=== PATIENT | female | born 1990 | race Caucasian/White ===

== ENCOUNTER → 2018-08-12 09:39 | Outpatient (CLI) | payer OTHER, SELFPAY ==
[2018-08-12 10:41] LABS: Glucose 75GTT - Fasting 89 mg/dL (70-99)
[2018-08-12 10:55] LABS: Insulin 75GTT - Fasting 4.3 mU/L (2.6-37.6)
[2018-08-12 10:55] LABS: T3 Total - Triiodothyronine 0.85 ng/mL (0.6-1.81); Vitamin B12 879 pg/mL (211-911); Vitamin D,25 Hydroxy 15.9 ng/mL (29.95-100.01)
[2018-08-12 11:09] LABS: Glucose 75GTT - 30 minutes 97 mg/dL (100-160)
[2018-08-12 11:23] LABS: Insulin 75GTT - 30 MIN 36.4 mU/L (Not Estab.)
[2018-08-12 12:05] LABS: ALB/GLOB Ratio 1.2 RATIO (0.9-2.4); AST(SGOT) 19 U/L (15-37); Alanine Aminotransfer ALT/SGPT 28 U/L (13-56); Albumin, Serum 4.2 g/dL (3.2-5.0); Alkaline Phosphatase 48 U/L (45-117); Anion Gap 7 (5-15); BUN 11 mg/dL (7-18); BUN/Creat Ratio 16.9 RATIO (10-20); Chloride 107 mmol/L (98-107); Creatinine, Serum 0.65 mg/dL (0.55-1.02); EST Glomerular Filtration Rate 116 mL/min (>60); Est Glom Filt Rate - Afr Amer 140 mL/min (>60); Follicle Stimulating Hormone 7.1 mIU/mL; Globulin 3.5 g/dL (2.2-4.2); Glucose 84 mg/dL (74-106); Potassium 4.1 mmol/L (3.5-5.1); Prolactin 15.9 ng/mL; Protein, Total 7.7 g/dL (6.4-8.2); Sodium Level 141 mmol/L (136-145); T4 Free Direct 0.87 ng/dL (0.76-1.46); Thyroid Stim Hormone (TSH) 3.16 uIU/mL (0.358-3.74)
[2018-08-12 12:34] LABS: Glucose 75GTT - 60 minutes 76 mg/dL (100-160)
[2018-08-12 13:48] LABS: Glucose 75GTT - 120 minutes 63 mg/dL (70-140)
[2018-08-12 14:27] LABS: Insulin 75GTT - 120 min 12.4 mU/L (Not Estab.)
[2018-08-13 04:08] LABS: DHEA Sulfate 165.7 ug/dL (84.8-378.0)
[2018-08-13 09:27] LABS: Sex Hormone-binding Globulin 62.7 nmol/L (24.6-122.0)
== END ==
PROVIDERS: Referring Provider Obstetrics & Gynecology; Visit Provider Obstetrics & Gynecology
DX: R73.09 Other abnormal glucose (principal); E28.8 Other ovarian dysfunction; E28.9 Ovarian dysfunction, unspecified; N94.5 Secondary dysmenorrhea
CPT/HCPCS: 36415; 80053; 82306; 82533; 82607; 82627; 82670; 82951; 82952; 83001; 83498; 83525; 83921; 84146; 84270; 84403; 84439; 84443; 84480; 82626

== ENCOUNTER → 2019-02-28 14:07 | Outpatient (CLI) | payer OTHER, SELFPAY ==
[2019-02-28 15:46] LABS: Thyroid Stim Hormone (TSH) 2.05 uIU/mL (0.358-3.74)
== END ==
PROVIDERS: Referring Provider Obstetrics & Gynecology Reproductive Endocrinology; Visit Provider Obstetrics & Gynecology Reproductive Endocrinology
DX: E02 Subclinical iodine-deficiency hypothyroidism (principal)
CPT/HCPCS: 36415; 84443

== ENCOUNTER → 2019-03-14 14:03 | Outpatient (CLI) | payer OTHER, SELFPAY ==
[2019-03-14 15:51] LABS: Rubella IgG 44.1 IU/mL
[2019-03-20 11:41] LABS: Anti-Mullerian Hormone,Serum 2.15 ng/mL (.); V-Zoster IgG (Immunity) 857 index (Immune >165)
== END ==
PROVIDERS: Referring Provider Obstetrics & Gynecology Reproductive Endocrinology; Visit Provider Obstetrics & Gynecology Reproductive Endocrinology
DX: Z31.41 Encounter for fertility testing (principal); Z01.83 Encounter for blood typing; Z11.59 Encounter for screening for other viral diseases
CPT/HCPCS: 36415; 83516; 86762; 86787; 86900; 86901

== ENCOUNTER → 2019-09-05 11:15 | Outpatient (CLI) | payer OTHER, SELFPAY ==
[2019-09-05 11:59] LABS: T4 Free Direct 1.07 ng/dL (0.76-1.46); Thyroid Stim Hormone (TSH) 1.98 uIU/mL (0.358-3.74)
== END ==
PROVIDERS: Referring Provider Obstetrics & Gynecology Reproductive Endocrinology; Visit Provider Obstetrics & Gynecology Reproductive Endocrinology
DX: E02 Subclinical iodine-deficiency hypothyroidism (principal)
CPT/HCPCS: 36415; 84439; 84443

== ENCOUNTER → 2019-12-08 10:06 | Outpatient (CLI) | payer OTHER, SELFPAY ==
[2019-12-08 10:33] LABS: Absolute Lymphocyte Count 1.71 X10^3/uL (0.83-4.51); Absolute Neutrophil Count 2.2 X10^3/uL (2.0-7.7); Basophil# 0.02 X10^3/uL; Basophil% 0.5 % (0-1); Eosinophils% 2.3 % (0-5); Hematocrit 41.6 % (37-47); Hemoglobin 13.2 g/dL (12.0-15.0); Lymphocyte # 1.71 X10^3/ul (4.0); Lymphocyte % 39.1 % (19-41); Mean Corp Hgb Conc 31.7 g/dL (32-36); Mean Corpuscular Hgb 29.2 pg (27.0-32.0); Mean Platelet Vol. 10.9 fl (6.2-12.0); Monocyte# 0.32 X10^3/uL; Monocyte% 7.3 % (0-10); NRBC Flagged by Analyzer 0 % (0-5); Neutrophil # 2.22 X10^3/uL (2.7-7.7); Neutrophil % 50.8 % (47-70); Platelet Count 179 K/mm3 (150-450); RBC Distribution Width CV 12.4 % (11.6-14.6); RBC Distribution Width SD 41.5 fl (35.1-43.9); Red Blood Count 4.52 M/mm3 (4.2-5.4); White Blood Count 4.4 K/mm3 (4.4-11.0)
[2019-12-08 11:05] LABS: ALB/GLOB Ratio 1.1 RATIO (0.9-2.4); AST(SGOT) 15 U/L (15-37); Alanine Aminotransfer ALT/SGPT 21 U/L (13-56); Albumin, Serum 3.7 g/dL (3.2-5.0); Alkaline Phosphatase 46 U/L (45-117); Anion Gap 5 (5-15); BUN 8 mg/dL (7-18); BUN/Creat Ratio 13.7 RATIO (10-20); Calcium,Total 8.9 mg/dL (8.5-10.1); Chloride 107 mmol/L (98-107); Creatinine, Serum 0.58 mg/dL (0.55-1.02); EST Glomerular Filtration Rate 130 mL/min (>60); Est Glom Filt Rate - Afr Amer 157 mL/min (>60); Globulin 3.3 g/dL (2.2-4.2); Glucose 90 mg/dL (74-106); Potassium 3.8 mmol/L (3.5-5.1); Prolactin 21.9 ng/mL; Sodium Level 140 mmol/L (136-145)
[2019-12-13 18:17] LABS: Anti-Mullerian Hormone,Serum 2.11 ng/mL (.)
== END ==
DX: Z31.41 Encounter for fertility testing (principal)
CPT/HCPCS: 36415; 80053; 83516; 84146; 84403; 85025

== ENCOUNTER → 2019-12-27 08:51 | Outpatient (CLI) | payer OTHER, SELFPAY ==
[2019-12-27 09:43] LABS: hCG Titer Quant., Serum < 1 mIU/mL (1-3)
[2019-12-27 09:47] LABS: Estradiol 22.4 pg/mL; Follicle Stimulating Hormone 9.3 mIU/mL; Thyroid Stim Hormone (TSH) 3.09 uIU/mL (0.358-3.74)
== END ==
PROVIDERS: Referring Provider Obstetrics & Gynecology Reproductive Endocrinology; Visit Provider Obstetrics & Gynecology Reproductive Endocrinology
DX: E28.9 Ovarian dysfunction, unspecified (principal)
CPT/HCPCS: 36415; 82670; 83001; 83002; 84144; 84443; 84702

== ENCOUNTER → 2020-01-02 09:11 | Outpatient (CLI) | payer OTHER, SELFPAY ==
[2020-01-02 10:55] LABS: Estradiol 780.6 pg/mL; Luteinizing Hormone 4.5 mIU/mL
[2020-01-02 11:18] LABS: Progesterone Level < 0.21 ng/mL (See Comment)
== END ==
PROVIDERS: Referring Provider Obstetrics & Gynecology Reproductive Endocrinology; Visit Provider Obstetrics & Gynecology Reproductive Endocrinology
DX: E28.9 Ovarian dysfunction, unspecified (principal)
CPT/HCPCS: 36415; 82670; 83002; 84144

== ENCOUNTER → 2020-01-04 14:13 | Outpatient (CLI) | payer OTHER, SELFPAY ==
[2020-01-04 15:35] LABS: Estradiol 1308.9 pg/mL; Luteinizing Hormone 1.1 mIU/mL; Progesterone Level 0.24 ng/mL (See Comment)
== END ==
PROVIDERS: Referring Provider Obstetrics & Gynecology Reproductive Endocrinology; Visit Provider Obstetrics & Gynecology Reproductive Endocrinology
DX: E28.9 Ovarian dysfunction, unspecified (principal)
CPT/HCPCS: 36415; 82670; 83002; 84144

== ENCOUNTER → 2020-01-17 09:10 | Outpatient (CLI) | payer OTHER, SELFPAY ==
[2020-01-17 10:38] LABS: Estradiol 187.2 pg/mL; Progesterone Level 20.59 ng/mL (See Comment)
== END ==
PROVIDERS: Referring Provider Obstetrics & Gynecology Reproductive Endocrinology; Visit Provider Obstetrics & Gynecology Reproductive Endocrinology
DX: E28.9 Ovarian dysfunction, unspecified (principal)
CPT/HCPCS: 36415; 82670; 84144

== ENCOUNTER → 2020-01-22 09:18 | Outpatient (CLI) | payer OTHER, SELFPAY ==
[2020-01-22 09:49] LABS: hCG Titer Quant., Serum < 1 mIU/mL (1-3)
[2020-01-22 09:50] LABS: Progesterone Level 26.61 ng/mL (See Comment)
== END ==
PROVIDERS: Referring Provider Obstetrics & Gynecology Reproductive Endocrinology; Visit Provider Obstetrics & Gynecology Reproductive Endocrinology
DX: Z32.00 Encounter for pregnancy test, result unknown (principal)
CPT/HCPCS: 36415; 84144; 84702

== ENCOUNTER → 2020-03-02 09:52 | Outpatient (CLI) | payer OTHER, SELFPAY ==
[2020-03-02 10:44] LABS: Absolute Lymphocyte Count 1.63 X10^3/uL (0.83-4.51); Absolute Neutrophil Count 1.5 X10^3/uL (2.0-7.7); Basophil# 0.02 X10^3/uL; Basophil% 0.6 % (0-1); Eosinophil# 0.13 X10^3/uL; Eosinophils% 3.6 % (0-5); Hematocrit 41.2 % (37-47); Hemoglobin 13.4 g/dL (12.0-15.0); Lymphocyte # 1.63 X10^3/ul (4.0); Lymphocyte % 45.3 % (19-41); Mean Corp Hgb Conc 32.5 g/dL (32-36); Mean Corpuscular Hgb 29.4 pg (27.0-32.0); Mean Corpuscular Volume 90.4 fL (81-99); Mean Platelet Vol. 11.1 fl (6.2-12.0); Monocyte# 0.28 X10^3/uL; Monocyte% 7.8 % (0-10); NRBC Flagged by Analyzer 0 % (0-5); Neutrophil # 1.53 X10^3/uL (2.7-7.7); Neutrophil % 42.4 % (47-70); Platelet Count 207 K/mm3 (150-450); RBC Distribution Width CV 12.2 % (11.6-14.6); RBC Distribution Width SD 40.4 fl (35.1-43.9); Red Blood Count 4.56 M/mm3 (4.2-5.4); White Blood Count 3.6 K/mm3 (4.4-11.0)
[2020-03-02 11:02] LABS: Follicle Stimulating Hormone 8.8 mIU/mL; Luteinizing Hormone 7.1 mIU/mL
[2020-03-04 08:17] LABS: Vitamin D,25 Hydroxy 32.4 ng/mL
[2020-03-09 16:22] LABS: Anti-Thyroglobulin AB 12.8 IU/mL (0.0-0.9); Thyroglobulin RIA 16 ng/mL (.); Thyroid Peroxidase AB 13 IU/mL (0-34)
== END ==
PROVIDERS: Referring Provider Specialist; Visit Provider Specialist
DX: E34.8 Other specified endocrine disorders (principal); N94.4 Primary dysmenorrhea
CPT/HCPCS: 36415; 82306; 83001; 83002; 84432; 85025; 86376; 86800

== ENCOUNTER → 2020-03-21 11:18 | Outpatient (CLI) | payer OTHER, SELFPAY ==
[2020-03-21 13:31] LABS: Progesterone Level 14.83 ng/mL (See Comment)
[2020-03-21 13:49] LABS: ALB/GLOB Ratio 1.1 RATIO (0.9-2.4); AST(SGOT) 15 U/L (15-37); Alanine Aminotransfer ALT/SGPT 30 U/L (13-56); Albumin, Serum 3.9 g/dL (3.2-5.0); Alkaline Phosphatase 53 U/L (45-117); Anion Gap 6 (5-15); BUN 11 mg/dL (7-18); BUN/Creat Ratio 16.1 RATIO (10-20); Calcium,Total 9.3 mg/dL (8.5-10.1); Chloride 107 mmol/L (98-107); Creatinine, Serum 0.68 mg/dL (0.55-1.02); EST Glomerular Filtration Rate 108 mL/min (>60); Est Glom Filt Rate - Afr Amer 131 mL/min (>60); Estradiol 183.5 pg/mL; Globulin 3.5 g/dL (2.2-4.2); Glucose 79 mg/dL (74-106); Potassium 3.5 mmol/L (3.5-5.1); Prolactin 18.3 ng/mL; Protein, Total 7.4 g/dL (6.4-8.2); Sodium Level 139 mmol/L (136-145); T4 Free Direct 0.96 ng/dL (0.76-1.46); Thyroid Stim Hormone (TSH) 0.84 uIU/mL (0.358-3.74)
[2020-03-29 12:08] LABS: Testosterone, % Free 1.81 % (0.50-2.80); Testosterone, Free 0.34 ng/dL (0.10-0.85); Testosterone, Total 19 ng/dL (8-48)
[2020-03-29 13:52] LABS: Androstenedione 113 ng/dL (41-262)
== END ==
PROVIDERS: Referring Provider Specialist; Visit Provider Specialist
DX: E03.9 Hypothyroidism, unspecified (principal)
CPT/HCPCS: 36415; 80053; 81291; 82157; 82627; 82670; 84144; 84146; 84402; 84403; 84439; 84443; 84481; 82626

== ENCOUNTER 2020-05-02 11:19 | Outpatient (RCR) | payer OTHER, SELFPAY | END 2020-05-20 23:59 | LOC: EMPH 11:19 | PROVIDERS: Referring Provider Family Medicine Geriatric Medicine; Visit Provider Family Medicine Geriatric Medicine | DX: Z03.818 Encounter for observation for suspected exposure to other biological agents ruled out (principal) | CPT/HCPCS: 87426 ==

== ENCOUNTER 2020-05-09 10:52 | Day surgery (SDC) | payer OTHER, SELFPAY ==
[2020-05-02 10:31] LABS: Hematocrit 41.9 % (37-47); Hemoglobin 13.6 g/dL (12.0-15.0); Mean Corp Hgb Conc 32.5 g/dL (32-36); Mean Corpuscular Hgb 29.4 pg (27.0-32.0); Mean Corpuscular Volume 90.5 fL (81-99); Mean Platelet Vol. 11.2 fl (6.2-12.0); Platelet Count 232 K/mm3 (150-450); RBC Distribution Width CV 11.9 % (11.6-14.6); RBC Distribution Width SD 39.6 fl (35.1-43.9); Red Blood Count 4.63 M/mm3 (4.2-5.4); White Blood Count 3.8 K/mm3 (4.4-11.0)
[2020-05-02 10:41] LABS: Partial Thromboplast Time 29.3 Seconds (24.1-36.2); Prothrombin Time (Protime)PT. 13.1 SECONDS (11.7-14.9)
[2020-05-02 11:27] LABS: Free T3 3.3 pg/mL (2.18-3.98); T4 Free Direct 1.18 ng/dL (0.76-1.46); Thyroid Stim Hormone (TSH) 0.09 uIU/mL (0.358-3.74)
[2020-05-09] VITALS (7 sets, daily range): BP systolic 90–115; BP diastolic 53–64; PULSE 69–90; RESP 14–16; TEMP 36.4–37.2; O2SAT 98–100; BMI 21.4
--- NOTE | 2020-05-09 07:41 | PCM.HPOB.BLA ---
- Problem List (1) Dysmenorrhea Status: Acute History and Physical Date of Admission: 05/09/20 Surgical History and Physical Date: 05/02/2020 Name: TAMIKA MARCOS Age: 30 Date of : 1990 Tamika Marcos, a 30 year old female 0 0 0 0 0, presents for Hysteroscopy, dilation and curettage, Diagnostic laparoscopy, surgical treatment of endometriosis as indicated on May 09, 2020 at 12:15. -- Tamika presents for pre-op for diagnostic laparoscopy, surgical treatment of endometriosis as indicated and hysteroscopy, dilation and curettage, Symphion polypectomy. She has a hx symptomatic uterine polyps, as well as dysmenorrhea associated with infertility. [facility] MEDICATIONS HISTORY: Patient is also takin. Synthroid 50 mcg tablet, 1 tab PO daily on Wed thru Wednesday 2. aspirin 81 mg chewable tablet, 1 tab po daily 3. B12 Active 1,000 mcg tablet,chewable, 1 tab po daily 4. Synthroid 75 mcg tablet, 1 tab po on Sat and Sun 5. Vitamin D3 50 mcg (2,000 unit) capsule, 1 tab po daily ALLERGIES: Penicillins, Hives and/or rash Infections - Chicken pox and unsure on HPV vaccine Illnesses - Autoimmune hypothyroidism Accidents - None Hospitalizations - None Review of Systems: GENERAL - Denies fever, or chills SKIN - Denies skin changes EYES - Denies visual changes EARS - Denies difficulty hearing NOSE - Denies nasal congestion or bleeding MOUTH - Denies sore throat or difficulty swallowing NECK - Denies pain or swelling RESPIRATORY - Denies shortness of breath or wheezing CARDIOVASCULAR - Denies palpitations or chest pain GASTROINTESTINAL - Denies nausea, vomiting, diarrhea, constipation GENITOURINARY - Denies dysuria, frequency of urination, incontinence of urine MUSCULOSKELETAL - Denies joint or muscle pain NEUROLOGICAL - Denies localized numbness or weakness PSYCHIATRIC - Denies depression or anxiety ENDOCRINE - Denies heat or cold intolerance, weight loss or gain HEMATO-IMMUNOLOGIC - Denies excesive bleeding with cuts SOCIAL HISTORY: Alcohol Use - RARELY Smoking - denies smoking Diet - balanced Diet Lifestyle - Exercise - regular Seat Belt Use - always Employer - [employer], [employer] 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 Watson Teeth Removal ; - 2. bilateral lasik surgery ; - PHYSICAL EXAM BP- 96/78 Sitting, Right arm, regular cuff Weight- 134.75276 lbs Height- 66.50 inch BMI:21.38 CONSTITUTIONAL - NAD, well nourished, and well developed SKIN - No rash, lesions, or ulcers HEENT - normocephalic, atraumatic, sclerae anicteric CV - RRR, no m/r/g/ LUNGS - normal respiratory rate and rhythm ABDOMEN - soft, nontender, nondistended, no hepatosplenomegaly, no distension NEUROLOGICAL - normal gait, normal balance, normal motor PSYCHIATRIC - A and O to time, place, person, mood and affect External Genitial Vagina - non-tender without lesions Urethra/Urethral Meatus - non-tender Bladder - non-tender Vagina - vaginal liu are pink and moist without loss of rugae and no evidence of atrophy Cervix - has normal size with polyp at external os, but not through it Uterus - 5-6cm in size, nontender Adnexa - no palpable masses or tenderness ASSESSMENT/PLAN: 1. Polyp Of Cervix Uteri, Dysmenorrhea, Unspecified and Plan for hysteroscopy, Dilation and curettage, polypectomy, laparoscopy with CARLITO as indicated Unable to remove total polyp in office previously Procedural r/b/i/a reviewed at length, also discussed potential fertility effects of procedures Pt understands that if advanced stage endometriosios I will advise follow up with advanced laparoscopist for further excision Discussed preoperative preparations, anticipated hospitalization as well as recovery D/C ASA today Pt given opportunity to ask questions and questions answered to her satisfaction
[2020-05-09 11:56] LABS: Internal QC Validated? YES +Cl - CLEAR BKGD; Pregnancy, Urine Negative Negative
[2020-05-09] MEDS: Lactated Ringers 1,000 ML 100 ML IV ×3 (11:56→18:30)
--- NOTE | 2020-05-09 12:25 | EMB_PTH ---
PATIENT: MARIAMA MARCOS [place] [facility] [id number] AGE/SX: 30/F ROOM: RE05/09/[address]: Dr. Precious Arndt MD : 1990 BED: DIS: 05/09/2020 SPEC #: [id number] RECD: 05/10/20 07:05 STATUS: MARIMAR YANETH #: [id number] GAGANDEEP: 05/09/20 12:[address]: Precious Mello DEPT: SURGICAL PATHOLOGY RECD BY: Jona Wynn ENTERED: 05/10/20 08:46 SP TYPE: ENDOM BX/C OT DR: Ailyn Primary Care Phys Tissues: A - Endometrium, NOS B - POLYP C - POLYP D - Peritoneum, NOS E - Peritoneum, NOS F - Peritoneum, NOS G - Peritoneum, NOS H - Peritoneum, NOS I - Peritoneum, NOS J - Peritoneum, NOS Procedures: Surgery Specimen Level IV HEADER OPERATION: Hysteroscopy, D & C, diagnostic laparoscopy PRE-OP DIAGNOSIS: Symptomatic uterine polyps; dysmenorrhea TISSUE SUBMITTED: A - Endometrial curettings, B - Endometrial polyp, C - Endocervical polyp, D - Posterior cul-de-sac peritoneum to rule out endometriosis, E - Left ureteral peritoneum, F - Anterior cul-de-sac peritoneum #1, G - Anterior cul-de-sac peritoneum #2, H - Right uterosacral peritoneum, I - Right ovarian fossa, J - Perirectal peritoneum MICROSCOPIC DIAGNOSIS A. Endometrium, curettings: Minimally disordered proliferative endometrium with recent stromal hemorrhage, focal B. Endometrial polyp, biopsy: Polypoid fragments of endometrium with minimal disorder and recent stromal hemorrhage, focal. C. Endocervical polyp, biopsy: Fragments of endometrium with proliferative change. D. Posterior culdesac peritoneum, biopsy: Consistent with endometriosis. E. Left ureteral peritoneum, biopsy: Consistent with endometriosis.. F. Anterior cul-de-sac peritoneum #1, biopsy: Mild fibrosis. G. Anterior cul-de-sac peritoneum #2, biopsy: Fibrosis and minimal chronic inflammation. H. Right uterosacral peritoneum, biopsy: Consistent with endometriosis. I. Right ovarian fossa, biopsy: Consistent with endometriosis. J. Perirectal peritoneum, biopsy: Consistent with endometriosis. AM:leah 05/13/20 MICROSCOPIC DESCRIPTION Slides are reviewed. GROSS DESCRIPTION A - Received in fixative is one container labeled with the patient's name and designated endometrial curettings. The specimen consists of multiple irregular fragments of light perez soft tissue that in aggregate measure 2 x 2 x 0.2 cm. The specimen is totally submitted in one cassette. B - Received in fixative is one container labeled with the patient's name and designated endometrial polyp. The specimen consists of multiple irregular fragments of light perez soft tissue that in aggregate measure 2 x 1 x 0.2 cm. The specimen is totally submitted in one cassette. C - Received in fixative is one container labeled with the patient's name and designated endocervical biopsy. The specimen consists of multiple irregular fragments of light perez soft tissue that in aggregate measure 1.5 x 1 x 0.1 cm. The specimen is totally submitted in one cassette. D - Received in fixative is one container labeled with the patient's name and designated posterior culdesac peritoneum. The specimen consists of one irregular fragment of dark perez soft tissue that measures 2 x 1 x 0.2 cm. The specimen is totally submitted in one cassette. E - Received in fixative is one container labeled with the patient's name and designated left ureteral peritoneum. The specimen consists of one irregular fragment of dark perez soft tissue that measures 1.5 x 0.7 x 0.2 cm. The specimen is totally submitted in one cassette. F - Received in fixative is one container labeled with the patient's name and designated anterior culdesac peritoneum #1. The specimen consists of one irregular fragment of light perez soft tissue that measures 1 x 0.2 x 01 cm. The specimen is totally submitted in one cassette. G - Received in fixative is one container labeled with the patient's name and designated anterior culdesac peritoneum #2. The specimen consists of one irregular fragment of light perez soft tissue that measures 1 x 1 x 0.2 cm. The specimen is totally submitted in one cassette. H - Received in fixative is one container labeled with the patient's name and designated right uterosacral peritoneum. The specimen consists of two irregular fragments of dark perez soft tissue that in aggregate measure 2 x 1 x 0.2 cm. The specimen is totally submitted in one cassette. I - Received in fixative is one container labeled with the patient's name and designated right ovarian fossa. The specimen consists of two irregular fragments of dark perez soft tissue that in aggregate measure 1 x 0.6 x 0.2 cm. The specimen is totally submitted in one cassette. J - Received in fixative is one container labeled with the patient's name and designated perirectal peritoneum. The specimen consists of one irregular fragment of dark perez soft tissue that measures 0.8 x 0.6 x 0.2 cm. The specimen is totally submitted in one cassette. / AM:leah 05/10/20 TC:3 CPT: 97060 x10
[2020-05-09] MEDS: Lidocaine 1% (20 ml mdv) 20 ML Vial (13:40)
[2020-05-09] MEDS: Bupivacaine Mpf 0.5% 30 ML VIAL (13:45)
--- NOTE | 2020-05-09 17:09 | PCM.OPRPT ---
Problem List (1) Dysmenorrhea Status: Acute (2) Endometriosis determined by laparoscopy Status: Acute (3) Endometrial polyp Status: Acute (4) Cervical polyp Status: Acute Report of Operation Date of Procedure: 05/09/20 Pre-Operative Diagnosis: 1. Dysmenorrhea. 2. Uterine polyp. 3. Infertility Post-Operative Diagnosis: 1. Secondary dysmenorrhea. 2. Endometriosis. 3. Endocervical polyp. 4. Endometrial polyp. 5. Infertility Surgery/Procedure Performed:: 1. Examination under anesthesia. 2. Hysteroscopy. 3. Dilation and curettage. 4. Endocervical and endometrial polypectomy. 5. Diagnostic laparoscopy. 6. Surgical treatment of endometriosis. 7. Peritoneal biopsies Description of Surgical Findings:: Clear vesicular endometriosis lesions along the anterior broad ligament abutting the anterior culdesac peritoneum Brown/white endometriotic lesions in the left ovarian fossa and along the left ureteral peritoneum at the uterosacral ligament. Brown/white endometriosis lesions along the wandy-rectal peritoneum and the right ovarian fossa, right uterosacral ligament. Posterior culdesac Song Masters lesion with yellow lesions concerning for endometriosis present. Dimpling of the uterosacral ligament junction. Right ovarian superficial endometriosis approximately 2mm. Normal appearing ovaries otherwise and normal tubes. Normal uterine shape. tire mounter: Polina Rogers Type of Anesthesia:: General, Local Anesthesiologist: Rakesh Schmidt Specimen's removed: 1. Endometrial curettings. 2. Endometrial polyp. 3. Endocervical polyp. 4. Posterior culdesac peritoneum endometriosis. 5. Left ureteral peritoneum. 6. Anterior culdesac peritioneum. 7. Anterior culdesac peritoneum. 8. Right ovarian yonathan peritoneum. 10. Wandy-rectal peritineum Estimated Blood Loss (mL): 25 Fluids Replaced: 1700 ml Description of Procedure: Indications: 30-year-old nulligravida with a history of dysmenorrhea, cervical polyps and infertility presents for diagnostic laparoscopy, treatment of endometriosis as indicated, hysteroscopy, dilation and curettage and polypectomy. Procedural risks, benefits, indications and alternatives were reviewed and patient desired to proceed as planned. Informed consent was obtained prior to procedure. Procedure: Patient was brought to the operating room and signed was performed. She is placed in the dorsal supine position and induced under general anesthesia and intubated. She was repositioned to dorsolithotomy and her arms were tucked at her sides. An examination under anesthesia was performed. The abdomen and perineum were prepped and draped in sterile fashion. Straight catheterization of the bladder was performed. A bivalve speculum was placed vaginally the cervix grasped the anterior cervical lip using a single-tooth tenaculum. A paracervical block was placed using a total of 20 cc of 1% lidocaine. Sounded to 8 cm. The cervix was subsequently dilated and hysteroscopy performed demonstrating an endocervical polyp as well as endometrial polyp. Tubal ostia were visualized bilaterally. There did appear to be some endometrial stipling along the fundus. Polypectomy was performed using polyp forceps to retrieve the endometrial polyp. This was followed by sharp curettage. Cervical polypectomy was performed. Hysteroscopy was done confirming retrieval of the polyps in their entirety. The scope was removed. The tenaculum was removed from the cervix and a uterine manipulator was placed and secured. The speculum was removed from the vagina. Patient was placed into low lithotomy and attention turned to the abdomen. An inferior umbilical incision was made using a scalpel and Veress needle placed with successful hanging drop test and no aspirate. The abdomen was insufflated to 15 mmHg. The Veress needle was removed and a 5 mm port was placed under laparoscopic guidance confirming entry into the abdominal cavity. Patient was placed into Trendelenburg. A suprapubic incision was made and a 5 mm port placed at the site. The abdomen and pelvis were inspected demonstrating numerous areas of endometriosis throughout the pelvis as well as superficial endometriosis of the left ovary. Bilateral tap blocks were placed under laparoscopic guidance using half percent Sensorcaine and incisions were made at each of the sites in the right and left lower quadrants respectively and 5 mm ports also placed. Attention was turned to the posterior cul-de-sac and peritoneal fluid suctioned. A large area of posterior cul-de-sac endometriosis was delineated using electrocoagulation with the L hook monopolar energy. Bleeding at the peritoneal edge was controlled using monopolar electrocoagulation. The peritoneum at the site was sharply and bluntly dissected and excised. In similar fashion the left uterosacral peritoneum abutting the left ureter ureter was also dissected and excised with care taken to observe the ureter before, during and following the dissection with ureteric peristalsis present. A Pritchard catheter was placed into the bladder by the BUSINESS SYSTEMS TECHNICIAN is a plan to excise anterior cul-de-sac endometriosis. In the anterior cul-de-sac abutting the left inferior broad ligament there were clear vesicular endometriotic lesions which also extended into the right anterior cul-de-sac. These areas were also excised using electrocoagulation to delineate wide margin and blunt and sharp dissection of the peritoneal tissue. The right ureter was again identified and right uterosacral peritoneum was excised using a cold sebastian and L-hook with monopolar energy and then bluntly and sharply dissected with associated ureterolysis. Ureteric peristalsis and integrity was also noted following this excision. Adjacent to this area there was right ovarian fossa brown-white endometriotic lesions in similar fashion this peritoneum was excised. There was a scarring defect at the junction of the uterosacral ligaments as well as brown-white endometriotic lesions anterior to the rectum and inferior to the junction of the uterosacral ligaments. The border of the scarring defect peritoneum was incised using monopolar L-hook and blunt dissection and the peritoneum excised. I performed a rectovaginal exam at this time under laparoscopy to further delineate the course of the rectum. The perirectal peritoneum was dissected from the perirectal alveolar tissue using blunt dissection with laparoscopic visualization of the rectum and excision of that peritoneum endometriosis was performed. A approximately 2 mm area of superficial endometriosis along the left ovary was electrocoagulated with monopolar energy. There was good hemostasis at the pelvis. Interceed was placed along the beds of excised peritoneum including the posterior of the sac, right ovarian fossa, anterior cul-de-sac and anterior left broad ligament peritoneum. The abdomen was desufflated. And trochars removed and the abdomen. The incisional sites were closed using 4-0 Monocryl by the BUSINESS SYSTEMS TECHNICIAN under my supervision. Steri-Strips and OpSite dressing were placed over the incisions. Additional half percent Sensorcaine was administered locally for additional analgesia. The ZUMI uterine manipulator and Pritchard catheters were removed. The patient was placed into dorsal supine position, awakened, extubated and transferred to the recovery room without complication. Sponge and needle counts were correct x2. - Complications None - Admit VTE Documentation VTE Present on Admission: No VTE Mechan Device Prophylaxis: SCD's VTE Pharm Prophylaxis ordered?: No
--- NOTE | 2020-05-09 17:49 | DCINST_ITS ---
Discharge Diet: No Restrictions Discharge Activity: Return to Normal Activity, May not drive while taking narcotic pain medications., May Shower, - - No tub bath for 2 weeks May resume sexual activity in: 4 weeks Lifting Restrictions: 10 lb Call your doctor if your incision/area has: Continuous Slow Oozing, Sudden Increased Bleeding, Increased Pain/ Swelling, Increased Redness Call your doctor if you observe: Fever of 101 or Higher, Inability to urinate, Inability to have a bowel movement, Using more than one pad per hour, Shortness of breath, Chest pain, Calf discomfort, Uncontrolled pain Suture Line Care: Avoid Pulling/Pushing Remove Dressing in (days):: 1 - after 24 hours Cleanse incision/area with: Soap & Water Additional Instructions: You may resume your home aspirin dosing in 1 week. You may also take Tylenol over the counter as needed with your prescription pain medication. multivitamins with folate including: Smarty Pants, New Chapter, Z[employer]ler's, or [employer] Allergies/Adverse Reactions: Allergies Penicillins [PCN] Allergy (Verified 05/09/20 11:34) Hives Medications to take at Discharge Cyanocobalamin [Vitamin B12] 1,000 mcg PO DAILY 04/30/20 Levothyroxine [Synthroid] 50 mcg PO MOTUWETHFR 04/30/20 Pnv No.95/Ferrous Fum/Folic AC [ Vitamin Tablet] 1 ea PO DAILY 04/30/20 Docusate Sodium [Colace] 100 mg PO BID PRN PRN #60 cap 05/09/20 Ibuprofen 600 mg PO TID PRN #30 tab 05/09/20 Oxycodone [Oxyir] 5 mg PO Q6H PRN PRN 5 Days #20 tab 05/09/20 The following prescriptions were given: Docusate Sodium [Colace] 100 mg PO BID PRN PRN #60 cap PRN Reason: Constipation Transmission Status: Received by [facility] Ibuprofen 600 mg PO TID PRN #30 tab PRN Reason: Pain Score 1-10 Transmission Status: Received by [facility] Oxycodone [Oxyir] 5 mg PO Q6H PRN PRN 5 Days #20 tab PRN Reason: severe pain Transmission Status: Received by [facility] Primary Care Physician: Care Physician,No Primary [Primary Care Provider] - Test Results: Test results from this visit will be discussed in further detail at your follow- up appointment, if applicable. Please Follow Up With: Precious Mello MD When: 1-2 weeks
== END 2020-05-09 20:26 | disposition home or self-care (01) ==
LOC: SDC 10:54 → AC 17:59
PROVIDERS: Anesthesiology; Referring Provider Obstetrics & Gynecology; Visit Provider Obstetrics & Gynecology
PROC: 0UDB8ZZ Extraction of Endometrium, Via Natural or Artificial Opening Endoscopic (ICD-10-PCS; CPT 58558; principal; 2020-05-09 12:10)
DX: N94.6 Dysmenorrhea, unspecified (principal); N80.9 Endometriosis, unspecified; N84.1 Polyp of cervix uteri; N84.0 Polyp of corpus uteri; E06.3 Autoimmune thyroiditis; Z79.82 Long term (current) use of aspirin; Z88.0 Allergy status to penicillin
CPT/HCPCS: 00952; 58558; 36415; 81025; 84439; 84443; 84481; 85027; 85610; 85730; 86850; 86900; 86901; 87426; 88305; C9803; J7120; J2405

== ENCOUNTER → 2020-07-03 14:55 | Outpatient (CLI) | payer OTHER, SELFPAY ==
[2020-05-09 11:36] VITALS: BMI 21.4
[2020-07-03 16:14] LABS: Free T3 2.6 pg/mL (2.18-3.98); T4 Free Direct 0.97 ng/dL (0.76-1.46); Thyroid Stim Hormone (TSH) 2.75 uIU/mL (0.358-3.74)
[2020-07-13 18:02] LABS: Anti-Thyroglobulin AB 254.4 IU/mL (0.0-0.9); Thyroglobulin RIA 22 ng/mL (.); Thyroid Peroxidase AB 47 IU/mL (0-34)
== END ==
PROVIDERS: Referring Provider Obstetrics & Gynecology; Visit Provider Obstetrics & Gynecology
DX: E03.8 Other specified hypothyroidism (principal)
CPT/HCPCS: 36415; 84432; 84439; 84443; 84481; 86376; 86800

== ENCOUNTER 2020-07-10 14:23 | Outpatient (RCR) | payer OTHER, SELFPAY ==
[2020-05-09 11:36] VITALS: BMI 21.4
== END 2020-07-21 23:59 ==
LOC: EMPH 14:23
PROVIDERS: Referring Provider Family Medicine Geriatric Medicine; Visit Provider Family Medicine Geriatric Medicine
DX: Z03.818 Encounter for observation for suspected exposure to other biological agents ruled out (principal)
CPT/HCPCS: 87426

== ENCOUNTER 2020-08-21 14:28 | Outpatient (RCR) | payer OTHER, SELFPAY ==
[2020-05-09 11:36] VITALS: BMI 21.4
== END 2020-09-18 23:59 ==
LOC: EMPH 14:28
PROVIDERS: Referring Provider Family Medicine Geriatric Medicine; Visit Provider Family Medicine Geriatric Medicine
DX: Z03.818 Encounter for observation for suspected exposure to other biological agents ruled out (principal)
CPT/HCPCS: 87426

== ENCOUNTER → 2020-10-10 09:23 | Outpatient (CLI) | payer OTHER, SELFPAY ==
[2020-05-09 11:36] VITALS: BMI 21.4
[2020-10-10 12:32] LABS: T3 Total - Triiodothyronine 1.04 ng/mL (0.6-1.81)
[2020-10-10 12:36] LABS: Follicle Stimulating Hormone 6.3 mIU/mL; Prolactin 18.4 ng/mL; T4 Free Direct 0.97 ng/dL (0.76-1.46); Thyroid Stim Hormone (TSH) 6.27 uIU/mL (0.358-3.74)
[2020-10-18 20:24] LABS: Estrogen, Total, Serum 206 pg/mL (.)
[2020-10-25 20:50] LABS: 17-Hydroxyprogesterone 43 ng/dL (.)
== END ==
PROVIDERS: Visit Provider Obstetrics & Gynecology
DX: N80.3 Endometriosis of pelvic peritoneum (principal); E28.8 Other ovarian dysfunction
CPT/HCPCS: 36415; 82533; 82627; 82672; 83001; 83498; 84146; 84270; 84403; 84439; 84443; 84480; 82626

== ENCOUNTER 2020-10-18 13:50 | Outpatient (RCR) | payer OTHER, SELFPAY ==
[2020-05-09 11:36] VITALS: BMI 21.4
== END 2020-10-18 23:59 ==
LOC: EMPH 13:50
PROVIDERS: Referring Provider Family Medicine Geriatric Medicine; Visit Provider Family Medicine Geriatric Medicine
DX: Z03.818 Encounter for observation for suspected exposure to other biological agents ruled out (principal)
CPT/HCPCS: 87426

== ENCOUNTER → 2020-11-04 13:32 | Outpatient (CLI) | payer OTHER, SELFPAY ==
[2020-05-09 11:36] VITALS: BMI 21.4
[2020-11-04 14:21] LABS: Estradiol 43.8 pg/mL; Follicle Stimulating Hormone 7.9 mIU/mL; Luteinizing Hormone 8.5 mIU/mL; Thyroid Stim Hormone (TSH) 3.82 uIU/mL (0.358-3.74)
[2020-11-04 14:33] LABS: hCG Titer Quant., Serum < 1 mIU/mL (1-3)
[2020-11-04 14:35] LABS: Progesterone Level 0.21 ng/mL (See Comment)
== END ==
PROVIDERS: Visit Provider Obstetrics & Gynecology Reproductive Endocrinology
DX: E28.9 Ovarian dysfunction, unspecified (principal)
CPT/HCPCS: 36415; 82670; 83001; 83002; 84144; 84443; 84702

== ENCOUNTER → 2020-11-08 11:46 | Outpatient (CLI) | payer OTHER, SELFPAY ==
[2020-05-09 11:36] VITALS: BMI 21.4
[2020-11-08 12:50] LABS: Estradiol 146.1 pg/mL; Luteinizing Hormone 19.3 mIU/mL
[2020-11-12 10:08] LABS: Progesterone Level < 0.21 ng/mL (See Comment)
== END ==
PROVIDERS: Visit Provider Obstetrics & Gynecology Reproductive Endocrinology
DX: E28.9 Ovarian dysfunction, unspecified (principal); E55.9 Vitamin D deficiency, unspecified
CPT/HCPCS: 36415; 82306; 82670; 83002; 84144

== ENCOUNTER 2020-11-12 13:44 | Outpatient (RCR) | payer OTHER, SELFPAY ==
[2020-05-09 11:36] VITALS: BMI 21.4
== END 2020-11-18 23:59 ==
LOC: EMPH 13:44
PROVIDERS: Referring Provider Family Medicine Geriatric Medicine; Visit Provider Family Medicine Geriatric Medicine
DX: Z03.818 Encounter for observation for suspected exposure to other biological agents ruled out (principal)
CPT/HCPCS: 87426

== ENCOUNTER 2020-12-17 10:57 | Outpatient (RCR) | payer OTHER, SELFPAY ==
[2020-05-09 11:36] VITALS: BMI 21.4
== END 2020-12-18 23:59 ==
LOC: EMPH 10:57
PROVIDERS: Referring Provider Family Medicine Geriatric Medicine; Visit Provider Family Medicine Geriatric Medicine
DX: Z03.818 Encounter for observation for suspected exposure to other biological agents ruled out (principal)
CPT/HCPCS: 87426

== ENCOUNTER → 2021-01-09 11:56 | Outpatient (CLI) | payer OTHER, SELFPAY ==
[2020-05-09 11:36] VITALS: BMI 21.4
[2021-01-09 13:54] LABS: Estradiol 69.5 pg/mL
[2021-01-09 21:37] LABS: Progesterone Level 8.05 ng/mL (See Comment)
== END ==
PROVIDERS: Visit Provider Obstetrics & Gynecology
DX: N80.3 Endometriosis of pelvic peritoneum (principal); E28.8 Other ovarian dysfunction
CPT/HCPCS: 36415; 82670; 84144

== ENCOUNTER 2021-01-10 12:48 | Outpatient (RCR) | payer OTHER, SELFPAY ==
[2020-05-09 11:36] VITALS: BMI 21.4
== END 2021-01-18 23:59 ==
LOC: EMPH 12:48
PROVIDERS: Referring Provider Family Medicine Geriatric Medicine; Visit Provider Family Medicine Geriatric Medicine
DX: Z03.818 Encounter for observation for suspected exposure to other biological agents ruled out (principal)
CPT/HCPCS: 87426

== ENCOUNTER → 2021-01-11 10:56 | Outpatient (CLI) | payer OTHER, SELFPAY ==
[2020-05-09 11:36] VITALS: BMI 21.4
[2021-01-11 12:08] LABS: Estradiol 95.5 pg/mL
[2021-01-13 10:22] LABS: Progesterone Level 14.43 ng/mL (See Comment)
== END ==
PROVIDERS: Referring Provider Obstetrics & Gynecology; Visit Provider Obstetrics & Gynecology
DX: N80.3 Endometriosis of pelvic peritoneum (principal); E28.8 Other ovarian dysfunction
CPT/HCPCS: 36415; 82670; 84144

== ENCOUNTER → 2021-01-13 11:58 | Outpatient (CLI) | payer OTHER, SELFPAY ==
[2020-05-09 11:36] VITALS: BMI 21.4
[2021-01-13 15:08] LABS: Progesterone Level 11.47 ng/mL (See Comment); Vitamin D,25 Hydroxy 55.7 ng/mL
[2021-01-13 15:12] LABS: Estradiol 94.3 pg/mL; Free T3 2.6 pg/mL (2.18-3.98); Thyroid Stim Hormone (TSH) 2.33 uIU/mL (0.358-3.74)
[2021-01-15 14:09] LABS: Thyroid Peroxidase AB 40 IU/mL (0-34)
[2021-01-15 14:41] LABS: Thyroglobulin Antibody 69.2 IU/mL (0.0-0.9)
== END ==
PROVIDERS: Referring Provider Obstetrics & Gynecology; Visit Provider Obstetrics & Gynecology
DX: N80.3 Endometriosis of pelvic peritoneum (principal); E28.8 Other ovarian dysfunction; E03.8 Other specified hypothyroidism; E06.3 Autoimmune thyroiditis
CPT/HCPCS: 36415; 82306; 82670; 84144; 84439; 84443; 84481; 86376; 86800

== ENCOUNTER → 2021-01-15 14:37 | Outpatient (CLI) | payer OTHER, SELFPAY ==
[2020-05-09 11:36] VITALS: BMI 21.4
[2021-01-15 15:27] LABS: Progesterone Level 9.78 ng/mL (See Comment)
== END ==
PROVIDERS: Referring Provider Obstetrics & Gynecology; Visit Provider Obstetrics & Gynecology
DX: E28.8 Other ovarian dysfunction (principal); N80.3 Endometriosis of pelvic peritoneum
CPT/HCPCS: 36415; 82670; 84144

== ENCOUNTER → 2021-01-17 12:42 | Outpatient (CLI) | payer OTHER, SELFPAY ==
[2020-05-09 11:36] VITALS: BMI 21.4
[2021-01-17 13:59] LABS: Progesterone Level 6.41 ng/mL (See Comment)
[2021-01-17 14:00] LABS: Estradiol 85.8 pg/mL
== END ==
LOC: LAB.FUTURE 12:43 → LAB 12:45
PROVIDERS: Referring Provider Obstetrics & Gynecology; Visit Provider Obstetrics & Gynecology
DX: N80.3 Endometriosis of pelvic peritoneum (principal); E28.8 Other ovarian dysfunction
CPT/HCPCS: 36415; 82670; 84144

== ENCOUNTER 2021-02-18 15:37 | Outpatient (RCR) | payer OTHER, SELFPAY ==
[2020-05-09 11:36] VITALS: BMI 21.4
== END 2021-02-18 23:59 | disposition home or self-care (01) ==
LOC: EMPH 15:37
PROVIDERS: Referring Provider Family Medicine Geriatric Medicine; Visit Provider Family Medicine Geriatric Medicine
DX: Z03.818 Encounter for observation for suspected exposure to other biological agents ruled out (principal)
CPT/HCPCS: 87426

== ENCOUNTER → 2021-02-27 12:11 | Outpatient (CLI) | payer OTHER, SELFPAY | PROVIDERS: Visit Provider Obstetrics & Gynecology | DX: N71.9 Inflammatory disease of uterus, unspecified (principal) | CPT/HCPCS: 87070; 87075; 87205 ==

== ENCOUNTER 2021-03-07 10:33 | Outpatient (RCR) | payer OTHER, SELFPAY ==
[2021-02-19 00:22] VITALS: BMI 21.4
== END 2021-03-20 23:59 ==
LOC: EMPH 10:33
PROVIDERS: Referring Provider Family Medicine Geriatric Medicine; Visit Provider Family Medicine Geriatric Medicine
DX: Z03.818 Encounter for observation for suspected exposure to other biological agents ruled out (principal)
CPT/HCPCS: 87426; 87635; U0005; U0003

== ENCOUNTER → 2021-04-02 15:58 | Outpatient (CLI) | payer OTHER, SELFPAY ==
[2021-04-02 17:53] LABS: Prolactin 16.6 ng/mL
[2021-04-07 12:55] LABS: Free T3 3.2 pg/mL (2.18-3.98); T4 Free Direct 0.76 ng/dL (0.76-1.46); Thyroid Stim Hormone (TSH) 0.57 uIU/mL (0.358-3.74)
== END ==
PROVIDERS: Visit Provider Obstetrics & Gynecology
DX: E28.8 Other ovarian dysfunction (principal); E22.1 Hyperprolactinemia; E03.8 Other specified hypothyroidism
CPT/HCPCS: 36415; 82627; 84146; 84439; 84443; 84481; 82626

== ENCOUNTER 2021-04-04 07:21 | Outpatient (RCR) | payer OTHER, SELFPAY ==
[2021-03-21 00:17] VITALS: BMI 21.4
== END 2021-04-20 23:59 ==
LOC: EMPH 07:21
PROVIDERS: Referring Provider Family Medicine Geriatric Medicine; Visit Provider Family Medicine Geriatric Medicine
DX: Z03.818 Encounter for observation for suspected exposure to other biological agents ruled out (principal)
CPT/HCPCS: 87426

== ENCOUNTER 2021-05-16 10:50 | Outpatient (RCR) | payer OTHER, SELFPAY ==
[2021-04-21 00:13] VITALS: BMI 21.4
== END 2021-05-20 23:59 ==
LOC: EMPH 10:50
PROVIDERS: Referring Provider Family Medicine Geriatric Medicine; Visit Provider Family Medicine Geriatric Medicine
DX: Z03.818 Encounter for observation for suspected exposure to other biological agents ruled out (principal)
CPT/HCPCS: 87426

== ENCOUNTER 2021-05-23 15:21 | Outpatient (RCR) | payer OTHER, SELFPAY | END 2021-06-20 23:59 | LOC: LABSPEC 15:21 | PROVIDERS: Visit Provider Family Medicine Geriatric Medicine | DX: Z03.818 Encounter for observation for suspected exposure to other biological agents ruled out (principal) ==

== ENCOUNTER → 2021-06-05 15:58 | Outpatient (CLI) | payer OTHER, SELFPAY ==
[2021-06-05 16:45] LABS: T3 Total - Triiodothyronine 1.02 ng/mL (0.6-1.81)
[2021-06-05 16:50] LABS: Estradiol 65.8 pg/mL; Free T3 3.6 pg/mL (2.18-3.98); T4 Free Direct 0.91 ng/dL (0.76-1.46); Thyroid Stim Hormone (TSH) 0.25 uIU/mL (0.358-3.74)
[2021-06-09 20:11] LABS: T3 Reverse 12.7 ng/dL (9.2-24.1)
== END ==
PROVIDERS: Visit Provider Obstetrics & Gynecology
DX: E22.1 Hyperprolactinemia (principal); E28.8 Other ovarian dysfunction; E03.9 Hypothyroidism, unspecified
CPT/HCPCS: 36415; 82627; 82670; 84146; 84403; 84439; 84443; 84480; 84481; 84482; 82626

== ENCOUNTER 2021-06-19 14:02 | Outpatient (RCR) | payer OTHER, SELFPAY ==
[2021-05-21 00:18] VITALS: BMI 21.4
== END 2021-06-20 23:59 ==
LOC: EMPH 14:02
PROVIDERS: Referring Provider Family Medicine Geriatric Medicine; Visit Provider Family Medicine Geriatric Medicine
DX: Z03.818 Encounter for observation for suspected exposure to other biological agents ruled out (principal)
CPT/HCPCS: 87426; 87635; U0003; U0005

== ENCOUNTER 2021-06-23 12:01 | Outpatient (CLI) | payer OTHER, SELFPAY ==
[2021-06-23 13:02] LABS: Progesterone Level 3.99 ng/mL (See Comment)
[2021-06-23 14:41] LABS: Estradiol 45.2 pg/mL
== END 2021-06-23 23:59 | disposition home or self-care (01) ==
LOC: WOBLAB 12:02
PROVIDERS: Visit Provider Obstetrics & Gynecology
DX: E28.8 Other ovarian dysfunction (principal); N94.6 Dysmenorrhea, unspecified
CPT/HCPCS: 36415; 82670; 84144

== ENCOUNTER 2021-07-10 08:42 | Outpatient (RCR) | payer OTHER, SELFPAY ==
[2021-06-21 00:18] VITALS: BMI 21.4
== END 2021-07-21 23:59 ==
LOC: EMPH 08:42
PROVIDERS: Referring Provider Family Medicine Geriatric Medicine; Visit Provider Family Medicine Geriatric Medicine
DX: Z03.818 Encounter for observation for suspected exposure to other biological agents ruled out (principal)
CPT/HCPCS: 87426

== ENCOUNTER 2021-08-18 08:10 | Outpatient (RCR) | payer OTHER, SELFPAY ==
[2021-07-22 00:22] VITALS: BMI 21.4
== END 2021-08-18 23:59 | disposition home or self-care (01) ==
LOC: EMPH 08:10
PROVIDERS: Referring Provider Family Medicine Geriatric Medicine; Visit Provider Family Medicine Geriatric Medicine
DX: Z03.818 Encounter for observation for suspected exposure to other biological agents ruled out (principal)
CPT/HCPCS: 87426

== ENCOUNTER 2021-08-18 15:25 | Outpatient (CLI) | payer OTHER, SELFPAY ==
[2021-08-20 13:23] LABS: CMV Acute Antibody IgM < 30.0 AU/mL (0.0-29.9)
== END 2021-08-18 23:59 | disposition home or self-care (01) ==
LOC: WOBLAB 15:25
PROVIDERS: Visit Provider Obstetrics & Gynecology
DX: E28.8 Other ovarian dysfunction (principal); N80.3 Endometriosis of pelvic peritoneum; N94.6 Dysmenorrhea, unspecified
CPT/HCPCS: 36415; 86644; 86645

== ENCOUNTER 2021-08-29 08:38 | Outpatient (RCR) | payer SELFPAY | END 2021-08-29 23:59 | disposition home or self-care (01) | LOC: EMPH 08:38 | PROVIDERS: Visit Provider Family Medicine Geriatric Medicine | DX: Z00.00 Encounter for general adult medical examination without abnormal findings (principal) ==

== ENCOUNTER 2021-09-10 12:27 | Outpatient (CLI) | payer OTHER, SELFPAY ==
[2021-09-10 14:48] LABS: Free T3 4.3 pg/mL (2.18-3.98); T4 Free Direct 0.98 ng/dL (0.76-1.46); Thyroid Stim Hormone (TSH) 0.63 uIU/mL (0.358-3.74)
== END 2021-09-10 23:59 | disposition home or self-care (01) ==
LOC: WOBLAB 12:28
PROVIDERS: Visit Provider Obstetrics & Gynecology
DX: E03.8 Other specified hypothyroidism (principal)
CPT/HCPCS: 36415; 84439; 84443; 84481

== ENCOUNTER → 2021-10-24 | Outpatient (CLI) | payer OTHER, SELFPAY ==
--- NOTE | 2021-10-24 08:32 | US_ITS ---
STUDY: SUPERFICIAL ULTRASOUND - ENLARGED LYMPH NODES IN THE RIGHT GROIN. REASON FOR EXAM: Female, 31 years old. LOCALIZED ENLARGED LYMPH NODES -- RT GROIN -AREA OF PALP LUMP TECHNIQUE: A superficial ultrasound was performed with real-time and static schultz-scale imaging. COMPARISON: None. FINDINGS: 3 benign-appearing lymph nodes are seen in the right groin. The largest measures 1.5 cm x 2.2 cm x 0.5 cm. One benign appearing lymph node is also seen in the left groin. This measures 1.9 cm x 1.2 cm x 0.4 cm. US/Ext Non Vasc Limited/Soft Tiss IMPRESSION: Benign appearing lymph nodes are seen in both groins more prominent on the right side. Electronically Signed: Preet David MD at 14:15 EDT ,
== END | disposition home or self-care (01) ==
LOC: US 08:17
PROVIDERS: Referring Provider Obstetrics & Gynecology; Visit Provider Obstetrics & Gynecology
DX: R59.0 Localized enlarged lymph nodes (principal)
CPT/HCPCS: 76882

== ENCOUNTER → 2021-10-30 | Outpatient (CLI) | payer OTHER, SELFPAY ==
[2021-10-30 15:58] LABS: Hematocrit 46.3 % (37-47); Hemoglobin 15.2 g/dL (12.0-15.0); Mean Corp Hgb Conc 32.8 g/dL (32-36); Mean Corpuscular Hgb 29.1 pg (27.0-32.0); Mean Corpuscular Volume 88.5 fL (81-99); Mean Platelet Vol. 13.3 fl (6.2-12.0); Platelet Count 178 K/mm3 (150-450); RBC Distribution Width CV 12.3 % (11.6-14.6); RBC Distribution Width SD 40.2 fl (35.1-43.9); Red Blood Count 5.23 M/mm3 (4.2-5.4); White Blood Count 4.5 K/mm3 (4.4-11.0)
[2021-10-30 17:09] LABS: ALB/GLOB Ratio 1.2 RATIO (0.9-2.4); AST(SGOT) 15 U/L (15-37); Alanine Aminotransfer ALT/SGPT 34 U/L (13-56); Albumin, Serum 4.3 g/dL (3.2-5.0); Alkaline Phosphatase 52 U/L (45-117); Anion Gap 5 (5-15); BUN 16 mg/dL (7-18); BUN/Creat Ratio 26.5 RATIO (10-20); Calcium,Total 9.2 mg/dL (8.5-10.1); Chloride 104 mmol/L (98-107); EST Glomerular Filtration Rate 124 mL/min (>60); Est Glom Filt Rate - Afr Amer 150 mL/min (>60); Globulin 3.5 g/dL (2.2-4.2); Glucose 101 mg/dL (74-106); Potassium 3.6 mmol/L (3.5-5.1); Prolactin 7.1 ng/mL; Protein, Total 7.8 g/dL (6.4-8.2); Sodium Level 137 mmol/L (136-145)
[2021-10-30 17:13] LABS: Chlamydia Trachomatis by PCR Negative (Negative); Neisserai gonorrhoeae by PCR Negative (Negative); Probe Check PASS; Sample Adequacy Control PASS; Specimen Processing Control PASS
[2021-10-31 08:43] LABS: HIV - WCH Non-Reactive (Nonreactive); Hepatitis B Surface Antigen Non-Reactive (Nonreactive); Hepatitis C Antibody Non-Reactive (Nonreactive); Rubella IgG Reactive (Nonreactive); Syphilis Antibodies Non-reactive
[2021-10-31 18:34] LABS: T4 Free Direct 0.97 ng/dL (0.76-1.46)
[2021-10-31 19:27] LABS: Thyroid Stim Hormone (TSH) 1.18 uIU/mL (0.358-3.74)
[2021-11-02 08:18] LABS: V-Zoster IgG (Immunity) 3434 index (Immune >165)
== END | disposition home or self-care (01) ==
LOC: LAB 13:17
DX: Z13.9 Encounter for screening, unspecified (principal); Z13.29 Encounter for screening for other suspected endocrine disorder; Z11.3 Encounter for screening for infections with a predominantly sexual mode of transmission; Z11.59 Encounter for screening for other viral diseases; Z01.84 Encounter for antibody response examination; Z01.83 Encounter for blood typing
CPT/HCPCS: 36415; 80053; 84146; 84439; 84443; 85027; 86703; 86762; 86780; 86787; 86803; 86850; 86900; 86901; 87340; 87491; 87591

== ENCOUNTER → 2022-02-11 | Outpatient (CLI) | payer OTHER, SELFPAY ==
[2022-02-11 11:03] LABS: Estradiol 11.8 pg/mL
[2022-02-11 13:50] LABS: Progesterone Level < 0.21 ng/mL (See Comment)
== END | disposition home or self-care (01) ==
DX: Z31.83 Encounter for assisted reproductive fertility procedure cycle (principal)
CPT/HCPCS: 36415; 82670; 84144

== ENCOUNTER → 2022-03-16 | Outpatient (CLI) | payer OTHER, SELFPAY ==
[2022-03-16 10:06] LABS: Progesterone Level 31.01 ng/mL (See Comment); hCG Titer Quant., Serum 271 mIU/mL (1-3)
== END | disposition home or self-care (01) ==
DX: Z32.00 Encounter for pregnancy test, result unknown (principal)
CPT/HCPCS: 36415; 84144; 84702

== ENCOUNTER → 2022-03-18 | Outpatient (CLI) | payer OTHER, SELFPAY ==
[2022-03-18 10:13] LABS: Progesterone Level 33.58 ng/mL (See Comment)
[2022-03-18 10:27] LABS: hCG Titer Quant., Serum 872 mIU/mL (1-3)
== END | disposition home or self-care (01) ==
DX: Z32.01 Encounter for pregnancy test, result positive (principal)
CPT/HCPCS: 36415; 84144; 84702

== ENCOUNTER → 2022-04-20 | Outpatient (CLI) | payer OTHER, SELFPAY ==
[2022-04-20 16:20] LABS: Absolute Lymphocyte Count 2.09 X10^3/uL (0.83-4.51); Absolute Neutrophil Count 5.4 X10^3/uL (2.0-7.7); Basophil# 0.02 X10^3/uL; Basophil% 0.2 % (0-1); Eosinophil# 0.07 X10^3/uL; Eosinophils% 0.9 % (0-5); Hemoglobin 14.9 g/dL (12.0-15.0); Lymphocyte # 2.09 X10^3/ul (0.83-4.51); Lymphocyte % 25.9 % (19-41); Mean Corp Hgb Conc 34.7 g/dL (32-36); Mean Corpuscular Hgb 29.8 pg (27.0-32.0); Mean Platelet Vol. 11.3 fl (6.2-12.0); Monocyte# 0.52 X10^3/uL; Monocyte% 6.4 % (0-10); NRBC Flagged by Analyzer 0 % (0-5); Neutrophil # 5.36 X10^3/uL (2.7-7.7); Neutrophil % 66.4 % (47-70); Platelet Count 253 K/mm3 (150-450); RBC Distribution Width SD 37.8 fl (35.1-43.9); White Blood Count 8.1 K/mm3 (4.4-11.0)
[2022-04-20 17:20] LABS: T4 Free Direct 1.22 ng/dL (0.76-1.46); Thyroid Stim Hormone (TSH) 1.34 uIU/mL (0.358-3.74)
[2022-04-21 08:50] LABS: HIV - WCH Non-Reactive (Nonreactive); Hepatitis B Surface Antigen Non-Reactive (Nonreactive); Hepatitis C Antibody Non-Reactive (Nonreactive); Rubella IgG Reactive (Nonreactive); Syphilis Antibodies Non-reactive
[2022-04-23 07:08] LABS: Chlamydia By Nucleic Acid AMP Negative (Negative)
[2022-04-23 15:56] LABS: V-Zoster IgG (Immunity) 2502 index (Immune >165)
[2022-04-23 16:07] LABS: Gonococcus By Nucleic Acid AMP Negative (Negative)
== END | disposition home or self-care (01) ==
LOC: WOBLAB 16:03
PROVIDERS: Visit Provider Obstetrics & Gynecology
DX: Z34.81 Encounter for supervision of other normal pregnancy, first trimester (principal); Z11.3 Encounter for screening for infections with a predominantly sexual mode of transmission
CPT/HCPCS: 36415; 84439; 84443; 85025; 86703; 86762; 86780; 86787; 86803; 87086; 87088; 87340; 87491; 87591

== ENCOUNTER → 2022-05-12 | Outpatient (CLI) | payer OTHER, SELFPAY ==
[2022-05-12 11:49] LABS: T4 Free Direct 1.08 ng/dL (0.76-1.46); Thyroid Stim Hormone (TSH) 1.79 uIU/mL (0.358-3.74)
== END | disposition home or self-care (01) ==
LOC: LAB 10:43
PROVIDERS: Referring Provider Student in an Organized Health Care Education/Training Program; Visit Provider Student in an Organized Health Care Education/Training Program
DX: E03.9 Hypothyroidism, unspecified (principal)
CPT/HCPCS: 36415; 84439; 84443

== ENCOUNTER → 2022-07-07 | Outpatient (CLI) | payer OTHER, SELFPAY ==
[2022-07-07 10:22] LABS: T4 Free Direct 0.59 ng/dL (0.76-1.46); Thyroid Stim Hormone (TSH) 0.01 uIU/mL (0.358-3.74)
== END | disposition home or self-care (01) ==
PROVIDERS: Visit Provider Student in an Organized Health Care Education/Training Program
DX: R94.6 Abnormal results of thyroid function studies (principal)
CPT/HCPCS: 36415; 84439; 84443

== ENCOUNTER → 2022-08-07 | Outpatient (CLI) | payer OTHER, SELFPAY ==
[2022-08-07 10:53] LABS: Absolute Lymphocyte Count 1.74 X10^3/uL (0.83-4.51); Absolute Neutrophil Count 9.3 X10^3/uL (2.0-7.7); Basophil# 0.04 X10^3/uL; Basophil% 0.3 % (0-1); Eosinophil# 0.16 X10^3/uL; Eosinophils% 1.3 % (0-5); Hematocrit 36.1 % (37-47); Hemoglobin 11.9 g/dL (12.0-15.0); Lymphocyte # 1.74 X10^3/ul (0.83-4.51); Lymphocyte % 13.9 % (19-41); Mean Corpuscular Hgb 29.5 pg (27.0-32.0); Mean Corpuscular Volume 89.4 fL (81-99); Mean Platelet Vol. 11.7 fl (6.2-12.0); Monocyte% 6.4 % (0-10); NRBC Flagged by Analyzer 0 % (0-5); Neutrophil # 9.28 X10^3/uL (2.7-7.7); Neutrophil % 74.1 % (47-70); Platelet Count 211 K/mm3 (150-450); RBC Distribution Width SD 42.5 fl (35.1-43.9); Red Blood Count 4.04 M/mm3 (4.2-5.4); White Blood Count 12.5 K/mm3 (4.4-11.0)
[2022-08-07 11:39] LABS: Glucose Challenge Gest 1H 50g 133 mg/dL (70-140); T4 Free Direct 0.37 ng/dL (0.76-1.46); Thyroid Stim Hormone (TSH) < 0.01 uIU/mL (0.358-3.74)
== END | disposition home or self-care (01) ==
LOC: WOBLAB 09:48
PROVIDERS: Visit Provider Student in an Organized Health Care Education/Training Program
DX: Z34.82 Encounter for supervision of other normal pregnancy, second trimester (principal); E03.9 Hypothyroidism, unspecified
CPT/HCPCS: 36415; 82950; 84439; 84443; 85025

== ENCOUNTER → 2022-09-08 | Outpatient (CLI) | payer OTHER, SELFPAY ==
[2022-09-08 11:27] LABS: T4 Free Direct 0.32 ng/dL (0.76-1.46); Thyroid Stim Hormone (TSH) < 0.01 uIU/mL (0.358-3.74)
== END | disposition home or self-care (01) ==
LOC: WOBLAB 10:39
PROVIDERS: Visit Provider Student in an Organized Health Care Education/Training Program
DX: E03.9 Hypothyroidism, unspecified (principal)
CPT/HCPCS: 36415; 84439; 84443

== ENCOUNTER → 2022-10-06 | Outpatient (CLI) | payer OTHER, SELFPAY ==
[2022-10-06 11:34] LABS: T4 Free Direct 0.67 ng/dL (0.76-1.46); Thyroid Stim Hormone (TSH) 3.74 uIU/mL (0.358-3.74)
== END | disposition home or self-care (01) ==
LOC: WOBLAB 10:38
PROVIDERS: Visit Provider Student in an Organized Health Care Education/Training Program
DX: E03.9 Hypothyroidism, unspecified (principal)
CPT/HCPCS: 36415; 84439; 84443

== ENCOUNTER → 2022-10-27 | Outpatient (CLI) | payer OTHER, SELFPAY ==
[2022-10-27 11:47] LABS: Hematocrit 40.9 % (37-47); Mean Corp Hgb Conc 31.8 g/dL (32-36); Mean Corpuscular Hgb 27.9 pg (27.0-32.0); Mean Corpuscular Volume 87.8 fL (81-99); Platelet Count 259 K/mm3 (150-450); RBC Distribution Width CV 14.2 % (11.6-14.6); RBC Distribution Width SD 45.1 fl (35.1-43.9); Red Blood Count 4.66 M/mm3 (4.2-5.4)
[2022-10-27 12:11] LABS: T4 Free Direct 0.79 ng/dL (0.76-1.46); Thyroid Stim Hormone (TSH) 3.93 uIU/mL (0.358-3.74)
[2022-10-27 12:18] LABS: Syphilis Antibodies Non-reactive
== END | disposition home or self-care (01) ==
PROVIDERS: Visit Provider Student in an Organized Health Care Education/Training Program
DX: Z34.03 Encounter for supervision of normal first pregnancy, third trimester (principal); E03.9 Hypothyroidism, unspecified
CPT/HCPCS: 36415; 84439; 84443; 85027; 86780; 87081

== ENCOUNTER → 2022-11-18 | Outpatient (CLI) | payer OTHER, SELFPAY ==
--- NOTE | 2022-11-18 14:55 | VDLE_ITS ---
Reason For Study: Right leg swelling RIGHT LEFT GSV is normal. CFV is compressible, spontaneous, phasic, CFV is compressible, spontaneous, phasic, competent, and demonstrates normal competent and demonstrates normal augmentation. augmentation. FV is compressible, spontaneous, phasic, competent and demonstrates normal augmentation. POP V is compressible, spontaneous, phasic, competent and demonstrates normal augmentation. T/P Trunk is compressible. PTV is compressible. RT PerV is compressible. Procedure This is a venous duplex using B-mode, color flow and spectral Doppler. Exam performed in department. A preliminary report was called and/or faxed to Dr. Miky Pressley. VL/Venous Duplex US, Unilateral Interpretation Summary There is no evidence of right lower extremity deep vein thrombosis. Right great saphenous vein appears patent and compressible segmentally. Normal flow patterns left common f emoral vein Ordering Physician: Jojo Pressley Performed By: Mary Bautista RVT
== END | disposition home or self-care (01) ==
LOC: CVS 14:54
PROVIDERS: Referring Provider Student in an Organized Health Care Education/Training Program; Visit Provider Student in an Organized Health Care Education/Training Program
DX: R22.41 Localized swelling, mass and lump, right lower limb (principal)
CPT/HCPCS: 93971

== ENCOUNTER 2022-11-23 04:50 | Inpatient (IN) | payer OTHER, SELFPAY ==
[2022-11-23] VITALS (18 sets, daily range): BP systolic 106–124; BP diastolic 57–85; PULSE 64–103; RESP 15–17; TEMP 36.2–36.7; O2SAT 94–99; BMI 29.5
[2022-11-23] MEDS: Lactated Ringers 1,000 ML 999 ML IV (05:25)
[2022-11-23 05:40] LABS: Absolute Lymphocyte Count 2.11 X10^3/uL (0.83-4.51); Absolute Neutrophil Count 9.9 X10^3/uL (2.0-7.7); Basophil# 0.04 X10^3/uL; Basophil% 0.3 % (0-1); Eosinophil# 0.19 X10^3/uL; Eosinophils% 1.4 % (0-5); Hematocrit 42.4 % (37-47); Hemoglobin 13.6 g/dL (12.0-15.0); Lymphocyte # 2.11 X10^3/ul (0.83-4.51); Lymphocyte % 15.8 % (19-41); Mean Corp Hgb Conc 32.1 g/dL (32-36); Mean Corpuscular Hgb 27.9 pg (27.0-32.0); Mean Corpuscular Volume 86.9 fL (81-99); Mean Platelet Vol. 11.6 fl (6.2-12.0); Monocyte# 0.93 X10^3/uL; NRBC Flagged by Analyzer 0 % (0-5); Neutrophil # 9.93 X10^3/uL (2.7-7.7); Neutrophil % 74.4 % (47-70); Platelet Count 183 K/mm3 (150-450); RBC Distribution Width CV 14.8 % (11.6-14.6); RBC Distribution Width SD 47.2 fl (35.1-43.9); Red Blood Count 4.88 M/mm3 (4.2-5.4); White Blood Count 13.4 K/mm3 (4.4-11.0)
[2022-11-23] MEDS: Acetaminophen 500 MG Tablet 1000 MG PO ×4 (05:44→23:30)
[2022-11-23] MEDS: Lactated Ringers 1,000 ML 150 ML IV (06:29)
--- NOTE | 2022-11-23 06:49 | HP.PCM.OB_ITS ---
History and Physical Date of Admission: 11/23/22 HPI: 32-year-old G1, P0 at 40/0 weeks, HERBER 11/23/2022 by IVF, admitted for primary elective section. Denies contractions, leaking of fluid, vaginal bleeding. Reports movement. Denies headache or vision changes, chest pain or shortness of breath, nausea or vomiting, diarrhea constipation, fevers or chills. 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 Hypothyroidism 2. Endometriosis Surgical history: 1. Endometriosis surgery, laparoscopy 2019 Medications: 1. Aspirin 81 mg 2. Vitamin D 3. Levothyroxine 50 mcg daily 4. vitamin Allergies: 1. Penicillin causes hives Family history: Denies family history of blood clots or bleeding disorders Social history: Denies tobacco, alcohol, drug use Review of system: Negative otherwise stated above Physical exam: Blood pressure 123/69, heart rate 86, respiratory rate 16, temp 98.1 ?F, oxygen saturation 97% on room air General: No acute distress HEENT: Normal cephalic/atraumatic, PERRLA Cardiorespiratory: No increased effort Abdomen: Soft, nontender, gravid Extremities: +1 pedal edema bilaterally Neurologic: Cranial nerves II through XII grossly intact, no focal deficits Musculoskeletal: Moves all extremities equally heart rate: 130/mod nicolette/+accel/no decel [place] [employer]: q5-6, patient not feeling Assessment/plan: 32-year-old G1, P0 at 40/0 weeks, HERBER 11/23/2022 by IVF, admitted for primary elective section. complicated by IVF with egg donor, hypothyroidism. ?For elective primary section. Gentamicin and clindamycin preoperatively due to allergy to penicillin. ? Consents to be signed as office consents did not get faxed over. All risk, benefits, alternatives were discussed with patient. Risk include but not limited to: Risk of bleeding to the point of transfusion, infection, injury to surrounding tissue including bowel/bladder potentially requiring prolonged Pritchard catheter use, VTE, ICU admission. Patient aware and consented. ?Hypothyroidism, continue Synthroid
[2022-11-23] MEDS: Sodium Citrate/Citric Acid 30 ML UDC PO (06:58)
[2022-11-23] MEDS: Clindamycin 900 MG/50 ML BAG 75 MG IV (07:37)
--- NOTE | 2022-11-23 08:08 | OP.PCM_ITS ---
Maternal Data Information Final HERBER: 11/23/22 Details Operative Information Date of Procedure: 11/23/22 Pre-Operative Diagnosis: Elective section Post-Operative Diagnosis: Elective section Indications Narrative: 32-year-old G1, P0 at 40/0 weeks, HERBER 11/23/2022 by IVF, admitted for primary elective section. All risk, benefits, alternatives discussed with the patient. Risk include but are not limited to: Risk of bleeding to the point of transfusion, infection, injury to surrounding tissue including bowel/bladder potentially requiring prolonged Pritchard catheter use, VTE, ICU admission. Patient aware and consented. Classification: Scheduled Procedure Type: low transverse Type of Anesthesia: Spinal Estimated Blood Loss: 800 cc Fluids Replaced: 750 cc Findings Description of Procedure: Procedure: Urine output: 200 cc clear urine patient taken to the operating room and spinal anesthesia placed. Patient placed in the supine position with a left lateral tilt. Prepped and draped in the usual sterile fashion. Pfannenstiel skin incision made with scalpel and carried down through subcutaneous tissue. Fascia nicked on either side of the midline and extended bluntly. Hemostats used to separate rectus muscles at midline superiorly, peritoneum entered bluntly. Bladder blade placed. Low transverse uterine incision made with scalpel and extended bluntly. Hand placed into the uterine cavity and head elevated to the level of the hysterotomy. Bladder blade removed. With the assistance of gentle fundal pressure head delivered followed by body. Nuchal cord x1, loose, reduced. Cord clamped and cut. Baby to nursing. Manual extraction of placenta. Uterus exteriorized and cleared of all clots. Bladder blade placed. Hysterotomy closed with running stitch followed by second horizontal imbricating suture. Uterus replaced into the abdominal cavity. Hysterotomy hemostatic with Farideh. Peritoneum closed with running stitch. Fascia closed with running stitch. Subcutaneous tissue irrigated. Farideh placed. Skin closed with a running subcuticular stitch. At the end of the procedure all needle, lap, spo nge counts were correct. Infant A Gender: Male (1 minute): 9 (5 minute): 9 Complications Complications: None
[2022-11-23] MEDS: Oxytocin 15 Units/NS 250ml 15 UNITS/250 ML IV.SOLN 83 UNITS IV (08:35)
[2022-11-23 08:41] LABS: Syphilis Antibodies Non-reactive
[2022-11-23] MEDS: Ketorolac 30 MG/ML Syringe IV ×3 (09:27→19:31)
[2022-11-23] MEDS: Ondansetron 4 MG/2 ML Vial IV (09:28)
[2022-11-23] MEDS: 0.9% Saline Lock 10 ML Syringe IV ×4 (09:28→19:31)
[2022-11-23] MEDS: Senna/Docusate Sodium 1 Tablet PO (11:06)
[2022-11-23] MEDS: Levothyroxine 50 MCG Tablet PO (11:06)
[2022-11-23] MEDS: Enoxaparin 40 MG/0.4 ML Syringe SC (19:31)
[2022-11-24] MEDS: Ketorolac 30 MG/ML Syringe IV (04:32)
[2022-11-24] MEDS: 0.9% Saline Lock 10 ML Syringe IV (04:33)
[2022-11-24] MEDS: Levothyroxine 50 MCG Tablet PO (04:44)
--- NOTE | 2022-11-24 04:54 | NURSING ---
New 12inch white mepilex dressing changed by RN per Dr. Kaye cramer. C section wound clean, dry, and intact.
[2022-11-24 04:55] LABS: Hematocrit 35.5 % (37-47); Hemoglobin 11.5 g/dL (12.0-15.0); Mean Corp Hgb Conc 32.4 g/dL (32-36); Mean Corpuscular Hgb 28.7 pg (27.0-32.0); Mean Corpuscular Volume 88.5 fL (81-99); Mean Platelet Vol. 11.5 fl (6.2-12.0); Platelet Count 198 K/mm3 (150-450); RBC Distribution Width CV 14.8 % (11.6-14.6); RBC Distribution Width SD 48.2 fl (35.1-43.9); Red Blood Count 4.01 M/mm3 (4.2-5.4); White Blood Count 11.5 K/mm3 (4.4-11.0)
[2022-11-24] MEDS: Acetaminophen 500 MG Tablet 1000 MG PO ×3 (07:22→19:25)
--- NOTE | 2022-11-24 08:36 | DCINST_ITS ---
Discharge Instructions Diet Discharge Diet: No restrictions Activity Discharge Activity: Return to Normal Activity, May Shower and - (No tub baths for 2 weeks) May resume sexual activity in: 6-8 weeks Lifting Restrictions: No lifting over 25 pounds for 2 to 3 weeks Dressing / Incision Call your doctor if your incision/area has: Continuous Slow Oozing and Foul Smelling Discharge Call your doctor if you observe: Fever of 101 or Higher, Shortness of breath and Chest pain Follow Up Care Please Follow Up With: Eusebio Pressley MD When: 2 weeks postoperatively Test Results: Test results from this visit will be discussed in further detail at your follow- up appointment, if applicable. Discharge Plan Admission Admit Date/Time: 11/23/22 04:50 Primary Reason for Your Visit: section Attending Provider: Jojo Pressley Primary Care Provider: Ailyn Smith Primary Discharge Orders/Prescriptions Prescriptions: New oxycodone 5 mg tablet 5 mg PO Q6H PRN (Reason: pain (scale score 7-10)) 4 Days Qty: 10 0RF Continued levothyroxine 50 MCG tablet 50 mcg PO DAILY PNV cmb#95-ferrous fumarate-FA 1 EACH tablet 1 ea PO DAILY cholecalciferol (vitamin D3) 125 mcg (5,000 unit) tablet 125 mcg PO DAILY Label Comments: TAKE 1 TABLET BY MOUTHsONCE DAILY Discontinued aspirin 81 mg Capsule 81 mg PO DAILY Referrals / Follow Up: Care PhysicianAilyn Primary [Primary Care Provider] - Disposition Disposition (needs filled in before D/C Order can be placed): Home, Self Care
--- NOTE | 2022-11-24 08:37 | PN.OBGYN_ITS ---
Subjective Subjective No overnight complaints Objective Data Objective Data Vital Signs: Vital Signs Temp Pulse Resp BP Pulse Ox O2 Del Method 97.3 F L 64 15 124/70 H 99 Room Air 11/23/22 23:50 11/23/22 23:50 11/23/22 23:50 11/23/22 23:50 11/23/22 23:50 11/23/22 23:50 Oxygen Delivery Method Room Air Weight: 183 lb 3.2 oz Body Mass Index (BMI) 29.5 Intake & Output: Intake and Output for Last 24 Hours 11/22/22 11/23/22 11/24/22 23:59 23:59 23:59 Intake Total 8 / 2048 Output Total 3550 / 3550 900 / 900 Balance -1502 / -1502 -900 / -900 Lab / Micro Data Result Diagrams: 11/24/22 04:40 Labs: Laboratory Results - last 24 hr 11/23/22 05:25: Syphilis Total Ab Non-reactive 11/24/22 04:40: WBC 11.5 H, RBC 4.01 L, Hgb 11.5 L, Hct 35.5 L, MCV 88.5, MCH 28.7, MCHC 32.4, RDW Std Deviation 48.2 H, RDW Coeff of Rhonda 14.8 H, Plt Count 198, MPV 11.5 Physical Exam Const alert, oriented x3, no apparent distress, average body habitus, healthy appearing and well nourished HEENT normocephalic and moist oral mucous membranes Eyes PERRL Neck full ROM Resp normal respiratory effort, no retractions and no use of accessory muscles GI GI Narrative: Soft, nontender, bandage now clean dry and intact Extremity normal to inspection Neuro moves all extremities and no focal motor deficits Psych mental status grossly normal, affect normal, speech normal and activity/motor behavior normal Assessment & Plan (1) delivery delivered: PLAN: Postop day 1 status post elective primary section. Breast- feeding. Pain well controlled. Ambulating, voiding spontaneously, tolerating regular diet. Okay to discharge home today if okay with shuffle board operator. Educated patient on postoperative expectations and incision care, discussed restrictions. Patient and partner state understanding
[2022-11-24] MEDS: Ibuprofen 600 MG Tablet PO ×3 (10:21→22:27)
[2022-11-24] MEDS: Senna/Docusate Sodium 1 Tablet PO (10:22)
[2022-11-24 20:35] VITALS: BP 127/73; PULSE 85; RESP 14; TEMP 37.1; O2SAT 99
[2022-11-24] MEDS: Enoxaparin 40 MG/0.4 ML Syringe SC (22:27)
[2022-11-25 01:30] VITALS: BP 113/52; PULSE 62; RESP 16; TEMP 36.5; O2SAT 99
[2022-11-25] MEDS: Acetaminophen 500 MG Tablet 1000 MG PO ×2 (01:31→07:28)
[2022-11-25] MEDS: Ibuprofen 600 MG Tablet PO ×2 (04:41→10:18)
[2022-11-25] MEDS: Levothyroxine 50 MCG Tablet PO (04:51)
--- NOTE | 2022-11-25 07:18 | PCM.DC.BLA ---
Discharge Summary Date of Admission: 11/23/22 Date of Discharge: 11/25/22 Summary: Patient arrived on 11/23/2022 for elective primary section performed on 11/23/2022. Subsequent routine postoperative recovery. Discharged home on 11/25/2022. Meaningful Use Info Meaningful Use Diagnoses (Choose all that apply): None applicable Discharge Plan Admission Admit Date/Time: 11/23/22 04:50 Primary Reason for Your Visit: section Attending Provider: Jojo Pressley Primary Care Provider: Care Physician,Ailyn Primary Instructions Additional Instructions / Restrictions: Regular diet. Okay to shower. No tub baths for 2 weeks. No intercourse for 4 to 6 weeks. Call if fevers, chills, chest pain, shortness of breath. Follow-up 2 weeks postoperatively Discharge Orders/Prescriptions Prescriptions: New oxycodone 5 mg tablet 5 mg PO Q6H PRN (Reason: pain (scale score 7-10)) 4 Days Qty: 10 0RF Continued levothyroxine 50 MCG tablet 50 mcg PO DAILY PNV cmb#95-ferrous fumarate-FA 1 EACH tablet 1 ea PO DAILY cholecalciferol (vitamin D3) 125 mcg (5,000 unit) tablet 125 mcg PO DAILY Label Comments: TAKE 1 TABLET BY MOUTHsONCE DAILY Discontinued aspirin 81 mg Capsule 81 mg PO DAILY Referrals / Follow Up: Care Physician,No Primary [Primary Care Provider] - Disposition Disposition (needs filled in before D/C Order can be placed): Home, Self Care
--- NOTE | 2022-11-25 07:20 | PN.OBGYN_ITS ---
Subjective Subjective No overnight complaints Objective Data Objective Data Vital Signs: Vital Signs Temp Pulse Resp BP Pulse Ox O2 Del Method 97.7 F L 62 16 113/52 L 99 Room Air 11/25/22 01:30 11/25/22 01:30 11/25/22 01:30 11/25/22 01:30 11/25/22 01:30 11/25/22 01:30 Oxygen Delivery Method Room Air Weight: 183 lb 3.2 oz Body Mass Index (BMI) 29.5 Intake & Output: Intake and Output for Last 24 Hours 11/23/22 11/24/22 11/25/22 23:59 23:59 23:59 Intake Total 2047 / 2047 Output Total 3550 / 3550 900 / 900 Balance -1502 / -1502 -900 / -900 Lab / Micro Data Result Diagrams: 11/24/22 04:40 Physical Exam Const alert, oriented x3, no apparent distress, average body habitus, healthy appearing and well nourished HEENT normocephalic and moist oral mucous membranes Eyes PERRL Neck full ROM Resp normal respiratory effort, no retractions and no use of accessory muscles GI GI Narrative: Soft, nontender, overall bandage clean dry and intact Extremity normal to inspection, full ROM and no clubbing, cyanosis or edema Neuro moves all extremities and no focal motor deficits Psych mental status grossly normal, affect normal, speech normal and activity/motor behavior normal Assessment & Plan (1) delivery delivered: PLAN: Postop day 2 status post elective primary section. Breast- feeding. Pain well controlled. Okay to discharge home today if okay with service now developer
[2022-11-25 08:09] VITALS: BP 120/63; PULSE 69; RESP 16; TEMP 36.6
[2022-11-25] MEDS: Senna/Docusate Sodium 1 Tablet PO (10:19)
== END 2022-11-25 12:44 | disposition home or self-care (01) | DRG 788 ==
PROVIDERS: Admitting Provider Student in an Organized Health Care Education/Training Program; Visit Provider Student in an Organized Health Care Education/Training Program
PROC: 10D00Z1 Extraction of Products of Conception, Low, Open Approach (ICD-10-PCS; CPT 59514; principal; 2022-11-23 06:55)
DX: O48.0 Post-term pregnancy (principal); E03.9 Hypothyroidism, unspecified; Z37.0 Single live birth; Z3A.40 40 weeks gestation of pregnancy; O69.81X0 Labor and delivery complicated by cord around neck, without compression, not applicable or unspecified; O99.284 Endocrine, nutritional and metabolic diseases complicating childbirth; Z79.82 Long term (current) use of aspirin
CPT/HCPCS: 59025; 59050; 85025; 85027; 86780; 86850; 86900; 86901; 99221; J7120; A4216; G0378; J2405

== ENCOUNTER 2022-12-17 14:58 | Emergency (ER) | payer OTHER, SELFPAY ==
[2022-12-17 14:59] VITALS: BP 139/90; PULSE 70; RESP 16; TEMP 36.6; O2SAT 99; BMI 24.8
--- NOTE | 2022-12-17 15:26 | EX.ED.DYSGE1 ---
HPI <NEERAJ Mackenzie - Last Filed: 12/17/22 16:17> History of Present Illness Chief Complaint: GI Bleed Narrative Narrative: Patient is a 32-year-old female with no significant ankle history who presents to the emergency department with 1.5 weeks of intermittent rectal bleeding. Patient did give via on November 23, 2022. Patient had no complications. Patient is still having intermittent bleeding and spotting however she did see her COACH TOUR DRIVER which states this is normal. Patient denies any abdominal pain, patient denies feeling weak, dizzy, short of breath. Patient states she continues to have blood in her stool and on the toilet paper and she is here today for evaluation. She does not have a PCP or a GI specialist. 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 Thyroid disorder Home Medications levothyroxine 50 mcg tablet 50 mcg PO DAILY hypothyroid 04/30/20 [History Last Taken 11/22/22] vit no.95-ferrous fumarate 28 mg-folic acid 800 mcg tablet 1 ea PO DAILY 04/30/20 [History Last Taken 11/22/22] cholecalciferol (vitamin D3) 125 mcg (5,000 unit) tablet 125 mcg PO DAILY supplement 11/23/22 [History Last Taken 11/22/22] oxycodone 5 mg tablet 5 mg PO Q6H PRN pain (scale score 7-10) 4 days #10 tabs 11/23/22 [Rx Last Taken Unknown] Allergy/AdvReac Type Severity Reaction Status Date / Time Penicillins [PCN] Allergy Hives Verified 12/17/22 14:59 Social History Smoking Status: Never smoker ROS <NEERAJ Mackenzie - Last Filed: 12/17/22 16:17> ROS ED ROS Narrative Constitutional: Negative for fever, chills, weight loss, weakness Eyes: Negative for vision loss, vision change, double vision ENT: Negative for any sore throat, ear pain, congestion Cardiovascular: Negative for any chest pain, tightness, palpitations Respiratory: Negative for any cough, sputum production, hemoptysis, dyspnea, dyspnea on exertion, orthopnea Gastrointestinal: Negative for any abdominal pain, nausea, vomiting, diarrhea, constipation, blood in vomit. Positive blood in stool : Negative for any urinary frequency, dysuria, retention, blood in urine. Positive for intermittent vaginal bleeding Muscle skeletal: Negative for any muscle joint pain, stiffness, myalgias, arthralgias, neck pain, back pain Neurological: Negative for any headache, syncope, numbness or tingling, dizziness Skin: Negative for any rashes, lumps, itching, abrasions, lacerations Psychiatric: Negative for any depression, anxiety, stress, suicidal ideation, homicidal ideation Hematologic: Negative for any easy bruising, excessive bruising, easy bleeding Allergies: Negative for any eczema, hives, rash EXAM <NEERAJ Mackenzie - Last Filed: 12/17/22 16:17> Physical Exam Narrative Exam Narrative: Vital signs reviewed. HEET: Head normocephalic atraumatic, TMs clear bilaterally. Posterior pharynx is clear, moist mucous membranes. Nares clear bilaterally. Neck: Supple with no lymphadenopathy or tenderness. No signs of meningismus, negative jolt sign. Cardiac: Regular rate and rhythm no murmurs gallops or rubs, equal peripheral pulses bilaterally. Respiratory: Lungs clear to auscultation bilaterally. No chest tenderness. Abdomen: Soft, nontender, nondistended. No abdominal bruit or pulsatile masses. No hepatosplenomegaly Extremities: No peripheral edema, no signs of gross trauma or deformity. Active full range of motion of all extremities. Neuro: Cranial nerves II through XII intact, no focal neurological deficits. Skin: Clean dry and intact with no rash, purpura, petechiae, vesicles or pustules. Backs/flank: No CVA tenderness, no midline spinal tenderness, no deformity. Psych: Normal mood and affect. No SI, HI or acute psychosis. Rectal: Rectal exam was completed with female nurse farmworker machine, nurse Calabrese, external inspection showed no gross cresencio blood. Patient had no obvious external or internal hemorrhoids. Patient had no masses, rectal vault was mostly empty. Patient tolerated well. Const Vital Signs: 12/17/22 14:59 Temperature 97.8 F Temperature Source Temporal Pulse Rate 70 Respiratory Rate 16 Blood Pressure 139/90 H Blood Pressure Mean 106 Pulse Ox 99 Oxygen Delivery Method Room Air Positive well nourished and well developed General Appearance ED: well developed <Dr. Papo Zendejas, DO - Last Filed: 12/17/22 17:07> Physical Exam Const Vital Signs: 12/17/22 14:59 Temperature 97.8 F Temperature Source Temporal Pulse Rate 70 Respiratory Rate 16 Blood Pressure 139/90 H Blood Pressure Mean 106 Pulse Ox 99 Oxygen Delivery Method Room Air MDM <Long Molina CRUISE AGENT-C - Last Filed: 12/17/22 16:17> [facility] Lab Data Labs: Laboratory Results - last 24 hr 12/17/22 15:17 WBC 5.4 RBC 5.38 Hgb 14.7 Hct 46.7 MCV 86.8 MCH 27.3 MCHC 31.5 L RDW Std Deviation 44.8 H RDW Coeff of Rhonda 14.0 Plt Count 255 MPV 10.4 Immature Gran % (Auto) 0.200 Neut % (Auto) 47.6 Lymph % (Auto) 40.5 Shelby % (Auto) 7.6 Eos % (Auto) 3.5 Baso % (Auto) 0.6 Absolute Neuts (auto) 2.6 Absolute Lymphs (auto) 2.20 Nucleated RBC % 0 Sodium 137 Potassium 4.1 Chloride 106 Carbon Dioxide 24.0 Anion Gap 7 BUN 21 H Creatinine 0.93 Estim Creat Clear Calc 82.05 Est GFR (MDRD) Af Amer 90 Est GFR (MDRD) Non-Af 74 BUN/Creatinine Ratio 22.5 H Glucose 90 Calcium 9.1 Treatment and Re-Evaluation :: Patient appears generally well, patient appears nontoxic, vital signs are stable. Patient presents to the emergency department for concern for rectal bleeding, blood in stool over the last 10 days. Patient did receive a basic laboratory work-up, patient's CBC showed a hemoglobin of 14.7, in November 24, 2022 after her son was born, she was 11.5. Patient's chemistries were unremarkable. Patient did have a rectal exam with a female nurse farmworker machine, this was grossly unremarkable, there is no gross bleeding. No obvious external hemorrhoids. Patient was positive for blood in her stool. I spoke with the patient at length regarding this, the patient will follow-up with the PCP as well as Dr. Bennett from gastroenterology for scope. She is happy with the plan of care, again she has no dizziness, pain, nausea or vomiting. She has no gross hemorrhaging. At this time, patient is stable for follow-up outpatient. All questions answered, return precautions given. <Dr. Papo Zendejas, DO - Last Filed: 12/17/22 17:07> [facility] Narrative Medical decision making narrative: I have personally performed a face to face assessment of the patient and have reviewed the DORINDA Note. I performed a substantive portion of the visit including all aspects of the following. My jasmine findings include: History: Patient presents with rectal bleeding that has been intermittent over the last 10 days. Patient states it is only when she has a bowel movement. Patient states she has some mild pain with bowel movements. Patient denies any abdominal pain. Patient denies any nausea or vomiting. Patient states she had a recent vaginal delivery and has also been having some vaginal bleeding. Patient states she followed with her COACH TOUR DRIVER for that and was told that that was normal. Patient denies any fevers or chills. Exam: Vital signs are stable. Patient is afebrile. Patient is in no acute distress. Oral mucosa is pink and moist. Neck is supple. Trachea is midline. There is no JVD. Heart was regular rate and rhythm. Lungs are clear and equal bilaterally. Abdomen is soft. Bowel sounds are normal. There is no tenderness. There is no guarding noted. Cranial nerves II through XII are intact. There are no focal motor or sensory deficits noted. Medical Decision Making: Differential diagnosis includes hemorrhoidal bleeding, anal fissure, lower gastrointestinal bleeding, and vaginal bleeding. CBC will be obtained to assess for anemia and leukocytosis. Basic metabolic profile will be obtained to assess for electrolyte abnormality and renal function. Stool for occult blood will be obtained to assess for gastrointestinal bleeding. CBC was reviewed. Hemoglobin was stable at 14.7 and hematocrit was 46.7. Basic metabolic profile was reviewed and was essentially within normal limits. Stool for occult blood was reviewed and was positive. Patient was advised that this is likely from either internal hemorrhoid or rectal fissure. Patient was instructed to use Anusol or Preparation H as needed. Patient was given referral for GI follow-up. Patient was instructed to follow-up with her primary care physician in 5 to 7 days. Patient understood and was agreeable with plan. All questions were answered. Lab Data Labs: Laboratory Results - last 24 hr 12/17/22 15:17 WBC 5.4 RBC 5.38 Hgb 14.7 Hct 46.7 MCV 86.8 MCH 27.3 MCHC 31.5 L RDW Std Deviation 44.8 H RDW Coeff of Rhonda 14.0 Plt Count 255 MPV 10.4 Immature Gran % (Auto) 0.200 Neut % (Auto) 47.6 Lymph % (Auto) 40.5 Shelby % (Auto) 7.6 Eos % (Auto) 3.5 Baso % (Auto) 0.6 Absolute Neuts (auto) 2.6 Absolute Lymphs (auto) 2.20 Nucleated RBC % 0 Sodium 137 Potassium 4.1 Chloride 106 Carbon Dioxide 24.0 Anion Gap 7 BUN 21 H Creatinine 0.93 Estim Creat Clear Calc 82.05 Est GFR (MDRD) Af Amer 90 Est GFR (MDRD) Non-Af 74 BUN/Creatinine Ratio 22.5 H Glucose 90 Calcium 9.1 Discharge Plan Triage Chief Complaint: GI Bleed ED Midlevel Provider: Long Molina ED Provider: Papo Zendejas Dx/Rx/DC Orders Clinical Impression: GI bleed Instructions: GI Bleeding Causes and Tests, ED Upper GI Bleeding (Stable) Prescriptions: No Action levothyroxine 50 MCG tablet 50 mcg PO DAILY PNV cmb#95-ferrous fumarate-FA 1 EACH tablet 1 ea PO DAILY cholecalciferol (vitamin D3) 125 mcg (5,000 unit) tablet 125 mcg PO DAILY Patient Comments: TAKE 1 TABLET BY MOUTHsONCE DAILY oxycodone 5 mg tablet 5 mg PO Q6H PRN (Reason: pain (scale score 7-10)) 4 Days Qty: 10 0RF Primary Care Provider: Care Physician,No Primary Referrals: Long Haji MD [Med Staff - Active Staff] - Ritesh Bennett DO [Med Staff - Active Staff] - Care Physician,No Primary [Primary Care Provider] - Activity Restrictions/Additional Instructions: Your hemoglobin is greater than 14, this is stable. You need to follow-up with gastroenterology who is Dr. Bennett as well as a PCP. Please return for any worsening symptoms. Please use Preparation H, Anusol that is [id number] for hemorrhoid. Disposition Disposition: Home, Self Care Discharge Date/Time: 12/17/22 16:24
[2022-12-17 15:44] LABS: Absolute Neutrophil Count 2.6 X10^3/uL (2.0-7.7); Basophil# 0.03 X10^3/uL; Basophil% 0.6 % (0-1); Eosinophil# 0.19 X10^3/uL; Eosinophils% 3.5 % (0-5); Hematocrit 46.7 % (37-47); Hemoglobin 14.7 g/dL (12.0-15.0); Lymphocyte % 40.5 % (19-41); Mean Corp Hgb Conc 31.5 g/dL (32-36); Mean Corpuscular Hgb 27.3 pg (27.0-32.0); Mean Corpuscular Volume 86.8 fL (81-99); Mean Platelet Vol. 10.4 fl (6.2-12.0); Monocyte# 0.41 X10^3/uL; Monocyte% 7.6 % (0-10); NRBC Flagged by Analyzer 0 % (0-5); Neutrophil # 2.59 X10^3/uL (2.7-7.7); Neutrophil % 47.6 % (47-70); Platelet Count 255 K/mm3 (150-450); RBC Distribution Width SD 44.8 fl (35.1-43.9); Red Blood Count 5.38 M/mm3 (4.2-5.4); White Blood Count 5.4 K/mm3 (4.4-11.0)
[2022-12-17 16:01] LABS: Anion Gap 7 (5-15); BUN 21 mg/dL (7-18); BUN/Creat Ratio 22.5 RATIO (10-20); Calcium,Total 9.1 mg/dL (8.5-10.1); Chloride 106 mmol/L (98-107); Creatinine, Serum 0.93 mg/dL (0.55-1.02); EST Glomerular Filtration Rate 74 mL/min (>60); Est Glom Filt Rate - Afr Amer 90 mL/min (>60); Estimated Creatinine Clearance 82.05 ml/min; Glucose 90 mg/dL (74-106); Potassium 4.1 mmol/L (3.5-5.1); Sodium Level 137 mmol/L (136-145)
== END 2022-12-17 16:24 | disposition home or self-care (01) ==
PROVIDERS: Nurse Practitioner; Emergency Provider Emergency Medicine; Visit Provider Emergency Medicine
DX: K92.2 Gastrointestinal hemorrhage, unspecified (principal); E03.9 Hypothyroidism, unspecified; Z79.899 Other long term (current) drug therapy
CPT/HCPCS: 80048; 82274; 85025; 99283; A4216

== ENCOUNTER → 2022-12-28 | Outpatient (CLI) | payer OTHER, SELFPAY ==
[2022-12-28 13:31] LABS: Hematocrit 45.8 % (37-47); Hemoglobin 14.8 g/dL (12.0-15.0); Mean Corp Hgb Conc 32.3 g/dL (32-36); Mean Corpuscular Hgb 27.9 pg (27.0-32.0); Mean Corpuscular Volume 86.3 fL (81-99); Mean Platelet Vol. 11.6 fl (6.2-12.0); Platelet Count 225 K/mm3 (150-450); RBC Distribution Width CV 14.3 % (11.6-14.6); RBC Distribution Width SD 45.4 fl (35.1-43.9); Red Blood Count 5.31 M/mm3 (4.2-5.4); White Blood Count 4.3 K/mm3 (4.4-11.0)
[2022-12-28 13:46] LABS: Vitamin D,25 Hydroxy 61.1 ng/mL
[2022-12-28 14:15] LABS: T4 Free Direct 0.93 ng/dL (0.76-1.46); Thyroid Stim Hormone (TSH) 1.36 uIU/mL (0.358-3.74)
== END | disposition home or self-care (01) ==
PROVIDERS: Visit Provider Student in an Organized Health Care Education/Training Program
DX: Z39.2 Encounter for routine postpartum follow-up (principal)
CPT/HCPCS: 36415; 82306; 84439; 84443; 85027

== ENCOUNTER → 2023-12-31 | Outpatient (CLI) | payer OTHER, SELFPAY ==
[2024-01-06 09:10] LABS: HPV APTIMA, High Risk Negative (Negative)
== END | disposition home or self-care (01) ==
LOC: LABSPEC 16:28
PROVIDERS: Referring Provider Registered Nurse; Visit Provider Registered Nurse
DX: Z12.4 Encounter for screening for malignant neoplasm of cervix (principal)
CPT/HCPCS: 87624; 88175; G0145

== ENCOUNTER → 2024-02-15 | Outpatient (CLI) | payer OTHER, SELFPAY ==
[2024-02-15 15:11] LABS: Free T3 2.4 pg/mL (2.18-3.98)
== END | disposition home or self-care (01) ==
PROVIDERS: Referring Provider Registered Nurse; Visit Provider Registered Nurse
DX: E03.9 Hypothyroidism, unspecified (principal); E07.9 Disorder of thyroid, unspecified
CPT/HCPCS: 36415; 84439; 84443; 84481

== ENCOUNTER → 2024-05-19 | Outpatient (CLI) | payer OTHER, SELFPAY ==
[2024-05-19 12:25] LABS: Hematocrit 41.7 % (37-47); Hemoglobin 13.4 g/dL (12.0-15.0); Mean Corp Hgb Conc 32.1 g/dL (32-36); Mean Corpuscular Hgb 28.6 pg (27.0-32.0); Mean Corpuscular Volume 88.9 fL (81-99); Platelet Count 274 K/mm3 (150-450); RBC Distribution Width CV 12.5 % (11.6-14.6); RBC Distribution Width SD 40.8 fl (35.1-43.9); Red Blood Count 4.69 M/mm3 (4.2-5.4); White Blood Count 6.7 K/mm3 (4.4-11.0)
[2024-05-19 12:54] LABS: ALB/GLOB Ratio 0.9 RATIO (0.9-2.4); AST(SGOT) 15 U/L (15-37); Alanine Aminotransfer ALT/SGPT 24 U/L (13-56); Albumin, Serum 3.4 g/dL (3.2-5.0); Alkaline Phosphatase 38 U/L (45-117); Anion Gap 7 (5-15); BUN 11 mg/dL (7-18); Calcium,Total 8.9 mg/dL (8.5-10.1); Chloride 107 mmol/L (98-107); Creatinine, Serum 0.73 mg/dL (0.55-1.02); EST Glomerular Filtration Rate 97 mL/min (>60); Est Glom Filt Rate - Afr Amer 118 mL/min (>60); Globulin 3.9 g/dL (2.2-4.2); Glucose 94 mg/dL (74-106); Protein, Total 7.3 g/dL (6.4-8.2); Sodium Level 137 mmol/L (136-145)
[2024-05-19 14:09] LABS: HIV - WCH Non-Reactive (Nonreactive); Hepatitis B Surface Antigen Non-Reactive (Nonreactive); Hepatitis C Antibody Non-Reactive (Nonreactive); Syphilis Antibodies Non-reactive
[2024-05-20 07:07] LABS: PROLACTIN 10.4 ng/mL (4.8-33.4)
== END | disposition home or self-care (01) ==
DX: Z31.49 Encounter for other procreative investigation and testing (principal)
CPT/HCPCS: 36415; 80053; 84146; 85027; 86703; 86780; 86803; 87340; 87491; 87591

== ENCOUNTER → 2024-06-29 | Outpatient (CLI) | payer OTHER, SELFPAY ==
[2024-06-29 10:56] LABS: Estradiol < 11.0 pg/mL
[2024-06-29 11:06] LABS: T4 Free Direct 1.14 ng/dL (0.76-1.46)
[2024-06-30 08:10] LABS: PROGESTERONE 0.1 ng/mL (.)
== END | disposition home or self-care (01) ==
LOC: LAB 09:42
PROVIDERS: Internal Medicine Endocrinology, Diabetes & Metabolism
DX: Z31.83 Encounter for assisted reproductive fertility procedure cycle (principal)
CPT/HCPCS: 36415; 82670; 84144; 84439; 84443

== ENCOUNTER → 2024-07-31 | Outpatient (CLI) | payer OTHER, SELFPAY ==
[2024-07-31 10:25] LABS: hCG Titer Quant., Serum 123 mIU/mL (1-3)
[2024-07-31 10:32] LABS: T4 Free Direct 1.13 ng/dL (0.76-1.46)
[2024-08-01 04:06] LABS: PROGESTERONE 27.3 ng/mL (.)
== END | disposition home or self-care (01) ==
PROVIDERS: Internal Medicine Endocrinology, Diabetes & Metabolism
DX: Z32.00 Encounter for pregnancy test, result unknown (principal)
CPT/HCPCS: 36415; 84144; 84439; 84443; 84702

== ENCOUNTER → 2024-08-02 | Outpatient (CLI) | payer OTHER, SELFPAY ==
[2024-08-02 10:52] LABS: hCG Titer Quant., Serum 393 mIU/mL (1-3)
[2024-08-03 08:08] LABS: PROGESTERONE 15.2 ng/mL (.)
== END | disposition home or self-care (01) ==
DX: Z32.01 Encounter for pregnancy test, result positive (principal)
CPT/HCPCS: 36415; 84144; 84702

== ENCOUNTER → 2024-09-06 | Outpatient (CLI) | payer OTHER, SELFPAY ==
[2024-09-06 17:03] LABS: Absolute Lymphocyte Count 1.98 X10^3/uL (0.83-4.51); Absolute Neutrophil Count 5.5 X10^3/uL (2.0-7.7); Basophil# 0.03 X10^3/uL; Basophil% 0.4 % (0-1); Eosinophil# 0.33 X10^3/uL; Eosinophils% 3.9 % (0-5); Hematocrit 41.9 % (37-47); Hemoglobin 13.8 g/dL (12.0-15.0); Lymphocyte # 1.98 X10^3/ul (0.83-4.51); Lymphocyte % 23.3 % (19-41); Mean Corp Hgb Conc 32.9 g/dL (32-36); Mean Corpuscular Hgb 28.5 pg (27.0-32.0); Mean Corpuscular Volume 86.4 fL (81-99); Mean Platelet Vol. 10.6 fl (6.2-12.0); Monocyte# 0.59 X10^3/uL; NRBC Flagged by Analyzer 0 % (0-5); Neutrophil # 5.54 X10^3/uL (2.7-7.7); Neutrophil % 65.3 % (47-70); Platelet Count 282 K/mm3 (150-450); RBC Distribution Width CV 13.2 % (11.6-14.6); Red Blood Count 4.85 M/mm3 (4.2-5.4); White Blood Count 8.5 K/mm3 (4.4-11.0)
[2024-09-06 18:17] LABS: HIV Nonreactive (Nonreactive)
[2024-09-06 19:39] LABS: Hepatitis B Surface Antigen Nonreactive (Nonreactive); Hepatitis C Antibody Nonreactive (Nonreactive); Rubella IgG REAC (Nonreactive); Syphilis Antibodies Nonreactive (Nonreactive)
[2024-09-09 10:08] LABS: Chlamydia By Nucleic Acid AMP Negative (Negative); Gonococcus By Nucleic Acid AMP Negative (Negative)
== END | disposition home or self-care (01) ==
PROVIDERS: Advanced Practice Midwife; Referring Provider Obstetrics & Gynecology; Visit Provider Obstetrics & Gynecology
DX: O99.280 Endocrine, nutritional and metabolic diseases complicating pregnancy, unspecified trimester (principal); Z3A.00 Weeks of gestation of pregnancy not specified; E06.3 Autoimmune thyroiditis
CPT/HCPCS: 36415; 84439; 84443; 85025; 86703; 86762; 86780; 86803; 86850; 86900; 86901; 87086; 87088; 87340; 87491; 87591

== ENCOUNTER 2024-09-26 12:51 | Emergency (ER) | payer OTHER, SELFPAY ==
[2024-09-26 12:52] VITALS: BP 136/53; PULSE 81; RESP 14; TEMP 36.1; O2SAT 98; BMI 24.0
--- NOTE | 2024-09-26 12:56 | ED.RN ---
SPOUSE UPSET BECAUSE PT WAS ASKED S.S # IN TRIAGE.
[2024-09-26] MEDS: DiphenhydrAMINE 50 MG/ML Syringe 25 MG IV (13:08)
--- NOTE | 2024-09-26 13:13 | EX.ED.DYSGE1 ---
HPI History of Present Illness Chief Complaint: Allergic Reaction Informant: patient Onset/Context/Timing Onset: Today and Hours (1) Context: Sudden Onset Timing: Continuous Quality: Spasms Location: Jaw and tongue Worsened by: Nothing Relieved by: Nothing Narrative Narrative: Patient presents with spasms of her jaw and tongue that began approximately 1 hour prior to arrival. Patient states they began rather suddenly. Patient states she was recently prescribed prochlorperazine for nausea. Patient states she took her second dose of that today and developed spasms. Patient states nothing makes her symptoms better and nothing makes it worse. Patient denies any difficulty breathing or difficulty swallowing. Patient states her jaw is starting to become painful due to the muscle spasms. Patient is approximately 12 weeks . Patient denies any vaginal bleeding or discharge. Patient denies any cramping. [facility] Medical History Endometriosis determined by laparoscopy Genetic counseling Thyroid disorder Home Medications ?Medication ?Instructions ?Recorded ?Last Taken ?Type vit no.95-ferrous 1 ea PO DAILY 04/30/20 11/22/22 History fumarate 28 mg-folic acid 800 mcg tablet levothyroxine 75 mcg tablet 75 mcg PO QDAY #90 tabs 07/31/24 Unknown Rx aspirin 81 mg tablet,delayed 81 mg PO QDAY 08/25/24 Unknown History release (Adult Low Dose Aspirin) conjugated estrogens 0.3 mg tablet 2 mg PO TID 08/25/24 Unknown History progesterone 50 mg/mL 5 mg IM QDAY 08/25/24 Unknown History intramuscular oil ondansetron 4 mg disintegrating 4 mg PO Q8H PRN PRN Nausea #10 tabs 09/26/24 Unknown Rx tablet Allergy/AdvReac Type Severity Reaction Status Date / Time Penicillins (PCN) Allergy Hives Verified 09/06/24 15:32 prochlorperazine (From Allergy Swelling Verified 09/26/24 13:12 Compazine) Family History Aunt No problems noted. Unknown No problems noted. Aunt No problems noted. Grandmother Myocardial infarction Grandmother Myocardial infarction Surgical History History of laparoscopy delivery delivered Social History adopted: No household members: spouse and children number of children: 1 current occupational status: employed current occupation: PRN - [employer] current occupational exposures/hazards: No pets and animals: Yes pets and animals: dog(s) history of recent travel: Yes ( - End june ) out of country: Yes sexually active: Yes Smoking Status: Never smoker alcohol intake: never substance use type: does not use well-balanced diet: daily or most days caffeine: No eating out: 1-3 times/week during the past year weight has: remained stable what type of physical activity do you participate in: walking frequency: 1-2 times per week duration: < 15 minutes/day silas/yazidi: Islam seatbelt use: always do you feel safe at home: Yes additional social history: : [employer] - [employer] ROS ROS ED Constitutional Constitutional ED: Denies chills or fever(s) Eyes Eyes: Denies blurry vision or change in vision ENT ENT ED: Denies rhinorrhea or sore throat Cardiovascular Cardiovascular: Denies chest pain or palpitations Respiratory/Chest Respiratory/Chest: Denies cough or dyspnea Gastrointestinal Gastrointestinal: Denies nausea or vomiting Genitourinary Genitourinary ED: Denies dysuria or hematuria Musculoskeletal Musculoskeletal: Denies back pain or neck pain Integumentary Denies abscess or rash Neurologic Neurologic: Denies headache(s) or weakness Allergic/Immunologic Allergic/Immunologic ED: Denies mouth swelling or urticaria EXAM Physical Exam Const Vital Signs: 09/26/24 12:52 09/26/24 13:47 Temperature 97 F L Temperature Source Temporal Pulse Rate 81 81 Respiratory Rate 14 Blood Pressure 136/53 H 103/68 Blood Pressure Mean 80 79 Pulse Ox 98 99 Oxygen Delivery Method Room Air Room Air Positive well nourished and well developed General Appearance ED: well developed and NAD HEENT HEENT Narrative: Patient is having spasms to her jaw and is having difficulty opening her jaw. Negative for trauma or tenderness Neck supple and no JVD Resp normal respiratory effort and clear to auscultation bilaterally Cardio regular rate and regular rhythm GI non-tender and non-distended Palpation: soft Neuro oriented x3 and no sensory deficits noted Sensorium / Orientation: alert Motor Exam: strength 5/5 throughout Psych mental status grossly normal MDM MDM MDM Narrative Medical decision making narrative: Patient was advised that this is most likely a dystonic reaction from the prochlorperazine. Patient was given a dose of Benadryl. Patient is also requesting to be checked for her . heart tones will be obtained to assess for viability of . Treatment and Re-Evaluation :: Patient is feeling better on reevaluation. Patient was advised of her findings. Nursing staff was unable to obtain heart tones. Ghyng-to-auyr ultrasound was used. was visualized. There is good heart movement. There is good movement. Patient felt better after this. Case was discussed with Dr. Montez. She recommended changing the patient to Zofran instead of Compazine. Patient was instructed to follow-up with Dr. Jody Montez in 5 to 7 days. Patient understood and was agreeable with plan. All questions were answered. Discharge Plan Triage Chief Complaint: Allergic Reaction ED Provider: Papo Zendejas Dx/Rx/DC Orders Clinical Impression: Dystonic drug reaction, Instructions: ED Drug Reaction, Other Prescriptions: New ondansetron 4 mg tablet,disintegrating 4 mg PO Q8H PRN PRN (Reason: Nausea) Qty: 10 0RF Discontinued prochlorperazine maleate [Compazine] 10 mg tablet 10 mg PO Q8H PRN (Reason: nausea and vomiting) Qty: 90 3RF No Action aspirin [Adult Low Dose Aspirin] 81 mg tablet,delayed release (DR/EC) 81 mg PO QDAY progesterone 50 mg/mL oil 5 mg IM QDAY conjugated estrogens 0.3 mg tablet 2 mg PO TID Rx Instructions: cyclically PNV cmb#95-ferrous fumarate-FA 1 EACH tablet 1 ea PO DAILY levothyroxine 75 mcg tablet 75 mcg PO QDAY Qty: 90 3RF Primary Care Provider: Savi Moreau NP Referrals: Jody Montez MD [Med Staff - Active Staff] - 5-7 Days Care Physician,No Primary [Non-Staff] - Savi Moreau NP, [employer]PER[employer]OR-[employer] [Primary Care Provider] - 5-7 Days Print Language: Arabic Disposition Disposition: Home, Self Care
[2024-09-26 13:47] VITALS: BP 103/68; PULSE 81; O2SAT 99
[2024-09-26 14:00] VITALS: BP 116/105; PULSE 92; O2SAT 99
[2024-09-26 14:25] VITALS: BP 112/76; PULSE 79; RESP 16; TEMP 36.1; O2SAT 99
== END 2024-09-26 14:26 | disposition home or self-care (01) ==
PROVIDERS: Emergency Provider Emergency Medicine; PCP Nurse Practitioner Family; Visit Provider Emergency Medicine
DX: O9A.211 Injury, poisoning and certain other consequences of external causes complicating pregnancy, first trimester (principal); G24.02 Drug induced acute dystonia; Z3A.12 12 weeks gestation of pregnancy; O99.351 Diseases of the nervous system complicating pregnancy, first trimester; O99.281 Endocrine, nutritional and metabolic diseases complicating pregnancy, first trimester; E07.9 Disorder of thyroid, unspecified
CPT/HCPCS: 96374; 99283; A4216

== ENCOUNTER → 2024-11-06 | Outpatient (CLI) | payer OTHER, SELFPAY | END | disposition home or self-care (01) | LOC: BWCLAB 15:31 | PROVIDERS: PCP Nurse Practitioner Family; Referring Provider Obstetrics & Gynecology; Visit Provider Obstetrics & Gynecology | DX: E06.3 Autoimmune thyroiditis (principal) | CPT/HCPCS: 36415; 84439; 84443 ==

== ENCOUNTER → 2025-01-01 | Outpatient (CLI) | payer OTHER, SELFPAY ==
[2025-01-01 12:35] LABS: Hematocrit 38.3 % (37-47); Hemoglobin 12.5 g/dL (12.0-15.0); Immature Granulocytes Count 0.150 X10^3/uL (0.0-0.0); Mean Corp Hgb Conc 32.6 g/dL (32-36); Mean Corpuscular Volume 91.0 fL (81-99); Mean Platelet Vol. 14.1 fl (6.2-12.0); NRBC Flagged by Analyzer 0 % (0-5); Platelet Count 196 K/mm3 (150-450); RBC Distribution Width CV 13.3 % (11.6-14.6); RBC Distribution Width SD 43.8 fl (35.1-43.9); Red Blood Count 4.21 M/mm3 (4.2-5.4); White Blood Count 8.9 K/mm3 (4.4-11.0)
[2025-01-01 13:24] LABS: Glucose Challenge Gest 1H 50g 91 mg/dL (70-140); HIV Nonreactive (Nonreactive); Syphilis Antibodies Nonreactive (Nonreactive)
== END | disposition home or self-care (01) ==
PROVIDERS: Advanced Practice Midwife; PCP Nurse Practitioner Family; Visit Provider Nurse Practitioner Women's Health
DX: O09.812 Supervision of pregnancy resulting from assisted reproductive technology, second trimester (principal); Z3A.22 22 weeks gestation of pregnancy
CPT/HCPCS: 36415; 82950; 85025; 86703; 86780

== ENCOUNTER → 2025-03-14 | Outpatient (CLI) | payer OTHER, SELFPAY ==
--- OUTSIDE RECORDS SUMMARY | 2025-03-14 19:00 | XMS RPT_ITS | CCD ---
Author Organization [facility] Care Team Providers Care Rebar Bender Name Role Phone Care Physician, No Primary Primary Care Provider Unavailable Dr. Brad Sandhu Attending Provider Dr. Jojo Pressley Referring Provider Unavailable Primary Care Provider Unavailabl e System, Provider Not In Primary Care Provider Un available DANTE ANDRE Attending Unavailable GARCIA, ABDELRAHMAN Referring Unavailable GARCIA, ABDELRAHMAN Primary Care Unavailable DEA BLOCK Attending Unavailable GARCIA, ABDELRAHMAN Referring Unavailable GARCIA, ABDELRAHMAN Primary Care Unavailable DEA BLOCK Attending Unavailable GARCIA, ABDELRAHMAN Referring Unavailable GARCIA, ABDELRAHMAN Primary Care Unavailable GARCIA, ABDELRAHMAN Referring Unavailable GARCIA, ABDELRAHMAN Primary Care Unavailable DANTE ANDRE Attending Unavailable GARCIA, ABDELRAHMAN Referring Unavailable GARCIA, ABDELRAHMAN Primary Care Unavailable GARCIA, ABDELRAHMAN Attending Unavailable DEA BLOCK Attending Unavailable GARCIA, ABDELRAHMAN Referring Unavailable GARCIA, ABDELRAHMAN Primary Care Unavailable DEA BLOCK Attending Provider Care Physician, No Primary Primary Care Provider Unavailable Care Physician, No Primary Referring Provider Un available Dr. Jimmy Arboleda MD Attending Provider [phone] DEA BLOCK Attending Provider DEA BLOCK Referring Provider YOJANA OCONNOR Attending Provider YOJANA OCONNOR Referring Provider Deya Choudhary RN Attending Provider Unavailabl e Dr. Jody Montez MD Attending Provider Dr. Jody Montez MD Referring Provider [phone] Care Physician, No Primary Primary Care Provider Unavailable Dr. Papo Zendejas DO Emergency Provider Lizzeth CALENDAR CONTROL CLERK BLOOD BANK-C, Savi Primary Care Provider [phone] DEA BLOCK Attending Provider DEA BLOCK Referring Provider Care Physician, No Primary Primary Care Provider Unavailable Care Physician, No Primary Referring Provider Un available Dr. Papo Zendejas DO Attending Provider Mary Kay Ryan CNM Attending Provider [phone] Lizzeth CALENDAR CONTROL CLERK BLOOD BANK-C, Savi Referring Provider [phone] Dr. Fior Ross DO Attending Provider Dr. Fior Ross DO Referring Provider Care Physician, No Primary Primary Care Provider Unavailable Care Physician, No Primary Primary Care Provider Unavailable Perfecto EDGE-CLee Ann Attending Provider [phone] Care Physician, No Primary Referring Provider Un available Dr. Jody Montez MD Attending Provider Lizzeth CALENDAR CONTROL CLERK BLOOD BANK-C, Savi Primary Care Provider [phone] Lizzeth CALENDAR CONTROL CLERK BLOOD BANK-C, Savi Primary Care Provider [phone] Mary Kay Ryan CNM Attending Provider [phone] LEE ANN GROVE S Referring Unavailable NO PRIMARY CARE, Primary Care Unavailable RIA KAHN Attending Unavailable NO PRIMARY CARE, MD Primary Care Unavailable MARY KAY RYAN Referring Unavailable BEHZAD GARCIA Attending Unavailable NO PRIMARY CARE, MD Primary Care Unavailable MARY KAY RYAN Referring Unavailable AYLA GASTELUM Attending Unavailable LEE ANN GROVE Referring Unavailable NO PRIMARY CARE, Primary Care Unavailable BEHZAD GARCIA Attending Unavailable LEE ANN GROVE Referring Unavailable NO PRIMARY CARE, MD Primary Care Unavailable AYLA GASTELUM Attending Unavailable Jody Montez Attending Unavailable Savi Moreau Primary Care Unavailable Savi Moreau Referring Unavailable Care Physician, No Primary Primary Care Unava ilable SALTY MENDOZA Referring Unavailable SALTY MENDOZA Attending Unavailable SALTY MENDOZA Attending Unavailable Care Physician, No Primary Primary Care Unava ilable Fior Ross Attending Unavailabl e Lorson, Savi Primary Care Unavailable Lorson, Savi Referring Unavailable Lorson, Prompton Referring Unavailable Stella CALENDAR CONTROL CLERK BLOOD BANK, Lee Ann Attending Unavailable Lorson, Prompton Primary Care Unavailable Deya Choudhary Attending Unavailable Care Physician, No Primary Primary Care Unava ilable Lorson, Savi Referring Unavailable Perfecto CALENDAR CONTROL CLERK BLOOD BANK, Lee Ann Attending Unavailable Lorson, Prompton Primary Care Unavailable KELLYANN ABURTOE Referring Unavailable KELLYANN ABURTOE Attending Unavailable Care Physician, No Primary Primary Care Unava ilable MarcanthonyJody Referring Unavailable Marcanthony, Jody Attending Unavailable Care Physician, No Primary Primary Care Unava ilable Papo Zendejas Attending Unavailable Lorson, Prompton Primary Care Unavailable Lorson, Savi Referring Unavailable Marcanthony, Jody Attending Unavailable Lorson, Prompton Primary Care Unavailable Marcanthony, Jody Attending Unavailable Marcanthony, Jody Admitting Unavailable Lorson, Prompton Primary Care Unavailable Fior Ross Referring Unavailabl e Gavin Glass, Fior Attending Unavailabl e Lorson, Prompton Primary Care Unavailable Perfecto CALENDAR CONTROL CLERK BLOOD BANK, Lee Ann Attending Unavailable Lorson, Savi Primary Care Unavailable Care Physician, No Primary Primary Care Unava ilable TITI MENDOZAYSE Referring Unavailable SALTY MENDOZA Attending Unavailable Care Physician, No Primary Primary Care Unava ilable Jimmy Arboleda Attending Unavailable Care Physician, No Primary Referring Unava ilable Jody Montez Attending Unavailable Care Physician, No Primary Primary Care Unava ilable Care Physician, No Primary Referring Unava ilable Lizzeth, Savi Primary Care Unavailable Mary Kay Ryan Attending Unavailable Care Physician, No Primary Referring Unava ilable Fior Ross Attending Unavailabl e Lorson, Prompton Primary Care Unavailable Lorson, Savi Referring Unavailable Lorson, Prompton Primary Care Unavailable Lorson, Savi Referring Unavailable Mary Kay Ryan Attending Unavailable Allergies Allergy Classification Reported Allergen(s) Allergy Type Date of Onset Reaction(s) Facility (20 sources) Penicillins; Translations: [PENICILLINS] Allergy to substance 05-23-20 15 [facility] (8 sources) Prochlorperazine Drug Allergy 09-27-19 Swelling, tongue swelling [facility] (1 source) Prochlorperazine Drug Allergy 02-28-20 [facility] Repository Medications Current Medications Medication Drug Class(es) Dates Sig (Normalized) Sig (Original) acetylcysteine 100 mg/ml inhalation solution (6 sources) Antidote, Mucolytic, Antidote for Acetaminophen Overdose take 4 mL by inhalation four times daily acetylcysteine (MUCOMYST) 100 mg/mL (10 %) nebulizer solution Inhale 4 mLs by nebulization 4 times a day. Active aspirin 81 mg delayed release oral tablet (20 sources) Platelet Aggregation Inhibitor, Nonsteroidal Anti-inflammatory Drug Start: 08-25-2024 Aspirin (Adult Low Dose Aspirin) 81 mg tablet,delayed release (DR/EC) Active 81 mg PO daily August 25, 2024 1:00am Start: 11-23-2022 End: 11-23-2022 take 1 capsule by mouth once daily Aspirin 81 mg Capsule Discontinued 81 mg PO DAILY November 23, 2022 12:00am November 23, 2022 7:00am Start: 04-30-2020 End: 05-09-2020 take 1 tablet by mouth once daily Aspirin 81 MG tablet,delayed release (DR/EC) Discontinued 81 mg PO DAILY April 30, 2020 1:00am May 09, 2020 6:06pm clotting factors BABY ASPIRIN ORA L Take by mouth. Active docusate sodium 100 mg oral capsule (11 sources) Start: 05-09-2020 take 100 mg by mouth twice daily as needed Docusate Sodium Active 100 MG PO TWICE DAILY NEEDED 60 May 09, 2020 1:00am doxycycline monohydrate 100 mg oral capsule (5 sources) Tetracycline- class Drug Start: 05-30-2024 take 1 capsule by mouth twice daily doxycycline monohydrate (MONODOX) 100 MG capsule Take 1 capsule (100 mg total) by mouth 2 times a day. 10 capsule 05/30/2024 Active empty container (SHARPS CONTAINER) Misc (9 sources) Start: 06-28-2024 empty containe r (SHARPS CONTAINER) Misc Use 1 Container as directed daily. 1 each 1 06/28/2024 Active Start: 05-30-2024 empty containe r (SHARPS CONTAINER) Misc Use 1 Container as directed daily. 1 each 1 05/30/2024 Active estradiol 2 mg oral tablet (7 sources) Estrogen Start: 12-31-2021 End: 05-30-2024 estradioL (ESTRACE) 2 MG tablet Take 1 tablet (2 mg total) by mouth 3 times a day. Every 8 hours. 100 tablet 3 05/30/2024 Active ibuprofen 600 mg oral tablet (11 sources) Nonsteroidal Anti-inflammatory Drug Start: 05-09-2020 take 600 mg by mouth three times daily Ibuprofen Active 600 MG PO THREE TIMES A DAY May 09, 2020 6:06pm levothyroxine sodium 0.075 mg oral tablet (20 sources) l-Thyroxine Start: 07-31-2024 take 1 tablet by mouth once daily Levothyroxine 75 mcg tablet Active 75 ug PO daily 90 July 31, 2024 1:00am Start: 07-04-2024 End: 07-31-2024 take 2 tablets by mouth once daily Levothyroxine 50 mcg tablet Discontinued 50 ug PO .COMPLEX 36 July 04, 2024 1:00am July 31, 2024 3:56pm 50 mcg orally Daily, 2 on Wednesday and 2 on Wednesday; Start: 06-29-2024 End: 07-04-2024 take 2 capsules by mouth once daily Levothyroxine 50 mcg capsule Discontinued 50 ug PO .qd, 2 on Wed and WedJuly 04, 2024 1:28pm July 04, 2024 5:40pm Start: 02-21-2024 End: 06-29-2024 take 1 capsule by mouth once daily Levothyroxine 50 mcg capsule Discontinued 50 ug PO DAILY 30 March 09, 2024 11:46am June 29, 2024 6:36pm Start: 04-30-2020 End: 06-22-2024 take 1 tablet by mouth once daily Levothyroxine 50 MCG tablet Discontinued 50 ug PO DAILY April 30, 2020 1:00am June 22, 2024 3:35pm hypothyroid Start: 04-30-2020 End: 05-09-2020 Levothyroxine 75 MCG tablet Discontinued 75 ug PO SUSA April 30, 2020 1:00am May 09, 2020 6:06pm thyroid levothyroxine so dium (LEVOTHROID ORAL) Take 75 mcg by mouth. Active take 1 capsule by mo uth once daily before breakfast levothyroxine 75 mcg cap Take 75 mcg by mouth daily before breakfast. 0 Active Comment on above: Take 75 mcg by mouth daily before breakfast. liothyronine sodium 0.005 mg oral tablet (6 sources) l-Triiodothyronine take 1 tablet by mouth twice daily liothyronine (CYTOMEL) 5 MCG tablet Take 1 tablet (5 mcg total) by mouth 2 times a day. Active ondansetron 4 mg disintegrating oral tablet (15 sources) Serotonin-3 Receptor Antagonist Start: 5 End: 5 take 1 tablet by mouth every eight hours as needed for nausea Ondansetron 4 mg tablet,disintegratin g Active 4 mg PO EVERY 8 HOURS NEEDED as needed for Nausea 60 4 October 03, 2024 8:10am Pnv Cmb#95-Ferrous Fumarate-Fa (15 sources) Start: 0 Pnv Cmb#95-Ferrous Fumarate-Fa Active 1 EACH PO DAILY April 30, 2020 2:12pm Start: 04-30-2020 Pnv Cmb#95-Carmela corinne Fumarate-Fa Active 1 EACH PO DAILY April 30, 2020 12:00am Start: 04-30-2020 Pnv Cmb#95-Carmela corinne Fumarate-Fa Active 1 EACH PO DAILY April 30, 2020 1:00am Pnv Cmb#95-Ferrous Fumarate- Fa 1 EACH tablet (8 sources) Start: 04-30-2020 Pnv Cmb#95-Carmela corinne Fumarate-Fa 1 EACH tablet Active 1 NMA PO DAILY April 30, 2020 1:00am Start: 04-30-2020 Pnv Cmb#95-Carmela corinne Fumarate-Fa 1 EACH tablet Active 1 NMA PO DAILY April 30, 2020 1:00am Pnv No.95-Ferrous Fumarate-Fa 1 EACH tablet (1 source) Start: 04-30-2020 take 1 tablet by mouth once daily Pnv No.95-Ferrous Fumarate-Fa 1 EACH tablet Active 1 NMA PO DAILY April 30, 2020 1:00am vit,bernarda 74/iron/folic ( VITAMIN 1+1 ORAL) (6 sources) vit,bernarda 74/iron/folic ( VITAMIN 1+1 ORAL) Take by mouth. Active syringe with needle 3 mL 22 x 1 1/2" Syrg (15 sources) Start: 06-28-2024 syringe with n eedle 3 mL 22 x 1 1/2" Syrg Use 1 each as directed daily. 30 each 3 06/28/2024 Active Start: 05-30-2024 syringe with n eedle 3 mL 22 x 1 1/2" Syrg Use 1 each as directed daily. 30 each 3 05/30/2024 Active Start: 12-31-2021 syringe with n eedle 3 mL 22 x 1 1/2" Syrg Use 1 each as directed daily. 30 each 3 12/31/2021 Active UNABLE TO FIND (6 sources) UNABLE TO FIND C-Naltrexone 4.5 mg per day -1 x daily Active vitamin b12 0.5 mg oral tablet (11 sources) Vitamin B12 Start: 04-30-2020 take 1000 ug by mouth once daily Cyanocobalamin (Vitamin B-12) Active 1000 MCG PO DAILY April 30, 2020 1:00am Completed/Discontinued Medications Medication Drug Class(es) Dates Sig (Normalized) Sig (Original) azithromycin 250 mg oral tablet (9 sources) Macrolide Antimicrobial Start: 09-19-2023 End: 12-31-2023 Azithromycin (Zithromax Z-Ortega) 250 mg tablet Discontinued 0 PO .COMPLEX 6 0 September 19, 2023 12:00am December 31, 2023 3:04pm For 250 mg dose pack: take 500 mg today (day 1), then 250 mg for 4 days (days 2-5) PO cholecalciferol 0.125 mg oral tablet (13 sources) Vitamin D Start: 11-23-2022 End: 12-31-2023 take 1 tablet by mouth once daily Cholecalciferol (Vitamin D3) 125 mcg (5,000 unit) tablet Discontinued 125 ug PO DAILY November 23, 2022 12:00am December 31, 2023 3:05pm supplement estrogens, conjugated (penitentiary) 0.3 mg oral tablet (9 sources) Estrogen Start: 08-25-2024 End: 12-04-2024 Conjugated Estrogens 0.3 mg tablet Discontinued 2 mg PO THREE TIMES A DAY August 25, 2024 1:00am December 04, 2024 11:09am cyclically Norethindrone-Ethin Estradiol (20 sources) Estrogen Start: 06-22-2024 End: 08-25-2024 Norethindrone-Ethin Estradiol (Dasetta (28)) 1-35 mg-mcg tablet Discontinued 1 {tbl} PO daily June 22, 2024 1:00am August 25, 2024 12:08pm Start: 03-15-2024 take 1 tablet by once daily norethindrone-ethinyl estradiol (ORTHO-NOVUM 1-35 TAB) 1-35 mg-mcg per tablet Take 1 tablet by mouth daily. Active pills only! 1 packet 5 05/15/2024 Active oxyCODONE hydrochloride 5 mg oral tablet (20 sources) Opioid Agonist Start: 11-23-2022 End: 12-31-2023 take 1 tablet by mouth every six hours as needed for pain Oxycodone 5 mg tablet Discontinued 5 mg PO EVERY 6 HOURS as needed for pain (scale score 7-10) 10 4 0 November 23, 2022 December 31, 2023 3:05pm Postoperative pain Other acute postprocedural pain Start: 05-09-2020 End: 05-14-2020 take 1 tablet by mouth every six hours as needed for pain Oxycodone 5 MG tablet Discontinued 5 mg PO EVERY 6 HOURS NEEDED as needed for severe pain 20 5 0 May 09, 2020 May 13, 2020 1:00am May 14, 2020 1:03am Endometriosis determined by laparoscopy Endometriosis, unspecified prochlorperazine 10 mg oral tablet (18 sources) Phenothiazine Start: 09-06-2024 End: 09-26-2024 take 1 tablet by mouth every eight hours as needed for nausea and vomiting Prochlorperazine Maleate (Compazine) 10 mg tablet Discontinued 10 mg PO Q8H as needed for nausea and vomiting 90 3 September 12, 2024 10:06am September 26, 2024 2:12pm progesterone 50 mg/ml injectable solution (20 sources) Progesterone Start: 08-25-2024 End: 12-04-2024 inject 5 mg by intramuscular injection once daily Progesterone 50 mg/mL oil Discontinued 5 mg IM daily August 25, 2024 1:00am December 04, 2024 11:09am Start: 08-03-2024 End: 08-03-2024 progesterone 50 mg/mL inject ion Inject 1.5 mLs (75 mg total) into the muscle daily. Inject 1.5 mL into the muscle daily 30 mL 3 08/03/2024 08/03/2024 Discontinued Start: 12-31-2021 End: 08-03-2024 progesterone 50 mg/mL inject ion Inject 1 mL (50 mg total) into the muscle daily. 30 mL 3 06/28/2024 Active Problems Active Problems Problem Classification Problem Date Documented Da te Episodic/Chronic Endometriosis (20 sources) Endometriosis (clinical); Translations: [Endometriosis, unspecified] Onset: 2 05-09-2020 Chronic Gastrointestinal hemorrhage (13 sources) Gastrointestinal hemorrhage; Translations: [Gastrointestinal hemorrhage, unspecified] 12-17-2022 Episodic Immunizations and screening for infectious disease (20 sources) Patient encounter status; Translations: [Encounter for screening for infectious and parasitic diseases, unspecified] Onset: 2 03-15-2024 Episodic Comment on above: recommended empower screening if her mother did not obtain, given paternal ovarian cancer, is still a candidate.will consider. Menstrual disorders (20 sources) Dysmenorrhea; Translations: [Dysmenorrhea, unspecified] 05-09-2020 Chronic Other complications of ; puerperium affecting management of mother (13 sources) Deliveries by ; Translations: [Encounter for delivery without indication] 11-24-2022 Episodic Comment on above: 11/24/2022 Other complications of ; puerperium affecting management of mother (3 sources) Encounter for delivery without indication; Translations: [ delivery, without mention of indication, delivered, with or without mention of antepartum condition] 11-25-2022 Episodic Other complications of (9 sources) IVF - in-vitro fertilization ; Translations: [Supervision of resulting from assisted reproductive technology, unspecified trimester] 08-25-2024 Episodic Comment on above: embryo donor utilize d Other complications of (20 sources) High risk ; Translations: [Supervision of high risk , unspecified, unspecified trimester] 09-07-2024 Episodic Comment on above: PRR, , MARGIE 04/08, PC: Adolfo, : Owen age in 20s. Adopted embryo both donor. carrier negative for both as far as they know. - Transfer date 07/21 @ 5 days. recommend weekly nsts after 36 weeks and delivery by 39 age in 20s. Adopted embryo both donor. carrier negative for both as far as they know. - Transfer date 07/21 @ 5 days. growth US at 36 weeks and recommend weekly nsts after 36 weeks and delivery by 39 PRR, , MARGIE 10/19 /25, girl PC: Adolfo, : Owen Other complications of (1 source) Supervision of high risk , unspecified, third trimester; Translations: [Supervision of high risk , unspecified, third trimester] Onset: 5 Episodic Other complications of (1 source) Supervision of resulting from assisted reproductive technology, third trimester; Translations: [Supervision of resulting from assisted reproductive technology, third trimester] Onset: 5 Episodic Other complications of (1 source) Supervision of resulting from assisted reproductive technology, second trimester; Translations: [Supervision of resulting from assisted reproductive technology, second trimester] Onset: 5 Episodic Other female genital disorders (20 sources) Polyp of corpus uteri; Translations: [Polyp of corpus uteri] 05-09-2020 Episodic Other female genital disorders (20 sources) Polyp of cervix; Translations: [Polyp of cervix uteri] 05-09-2020 Episodic Other hereditary and degenerative nervous system conditions (8 sources) Drug-induced dystonia; Translations: [Drug induced acute dystonia] 09-26-2024 Episodic Other nervous system disorders (13 sources) Postoperative pain ; Translations: [Other acute postprocedural pain] 11-23-2022 Episodic Other upper respiratory infections (9 sources) Streptococcal sore throat; Translations: [Streptococcal pharyngitis] 08-25-2024 Episodic Previous (1 source) Maternal care for unspecified type scar from previous delivery; Translations: [Maternal care for unspecified type scar from previous delivery] Onset: 5 Episodic Residual codes; unclassified (1 source) 34 weeks gestation of ; Translations: [34 weeks gestation of ] Onset: 5 Episodic Thyroid disorders (20 sources) Hypothyroidism; Translations: [Hypothyroidism, unspecified] Onset: 5 09-07-2024 Chronic Comment on above: Thyroid labs NL Thyroid disorders (9 sources) Disorder of thyroid gland; Translations: [Disorder of thyroid, unspecified] 08-25-2024 Episodic Comment on above: repeat labs, if norm al will refill Synthroid until she establishes care with an development assistant. 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; Translations: [Encounter for male factor infertility in female patient] Onset: 09-16-2021 09-16-2021 Episodic Other complications of (1 source) Supervision of high risk , unspecified, unspecified trimester; Translations: [Supervision of high risk , unspecified, unspecified trimester] Onset: 12-04-2024 Episodic Other complications of (1 source) Supervision of resulting from assisted reproductive technology, unspecified trimester; Translations: [Supervision of resulting from assisted reproductive technology, unspecified trimester] Onset: 12-04-2024 Episodic Other complications of (1 source) Injury, poisoning and certain other consequences of external causes complicating , first trimester; Translations: [Injury, poisoning and certain other consequences of external causes complicating , first trimester] Onset: 10-02-2024 Episodic Other nutritional; endocrine; and metabolic disorders (6 sources) H/O: endocrine disorder; Translations: [Personal history of other endocrine, nutritional and metabolic disease] Onset: 03-15-2024 03-15-2024 Episodic Other and delivery including normal (20 sources) ; Translations: [Encounter for supervision of normal , unspecified, unspecified trimester] Onset: 08-17-2024 09-06-2024 Episodic Comment on above: Discussed genetic/ca rrier testing - undecided; unsure of what testing was done w/IVF Discussed genetic/ca rrier testing - undecided; unsure of what testing was done w/IVF. c/s 04/03 SM. Other screening for suspected conditions (not mental disorders or infectious disease) (1 source) Encounter for test, result unknown; Translations: [Encounter for test, result unknown] Onset: 08-16-2024 Episodic Residual codes; unclassified (6 sources) First trimester ; Translations: [Less than 8 weeks gestation of ] Onset: 04-01-2022 04-01-2022 Episodic Residual codes; unclassified (1 source) 22 weeks gestation of ; Translations: [22 weeks gestation of ] Onset: 12-04-2024 Episodic Residual codes; unclassified (1 source) 18 weeks gestation of ; Translations: [18 weeks gestation of ] Onset: 11-06-2024 Episodic Residual codes; unclassified (1 source) 14 weeks gestation of ; Translations: [14 weeks gestation of ] Onset: 10-09-2024 Episodic Results Test Name Value Interpretation Reference Range Facility [employer] [facility] Office Visit Reporton 02-27-2025 [facility] Office Visit Report [address], [address] [place] [address] OFFICE VISIT Date of Service: 02/27/25 MR#: [id number] Acct: [id number] Name: MARIAMA LONG Rep #: [id number] : 1990 Provider: Dr. Jody maier MD Age/Sex: 34/F Location: [facility] Status: Signed with Addenda ADDENDUM by Lee Ann Wright on 02/27/25 at 1105 Office Procedure Documentation entered by Lee Ann Wright 02/27/25 11:05: Immunizations Boostrix Tdap 2.5 Lf unit-8 mcg-5 Lf/0.5 mL intramuscular syringe Performing Provider: Jody Montez MD Performing Location: [facility][1] Administered by: Lee Ann Wright on 02/27/25 11:04 Dose Route Admin Location Dispensed Lot Number Expiration Date NDC Man ufacturer 0.5 mL IM Right Deltoid 0.5 mL [id number] 02/18/27 [id number] [employer]- PASTEUR VIS Given Date VIS Provided VIS Publication Date 02/27/25 Single Vaccine 24 Eligibility Eligibility Date Funding Source Not Applicable Date cc: * Signed Intake Vital Signs 01/01/25 09:08 02/12/25 10:19 02/27/25 10:18 02/27/25 10:22 Height 5 ft 6 in 5 ft 6 in 5 ft 6 in 5 ft 6 in Weight: 180 lb 6 oz BMI 29.1 BP 116/72 Intake Visit Reasons: 34wk ob *SM csection 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 Required: No Is patient in pain?: No Allergies Penicillins (PCN) Allergy (Verified 02/27/25 10:18) Hives prochlorperazine (From Compazine) Allergy (Verified 02/27/25 10:18) tongue swelling Medications ???Medication ???Instructions ???Recorded ???Confirmed ???Type vit no.95-ferrous 1 ea PO DAILY 04/30/20 0 02/27/25 History fumarate 28 mg-folic acid 800 mcg tablet levothyroxine 75 mcg tablet 75 mcg PO QDAY #90 tabs 07/31/24 0 02/27/25 Rx aspirin 81 mg tablet,delayed 81 mg PO QDAY 08/25/24 02/27/25 Hi story release (Adult Low Dose Aspirin) ondansetron 4 mg disintegrating 4 mg PO Q8H PRN PRN Nausea #60 tab s 10/03/24 02/27/25 Rx tablet Last Menstrual Period: 12/17/23 Zika: Zika virus screening: Negative : No PFSH PFSH Medical History Endometriosis determined by laparoscopy Genetic counseling Thyroid disorder Surgical History History of laparoscopy delivery delivered Family History Aunt No problems noted. Unknown No problems noted. Aunt No problems noted. 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 Date Name GA/Weeks Outcome Route Bth Weight Infant Gen Labor Lgth Anesthesia Del Locatn Provider FOB 11/23/22 Adolfo 40 live - full term 10 lb 3 oz Male spinal [employer] [facility] Dr. Jojo Waters Delivery Date: 11/23/22 Last Updated by: Jody Montez MD No complications, cs for LGA HPI 34wk ob *SM csection Details: MARIAMA LONG is a 34 year old who presents for routine OB visit. OB Visit MARGIE Calculator Estimated Delivery Date Method Current WG Current Estimate 04/08/25 Conception 34w 2d Expected Delivery Route/Plan tolac vs RLTCS-- scheduled at 39 weeks patient counseled regarding risks/benefits of trial of labor versus repeat . ACOG/uptodate education given to patient. [] % likelihood of success per calculator TOLAC consent form signed: [] Labor Preferences- CB/BF classes: no labor support person: Owen labor intervention preferences: [] pain management options preferred: [] cut cord/dad catch: cord : yes PP c (more content not included)... Normal [facility] Laboratory - Chemistry and C hemistry - challengeOrdered By: Lee Ann Grove on 02-12-2025 Glucose Ql (U) Negative [facility] - UrinalysisOrder ed By: Lee Ann Grove on 02-12-2025 Protein Ql (U) Negative [facility] Sail Lay Out Worker Office Visit Reporton 02-12-2025 Sail Lay Out Worker Office Visit Report [facility] [address] [place] [address], [address] [place] [address] OFFICE VISIT Date of Service: 02/12/25 MR#: [id number] Acct: [id number] Name: MARIAMA LONG Rep #: [id number] : 1990 Provider: NEERAJ samaniego Age/Sex: 34/F Location: [place] Status: Signed Intake Vital Signs 01/01/25 09:08 01/31/25 11:01 02/12/25 10:14 02/12/25 10:19 Height 5 ft 6 in 5 ft 6 in 5 ft 6 in 5 ft 6 in Weight: 167 lb 8 oz 175 lb 4 oz BMI 27.0 28.3 BP 103/64 102/64 Intake Visit Reasons: 32wk ob Chief Complaint: 32 Week OB 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 Required: No Is patient in pain?: No Allergies Penicillins (PCN) Allergy (Verified 02/12/25 10:13) Hives prochlorperazine (From Compazine) Allergy (Verified 02/12/25 10:13) tongue swelling Medications ???Medication ???Instructions ???Recorded ???Confirmed ???Type vit no.95-ferrous 1 ea PO DAILY 04/30/20 0 02/12/25 History fumarate 28 mg-folic acid 800 mcg tablet levothyroxine 75 mcg tablet 75 mcg PO QDAY #90 tabs 07/31/24 0 02/12/25 Rx aspirin 81 mg tablet,delayed 81 mg PO QDAY 08/25/24 02/12/25 Hi story release (Adult Low Dose Aspirin) ondansetron 4 mg disintegrating 4 mg PO Q8H PRN PRN Nausea #60 tab s 10/03/24 02/12/25 Rx tablet Last Menstrual Period: 12/17/23 Zika: Zika virus screening: Negative : No PFSH PFSH Medical History Endometriosis determined by laparoscopy Genetic counseling Thyroid disorder Surgical History History of laparoscopy delivery delivered Family History Aunt No problems noted. Unknown No problems noted. Aunt No problems noted. 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 current occupational exposures/hazards: No pets and animals: Yes pets and animals: dog(s) history of recent travel: Yes ([place] - End june ) out of country: Yes sexually active: Yes Smoking Status: Never smoker alcohol intake: never substance use type: does not use well-balanced diet: daily or most days caffeine: No eating out: 1-3 times/week during the past year weight has: remained stable what type of physical activity do you participate in: walking frequency: 1-2 times per week duration: < 15 minutes/day silas/rastafari: Restorationist seatbelt use: always do you feel safe at home: Yes additional social history: : [place] [employer] History 2 Elective abortions Hx Para 1 Spontaneous abortions 0 Hx # Term Pregnancies 1 Ectopic pregnancies Hx # Pregnancies Multiple births # of living children 1 Past Pregnancies Del. Date Name GA/Weeks Outcome Route Bth Weight Infant Gen Labor Lgth Anesthesia Del Locatn Provider FOB 11/23/22 Adolfo 40 live - full term 10 lb 3 oz Male spinal WC Dr. Jojo Wtaers Delivery Date: 11/23/22 Last Updated by: Jody Montez MD No complications, cs for LGA HPI 32wk ob Details: MARIAMA LONG is a 34 year old who presents for routine OB visit. OB Visit MARGIE Calculator Estimated Delivery Date Method Current WG Current Estimate 04/08/25 Conception 32w 1d Expected Delivery Route/Plan tolac vs RLTCS-- scheduled at 39 weeks patient counseled regarding risks/benefits of trial of labor versus repeat . ACOG/uptodate education given to patient. [] % likelihood of success per calculator TOLAC consent form signed: [] Labor Preferences- CB/BF classes: no labor support person: [place] labor intervention preferences: [] pain management options preferred: [] cut cord/dad catch: cord : yes PP control planned: [] discussed possible routes of delivery and associated risks: [] special requests: [] Specific Issue/Plans Covid status: [] Flu vaccine: [] Tdap vaccine: [] Rhogam: na LARC form signed: yes Problem list reviewed and updated with the most current plan of care details and appropriate orders placed. Relevant counseling for the gestational age provided. Continue routine care and follow up unless otherwise noted in visit notes/problem list details Initial Weight: Not Recorded Date -???-???-???-???-???-??? -???-???-???-???-???-??? - EGA Weight BP Urine Prot -???-???-???-???-???-??? -???-???-???-???-???-??? - Glucose FHR FuHt Pres Dilation -???-???-???-???-???-??? -???-???-???-?? (more content not included)... Normal [facility] - Chemistry and C hemistry - challengeOrdered By: Fior Glass on 01-31-2025 Glucose Ql (U) Negative [facility] - UrinalysisOrder ed By: Fior Glass on 01-31-2025 Protein Ql (U) Negative [facility] Sail Lay Out Worker Office Visit Reporton 01-31-2025 Sail Lay Out Worker Office Visit Report [facility] [address], [address] [place] [address] OFFICE VISIT Date of Service: 01/31/25 MR#: [id number] Acct: [id number] Name: MARIAMA LONG Rep #: [id number] : 1990 Provider: Dr. Fior Singer, Age/Sex: 34/F Location: [facility] Status: Signed Intake Vital Signs 12/04/24 11:02 01/01/25 09:08 01/31/25 11:00 01/31/25 11:01 Height 5 ft 6 in 5 ft 6 in 5 ft 6 in 5 ft 6 in Weight: 173 lb 8 oz BMI 28.0 BP 113/69 Intake Visit Reasons: 30 wk ob 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 Required: No Is patient in pain?: No Allergies Penicillins (PCN) Allergy (Verified 01/31/25 10:59) Hives prochlorperazine (From Compazine) Allergy (Verified 01/31/25 10:59) tongue swelling Medications ???Medication ???Instructions ???Recorded ???Confirmed ???Type vit no.95-ferrous 1 ea PO DAILY 04/30/20 0 01/31/25 History fumarate 28 mg-folic acid 800 mcg tablet levothyroxine 75 mcg tablet 75 mcg PO QDAY #90 tabs 07/31/24 0 01/31/25 Rx aspirin 81 mg tablet,delayed 81 mg PO QDAY 08/25/24 01/31/25 Hi story release (Adult Low Dose Aspirin) ondansetron 4 mg disintegrating 4 mg PO Q8H PRN PRN Nausea #60 tab s 10/03/24 01/31/25 Rx tablet Last Menstrual Period: 12/17/23 Zika: Zika virus screening: Negative : No PFSH PFSH Medical History Endometriosis determined by laparoscopy Genetic counseling Thyroid disorder Surgical History History of laparoscopy delivery delivered Family History Aunt No problems noted. Unknown No problems noted. Aunt No problems noted. Grandmother Myocardial infarction Grandmother Myocardial infarction Social History adopted: No household members: spouse and children number of children: 1 current occupational status: employed current occupation: [employer] - 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 Date Name GA/Weeks Outcome Route Bth Weight Gen Labor Lgth Anesthesia Del Locatn Provider FOB 11/23/22 Adolfo 40 live - full term 10 lb 3 oz Male spinal [facility] Dr. Jojo Waters Delivery Date: 11/23/22 Last Updated by: Jody Montez MD No complications, cs for LGA HPI 30 wk ob Details: MARIAMA LONG is a 34 year old who presents for routine OB visit. OB Visit MARGIE Calculator Estimated Delivery Date Method Current WG Current Estimate 04/08/25 Conception 30w 3d Expected Delivery Route/Plan tolac vs RLTCS-- scheduled at 39 weeks patient counseled regarding risks/benefits of trial of labor versus repeat . ACOG/uptodate education given to patient. [] % likelihood of success per calculator TOLAC consent form signed: [] Labor Preferences- CB/BF classes: [] labor support person: [] labor intervention preferences: [] pain management options preferred: [] cut cord/dad catch: [] : [] PP control planned: [] discussed possible routes of delivery and associated risks: [] special requests: [] Specific Issue/Plans Covid status: [] Flu vaccine: [] Tdap vaccine: [] Rhogam: [] LARC form signed: [] Problem list reviewed and updated with the most current plan of care details and appropriate orders placed. Relevant counseling for the gestational age provided. Continue routine care and follow up unless otherwise noted in visit notes/problem list details Initial Weight: Not Recorded Date -???-???-???-???-???-??? -???-???-???-???-???-??? - EGA Weight BP Urine Prot -???-???-???-???-???-??? -???-???-???-???-???-??? - Glucose FHR FuHt Pres Dilation -???-???-???-???-???-??? -???-???-???-???-???-??? - Effaced St Visit Note 09/06/24 (more content not included)... Normal [facility] Absolute lymphocyte countOrd ered By: Mary Kay Ryan on 01-01-2025 Lymphocytes Auto (Unsp spec) [#/Vol] 1.50 10*3/uL 0.83-4.51 [facility] Absolute neutrophil countOrd ered By: Mary Kay Ryan on 01-01-2025 Neutrophils (Bld) [#/Vol] 6.6 10*3/uL 2.0-7.7 [facility] Automated lymphocyte count a s percentage of total leukocytesOrdered By: Mary Kay Ryan on 01-01-2025 Lymphocytes/100 WBC Auto (Unsp spec) 16.9 % Low 19-41 [facility] Basophil percentageOrdered B y: Mary Kay Ryan on 01-01-2025 Basophils/100 WBC (Bld) 0.3 % 0-1 [facility] CBC W/Diff, Automatedon 12-19 Absolute Lymph 1.50 X10 3/uL Normal 0.83-4.51 [facility] Comment on above: Performed By: #### L 3890.6006, L100.0100, L509.8002, L501.0250 ####[facility] [address] [place], [address] Absolute Neut 6.6 X10 3/uL Normal 2.0-7.7 [facility] Comment on above: Performed By: #### L 3890.6006, L100.0100, L509.8002, L501.0250 ####[facility] [address] [place], [address] Basophils/100 WBC (Bld) 0.3 % Normal 0-1 [facility] Comment on above: Performed By: #### L 3890.6006, L100.0100, L509.8002, L501.0250 ####[facility] [address] [place], [address] Eosinophils/100 WBC (Bld) 1.1 % Normal 0-5 [facility] Comment on above: Performed By: #### L 3890.6006, L100.0100, L509.8002, L501.0250 ####[facility] [address] [place], [address] Erythrocyte distribution width (RBC) [Ratio] 13.3 % Normal 11.6-14.6 [facility] Comment on above: Performed By: #### L 3890.6006, L100.0100, L509.8002, L501.0250 ####[facility] [address] [place], [address] Hematocrit (Bld) [Volume fraction] 38.3 % Normal 37-47 [facility] Comment on above: Performed By: #### L 3890.6006, L100.0100, L509.8002, L501.0250 ####[facility] [address] [place], [address] Hemoglobin (Bld) [Mass/Vol] 12.5 g/dL Normal 12.0-15.0 [facility] Comment on above: Performed By: #### L 3890.6006, L100.0100, L509.8002, L501.0250 ####[facility] [address] [place], [address] IG% 1.700 High 0.0-0.9 [facility] Comment on above: Result Comment: IG% - Immature Granulocytes (promyelocytes, myelocytes and metamyelocytes) > 1% indicates that a LEFT SHIFT is Present. Performed By: #### L 3890.6006, L100.0100, L509.8002, L501.0250 ####[facility] [address] [place], [address] Lymphocytes/100 WBC (Bld) 16.9 % Low 19-41 [facility] Comment on above: Performed By: #### L 3890.6006, L100.0100, L509.8002, L501.0250 ####[facility] [address] [place], [address] MCH (RBC) [Entitic mass] 29.7 pg Normal 27.0-32.0 [facility] Comment on above: Performed By: #### L 3890.6006, L100.0100, L509.8002, L501.0250 ####[facility] [address] [place], [address] MCHC (RBC) [Mass/Vol] 32.6 g/dL Normal 32-36 [facility] Comment on above: Performed By: #### L 3890.6006, L100.0100, L509.8002, L501.0250 ####[facility] [address] [place], [address] MCV (RBC) [Entitic vol] 91.0 fL Normal 81-99 [facility] Comment on above: Performed By: #### L 3890.6006, L100.0100, L509.8002, L501.0250 ####[facility] [address] [place], [address] Monocytes/100 WBC (Bld) 6.1 % Normal 0-10 [facility] Comment on above: Performed By: #### L 3890.6006, L100.0100, L509.8002, L501.0250 ####[facility] [address] [place], [address] Neutrophils/100 WBC (Bld) 73.9 % High 47-70 [facility] Comment on above: Performed By: #### L 3890.6006, L100.0100, L509.8002, L501.0250 ####[facility] [address] [place], [address] Nucleated RBC (Bld) [#/Vol] 0 10*3/uL Normal 0-5 [facility] Comment on above: Performed By: #### L 3890.6006, L100.0100, L509.8002, L501.0250 ####[facility] [address] [place], [address] Platelet mean volume (Bld) [Entitic vol] 14.1 fL High 6.2-12.0 [facility] Comment on above: Performed By: #### L 3890.6006, L100.0100, L509.8002, L501.0250 ####[facility] [address] [place], [address] Platelets (Bld) [#/Vol] 196 10*3/uL Normal 150-450 [facility] Comment on above: Performed By: #### L 3890.6006, L100.0100, L509.8002, L501.0250 ####[facility] [address] [place], [address] RBC (Bld) [#/Vol] 4.21 10*6/uL Normal 4.2-5.4 [facility] Comment on above: Performed By: #### L 3890.6006, L100.0100, L509.8002, L501.0250 ####[facility] [address] [place], [address] RDW SD 43.8 fl Normal 35.1-43.9 [facility] Comment on above: Performed By: #### L 3890.6006, L100.0100, L509.8002, L501.0250 ####[facility] [address] [place], [address] WBC (Bld) [#/Vol] 8.9 10*3/uL Normal 4.4-11.0 [facility] Comment on above: Performed By: #### L 3890.6006, L100.0100, L509.8002, L501.0250 ####[facility] [address] [place], [place], [id number] Eosinophil percentageOrdered By: Mary Kay Ryan on 01-01-2025 Eosinophils/100 WBC (Bld) 1.1 % 0-5 [facility] Erythrocyte distribution wid th ratioOrdered By: Mary Kay Ryan on 01-01-2025 Erythrocyte distribution width (RBC) [Ratio] 13.3 % 11.6-14.6 [facility] Erythrocyte distribution wid th standard deviationOrdered By: Mary Kay Ryan on 01-01-2025 Erythrocyte distribution width (RBC) [Ratio] 43.8 fl 35.1-43.9 [facility] Glucose Challenge Gest 1H 50 yadira 01-01-2025 GLU GEST 50g 1H 91 mg/dL Normal 70-140 [facility] Comment on above: Performed By: #### L 3890.6006, L100.0100, L509.8002, L501.0250 ####[facility] [address] [place], [address] [facility] rs post-dose gestational glucose tolerance testOrdered By: Mary Kay Ryan on 01-01-2025 Glucose [Mass/Vol] 91 mg/dL 70-140 [facility] HIVon 01-01-2025 HIV Non-Reactive Normal Nonreactive [facility] Comment on above: Result Comment: Non- Reactive Reactive Repeatedly reactive samples must be confirmed according to CDC recommended confirmatory algorithms. The subresults for either HIVAG or AHIV can be used as an aid in the selection of the confirmation algorithm for reactive samples. Send out specimens with Reactive results to [facility] for confirmation. Order the HIV antibody detection and differentiation: lc#[id number] Performed By: #### L 3890.6006, L100.0100, L509.8002, L501.0250 ####[facility] [address] [place], [place], [id number] Hematocrit Auto (Bld) [Volum e fraction]Ordered By: Mary Kay Ryan on 01-01-2025 Hematocrit (Bld) [Volume fraction] 38.3 % 37-47 [facility] Hemoglobin measurementOrdere d By: Mary Kay Ryan on 01-01-2025 Hemoglobin (Bld) [Mass/Vol] 12.5 g/dL 12.0-15.0 [facility] Immature granulocytes/100 WB C Auto (Bld)Ordered By: Mary Kay Ryan on 01-01-2025 Immature granulocytes/100 WBC (Bld) 1.700 % High 0.0-0.9 [facility] Comment on above: IG% - Immature Granu locytes (promyelocytes, myelocytes and metamyelocytes) > 1% indicates that a LEFT SHIFT is Present. Laboratory - Chemistry and C hemistry - challengeOrdered By: Jody Montez on 01-01-2025 Glucose Ql (U) Negative [facility] Laboratory - UrinalysisOrder ed By: Jody Montez on 01-01-2025 Protein Ql (U) Negative [facility] MCV (mean corpuscular volume ) determinationOrdered By: Mary Kay Ryan on 01-01-2025 MCV (RBC) [Entitic vol] 91.0 fL 81-99 [facility] Mean corpuscular hemoglobin (MCH) determinationOrdered By: Mary Kay Ryan on 01-01-2025 MCH (RBC) [Entitic mass] 29.7 pg 27.0-32.0 [facility] Mean corpuscular hemoglobin concentration (MCHC) determinationOrdered By: Mary Kay Ryan on 01-01-2025 MCHC (RBC) [Mass/Vol] 32.6 g/dL 32-36 [facility] Mean platelet volume determi nationOrdered By: Mary Kay Ryan on 01-01-2025 Platelet mean volume (Bld) [Entitic vol] 14.1 fL High 6.2-12.0 [facility] Monocyte percentageOrdered B y: Mary Kay Ryan on 01-01-2025 Monocytes/100 WBC (Bld) 6.1 % 0-10 [facility] Neutrophil percentageOrdered By: Mary Kay Ryan on 01-01-2025 Neutrophils/100 WBC (Bld) 73.9 % High 47-70 [facility] No Panel InformationOrdered By: Mary Kay Ryan on 01-01-2025 HIV (1&2) Antibody Non-Reactive Nonreactive [facility] Comment on above: Non-ReactiveReactive Repeatedly reactive samples must be confirmed according to CDC recommended confirmatory algorithms. The subresults for either HIVAG or AHIV can be used as an aid in the selection of the confirmation algorithm for reactive samples.Send out specimens with Reactive results to [facility] for confirmation.Order the HIV antibody detection and differentiation: #[id number] Nucleated red blood cell per centageOrdered By: Mary Kay Ryan on 01-01-2025 Nucleated RBC/100 WBC (Bld) [Ratio] 0 % 0-5 [facility] Sail Lay Out Worker Office Visit Reporton 01-01-2025 Sail Lay Out Worker Office Visit Report [facility] [address], [address] [place] [address] OFFICE VISIT Date of Service: 01/01/25 MR#: [id number] Acct: [id number] Name: MARIAMA LONG Rep #: [id number] : 1990 Provider: Dr. Jody maier MD Age/Sex: 34/F Location: [facility] Status: Signed Intake Vital Signs 11/06/24 14:48 12/04/24 11:02 01/01/25 09:08 Height 5 ft 6 in 5 ft 6 in 5 ft 6 in Weight: 159 lb 8 oz 167 lb 8 oz BMI 25.7 27.0 BP 111/74 103/64 Intake Visit Reasons: 26wk ob/glucose 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 Required: No Is patient in pain?: No Allergies Penicillins (PCN) Allergy (Verified 01/01/25 09:09) Hives prochlorperazine (From Compazine) Allergy (Verified 01/01/25 09:09) tongue swelling Medications ???Medication ???Instructions ???Recorded ???Confirmed ???Type vit no.95-ferrous 1 ea PO DAILY 04/30/20 0 01/01/25 History fumarate 28 mg-folic acid 800 mcg tablet levothyroxine 75 mcg tablet 75 mcg PO QDAY #90 tabs 07/31/24 0 01/01/25 Rx aspirin 81 mg tablet,delayed 81 mg PO QDAY 08/25/24 01/01/25 Hi story release (Adult Low Dose Aspirin) ondansetron 4 mg disintegrating 4 mg PO Q8H PRN PRN Nausea #60 tab s 10/03/24 01/01/25 Rx tablet Last Menstrual Period: 12/17/23 Zika: Zika virus screening: Negative : No PFSH PFSH Medical History Endometriosis determined by laparoscopy Genetic counseling Thyroid disorder Surgical History History of laparoscopy delivery delivered Family History Aunt No problems noted. Unknown No problems noted. Aunt No problems noted. 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 Date Name GA/Weeks Outcome Route Bth Weight Gen Labor Lgth Anesthesia Del Locatn Provider FOB 11/23/22 Adolfo 40 live - full term 10 lb 3 oz Male spinal [facility] Dr. Jojo Waters Delivery Date: 11/23/22 Last Updated by: Jody Montez MD No complications, cs for LGA HPI 26wk ob/glucose Details: MARIAMA LONG is a 34 year old who presents for routine OB visit. OB Visit MARGIE Calculator Estimated Delivery Date Method Current WG Current Estimate 04/08/25 Conception 26w 1d Expected Delivery Route/Plan tolac vs RLTCS-- scheduled at 39 weeks patient counseled regarding risks/benefits of trial of labor versus repeat . ACOG/uptodate education given to patient. [] % likelihood of success per calculator TOLAC consent form signed: [] Labor Preferences- CB/BF classes: [] labor support person: [] labor intervention preferences: [] pain management options preferred: [] cut cord/dad catch: [] : [] PP control planned: [] discussed possible routes of delivery and associated risks: [] special requests: [] Specific Issue/Plans Covid status: [] Flu vaccine: [] Tdap vaccine: [] Rhogam: [] LARC form signed: [] Problem list reviewed and updated with the most current plan of care details and appropriate orders placed. Relevant counseling for the gestational age provided. Continue routine care and follow up unless otherwise noted in visit notes/problem list details Initial Weight: Not Recorded Date -???-???-???-???-???-??? -???-???-???-???-???-??? - EGA Weight BP Urine Prot -???-???-???-???-???-??? -???-???-???-???-???-??? - Glucose FHR FuHt Pres Dilation -???-???-???-???-???-??? -???-???-???-???-???-??? - Effaced St Visit Note 09/06/24 (more content not included)... Normal [facility] Platelet countOrdered By: Jung Ryan on 01-01-2025 Platelets (Bld) [#/Vol] 196 10*3/uL 150-450 [facility] RBC Auto (Bld) [#/Vol]Ordere d By: Mary Kay Ryan on 01-01-2025 RBC (Bld) [#/Vol] 4.21 10*6/uL 4.2-5.4 [facility] Syphilis Antibodieson 2024 Syphilis Abs Non-Reactive Normal Nonreactive [facility] Comment on above: Performed By: #### L 3890.6006, L100.0100, L509.8002, L501.0250 ####[facility] [address] [place], [address] White blood cell (WBC) count Ordered By: Mary Kay Ryan on 01-01-2025 WBC (Bld) [#/Vol] 8.9 10*3/uL 4.4-11.0 [facility] - Chemistry and C hemistry - challengeOrdered By: Mary Kay Ryan on 12-04-2024 Glucose Ql (U) Negative [facility] Laboratory - UrinalysisOrder ed By: Mary Kay Ryan on 12-04-2024 Protein Ql (U) Negative [facility] Sail Lay Out Worker Office Visit Reporton 12-04-2024 Sail Lay Out Worker Office Visit Report [facility] [address], [address] [place] [address] OFFICE VISIT Date of Service: 12/04/24 MR#: [id number] Acct: [id number] Name: MARIAMA LONG Rep #: [id number] : 1990 Provider: BRYCE Alva ams Age/Sex: 34/F Location: [facility] Status: Signed Intake Vital Signs 10/09/24 10:56 11/06/24 14:48 12/04/24 11:02 Height 5 ft 6 in 5 ft 6 in 5 ft 6 in Weight: 159 lb 8 oz BMI 25.7 BP 111/74 Intake Visit Reasons: 22 wk ob Chief Complaint: 22wk OB 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 Required: No Is patient in pain?: No Allergies Penicillins (PCN) Allergy (Verified 12/04/24 10:59) Hives prochlorperazine (From Compazine) Allergy (Verified 12/04/24 10:59) tongue swelling Medications ???Medication ???Instructions ???Recorded ???Confirmed ???Type vit no.95-ferrous 1 ea PO DAILY 04/30/20 0 12/04/24 History fumarate 28 mg-folic acid 800 mcg tablet levothyroxine 75 mcg tablet 75 mcg PO QDAY #90 tabs 07/31/24 0 12/04/24 Rx aspirin 81 mg tablet,delayed 81 mg PO QDAY 08/25/24 12/04/24 Hi story release (Adult Low Dose Aspirin) ondansetron 4 mg disintegrating 4 mg PO Q8H PRN PRN Nausea #60 tab s 10/03/24 12/04/24 Rx tablet Last Menstrual Period: 12/17/23 : No PFSH PFSH Medical History Endometriosis determined by laparoscopy Genetic counseling Thyroid disorder Surgical History History of laparoscopy delivery delivered Family History Aunt No problems noted. Unknown No problems noted. Aunt No problems noted. 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 current occupational exposures/hazards: No pets and animals: Yes pets and animals: dog(s) history of recent travel: Yes ([place] - End june ) out of country: Yes sexually active: Yes Smoking Status: Never smoker alcohol intake: never substance use type: does not use well-balanced diet: daily or most days caffeine: No eating out: 1-3 times/week during the past year weight has: remained stable what type of physical activity do you participate in: walking frequency: 1-2 times per week duration: < 15 minutes/day silas/rastafari: Restorationist seatbelt use: always do you feel safe at home: Yes additional social history: : [place] History 2 Elective abortions Hx Para 1 Spontaneous abortions 0 Hx # Term Pregnancies 1 Ectopic pregnancies Hx # Pregnancies Multiple births # of living children 1 Past Pregnancies Del. Date Name GA/Weeks Outcome Route Bth Weight Infant Gen Labor Lgth Anesthesia Del Locatn Provider FOB 11/23/22 Adolfo 40 live - full term 10 lb 3 oz Male spinal [facility] Dr. Jojo Waters Delivery Date: 11/23/22 Last Updated by: Jody Montez MD No complications, cs for LGA HPI 22 wk ob Details: MARIAMA LONG is a 34 year old who presents for routine OB visit. OB Visit MARGIE Calculator Estimated Delivery Date Method Current WG Current Estimate 04/08/25 Conception 22w 1d Expected Delivery Route/Plan tolac vs RLTCS patient counseled regarding risks/benefits of trial of labor versus repeat . ACOG/uptodate education given to patient. [] % likelihood of success per calculator TOLAC consent form signed: [] Labor Preferences- CB/BF classes: [] labor support person: [] labor intervention preferences: [] pain management options preferred: [] cut cord/dad catch: [] : [] PP control planned: [] discussed possible routes of delivery and associated risks: [] special requests: [] Specific Issue/Plans Covid status: [] Flu vaccine: [] Tdap vaccine: [] Rhogam: [] LARC form signed: [] Problem list reviewed and updated with the most current plan of care details and appropriate orders placed. Relevant counseling for the gestational age provided. Continue routine care and follow up unless otherwise noted in visit notes/problem list details Initial Weight: Not Recorded Date -???-???-???-???-???-??? -???-???-???-???-???-??? - EGA Weight BP Urine Prot -???-???-???-???-???-??? -???-???-???-???-???-??? - Glucose FHR FuHt Pres Dilation -???-???-???-???-???-??? -???-???-???-???-???-??? - Effaced St Visit Note 09/06/24 -???-???-???-???-???-??? -???-???-???-???-???-??? - 9w 3d 143 lb 8 oz 116/78 -???-???-???-? (more content not included)... Normal [facility] - Chemistry and C hemistry - challengeOrdered By: Fior Glass on 11-06-2024 Glucose Ql (U) Negative [facility] - UrinalysisOrder ed By: Fior Glass on 11-06-2024 Protein Ql (U) Negative [facility] Sail Lay Out Worker Office Visit Reporton 11-06-2024 Sail Lay Out Worker Office Visit Report [facility] [address], [address] [place] [address] OFFICE VISIT Date of Service: 11/06/24 MR#: [id number] Acct: [id number] Name: MARIAMA LONG Rep #: [id number] : 1990 Provider: Dr. 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 Is patient in pain?: No Allergies Penicillins (PCN) Allergy (Verified 11/06/24 14:47) Hives prochlorperazine (From Compazine) Allergy (Verified 11/06/24 14:47) tongue swelling Medications ???Medication ???Instructions ???Recorded ???Confirmed ???Type vit no.95-ferrous 1 ea PO DAILY 04/30/20 0 11/06/24 History fumarate 28 mg-folic acid 800 mcg tablet levothyroxine 75 mcg tablet 75 mcg PO QDAY #90 tabs 07/31/24 0 11/06/24 Rx aspirin 81 mg tablet,delayed 81 mg PO QDAY 08/25/24 11/06/24 Hi story release (Adult Low Dose Aspirin) conjugated estrogens 0.3 mg tablet 2 mg PO TID 08/25/24 11/06/24 Hi story progesterone 50 mg/mL 5 mg IM QDAY 08/25/24 11/06/24 His tory intramuscular oil ondansetron 4 mg disintegrating 4 mg PO Q8H PRN PRN Nausea #60 tab s 10/03/24 11/06/24 Rx tablet Last Menstrual Period: 12/17/23 Zika: Zika virus screening: Negative : No PFSH PFSH Medical History Endometriosis determined by laparoscopy Genetic counseling Thyroid disorder Surgical History History of laparoscopy delivery delivered Family History Aunt No problems noted. Unknown No problems noted. Aunt No problems noted. Grandmother Myocardial infarction Grandmother Myocardial infarction Social History adopted: No household members: spouse and children number of children: 1 current occupational status: employed current occupation: [employer] - 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 Date Name GA/Weeks Outcome Route Bth Weight Infant Gen Labor Lgth Anesthesia Del Locatn Provider FOB 11/23/22 Adolfo 40 live - full term 10 lb 3 oz Male spinal [facility] Dr. Jojo Waters Delivery Date: 11/23/22 Last Updated by: Jody Montez MD No complications, cs for LGA HPI 18 wk ob Details: MARIAMA LONG is a 34 year old who presents for routine OB visit. OB Visit MARGIE Calculator Estimated Delivery Date Method Current WG Current Estimate 04/08/25 Conception 18w 1d Expected Delivery Route/Plan tolac vs RLTCS patient counseled regarding risks/benefits of trial of labor versus repeat . ACOG/uptodate education given to patient. [] % likelihood of success per calculator TOLAC consent form signed: [] Labor Preferences- CB/BF classes: [] labor support person: [] labor intervention preferences: [] pain management options preferred: [] cut cord/dad catch: [] : [] PP control planned: [] discussed possible routes of delivery and associated risks: [] special requests: [] Specific Issue/Plans Covid status: [] Flu vaccine: [] Tdap vaccine: [] Rhogam: [] LARC form signed: [] Problem list reviewed and updated with the most current plan of care details and appropriate orders placed. Relevant counseling for the gestational age provided. Continue routine care and follow up unless otherwise noted in visit notes/problem list details Initial Weight: Not Recorded Date -???-???-???-???-???-??? -???-???-???-???-???-??? - EGA Weight BP Urine Prot -???-???-???-???-???-??? -???-???-???-???-???-??? - Glucose F (more content not included)... Normal [facility] T4 Free Directon 11-06-2024 T4 FREE DIRECT 1.10 ng/dL Normal 0.76-1.46 [facility] Comment on above: Performed By: #### L 501.9520, L506.0400 ####[facility] [id number] [place], [place], [id number] T4 freeOrdered By: Fior Glass on 11-06-2024 Free T4 [Mass/Vol] 1.10 ng/dL 0.76-1.46 [facility] TSH DL <= 0.005 mIU/L QnOrde red By: Fior Glass on 11-06-2024 TSH Qn 1.430 uIU/mL 0.300-4.200 [facility] Thyroid Stim Hormone (TSH)on 11-06-2024 TSH 1.430 uIU/mL Normal 0.300-4.200 [facility] Comment on above: Performed By: #### L 501.9520, L506.0400 ####[facility] [id number] [place], [address] Laboratory - Chemistry and C hemistry - challengeOrdered By: Mary Kay Ryan on 10-09-2024 Glucose Ql (U) Negative [facility] Laboratory - UrinalysisOrder ed By: Mary Kay Ryan on 10-09-2024 Protein Ql (U) Negative [facility] Sail Lay Out Worker Office Visit Reporton 10-09-2024 Sail Lay Out Worker Office Visit Report [facility] [address], [address] [place] [address] OFFICE VISIT Date of Service: 10/09/24 MR#: [id number] Acct: [id number] Name: MARIAMA LONG Rep #: [id number] : 1990 Provider: BRYCE Alva ams Age/Sex: 34/F Location: [facility] Status: Signed Intake Vital Signs 06/22/24 14:33 09/26/24 12:52 10/09/24 10:52 10/09/24 10:56 Height 5 ft 6 in 5 ft 6 in 5 ft 6 in 5 ft 6 in Weight: 155 lb BMI 25.0 BP 110/75 Intake Visit Reasons: 13wk OB 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 Required: No Is patient in pain?: No Allergies Penicillins (PCN) Allergy (Verified 10/09/24 10:53) Hives prochlorperazine (From Compazine) Allergy (Verified 10/09/24 10:53) tongue swelling Medications ???Medication ???Instructions ???Recorded ???Confirmed ???Type vit no.95-ferrous 1 ea PO DAILY 04/30/20 0 10/09/24 History fumarate 28 mg-folic acid 800 mcg tablet levothyroxine 75 mcg tablet 75 mcg PO QDAY #90 tabs 07/31/24 0 10/09/24 Rx aspirin 81 mg tablet,delayed 81 mg PO QDAY 08/25/24 10/09/24 Hi story release (Adult Low Dose Aspirin) conjugated estrogens 0.3 mg tablet 2 mg PO TID 08/25/24 10/09/24 Hi story progesterone 50 mg/mL 5 mg IM QDAY 08/25/24 10/09/24 His tory intramuscular oil ondansetron 4 mg disintegrating 4 mg PO Q8H PRN PRN Nausea #60 tab s 10/03/24 10/09/24 Rx tablet Last Menstrual Period: 12/17/23 Zika: Zika virus screening: Negative : No Have you fallen in the past year?: No PFSH PFSH Medical History Endometriosis determined by laparoscopy Genetic counseling Thyroid disorder Surgical History History of laparoscopy delivery delivered Family History Aunt No problems noted. Unknown No problems noted. Aunt No problems noted. 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 current occupational exposures/hazards: No pets and animals: Yes pets and animals: dog(s) history of recent travel: Yes ([place] - End june ) out of country: Yes sexually active: Yes Smoking Status: Never smoker alcohol intake: never substance use type: does not use well-balanced diet: daily or most days caffeine: No eating out: 1-3 times/week during the past year weight has: remained stable what type of physical activity do you participate in: walking frequency: 1-2 times per week duration: < 15 minutes/day silas/rastafari: Restorationist seatbelt use: always do you feel safe at home: Yes additional social history: : [place] History 2 Elective abortions Hx Para 1 Spontaneous abortions 0 Hx # Term Pregnancies 1 Ectopic pregnancies Hx # Pregnancies Multiple births # of living children 1 Past Pregnancies Del. Date Name GA/Weeks Outcome Route Bth Weight Infant Gen Labor Lgth Anesthesia Del Locatn Provider FOB 11/23/22 Adolfo 40 live - full term 10 lb 3 oz Male spinal [facility] Dr. Jojo Waters Delivery Date: 11/23/22 Last Updated by: Jody Montez MD No complications, cs for LGA HPI 13wk OB Details: MARIAMA LONG is a 34 year old who presents for routine OB visit. OB Visit MARGIE Calculator Estimated Delivery Date Method Current WG Current Estimate 04/08/25 Conception 14w 1d Expected Delivery Route/Plan tolac vs RLTCS patient counseled regarding risks/benefits of trial of labor versus repeat . ACOG/uptodate education given to patient. [] % likelihood of success per calculator TOLAC consent form signed: [] Labor Preferences- CB/BF classes: [] labor support person: [] labor intervention preferences: [] pain management options preferred: [] cut cord/dad catch: [] : [] PP control planned: [] discussed possible routes of delivery and associated risks: [] special requests: [] Specific Issue/Plans Covid status: [] Flu vaccine: [] Tdap vaccine: [] Rhogam: [] LARC form signed: [] Problem list reviewed and updated with the most current plan of care details and appropriate orders placed. Relevant counseling for the gestational age provided. Continue routine care and follow up unless otherwise noted in visit notes/problem list details Initial Weight: Not Recorded Date -???-???-???-???-???-??? -???-???-???-???-???-??? - EGA Weight BP Urine Prot (more content not included)... Normal [facility] Emergency Department Summary on 09-26-2024 Emergency Department Summary [facility] Medical Records Department [address] [place] [address] Emergency Department Summary 09/26/24 MR#: [id number] Acct: [id number] Name: MARIAMA LONG Rep #: [id number] : 1990 34 From: Papo Zendejas DO PCP: NEERAJ Dominguez Status:DEP ER Location: ED HPI History of Present Illness Chief Complaint: Allergic Reaction Informant: patient Onset/Context/Timing Onset: Today and Hours (1) Context: Sudden Onset Timing: Continuous Quality: Spasms Location: Jaw and tongue Worsened by: Nothing Relieved by: Nothing Narrative Narrative: Patient presents with spasms of her jaw and tongue that began approximately 1 hour prior to arrival. Patient states they began rather suddenly. Patient states she was recently prescribed proc hlorperazine for nausea. Patient states she took her second dose of that today and developed spasms. Patient states nothing makes her symptoms better and nothing makes it worse. Patient denies any difficulty breathing or difficulty swallowing. Patient states her jaw is starting to become painful due to the muscle spasms. Patient is approximately 12 weeks . Patient denies any vaginal bleeding or discharge. Patient denies any cramping. [facility] Medical History Endometriosis determined by laparoscopy Genetic counseling Thyroid disorder Home Medications ???Medication ???Instructions ???Recorded ???Last Taken ???Type vit no.95-ferrous 1 ea PO DAILY 04/30/20 0 11/22/22 History fumarate 28 mg-folic acid 800 mcg tablet levothyroxine 75 mcg tablet 75 mcg PO QDAY #90 tabs 07/31/24 U nknown Rx aspirin 81 mg tablet,delayed 81 mg PO QDAY 08/25/24 Unknown His tory release (Adult Low Dose Aspirin) conjugated estrogens 0.3 mg tablet 2 mg PO TID 08/25/24 Unknown His tory progesterone 50 mg/mL 5 mg IM QDAY 08/25/24 Unknown Hist ory intramuscular oil ondansetron 4 mg disintegrating 4 mg PO Q8H PRN PRN Nausea #10 tab s 09/26/24 Unknown Rx tablet Allergy/AdvReac Type Severity Reaction Status Date / Time Penicillins (PCN) Allergy Hives Verified 09/06/24 15:32 prochlorperazine (From Allergy Swelling Verified 09/26/24 13:12 Compazine) Family History Aunt No problems noted. Unknown No problems noted. Aunt No problems noted. 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 current occupational exposures/hazards: No pets and animals: Yes pets and animals: dog(s) history of recent travel: Yes ( - End june ) out of country: Yes sexually active: Yes Smoking Status: Never smoker alcohol intake: never substance use type: does not use well-balanced diet: daily or most days caffeine: No eating out: 1-3 times/week during the past year weight has: remained stable what type of physical activity do you participate in: walking frequency: 1-2 times per week duration: < 15 minutes/day silas/rastafari: Restorationist seatbelt use: always do you feel safe at home: Yes additional social history: : [place] - [employer] ROS ROS ED Constitutional Constitutional ED: Denies chills or fever(s) Eyes Eyes: Denies blurry vision or change in vision ENT ENT ED: Denies rhinorrhea or sore throat Cardiovascular Cardiovascular: Denies chest pain or palpitations Respiratory/Chest Respiratory/Chest: Denies cough or dyspnea Gastrointestinal Gastrointestinal: Denies nausea or vomiting Genitourinary Genitourinary ED: Denies dysuria or hematuria Musculoskeletal Musculoskeletal: Denies back pain or neck pain Integumentary Denies abscess or rash Neurologic Neurologic: Denies headache(s) or weakness Allergic/Immunologic Allergic/Immunologic ED: Denies mouth swelling or urticaria EXAM Physical Exam Const Vital Signs: 09/26/24 12:52 09/26/24 13:47 Temperature 97 F L Temperature Source Temporal Pulse Rate 81 81 Respiratory Rate 14 Blood Pressure 136/53 H 103/68 Blood Pressure Mean 80 79 Pulse Ox 98 99 Oxygen Delivery Method Room Air Room Air Positive well nourished and well developed General Appearance ED: well developed and NAD HEENT HEENT Narrative: Patient is having spasms to her jaw and is having difficulty opening her jaw. Negative for trauma or tenderness Neck supple and no JVD Resp normal respiratory effort and (more content not included)... Normal [facility] L3410.9998on 09-15-2024 [facility] Misc. COMMENT Normal . [facility] Comment on above: Order Comment: [id number] 8TSH RECEPTOR AB SERUM FZ Result Comment: Test Ordered: [id number] TSH Receptor Antibody (TBII) TSH Receptor Antibody (TBII) <0.3 U/L ES Reference Range: . Reference Range: Antibody Titer: <1.0 U/L = Negative 1.1 - 1.5 U/L = Equivocal >1.5 U/L = Positive Performed at: [facility] [address] [place], [place] [id number] Campus President: Marc Hatch MD, Phone: [phone] Performed at: - [facility] [id number] Campus President: Sai Fleming PhD, Phone: [phone] Performed By: #### L 3410.9998, BTS, L509.4006, L506.0400, L3890.6006, L501.9520, L100.0100, L3890.6102, L509.8002, L3890.6301 ####[facility] [address] [place], [place], [id number] Chlamydia/GC VANGIE aptimaon CHLAMY,NUC ACID Negative Normal Negative [facility] Comment on above: Performed By: #### L 3410.9998, BTS, L509.4006, L506.0400, L3890.6006, L501.9520, L100.0100, L3890.6102, L509.8002, L3890.6301 #### [facility] [address] [place], [place], [id number] GC BY NUC ACID Negative Normal Negative [facility] Comment on above: Result Comment: Perf ormed at: = - [facility] [id number] Campus President: Mary Navarro MD, Phone: [phone] Performed By: #### L 3410.9998, BTS, L509.4006, L506.0400, L3890.6006, L501.9520, L100.0100, L3890.6102, L509.8002, L3890.6301 #### [facility] [address] [place], [address] Urine Cultureon 09-09-2024 [facility] Mixed Gram Positive Organisms [place] Count 50,000-80,000 MIXC Mixed contaminants. Submit a new specimen if indicated. Normal [facility] Comment on above: Performed By: #### L 3410.9998, BTS, L509.4006, L506.0400, L3890.6006, L501.9520, L100.0100, L3890.6102, L509.8002, L3890.6301 #### [facility] [address] [place], [place], [id number] Absolute lymphocyte countOrd ered By: Mary Kay Ryan on 09-06-2024 Lymphocytes Auto (Unsp spec) [#/Vol] 1.98 10*3/uL 0.83-4.51 [facility] Absolute neutrophil countOrd ered By: Mary Kay Ryan on 09-06-2024 Neutrophils (Bld) [#/Vol] 5.5 10*3/uL 2.0-7.7 [facility] Automated lymphocyte count a s percentage of total leukocytesOrdered By: Mary Kay Ryan on 09-06-2024 Lymphocytes/100 WBC Auto (Unsp spec) 23.3 % 19-41 [facility] Basophil percentageOrdered B y: Mary Kay Ryan on 09-06-2024 Basophils/100 WBC (Bld) 0.4 % 0-1 W [facility] C. trachomatis rRNA VANGIE+prob e Ql (Unsp spec)Ordered By: Mary Kay Ryan on 09-06-2024 Chlamydia DNA (VANGIE) Negative Negative [facility] CBC W/Diff, Automatedon 08-19 Absolute Lymph 1.98 X10 3/uL Normal 0.83-4.51 [facility] Comment on above: Performed By: #### L 3410.9998, BTS, L509.4006, L506.0400, L3890.6006, L501.9520, L100.0100, L3890.6102, L509.8002, L3890.6301 #### [facility] [address] [place], [place], [id number] (631) Absolute Neut 5.5 X10 3/uL Normal 2.0-7.7 [facility] Comment on above: Performed By: #### L 3410.9998, BTS, L509.4006, L506.0400, L3890.6006, L501.9520, L100.0100, L3890.6102, L509.8002, L3890.6301 #### [facility] [address] [place], [address] Basophils/100 WBC (Bld) 0.4 % Normal 0-1 [facility] Comment on above: Performed By: #### L 3410.9998, BTS, L509.4006, L506.0400, L3890.6006, L501.9520, L100.0100, L3890.6102, L509.8002, L3890.6301 #### [facility] [address] [place], [address] Eosinophils/100 WBC (Bld) 3.9 % Normal 0-5 [facility] Comment on above: Performed By: #### L 3410.9998, BTS, L509.4006, L506.0400, L3890.6006, L501.9520, L100.0100, L3890.6102, L509.8002, L3890.6301 #### [facility] [address] [place], [address] Erythrocyte distribution width (RBC) [Ratio] 13.2 % Normal 11.6-14.6 [facility] Comment on above: Performed By: #### L 3410.9998, BTS, L509.4006, L506.0400, L3890.6006, L501.9520, L100.0100, L3890.6102, L509.8002, L3890.6301 #### [facility] [address] [place], [address] Hematocrit (Bld) [Volume fraction] 41.9 % Normal 37-47 [facility] Comment on above: Performed By: #### L 3410.9998, BTS, L509.4006, L506.0400, L3890.6006, L501.9520, L100.0100, L3890.6102, L509.8002, L3890.6301 #### [facility] [address] [place], [address] Hemoglobin (Bld) [Mass/Vol] 13.8 g/dL Normal 12.0-15.0 [facility] Comment on above: Performed By: #### L 3410.9998, BTS, L509.4006, L506.0400, L3890.6006, L501.9520, L100.0100, L3890.6102, L509.8002, L3890.6301 #### [facility] [address] [place], [address] IG% 0.100 Normal 0.0-0.9 [facility] Comment on above: Result Comment: IG% - Immature Granulocytes (promyelocytes, myelocytes and metamyelocytes) > 1% indicates that a LEFT SHIFT is Present. Performed By: #### L 3410.9998, BTS, L509.4006, L506.0400, L3890.6006, L501.9520, L100.0100, L3890.6102, L509.8002, L3890.6301 #### [facility] [address] [place], [address] Lymphocytes/100 WBC (Bld) 23.3 % Normal 19-41 [facility] Comment on above: Performed By: #### L 3410.9998, BTS, L509.4006, L506.0400, L3890.6006, L501.9520, L100.0100, L3890.6102, L509.8002, L3890.6301 #### [facility] [address] [place], [address] ( MCH (RBC) [Entitic mass] 28.5 pg Normal 27.0-32.0 [facility] Comment on above: Performed By: #### L 3410.9998, BTS, L509.4006, L506.0400, L3890.6006, L501.9520, L100.0100, L3890.6102, L509.8002, L3890.6301 #### [facility] [address] [place], [address] ( MCHC (RBC) [Mass/Vol] 32.9 g/dL Normal 32-36 [facility] Comment on above: Performed By: #### L 3410.9998, BTS, L509.4006, L506.0400, L3890.6006, L501.9520, L100.0100, L3890.6102, L509.8002, L3890.6301 #### [facility] [address] [place], [address] MCV (RBC) [Entitic vol] 86.4 fL Normal 81-99 [facility] Comment on above: Performed By: #### L 3410.9998, BTS, L509.4006, L506.0400, L3890.6006, L501.9520, L100.0100, L3890.6102, L509.8002, L3890.6301 #### [facility] [address] [place], [address] (348) Monocytes/100 WBC (Bld) 7.0 % Normal 0-10 [facility] Comment on above: Performed By: #### L 3410.9998, BTS, L509.4006, L506.0400, L3890.6006, L501.9520, L100.0100, L3890.6102, L509.8002, L3890.6301 #### [facility] [address] [place], [address] Neutrophils/100 WBC (Bld) 65.3 % Normal 47-70 [facility] Comment on above: Performed By: #### L 3410.9998, BTS, L509.4006, L506.0400, L3890.6006, L501.9520, L100.0100, L3890.6102, L509.8002, L3890.6301 #### [facility] [address] [place], [address] (849 Nucleated RBC (Bld) [#/Vol] 0 10*3/uL Normal 0-5 [facility] Comment on above: Performed By: #### L 3410.9998, BTS, L509.4006, L506.0400, L3890.6006, L501.9520, L100.0100, L3890.6102, L509.8002, L3890.6301 #### [facility] [address] [place], [address] (680 Platelet mean volume (Bld) [Entitic vol] 10.6 fL Normal 6.2-12.0 [facility] Comment on above: Performed By: #### L 3410.9998, BTS, L509.4006, L506.0400, L3890.6006, L501.9520, L100.0100, L3890.6102, L509.8002, L3890.6301 #### [facility] [address] [place], [address] (452 Platelets (Bld) [#/Vol] 282 10*3/uL Normal 150-450 [facility] Comment on above: Performed By: #### L 3410.9998, BTS, L509.4006, L506.0400, L3890.6006, L501.9520, L100.0100, L3890.6102, L509.8002, L3890.6301 #### [facility] [address] [place], [place], [id number] RBC (Bld) [#/Vol] 4.85 10*6/uL Normal 4.2-5.4 [facility] Comment on above: Performed By: #### L 3410.9998, BTS, L509.4006, L506.0400, L3890.6006, L501.9520, L100.0100, L3890.6102, L509.8002, L3890.6301 #### [facility] [address] [place], [address] (618) RDW SD 41.0 fl Normal 35.1-43.9 [facility] Comment on above: Performed By: #### L 3410.9998, BTS, L509.4006, L506.0400, L3890.6006, L501.9520, L100.0100, L3890.6102, L509.8002, L3890.6301 #### [facility] [address] [place], [place], [id number] WBC (Bld) [#/Vol] 8.5 10*3/uL Normal 4.4-11.0 [facility] Comment on above: Performed By: #### L 3410.9998, BTS, L509.4006, L506.0400, L3890.6006, L501.9520, L100.0100, L3890.6102, L509.8002, L3890.6301 #### [facility] [address] [place], [place], [address] Chlamydia trachomatis rRNA d etection by probe and target amplification methodOrdered By: Mary Kay Ryan on 09-06-2024 C. trachomatis rRNA VANGIE+probe Ql (Unsp spec) Negative Negative [facility] Eosinophil percentageOrdered By: Mary Kay Ryan on 09-06-2024 Eosinophils/100 WBC (Bld) 3.9 % 0-5 [facility] Erythrocyte distribution wid th ratioOrdered By: Mary Kay Ryan on 09-06-2024 Erythrocyte distribution width (RBC) [Ratio] 13.2 % 11.6-14.6 [facility] Erythrocyte distribution wid th standard deviationOrdered By: Mary Kay Ryan on 09-06-2024 Erythrocyte distribution width (RBC) [Entitic vol] 41.0 fL 35.1-43.9 [facility] Erythrocyte distribution width (RBC) [Ratio] 41.0 fl 35.1-43.9 [facility] HBV surface Ag Ql (S)Ordered By: Mary Kay Ryan on 09-06-2024 Hepatitis B Surface Antigen Non-Reactive Nonreactive [facility] Comment on above: Reactive: Presumptiv e evidence of HBV. Repeatedly reactive samples must be confirmed using a neutralization test ([employer] HBsAg Confirmatory Test)Non-Reactive: HBsAg not detected; does not exclude the possibility of exposure to HBV Hematocrit Auto (Bld) [Volum e fraction]Ordered By: Mary Kay Ryan on 09-06-2024 Hematocrit (Bld) [Volume fraction] 41.9 % 37-47 [facility] Hemoglobin measurementOrdere d By: Mary Kay Ryan on 09-06-2024 Hemoglobin (Bld) [Mass/Vol] 13.8 g/dL 12.0-15.0 [facility] Hepatitis C antibodyOrdered By: Mary Kay Ryan on 09-06-2024 Hepatitis C Antibody Non-Reactive Nonreactive [facility] Comment on above: Reactive: Presumptiv e evidence of antibodies to HCV. Follow CDC recommendations for supplemental testing.Non-Reactive: Antibodies to HCV were not detected; does not exclude the possibility of exposure to HCVReactive Results are presumptive evidence of antibodies to HCV. Follow CDC recommendations for supplemental testing.Order confirmation testing: HCV Quant by PCR testing - HCVPCR #[id number] Non Reactive: < 0.8 Equivocal: >/= 0.8 to < 1.0 Reactive: >/= 1.0The CDC requires that a reactive/equivocal HCV antibody result be sent out for confirmation. HCV Quant by PCR testing. Immature granulocytes/100 WB C Auto (Bld)Ordered By: Mary Kay Ryan on 09-06-2024 Immature granulocytes/100 WBC (Bld) 0.100 % 0.0-0.9 [facility] Comment on above: IG% - Immature Granu locytes (promyelocytes, myelocytes and metamyelocytes) > 1% indicates that a LEFT SHIFT is Present. L3890.6006on 09-06-2024 HIV Non-Reactive Normal Nonreactive [facility] Comment on above: Result Comment: Non- Reactive Reactive Repeatedly reactive samples must be confirmed according to CDC recommended confirmatory algorithms. The subresults for either HIVAG or AHIV can be used as an aid in the selection of the confirmation algorithm for reactive samples. [facility]. Order the HIV antibody detection and differentiation: [id number] Performed By: #### L 3410.9998, BTS, L509.4006, L506.0400, L3890.6006, L501.9520, L100.0100, L3890.6102, L509.8002, L3890.6301 #### [facility] [address] [place], [place], [id number] L3890.6102on 09-06-2024 HEP B Surf Ag Non-Reactive Normal Nonreactive [facility] Comment on above: Result Comment: Reac tive: Presumptive evidence of HBV. Repeatedly reactive samples must be confirmed using a neutralization test ([employer] HBsAg Confirmatory Test) Non-Reactive: HBsAg not detected; does not exclude the possibility of exposure to HBV Performed By: #### L 3410.9998, BTS, L509.4006, L506.0400, L3890.6006, L501.9520, L100.0100, L3890.6102, L509.8002, L3890.6301 ####[facility] [address] [place], [place], [id number] L3890.6301on 09-06-2024 Hepatitis C Ab Non-Reactive Normal Nonreactive [facility] Comment on above: Result Comment: Reac tive: Presumptive evidence of antibodies to HCV. Follow CDC recommendations for supplemental testing. Non-Reactive: Antibodies to HCV were not detected; does not exclude the possibility of exposure to HCV Reactive Results are presumptive evidence of antibodies to HCV. Follow CDC recommendations for supplemental testing. Order confirmation testing: HCV Quant by PCR testing - HCVPCR #[id number] Non Reactive: < 0.8 Equivocal: >/= 0.8 to < 1.0 Reactive: >/= 1.0 The CDC requires that a reactive/equivocal HCV antibody result be sent out for confirmation. HCV Quant by PCR testing. Performed By: #### L 3410.9998, BTS, L509.4006, L506.0400, L3890.6006, L501.9520, L100.0100, L3890.6102, L509.8002, L3890.6301 ####[facility] [address] [place], [place], [address] L509.4006on 09-06-2024 Rubella IgG REAC Normal Nonreactive [facility] Comment on above: Result Comment: Anti body Result: Interpretation Non-Reactive: Non-Immune Reactive: Immune The following results were obtained with the [employer] Rubella IgG assay. Results from assays of other manufacturers cannot be used interchangeably. Performed By: #### L 3410.9998, BTS, L509.4006, L506.0400, L3890.6006, L501.9520, L100.0100, L3890.6102, L509.8002, L3890.6301 #### [facility] [address] [place], [address] L509.8002on 09-06-2024 Syphilis Abs Non-Reactive Normal Nonreactive [facility] Comment on above: Performed By: #### L 3410.9998, BTS, L509.4006, L506.0400, L3890.6006, L501.9520, L100.0100, L3890.6102, L509.8002, L3890.6301 #### [facility] [address] [place], [address] Laboratory - Microbiology an d Antimicrobial susceptibilityOrdered By: Mary Kay Ryan on 09-06-2024 HBV surface Ag Ql (S) Non-Reactive Nonreactive [facility] Comment on above: Reactive: Presumptiv e evidence of HBV. Repeatedly reactive samples must be confirmed using a neutralization test ([employer] HBsAg Confirmatory Test)Non-Reactive: HBsAg not detected; does not exclude the possibility of exposure to HBV Lymphocytes Auto (Unsp spec) [#/Vol]Ordered By: Mary Kay Ryan on 09-06-2024 Lymphocytes (Bld) [#/Vol] 1.98 10*3/uL 0.83-4.51 [facility] Lymphocytes/100 WBC Auto (Un sp spec)Ordered By: Mary Kay Ryan on 09-06-2024 Lymphocytes/100 WBC (Bld) 23.3 % 19-41 [facility] MCV (mean corpuscular volume ) determinationOrdered By: Mary Kay Ryan on 09-06-2024 MCV (RBC) [Entitic vol] 86.4 fL 81-99 [facility] Mean corpuscular hemoglobin (MCH) determinationOrdered By: Mary Kay Ryan on 09-06-2024 MCH (RBC) [Entitic mass] 28.5 pg 27.0-32.0 [facility] Mean corpuscular hemoglobin concentration (MCHC) determinationOrdered By: Mary Kay Ryan on 09-06-2024 MCHC (RBC) [Mass/Vol] 32.9 g/dL 32-36 [facility] Mean platelet volume determi nationOrdered By: Mary Kay Ryan on 09-06-2024 Platelet mean volume (Bld) [Entitic vol] 10.6 fL 6.2-12.0 [facility] Monocyte percentageOrdered B y: Mary Kay Ryan on 09-06-2024 Monocytes/100 WBC (Bld) 7.0 % 0-10 [facility] Neisseria gonorrhoeae nuclei c acid detection by amplified probe techniqueOrdered By: Mary Kay Ryan on 09-06-2024 N. gonorrhoeae DNA VANGIE+probe Ql (Unsp spec) Negative Negative [facility] Comment on above: Performed at: =G - L [address] [id number] Director: Mary Navarro MD, Phone: [phone] Neutrophil percentageOrdered By: Mary Kay Ryan on 09-06-2024 Neutrophils/100 WBC (Bld) 65.3 % 47-70 [facility] No Panel InformationOrdered By: Mary Kay Ryan on 09-06-2024 HIV (1&2) Antibody Non-Reactive Nonreactive [facility] Comment on above: Non-ReactiveReactive Repeatedly reactive samples must be confirmed according to CDC recommended confirmatory algorithms. 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 Is patient in pain?: Yes (some mild cramping on the right side) Allergies Penicillins (PCN) Allergy (Verified 09/06/24 15:32) Hives Medications ???Medication ???Instructions ???Recorded ???Confirmed ???Type vit no.95-ferrous 1 ea PO DAILY 04/30/20 0 09/06/24 History fumarate 28 mg-folic acid 800 mcg tablet levothyroxine 75 mcg tablet 75 mcg PO QDAY #90 tabs 07/31/24 0 09/06/24 Rx aspirin 81 mg tablet,delayed 81 mg PO QDAY 08/25/24 09/06/24 Hi story release (Adult Low Dose Aspirin) conjugated estrogens 0.3 mg tablet 2 mg PO TID 08/25/24 09/06/24 Hi story progesterone 50 mg/mL 5 mg IM QDAY 08/25/24 09/06/24 His tory intramuscular oil prochlorperazine maleate 10 mg 10 mg PO Q8H PRN nausea and 09/06/24 Rx tablet (Compazine) vomiting #90 tabs Last Menstrual Period: 12/17/23 Zika: Zika virus screening: Negative : No PFSH PFSH Medical History Endometriosis determined by laparoscopy Genetic counseling Thyroid disorder Surgical History History of laparoscopy delivery delivered Family History Aunt No problems noted. Unknown No problems noted. Aunt No problems noted. 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 Date Name GA/Weeks Outcome Route Bth Weight Gen Labor Lgth Anesthesia Del Locatn Provider FOB 11/23/22 Adolfo 40 live - full term 10 lb 3 oz Male spinal [employer] Dr. Jojo Waters Delivery Date: 11/23/22 Last Updated by: Jody Montez MD No complications, cs for LGA HPI NOB IVF 07/21 Details: MARIAMA LNOG is a 34 year old who presents for New OB visit. OB Visit MARGIE Calculator Estimated Delivery Date Method Current WG Current Estimate 04/08/25 Conception 9w 3d Estimated Due Date: 04/08/25 Expected Delivery Route/Plan tolac vs RLTCS patient counseled regarding risks/benefits of trial of labor versus repeat . ACOG/uptodate education given to patient. [] % likelihood of success per calculator TOLAC consent form signed: [] Labor Preferences- CB/BF classes: [] labor support person: [] labor intervention preferences: [] pain management options preferred: [] cut cord/dad catch: [] : [] PP control planned: [] discussed possible routes of delivery and associated risks: [] special requests: [] Specific Issue/Plans Covid status: [] Flu vaccine: [] Tdap vaccine: [] Rhogam: [] LARC form signed: [] Problem list reviewed and updated with the most current plan of care details and appropriate orders placed. Relevant counseling for the gestational age provided. Continue routine care and follow up unless otherwise noted in visit notes/problem list details Initial Weight: Not Recorded Date -???-???-???-???-???-??? -???-???-???-???-???-??? - EGA Weight BP Urine Prot -???-???-???-???-???-??? -???-???-???-???-???-??? - Glucose FHR FuHt Pres Dilation -???-? (more content not included)... Normal [facility] Platelet countOrdered By: Jung Ryan on 09-06-2024 Platelets (Bld) [#/Vol] 282 10*3/uL 150-450 [facility] RBC Auto (d) [#/Vol]Ordere d By: Mary Kay Ryan on 09-06-2024 RBC (Bld) [#/Vol] 4.85 10*6/uL 4.2-5.4 [facility] Rubella immune status determ ination by IgG antibody assayOrdered By: Mary Kay Ryan on 09-06-2024 Rubella IgG Antibody REAC Nonreactive [facility] Comment on above: Antibody Result: Int erpretationNon-Reactive: Non-ImmuneReactive: ImmuneThe following results were obtained with the [employer] Rubella IgG assay. Results from assays of other manufacturers cannot be used interchangeably. T. pallidum abOrdered By: Jung Ryan on 09-06-2024 Syphilis Total Antibody Non-Reactive Nonreactiv e [facility] T4 Free Directon 09-06-2024 T4 FREE DIRECT 1.30 ng/dL Normal 0.76-1.46 [facility] Comment on above: Performed By: #### L 3410.9998, BTS, L509.4006, L506.0400, L3890.6006, L501.9520, L100.0100, L3890.6102, L509.8002, L3890.6301 #### [facility] [address] [place], [address] T4 freeOrdered By: Mary Kay mcintosh on 09-06-2024 Free T4 [Mass/Vol] 1.30 ng/dL 0.76-1.46 [facility] TSH DL <= 0.005 mIU/L QnOrde red By: Mary Kay Ryan on 09-06-2024 Thyroid Stimulating Hormone (TSH) 1.720 uIU/mL 0.300-4.200 [facility] TSH Qn 1.720 uIU/mL 0.300-4.200 [facility] Thyroid Stim Hormone (TSH)on 09-06-2024 TSH 1.720 uIU/mL Normal 0.300-4.200 [facility] Comment on above: Performed By: #### L 3410.9998, BTS, L509.4006, L506.0400, L3890.6006, L501.9520, L100.0100, L3890.6102, L509.8002, L3890.6301 #### [facility] [address] [place], [address] Type AND Screenon 09-06-2024 Ab SCREEN GEL Negative Normal [facility] Comment on above: Order Comment: PN Performed By: #### L 3410.9998, BTS, L509.4006, L506.0400, L3890.6006, L501.9520, L100.0100, L3890.6102, L509.8002, L3890.6301 #### [facility] [address] [place], [address] Urine cultureOrdered By: Barrett Ryan on 09-06-2024 Bacteria identified Cx Nom (U) Positive Abnormal [facility] White blood cell (WBC) count Ordered By: Mary Kay Ryan on 09-06-2024 WBC (Bld) [#/Vol] 8.5 10*3/uL 4.4-11.0 [facility] PROGESTERONE 4317on 08-03-19 25 PROGESTERONE 15.2 ng/mL Normal . [facility] Comment on above: Order Comment: N Result Comment: Foll icular phase 0.1 - 0.9 Luteal phase 1.8 - 23.9 Ovulation phase 0.1 - 12.0 First trimester 11.0 - 44.3 Second trimester 25.4 - 83.3 Third trimester 58.7 - 214.0 Postmenopausal 0.0 - 0.1 Performed at: [facility] [id number] Campus President: Sai Fleming PhD, Phone: [phone] Performed By: #### L 3410.9998, BTS, L509.4006, L506.0400, L3890.6006, L501.9520, L100.0100, L3890.6102, L509.8002, L3890.6301 #### [facility] [address] [place], [address] HCG ( test) Qlon Human Chorionic Gonadotropin, Quant 393 mIU/mL High <4 [facility] Comment on above: hCG levels with Gest ational AgeGestational Age hCG mIU/mL (IU/L)0.2 - 1 week 5 - 501-2 weeks 50 - 5002-3 weeks 100 - 63253-2 weeks 500 - 024052-1 weeks 1000 - 504486-9 weeks 49704 - 100,0006-8 weeks 48353 - 200,0002-3 months 14941 - 100,000 Quantitative serum progester one measurement by electrochemiluminescence immunoassay (on 08-02-2024 Progesterone Level 15.2 ng/mL . [facility] Comment on above: Follicular phase 0.1 - 0.9 Luteal phase 1.8 - 23.9 Ovulation phase 0.1 - 12.0 First trimester 11.0 - 44.3 Second trimester 25.4 - 83.3 Third trimester 58.7 - 214.0 Postmenopausal 0.0 - 0.1Performed at: [facility] [id number] Director: Sai Fleming PhD, Phone: [phone] Serum human chorionic gonado tropin detection for pregnancyon 08-02-2024 HCG ( test) Ql 393 mIU/mL High <4 [facility] Comment on above: hCG levels with Gest ational AgeGestational Age hCG mIU/mL (IU/L)0.2 - 1 week 5 - 501-2 weeks 50 - 5002-3 weeks 100 - 96999-3 weeks 500 - 940412-1 weeks 1000 - 639453-0 weeks 60155 - 100,0006-8 weeks 27211 - 200,0002-3 months 85410 - 100,000 hCG Titer Quant., Serumon HCG QUANT. 393 mIU/mL High 1-3 [facility] Comment on above: Result Comment: hCG levels with Gestational Age Gestational Age hCG mIU/mL (IU/L) 0.2 - 1 week 5 - 50 1-2 weeks 50 - 500 2-3 weeks 100 - 5000 3-4 weeks 500 - 31759 4-5 weeks 1000 - 01724 5-6 weeks 64718 - 100,000 6-8 weeks 17076 - 200,000 2-3 months 70037 - 100,000 Performed By: #### L 700.8000, L801.2600 ####[facility] [address] [place], [place], [address] PROGESTERONE 4317on 08-01-19 25 PROGESTERONE 27.3 ng/mL Normal . [facility] Comment on above: Order Comment: N Result Comment: Foll icular phase 0.1 - 0.9 Luteal phase 1.8 - 23.9 Ovulation phase 0.1 - 12.0 First trimester 11.0 - 44.3 Second trimester 25.4 - 83.3 Third trimester 58.7 - 214.0 Postmenopausal 0.0 - 0.1 Performed at: [employer] ([facility]) [address] [place], [place] [id number] Campus President: Sai Flemign PhD, Phone: [phone] Performed By: #### L 3410.9998, BTS, L509.4006, L506.0400, L3890.6006, L501.9520, L100.0100, L3890.6102, L509.8002, L3890.6301 #### [facility] [address] [place], [place], [id number] Direct serum free thyroxine (FT4) measurementOrdered By: Jimmy Arboleda on 07-31-2024 Free T4 [Mass/Vol] 1.13 ng/dL 0.76-1.46 [facility] HCG ( test) Qlon Human Chorionic Gonadotropin, Quant 123 mIU/mL High <4 [facility] Comment on above: hCG levels with Gest ational AgeGestational Age hCG mIU/mL (IU/L)0.2 - 1 week 5 - 501-2 weeks 50 - 5002-3 weeks 100 - 39992-2 weeks 500 - 731051-9 weeks 1000 - 427104-4 weeks 47178 - 100,0006-8 weeks 10735 - 200,0002-3 months 53377 - 100,000 Quantitative serum progester one measurement by electrochemiluminescence immunoassay (on 07-31-2024 Progesterone Level 27.3 ng/mL . [facility] Comment on above: Follicular phase 0.1 - 0.9 Luteal phase 1.8 - 23.9 Ovulation phase 0.1 - 12.0 First trimester 11.0 - 44.3 Second trimester 25.4 - 83.3 Third trimester 58.7 - 214.0 Postmenopausal 0.0 - 0.1Performed at: [employer])[address] [place], [place] [id number] Director: Sai Fleming PhD, Phone: [phone] Serum human chorionic gonado tropin detection for pregnancyon 07-31-2024 HCG ( test) Ql 123 mIU/mL High <4 [facility] Comment on above: hCG levels with Gest ational AgeGestational Age hCG mIU/mL (IU/L)0.2 - 1 week 5 - 501-2 weeks 50 - 5002-3 weeks 100 - 01055-0 weeks 500 - 452566-7 weeks 1000 - 356435-9 weeks 37759 - 100,0006-8 weeks 36943 - 200,0002-3 months 64365 - 100,000 Serum or plasma thyroid stim ulating hormone (TSH) measurement (units/volume)Ordered By: Jimmy Arboleda on 07-31-2024 TSH Qn 3.300 uIU/mL 0.358-3.740 [facility] T4 Free Directon 07-31-2024 T4 FREE DIRECT 1.13 ng/dL Normal 0.76-1.46 [facility] Comment on above: Performed By: #### L 501.9520, L506.0400 ####[facility] [address] [place], [place], [id number] TSH QnOrdered By: Jimmy Arboleda on 07-31-2024 Thyroid Stimulating Hormone (TSH) 3.300 uIU/mL 0.358-3.740 [facility] Thyroid Stim Hormone (TSH)on 07-31-2024 TSH 3.300 uIU/mL Normal 0.358-3.740 [facility] Comment on above: Performed By: #### L 501.9520, L506.0400 ####[facility] [address] [place], [place], [id number] hCG Titer Quant., Serumon HCG QUANT. 123 mIU/mL High 1-3 [facility] Comment on above: Result Comment: hCG levels with Gestational Age Gestational Age hCG mIU/mL (IU/L) 0.2 - 1 week 5 - 50 1-2 weeks 50 - 500 2-3 weeks 100 - 5000 3-4 weeks 500 - 17359 4-5 weeks 1000 - 53126 5-6 weeks 86068 - 100,000 6-8 weeks 45022 - 200,000 2-3 months 34856 - 100,000 Performed By: #### L 3410.9998, BTS, L509.4006, L506.0400, L3890.6006, L501.9520, L100.0100, L3890.6102, L509.8002, L3890.6301 #### [facility] [address] [place], [place], [id number] PROGESTERONE 4317on 06-30-19 PROGESTERONE 0.1 ng/mL Normal . [facility] Comment on above: Order Comment: N Result Comment: Foll icular phase 0.1 - 0.9 Luteal phase 1.8 - 23.9 Ovulation phase 0.1 - 12.0 First trimester 11.0 - 44.3 Second trimester 25.4 - 83.3 Third trimester 58.7 - 214.0 Postmenopausal 0.0 - 0.1 Performed at: [facility] [address] [id number] Campus President: Sai Fleming PhD, Phone: [phone] Performed By: #### L 3410.9998, BTS, L509.4006, L506.0400, L3890.6006, L501.9520, L100.0100, L3890.6102, L509.8002, L3890.6301 #### [facility] [address] [place], [place], [phone] Direct serum free thyroxine (FT4) measurementOrdered By: Jimmy Arboleda on 06-29-2024 Free T4 [Mass/Vol] 1.14 ng/dL 0.76-1.46 [facility] Estradiolon 06-29-2024 ESTRADIOL < 11.0 Normal [facility] Comment on above: Result Comment: NORM AL REFERENCE RANGES FEMALE FOLLICULAR 21.4 - 164.8 pg/mL MID-CYCLE PEAK 49.9 - 367.2 pg/mL LUTEAL 40.2 - 259.0 pg/mL POST-MENOPAUSAL ON MHT <11.0 - 462.1 pg/mL NOT ON MHT <11.0 - 58.3 pg/mL MALE <11.0 - 52.5 pg/mL NOTE: [employer] HAS CONFIRMED THE DRUG FULVETRANT (FASLODEX) MAY CAUSE FALSELY ELEVATED ESTRADIOL RESULTS WHEN USING THIS TEST METHOD. IF PATIENT IS TAKING FULVESTRANT AN ALTERNATIVE METHOD SHOULD BE USED TO DETERMINE ESTRADIOL CONCENTRATION. Performed By: #### L 2990.9998, BTS, L509.4006, L506.0400, L3890.6006, L501.9520, L100.0100, L3890.6102, L509.8002, L3890.6301 #### [facility] [address] [place], [address] Estradiol measurementon Estradiol (E2) Level < 11.0 pg/mL [facility] Comment on above: NORMAL REFERENCE RAN GES FEMALE FOLLICULAR 21.4 - 164.8 pg/mL MID-CYCLE PEAK 49.9 - 367.2 pg/mL LUTEAL 40.2 - 259.0 pg/mL POST-MENOPAUSAL ON MHT <11.0 - 462.1 pg/mL NOT ON MHT <11.0 - 58.3 pg/mL MALE <11.0 - 52.5 pg/mL NOTE:[employer] HAS CONFIRMED THE DRUG FULVETRANT (FASLODEX) MAY CAUSE FALSELY ELEVATED ESTRADIOL RESULTS WHEN USING THIS TEST METHOD. IF PATIENT IS TAKING FULVESTRANT AN ALTERNATIVE METHOD SHOULD BE USED TO DETERMINE ESTRADIOL CONCENTRATION. Quantitative serum progester one measurement by electrochemiluminescence immunoassay (on 06-29-2024 Progesterone Level 0.1 ng/mL . [facility] Comment on above: Follicular phase 0.1 - 0.9 Luteal phase 1.8 - 23.9 Ovulation phase 0.1 - 12.0 First trimester 11.0 - 44.3 Second trimester 25.4 - 83.3 Third trimester 58.7 - 214.0 Postmenopausal 0.0 - 0.1Performed at: [facility] [address] [id number] Director: Sai Fleming PhD, Phone: [phone] T4 Free Directon 06-29-2024 T4 FREE DIRECT 1.14 ng/dL Normal 0.76-1.46 [facility] Comment on above: Performed By: #### L 3410.9998, BTS, L509.4006, L506.0400, L3890.6006, L501.9520, L100.0100, L3890.6102, L509.8002, L3890.6301 #### [facility] [address] [place], [place], [address] TSH QnOrdered By: Jimmy Arbloeda on 06-29-2024 Thyroid Stimulating Hormone (TSH) 3.010 uIU/mL 0.358-3.740 [facility] Thyroid Stim Hormone (TSH)on 06-29-2024 TSH 3.010 uIU/mL Normal 0.358-3.740 [facility] Comment on above: Performed By: #### L 3410.9998, BTS, L509.4006, L506.0400, L3890.6006, L501.9520, L100.0100, L3890.6102, L509.8002, L3890.6301 #### [facility] [address] [place], [place], [address] Endocrinology Visit Reporton 06-22-2024 Endocrinology Visit Report [facility] [address] [place], [place] [address] OFFICE VISIT Date of Service: 06/22/24 MR#: [id number] Acct: [id number] Name: MARIAMA LONG Rep #: [id number] : 1990 Provider: Anju St Age/Sex: 34/F [place] [facility] [place]: Signed Intake Vital Signs 12/31/23 15:01 06/22/24 14:33 Height 5 ft 6 in 5 ft 6 in Weight: 137 lb 145 lb 2 oz BMI 22.1 23.4 BP 113/73 128/80 H Blood Pressure Location Lt brachial Rt brachial Position Sitting Sitting Pulse 63 Pulse Source Monitor Pulse Oximetry (%) 99 Oxygen Delivery Method room air Intake Visit Reasons: Hypothyroid Chief Complaint: thyroid Is patient in pain?: No Allergies Penicillins (PCN) Allergy (Verified 06/22/24 14:35) Hives Medications ???Medication ???Instructions ???Recorded ???Confirmed ???Type vit no.95-ferrous 1 ea PO DAILY 04/30/20 06/22/24 History fumarate 28 mg-folic acid 800 mcg tablet levothyroxine 50 mcg capsule 50 mcg PO DAILY #30 caps 03/09/24 06/22/24 Rx norethindrone 1 mg-ethinyl 1 tab PO QDAY 06/22/24 06/22/24 History estradiol 35 mcg tablet (Dasetta) PFS Medical History Endometriosis resulting from in-vitro fertilization Hypothyroid Thyroid disorder Family History Aunt Breast cancer, Onset Age: 45 Unknown Breast cancer Grandmother Ovarian cancer Other Cancer Myocardial infarction Social History number of children: 1 Smoking Status: Never smoker alcohol intake: never substance use type: does not use well-balanced diet: daily or most days what type of physical activity do you participate in: aerobics silas/rastafari: Restorationist seatbelt use: always do you feel safe at home: Yes additional social history: - Owen HPI HPI Chief Complaint: thyroid Details: MARIAMA LONG, is a 34 F who presents to the office today for evaluation and management of thyroid disease. She has known Brandt's thyroiditis. Her highest TSH was 6.27 She is taking levothyroxine 50 mcg. She is getting ready for implantation of embryo. She is feeling well. ROS Const Constitutional: No fatigue or weight change ENT ENT: No dizziness/vertigo Cardio Cardiology: No chest pain at rest, chest pain with exertion, shortness of breath or palpitations Skin Skin: No wounds Endo Endocrine: No fatigue or weight change Exam Const General: cooperative, healthy appearing, comfortable, no acute distress, well developed and not cushingoid Nutritional Appearance: well nourished Orientation: alert, awake and oriented x3 HENMT Head: normal to inspection Ears: hearing grossly normal bilaterally Nose: external nose normal Mouth: oral mucosae normal Eyes Alignment and Position: alignment normal Periorbital: periorbital findings normal Eyelids: eyelids normal Conjunctivae: conjunctivae normal Other: Lateral eyelid flare Neck Neck: normal visual inspection Neck mass: No Thyroid: diffusely enlarged (mild enlargement) Carotids: no bruits Lymphatic: no lymphadenopathy noted Chest Chest palpation inspection: normal inspection of the chest Resp Effort Inspection: normal respiratory effort, able to speak in complete sentences, symmetric chest movement, no audible wheezes and no cough Auscultation: Bilateral: Clear to Auscultation Cardio Rate: regular rate Rhythm: regular rhythm Pulses: posterior tibial pulses present Skin General: no rashes or lesions noted Neuro General: patient alert, patient awake and patient oriented x3 Cranial Nerves: CN's II-XI intact bilaterally Cognition: normal cognition Speech: speech normal Gait: normal gait Motor: muscle tone normal throughout Extrem General: no edema Psych Appearance: grossly normal Mental Status: mental status grossly normal Mood: congruent mood Affect: normal affect Speech and Movement: speech and movement normal Attitude: cooperative Thought Process: normal Thought Content: normal Judgment: judgment good Assessment and Plan Assessment and Plan (1) Hypothyroid: Status: Chronic Qualifiers: Hypothyroidism type: due to Brandt's thyroiditis Qualified Code(s): E06.3 - Autoimmune thyroiditis Plan: Pre- planning. I counseled her regarding thyroid physiology. I counseled her regarding monitoring and treatment. Take levothyroxine on an empty stomach with water at least four hours after eating. Then wait 30-60 minutes before consuming any other food or beverage, especially coffee. Separate levothyroxine from vitamins by at least 4 hours. Stop taking any biotin (more content not included)... Normal [facility] PROLACTIN 4465on 05-20-2024 PROLACTIN 10.4 ng/mL Normal 4.8-33.4 [facility] Comment on above: Result Comment: Perf ormed at: CB - [facility] [address] [id number] Campus President: Sai Fleming PhD, Phone: [phone] Performed By: #### L 500.6220, Z209.8000, C5530.2860, L3100.5400, M8200.2203, L3890.6100, L100.0500, L3890.6005 ####[facility] [address] [place], [address] Albumin to globulin ratioon 11-29-2024 Albumin/Globulin [Mass ratio] 0.9 {ratio} 0.9-2.4 [facility] Bilirubin, totalon Bilirubin [Mass/Vol] 0.30 mg/dL 0.20-1.00 [facility] Comment on above: For patients on eltr ombopag therapy, use of Dimension [place] TBIL is not recommended. Blood urea nitrogen (BUN)/cr eatinine ratioon 05-19-2024 Urea nitrogen/Creatinine [Mass ratio] 15.0 mg/mg - [facility] CBC-Complete Blood Cnt No Di ffon 05-19-2024 Erythrocyte distribution width (RBC) [Ratio] 12.5 % Normal 11.6-14.6 [facility] Comment on above: Performed By: #### L 500.4050, L509.8000, L3890.6300, L3100.5400, M8200.2203, L3890.6100, L100.0500, L3890.6005 ####[facility] [address] [place], [address] Hematocrit (Bld) [Volume fraction] 41.7 % Normal 37-47 [facility] Comment on above: Performed By: #### L 500.4050, L509.8000, L3890.6300, L3100.5400, M8200.2203, L3890.6100, L100.0500, L3890.6005 ####[facility] [address] [place], [address] Hemoglobin (Bld) [Mass/Vol] 13.4 g/dL Normal 12.0-15.0 [facility] Comment on above: Performed By: #### L 500.4050, L509.8000, L3890.6300, L3100.5400, M8200.2203, L3890.6100, L100.0500, L3890.6005 ####[facility] [address] [place], [address] MCH (RBC) [Entitic mass] 28.6 pg Normal 27.0-32.0 [facility] Comment on above: Performed By: #### L 500.4050, L509.8000, L3890.6300, L3100.5400, M8200.2203, L3890.6100, L100.0500, L3890.6005 ####[facility] [address] [place], [address] MCHC (RBC) [Mass/Vol] 32.1 g/dL Normal 32-36 [facility] Comment on above: Performed By: #### L 500.4050, L509.8000, L3890.6300, L3100.5400, M8200.2203, L3890.6100, L100.0500, L3890.6005 ####[facility] [address] [place], [address] MCV (RBC) [Entitic vol] 88.9 fL Normal 81-99 [facility] Comment on above: Performed By: #### L 500.4050, L509.8000, L3890.6300, L3100.5400, M8200.2203, L3890.6100, L100.0500, L3890.6005 ####[facility] [address] [place], [address] Platelet mean volume (Bld) [Entitic vol] 10.0 fL Normal 6.2-12.0 [facility] Comment on above: Performed By: #### L 500.4050, L509.8000, L3890.6300, L3100.5400, M8200.2203, L3890.6100, L100.0500, L3890.6005 ####[facility] [address] [place], [address] Platelets (Bld) [#/Vol] 274 10*3/uL Normal 150-450 [facility] Comment on above: Performed By: #### L 500.4050, L509.8000, L3890.6300, L3100.5400, M8200.2203, L3890.6100, L100.0500, L3890.6005 ####[facility] [address] [place], [address](641) RBC (Bld) [#/Vol] 4.69 10*6/uL Normal 4.2-5.4 [facility] Comment on above: Performed By: #### L 500.4050, L509.8000, L3890.6300, L3100.5400, M8200.2203, L3890.6100, L100.0500, L3890.6005 ####[facility] [address] [place], [address](911) RDW SD 40.8 fl Normal 35.1-43.9 [facility] Comment on above: Performed By: #### L 500.4050, L509.8000, L3890.6300, L3100.5400, M8200.2203, L3890.6100, L100.0500, L3890.6005 ####[facility] [address] [place], [place], [phone](157) WBC (Bld) [#/Vol] 6.7 10*3/uL Normal 4.4-11.0 [facility] Comment on above: Performed By: #### L 500.4050, L509.8000, L3890.6300, L3100.5400, M8200.2203, L3890.6100, L100.0500, L3890.6005 ####[facility] [address] [place], [address] Carbon dioxide measurementon 05-19-2024 CO2 [Moles/Vol] 23.0 mmol/L 21.0-32.0 [facility] Chlamydia and Neisseria gono rrhoeae detection by PCRon 05-19-2024 Chlamydia/Neisseria (PCR) [facility] Chloride measurementon 05-19 Chloride [Moles/Vol] 107 mmol/L 98-107 [facility] Comprehensive Metabolic Prof ilon 05-19-2024 Albumin [Mass/Vol] 3.4 g/dL Normal 3.2-5.0 [facility] Comment on above: Order Comment: HEB Performed By: #### L 500.4050, L509.8000, L3890.6300, L3100.5400, M8200.2203, L3890.6100, L100.0500, L3890.6005 ####[facility] [address] [place], [address] Albumin/Globulin [Mass ratio] 0.9 {ratio} Normal 0.9-2.4 [facility] Comment on above: Order Comment: HEB Performed By: #### L 500.4050, L509.8000, L3890.6300, L3100.5400, M8200.2203, L3890.6100, L100.0500, L3890.6005 ####[facility] [address] [place], [address] ALK P 38 U/L Low 45-117 [facility] Comment on above: Order Comment: HEB Performed By: #### L 500.4050, L509.8000, L3890.6300, L3100.5400, M8200.2203, L3890.6100, L100.0500, L3890.6005 ####[facility] [address] [place], [address] ALT [Catalytic activity/Vol] 24 U/L Normal 13-56 [facility] Comment on above: Order Comment: HEB Performed By: #### L 500.4050, L509.8000, L3890.6300, L3100.5400, M8200.2203, L3890.6100, L100.0500, L3890.6005 ####[facility] [address] [place], [address] AST [Catalytic activity/Vol] 15 U/L Normal 15-37 [facility] Comment on above: Order Comment: HEB Performed By: #### L 500.4050, L509.8000, L3890.6300, L3100.5400, M8200.2203, L3890.6100, L100.0500, L3890.6005 ####[facility] [address] [place], [address] Bilirubin [Mass/Vol] 0.30 mg/dL Normal 0.20-1.00 [facility] Comment on above: Order Comment: HEB Result Comment: For patients on eltrombopag therapy, use of Dimension [place] TBIL is not recommended. Performed By: #### L 500.4050, L509.8000, L3890.6300, L3100.5400, M8200.2203, L3890.6100, L100.0500, L3890.6005 ####[facility] [address] [place], [address] BUN/CRE 15.0 RATIO Normal 10-20 [facility] Comment on above: Order Comment: HEB Performed By: #### L 500.4050, L509.8000, L3890.6300, L3100.5400, M8200.2203, L3890.6100, L100.0500, L3890.6005 ####[facility] [address] [place], [address] CA,Total 8.9 mg/dL Normal 8.5-10.1 [facility] Comment on above: Order Comment: HEB Performed By: #### L 500.4050, L509.8000, L3890.6300, L3100.5400, M8200.2203, L3890.6100, L100.0500, L3890.6005 ####[facility] [address] [place], [address] Chloride [Moles/Vol] 107 mmol/L Normal 98-107 [facility] Comment on above: Order Comment: HEB Performed By: #### L 500.4050, L509.8000, L3890.6300, L3100.5400, M8200.2203, L3890.6100, L100.0500, L3890.6005 ####[facility] [address] [place], [address] CO2 [Moles/Vol] 23.0 mmol/L Normal 21.0-32.0 [facility] Comment on above: Order Comment: HEB Performed By: #### L 500.4050, L509.8000, L3890.6300, L3100.5400, M8200.2203, L3890.6100, L100.0500, L3890.6005 ####[facility] [address] [place], [address](499) Creatinine [Mass/Vol] 0.73 mg/dL Normal 0.55-1.02 [facility] Comment on above: Order Comment: HEB Result Comment: The validity of the calculated GFR GFRAA in patients over 70 years has not been determined. Clinical correlation is essential. Performed By: #### L 500.4050, L509.8000, L3890.6300, L3100.5400, M8200.2203, L3890.6100, L100.0500, L3890.6005 ####[facility] [address] [place], [address] EST GFR - AA 118 mL/min Normal >60 [facility] Comment on above: Order Comment: HEB Result Comment: Afri can Marshallese GFR Calc Performed By: #### L 500.4050, L509.8000, L3890.6300, L3100.5400, M8200.2203, L3890.6100, L100.0500, L3890.6005 ####[facility] [address] [place], [address] GAP 7 Normal 5-15 [facility] Comment on above: Order Comment: HEB Performed By: #### L 500.4050, L509.8000, L3890.6300, L3100.5400, M8200.2203, L3890.6100, L100.0500, L3890.6005 ####[facility] [address] [place], [address] GFR/1.73 sq M.predicted among non-blacks MDRD (S/P/Bld) [Vol rate/Area] 97 mL/min/{1.73_m2} Normal >60 [facility] Comment on above: Order Comment: HEB Result Comment: Non- GFR Calc Performed By: #### L 500.4050, L509.8000, L3890.6300, L3100.5400, M8200.2203, L3890.6100, L100.0500, L3890.6005 ####[facility] [address] [place], [address] Globulin (S) [Mass/Vol] 3.9 g/dL Normal 2.2-4.2 [facility] Comment on above: Order Comment: HEB Performed By: #### L 500.4050, L509.8000, L3890.6300, L3100.5400, M8200.2203, L3890.6100, L100.0500, L3890.6005 ####[facility] [address] [place], [address] Glucose [Mass/Vol] 94 mg/dL Normal 74-106 [facility] Comment on above: Order Comment: HEB Performed By: #### L 500.4050, L509.8000, L3890.6300, L3100.5400, M8200.2203, L3890.6100, L100.0500, L3890.6005 ####[facility] [address] [place], [place], [phone] Potassium [Moles/Vol] 4.0 mmol/L Normal 3.5-5.1 [facility] Comment on above: Order Comment: HEB Performed By: #### L 500.4050, L509.8000, L3890.6300, L3100.5400, M8200.2203, L3890.6100, L100.0500, L3890.6005 ####[facility] [address] [place], [address] Sodium [Moles/Vol] 137 mmol/L Normal 136-145 [facility] Comment on above: Order Comment: HEB Performed By: #### L 500.4050, L509.8000, L3890.6300, L3100.5400, M8200.2203, L3890.6100, L100.0500, L3890.6005 ####[facility] [address] [place], [place], [phone]) T PROT 7.3 g/dL Normal 6.4-8.2 [facility] Comment on above: Order Comment: HEB Performed By: #### L 500.4050, L509.8000, L3890.6300, L3100.5400, M8200.2203, L3890.6100, L100.0500, L3890.6005 ####[facility] [address] [place], [address] Urea nitrogen [Mass/Vol] 11 mg/dL Normal 7-18 [facility] Comment on above: Order Comment: HEB Performed By: #### L 500.4050, L509.8000, L3890.6300, L3100.5400, M8200.2203, L3890.6100, L100.0500, L3890.6005 ####[facility] [address] [place], [address] Erythrocyte distribution wid th ratioon 05-19-2024 Erythrocyte distribution width (RBC) [Ratio] 12.5 % 11.6-14.6 [facility] Erythrocyte distribution wid th standard deviationon 05-19-2024 Erythrocyte distribution width (RBC) [Entitic vol] 40.8 fL 35.1-43.9 [facility] Estimated glomerular filtrat ion rate (GFR) Americanon 05-19-2024 Estimated GFR (MDRD) Amer 118 mL/min >60 [facility] Comment on above: GFR Calc Glomerular filtration rate ( GFR) estimationon 05-19-2024 Estimated GFR (MDRD) Non-Af Amer 97 mL/min >60 [facility] Comment on above: Non- GFR Calc Glucose measurementon 2023 Glucose [Mass/Vol] 94 mg/dL 74-106 [facility] HIV - WCHon 05-19-2024 HIV Non-Reactive Normal Nonreactive [facility] Comment on above: Performed By: #### L 500.4050, L509.8000, L3890.6300, L3100.5400, M8200.2203, L3890.6100, L100.0500, L3890.6005 ####[facility] [address] [place], [place], [id number] HIV 1+2 Ab+HIV1 p24 Ag IA Ql on 05-19-2024 HIV (1&2) Antibody Non-Reactive Nonreactive [facility] Hematocrit Auto (Bld) [Volum e fraction]on 05-19-2024 Hematocrit (Bld) [Volume fraction] 41.7 % 37-47 [facility] Hemoglobin measurementon Hemoglobin (Bld) [Mass/Vol] 13.4 g/dL 12.0-15.0 [facility] Hepatitis B Surface Antigeno n 05-19-2024 HEP B Surf Ag Non-Reactive Normal Nonreactive [facility] Comment on above: Performed By: #### L 500.4050, L509.8000, L3890.6300, L3100.5400, M8200.2203, L3890.6100, L100.0500, L3890.6005 ####[facility] [id number] [place], [place], [id number] Hepatitis B surface antigen detectionon 05-19-2024 Hepatitis B Surface Antigen Non-Reactive Nonreactive [facility] Hepatitis C Antibodyon 05-19 Hepatitis C AB Non-Reactive Normal Nonreactive [facility] Comment on above: Result Comment: Non Reactive: < 0.8 Equivocal: >/= 0.8 to < 1.0 Reactive: >/= 1.0 The [facility] requires that a reactive/equivocal HCV antibody result be sent out for confirmation. HCV Quant by PCR testing. Performed By: #### L 500.4050, L509.8000, L3890.6300, L3100.5400, M8200.2203, L3890.6100, L100.0500, L3890.6005 ####[facility] [id number] [place], [address] Hepatitis C virus antibody a ssayon 05-19-2024 Hepatitis C Antibody Non-Reactive Nonreactive [facility] Comment on above: Non Reactive: < 0.8 Equivocal: >/= 0.8 to < 1.0 Reactive: >/= 1.0The [facility] requires that a reactive/equivocal HCV antibody result be sent out for confirmation. HCV Quant by PCR testing. L509.8000on 05-19-2024 Syphilis Abs Non-Reactive Normal [facility] Comment on above: Performed By: #### L 500.4050, L509.8000, L3890.6300, L3100.5400, M8200.2203, L3890.6100, L100.0500, L3890.6005 ####[facility] [id number] [place], [place], [id number] Laboratory - Chemistry and C hemistry - challengeon 05-19-2024 AST [Catalytic activity/Vol] 15 U/L 15-37 [facility] M8200.2203on 05-19-2024 M8200.2203 Pending Chlamydia Trachomatis PCR NEGATIVE for Chlamydia trachomatis N. gonorrhoeae PCR Negative for N. gonorrhoeae Normal [facility] Comment on above: Performed By: #### L 500.4050, L509.8000, L3890.6300, L3100.5400, M8200.2203, L3890.6100, L100.0500, L3890.6005 ####[facility] [id number] [place], [address] MCV (mean corpuscular volume ) determinationon 05-19-2024 MCV (RBC) [Entitic vol] 88.9 fL 81-99 [facility] Mean corpuscular hemoglobin (MCH) determinationon 05-19-2024 MCH (RBC) [Entitic mass] 28.6 pg 27.0-32.0 [facility] Mean corpuscular hemoglobin concentration (MCHC) determinationon 05-19-2024 MCHC (RBC) [Mass/Vol] 32.1 g/dL 32-36 [facility] Mean platelet volume determi nationon 05-19-2024 Platelet mean volume (Bld) [Entitic vol] 10.0 fL 6.2-12.0 [facility] Platelet counton 05-19-2024 Platelets (Bld) [#/Vol] 274 10*3/uL 150-450 [facility] Potassium measurementon 04-22 Potassium [Moles/Vol] 4.0 mmol/L 3.5-5.1 [facility] Prolactin [Mass/Vol]on 05-19 Prolactin 10.4 ng/mL 4.8-33.4 [facility] Comment on above: Performed at: [address] [id number] Director: Sai Fleming PhD, Phone: [phone] RBC Auto (Bld) [#/Vol]on RBC (Bld) [#/Vol] 4.69 10*6/uL 4.2-5.4 [facility] Serum anion gap measuremento n 05-19-2024 Anion gap [Moles/Vol] 7 mmol/L 5-15 [facility] Serum globulin measurementon 05-19-2024 Globulin (S) [Mass/Vol] 3.9 g/dL 2.2-4.2 [facility] Serum or plasma alanine roberts otransferase (ALT) measurementon 05-19-2024 ALT [Catalytic activity/Vol] 24 U/L 13-56 [facility] Serum or plasma albumin rafael urement (mass/volume)on 05-19-2024 Albumin [Mass/Vol] 3.4 g/dL 3.2-5.0 [facility] Serum or plasma alkaline jose sphatase measurementon 05-19-2024 ALP [Catalytic activity/Vol] 38 U/L Low 45-117 [facility] Serum or plasma calcium rafael urement (mass/volume)on 05-19-2024 Calcium [Mass/Vol] 8.9 mg/dL 8.5-10.1 [facility] Serum or plasma creatinine m easurement (mass/volume)on 05-19-2024 Creatinine [Mass/Vol] 0.73 mg/dL 0.55-1.02 [facility] Comment on above: The validity of the calculated GFR & GFRAA in patients over 70 years has not been determined. Clinical correlation is essential. Serum or plasma urea nitroge n measurement (mass/volume)on 05-19-2024 Urea nitrogen [Mass/Vol] 11 mg/dL 7-18 [facility] Sodium levelon 05-19-2024 Sodium [Moles/Vol] 137 mmol/L 136-145 [facility] Total proteinon 05-19-2024 Protein [Mass/Vol] 7.3 g/dL 6.4-8.2 [facility] Treponema sp Ab Ql (S)on Syphilis Total Antibody Non-Reactive [facility] White blood cell (WBC) count on 05-19-2024 WBC (Bld) [#/Vol] 6.7 10*3/uL 4.4-11.0 [facility] COVID-19 virus antigen assay Ordered By: Carlos Alberto Landers on 03-27-2023 SARS-CoV-2 (COVID-19) Ag IA.rapid Ql (Resp) [facility] Basophil percentageOrdered B y: Jojo Pressley on 12-28-2022 WBC (Bld) [#/Vol] 4.3 10*3/uL 4.4-11.0 [facility] Blood erythrocytes count (nu mber/volume)Ordered By: Jojo Pressley on 12-28-2022 RBC (Bld) [#/Vol] 5.31 10*6/uL 4.2-5.4 [facility] Blood hemoglobin measurement (mass/volume)Ordered By: Jojo Pressley on 12-28-2022 Hemoglobin (Bld) [Mass/Vol] 14.8 g/dL 12.0-15.0 [facility] Blood platelet mean volumeOr dered By: Jojo Pressley on 12-28-2022 Platelet mean volume (Bld) [Entitic vol] 11.6 fL 6.2-12.0 [facility] Determination of erythrocyte mean corpuscular volume (MCV)Ordered By: Jojo Pressley on 12-28-2022 MCV (RBC) [Entitic vol] 86.3 fL 81-99 [facility] Hematocrit Auto (Bld) [Volum e fraction]Ordered By: Jojo Pressley on 12-28-2022 Hematocrit (Bld) [Volume fraction] 45.8 % 37-47 [facility] Laboratory - Chemistry and C hemistry - challengeOrdered By: Jojo Pressley on 12-28-2022 Free T4 [Mass/Vol] 0.93 ng/dL 0.76-1.46 [facility] Laboratory - Hematology and Cell countsOrdered By: Jojo Pressley on 12-28-2022 Erythrocyte distribution width (RBC) [Entitic vol] 45.4 fL 35.1-43.9 [facility] Erythrocyte distribution width (RBC) [Ratio] 14.3 % 11.6-14.6 [facility] MCH (RBC) [Entitic mass] 27.9 pg 27.0-32.0 [facility] MCHC Auto (RBC) [Mass/Vol]Or dered By: Jojo Pressley on 12-28-2022 MCHC (RBC) [Mass/Vol] 32.3 g/dL 32-36 [facility] No Panel InformationOrdered By: Jojo Pressley on 12-28-2022 Thyroid Stimulating Hormone (TSH) 1.36 uIU/mL 0.358-3.74 [facility] Vitamin D 25-Hydroxy 61.1 ng/mL [facility] Comment on above: Vitamin D 25(OH) Sta tus Range Deficiency <20 ng/mL (50nmol/L) Insufficiency 20 - 30 ng/mL (50 - 75 nmol/L) Sufficiency 30 - 100 ng/mL (75 - 250 nmol/L) Toxicity >100 ng/mL (>250 nmol/L) Platelets bldOrdered By: Saima Pressley on 12-28-2022 Platelets (Bld) [#/Vol] 225 10*3/uL 150-450 [facility] Absolute lymphocyte countOrd ered By: Long Molina on 12-17-2022 Lymphocytes Auto (Unsp spec) [#/Vol] 2.20 10*3/uL 0.83-4.51 [facility] Basophil percentageOrdered B y: Long Molina on 12-17-2022 Basophils/100 WBC (Bld) 0.6 % 0-1 [facility] Chloride [Moles/Vol] 106 mmol/L 98-107 [facility] Eosinophils/100 WBC (Bld) 3.5 % 0-5 [facility] Glucose [Mass/Vol] 90 mg/dL 74-106 [facility] Neutrophils (Bld) [#/Vol] 2.6 10*3/uL 2.0-7.7 [facility] Neutrophils/100 WBC (Bld) 47.6 % 47-70 [facility] Potassium [Moles/Vol] 4.1 mmol/L 3.5-5.1 [facility] Sodium [Moles/Vol] 137 mmol/L 136-145 [facility] WBC (Bld) [#/Vol] 5.4 10*3/uL 4.4-11.0 [facility] Blood erythrocytes count (nu mber/volume)Ordered By: Long Molina on 12-17-2022 RBC (Bld) [#/Vol] 5.38 10*6/uL 4.2-5.4 [facility] Blood hemoglobin measurement (mass/volume)Ordered By: Long Molina on 12-17-2022 Hemoglobin (Bld) [Mass/Vol] 14.7 g/dL 12.0-15.0 [facility] Blood lymphocytes/100 leukoc ytesOrdered By: Long Molina on 12-17-2022 Lymphocytes/100 WBC (Bld) 40.5 % 19-41 [facility] Blood monocytes/100 leukocyt esOrdered By: Long Molina on 12-17-2022 Monocytes/100 WBC (Bld) 7.6 % 0-10 [facility] Blood platelet mean volumeOr dered By: Long Molina on 12-17-2022 Platelet mean volume (Bld) [Entitic vol] 10.4 fL 6.2-12.0 [facility] CNOVon 12-17-2022 CNOV Office Visit (UCWSTR ) -------- MARIAMA LONG ([id number]) 1990 F Date Time Provider Department 12/17/22 2:15 PM CONSUELO STOKES WS During your visit today, we recorded the following information about you: Temperature Pulse Respiration Blood pressure 98.2 degrees 78/minute 18/minute 122/74 Weight Last Period 69.9 kg 08/31/16 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 12/17/2022 2:43 PM Signed Came in with complaints of rectal bleeding for 10 days. Patient says has been pretty consistent. Patient is 3 weeks postop from . Patient never pushed with the baby patient's never been constipated. Patient has no reason for the rectal bleeding at this time. Did attempt to get an appointment with GI which is out till January. At this time patient is being referred to the emergency room for an evaluation. Patient was okay with this. Allergies As of Date: 12/17/2022 Noted Allergy Reaction PENICILLINS 05/23/2015 4 - Hives Date Reviewed: 12/17/2022 Reviewed by: Geraldine Aguayo LPN - Fully Assessed Reason for Visit: Rectal Bleeding [202] Cmt: Pt reported x3 wks prior PP, c/o rectal bleeding, x10 days. Primary Visit Diagnosis:Rectal bleeding [K62.5] Order(s):CONSULT TO GASTROENTEROLOGY [9010] Order #: [id number]: 1 FUTURE Prescriptions as of 12/17/2022 - levothyroxine 75 mcg cap Take 75 mcg by mouth daily before breakfast. Problem List As Of Date: 12/17/2022 (None) Encounter Status:Closed by CONSUELO STOKES on 12/17/22 Normal [facility] Determination of erythrocyte mean corpuscular volume (MCV)Ordered By: Long Molina on 12-17-2022 MCV (RBC) [Entitic vol] 86.8 fL 81-99 [facility] Hematocrit Auto (Bld) [Volum e fraction]Ordered By: Long Molina on 12-17-2022 Hematocrit (Bld) [Volume fraction] 46.7 % 37-47 [facility] Laboratory - Chemistry and C hemistry - challengeOrdered By: Long Molina on 12-17-2022 CO2 [Moles/Vol] 24.0 mmol/L 21.0-32.0 [facility] Urea nitrogen/Creatinine [Mass ratio] 22.5 mg/mg 10-20 [facility] Laboratory - Hematology and Cell countsOrdered By: Long Molina on 12-17-2022 Erythrocyte distribution width (RBC) [Entitic vol] 44.8 fL 35.1-43.9 [facility] Erythrocyte distribution width (RBC) [Ratio] 14.0 % 11.6-14.6 [facility] Immature granulocytes/100 WBC (Bld) 0.200 % 0.0-0.9 [facility] Comment on above: IG% - Immature Granu locytes (promyelocytes, myelocytes and metamyelocytes) > 1% indicates that a LEFT SHIFT is Present. MCH (RBC) [Entitic mass] 27.3 pg 27.0-32.0 [facility] Nucleated RBC/100 WBC (Bld) [Ratio] 0 % 0-5 [facility] Lower GI hemoglobin IA Ql (S tl)Ordered By: Long Molina on 12-17-2022 Stool Occult Blood (ANITHA) Positive [facility] MCHC Auto (RBC) [Mass/Vol]Or dered By: Long Molina on 12-17-2022 MCHC (RBC) [Mass/Vol] 31.5 g/dL 32-36 [facility] No Panel InformationOrdered By: Long Molina on 12-17-2022 Estimated Creatinine Clearance Calc 82.05 ml/min [facility] Estimated GFR (MDRD) Amer 90 mL/min >60 [facility] Comment on above: GFR Calc Estimated GFR (MDRD) Non-Af Amer 74 mL/min >60 [facility] Comment on above: Non- GFR Calc Platelets bldOrdered By: Chantal Molina on 12-17-2022 Platelets (Bld) [#/Vol] 255 10*3/uL 150-450 [facility] Serum or plasma calcium rafael urement (mass/volume)Ordered By: Long Molina on 12-17-2022 Calcium [Mass/Vol] 9.1 mg/dL 8.5-10.1 [facility] Serum or plasma creatinine m easurement (mass/volume)Ordered By: Long Molina on 12-17-2022 Creatinine [Mass/Vol] 0.93 mg/dL 0.55-1.02 [facility] Comment on above: The validity of the calculated GFR & GFRAA in patients over 70 years has not been determined. Clinical correlation is essential. Serum or plasma urea nitroge n measurement (mass/volume)Ordered By: Long Molina on 12-17-2022 Urea nitrogen [Mass/Vol] 21 mg/dL 7-18 [facility] Thin prep Papanicolaou smear with manual screeningOrdered By: Long Molina on 12-17-2022 Thin prep Papanicolaou smear with manual screening 7 5-15 [facility] Basophil percentageOrdered B y: Dr. Pressley on 11-24-2022 WBC (Bld) [#/Vol] 11.5 10*3/uL 4.4-11.0 [facility] Blood erythrocytes count (nu mber/volume)Ordered By: Dr. Pressley on 11-24-2022 RBC (Bld) [#/Vol] 4.01 10*6/uL 4.2-5.4 [facility] Blood hemoglobin measurement (mass/volume)Ordered By: Dr. Pressley on 11-24-2022 Hemoglobin (Bld) [Mass/Vol] 11.5 g/dL 12.0-15.0 [facility] Blood platelet mean volumeOr dered By: Dr. Pressley on 11-24-2022 Platelet mean volume (Bld) [Entitic vol] 11.5 fL 6.2-12.0 [facility] Determination of erythrocyte mean corpuscular volume (MCV)Ordered By: Dr. Pressley on 11-24-2022 MCV (RBC) [Entitic vol] 88.5 fL 81-99 [facility] Hematocrit Auto (Bld) [Volum e fraction]Ordered By: Dr. Pressley on 11-24-2022 Hematocrit (Bld) [Volume fraction] 35.5 % 37-47 [facility] Laboratory - Hematology and Cell countsOrdered By: Dr. Pressley on 11-24-2022 Erythrocyte distribution width (RBC) [Entitic vol] 48.2 fL 35.1-43.9 [facility] Erythrocyte distribution width (RBC) [Ratio] 14.8 % 11.6-14.6 [facility] MCH (RBC) [Entitic mass] 28.7 pg 27.0-32.0 [facility] MCHC Auto (RBC) [Mass/Vol]Or dered By: Dr. Pressley on 11-24-2022 MCHC (RBC) [Mass/Vol] 32.4 g/dL 32-36 [facility] Platelets bldOrdered By: Dr. Pressley on 11-24-2022 Platelets (Bld) [#/Vol] 198 10*3/uL 150-450 [facility] Absolute lymphocyte countOrd ered By: Dr. Pressley on 11-23-2022 Lymphocytes Auto (Unsp spec) [#/Vol] 2.11 10*3/uL 0.83-4.51 [facility] Basophil percentageOrdered B y: Dr. Pressley on 11-23-2022 Basophils/100 WBC (Bld) 0.3 % 0-1 [facility] Eosinophils/100 WBC (Bld) 1.4 % 0-5 [facility] Neutrophils (Bld) [#/Vol] 9.9 10*3/uL 2.0-7.7 [facility] Neutrophils/100 WBC (Bld) 74.4 % 47-70 [facility] Blood lymphocytes/100 leukoc ytesOrdered By: Dr. Pressley on 11-23-2022 Lymphocytes/100 WBC (Bld) 15.8 % 19-41 [facility] Blood monocytes/100 leukocyt esOrdered By: Dr. Pressley on 11-23-2022 Monocytes/100 WBC (Bld) 7.0 % 0-10 [facility] Laboratory - Hematology and Cell countsOrdered By: Dr. Pressley on 11-23-2022 Immature granulocytes/100 WBC (Bld) 1.100 % 0.0-0.9 [facility] Comment on above: IG% - Immature Granu locytes (promyelocytes, myelocytes and metamyelocytes) > 1% indicates that a LEFT SHIFT is Present. Nucleated RBC/100 WBC (Bld) [Ratio] 0 % 0-5 [facility] Serum Treponema species anti body detectionOrdered By: Dr. Pressley on 11-23-2022 Treponema sp Ab Ql (S) Non-Reactive [facility] No Panel InformationOrdered By: Dr. Pressley on 10-30-2022 Group B Streptococcus Culture Group B Beta Streptococcus is not isolated. [facility] Basophil percentageOrdered B y: Dr. Pressley on 10-27-2022 WBC (Bld) [#/Vol] 9.0 10*3/uL 4.4-11.0 [facility] Blood erythrocytes count (nu mber/volume)Ordered By: Dr. Pressley on 10-27-2022 RBC (Bld) [#/Vol] 4.66 10*6/uL 4.2-5.4 [facility] Blood hemoglobin measurement (mass/volume)Ordered By: Dr. Pressley on 10-27-2022 Hemoglobin (Bld) [Mass/Vol] 13.0 g/dL 12.0-15.0 [facility] Blood platelet mean volumeOr dered By: Dr. Pressley on 10-27-2022 Platelet mean volume (Bld) [Entitic vol] 12.0 fL 6.2-12.0 [facility] Determination of erythrocyte mean corpuscular volume (MCV)Ordered By: Dr. Pressley on 10-27-2022 MCV (RBC) [Entitic vol] 87.8 fL 81-99 [facility] Hematocrit Auto (Bld) [Volum e fraction]Ordered By: Dr. Pressley on 10-27-2022 Hematocrit (Bld) [Volume fraction] 40.9 % 37-47 [facility] Laboratory - Chemistry and C hemistry - challengeOrdered By: Dr. Pressley on 10-27-2022 Free T4 [Mass/Vol] 0.79 ng/dL 0.76-1.46 [facility] Laboratory - Hematology and Cell countsOrdered By: Dr. Pressley on 10-27-2022 Erythrocyte distribution width (RBC) [Entitic vol] 45.1 fL 35.1-43.9 [facility] Erythrocyte distribution width (RBC) [Ratio] 14.2 % 11.6-14.6 [facility] MCH (RBC) [Entitic mass] 27.9 pg 27.0-32.0 [facility] MCHC Auto (RBC) [Mass/Vol]Or dered By: Dr. Pressley on 10-27-2022 MCHC (RBC) [Mass/Vol] 31.8 g/dL 32-36 [facility] No Panel InformationOrdered By: Dr. Pressley on 10-27-2022 Thyroid Stimulating Hormone (TSH) 3.93 uIU/mL 0.358-3.74 [facility] No Panel InformationOrdered By: Jojo Pressley on 10-27-2022 Group B Streptococcus Culture Group B Beta Streptococcus is not isolated. [facility] Platelets bldOrdered By: Dr. Pressley on 10-27-2022 Platelets (Bld) [#/Vol] 259 10*3/uL 150-450 [facility] Serum Treponema species anti body detectionOrdered By: Dr. Pressley on 10-27-2022 Treponema sp Ab Ql (S) Non-Reactive [facility] Laboratory - Chemistry and C hemistry - challengeOrdered By: Dr. Pressley on 10-06-2022 Free T4 [Mass/Vol] 0.67 ng/dL 0.76-1.46 [facility] No Panel InformationOrdered By: Dr. Pressley on 10-06-2022 Thyroid Stimulating Hormone (TSH) 3.74 uIU/mL 0.358-3.74 [facility] Laboratory - Chemistry and C hemistry - challengeOrdered By: Dr. Pressley on 09-08-2022 Free T4 [Mass/Vol] 0.32 ng/dL 0.76-1.46 [facility] No Panel InformationOrdered By: Dr. Pressley on 09-08-2022 Thyroid Stimulating Hormone (TSH) < 0.01 uIU/mL 0.358-3.74 [facility] Absolute lymphocyte countOrd ered By: Dr. Pressley on 08-07-2022 Lymphocytes Auto (Unsp spec) [#/Vol] 1.74 10*3/uL 0.83-4.51 [facility] Basophil percentageOrdered B y: Dr. Pressley on 08-07-2022 Basophils/100 WBC (Bld) 0.3 % 0-1 [facility] Eosinophils/100 WBC (Bld) 1.3 % 0-5 [facility] Neutrophils (Bld) [#/Vol] 9.3 10*3/uL 2.0-7.7 [facility] Neutrophils/100 WBC (Bld) 74.1 % 47-70 [facility] WBC (Bld) [#/Vol] 12.5 10*3/uL 4.4-11.0 [facility] Blood erythrocytes count (nu mber/volume)Ordered By: Dr. Pressley on 08-07-2022 RBC (Bld) [#/Vol] 4.04 10*6/uL 4.2-5.4 [facility] Blood hemoglobin measurement (mass/volume)Ordered By: Dr. Pressley on 08-07-2022 Hemoglobin (Bld) [Mass/Vol] 11.9 g/dL 12.0-15.0 [facility] Blood lymphocytes/100 leukoc ytesOrdered By: Dr. Pressley on 08-07-2022 Lymphocytes/100 WBC (Bld) 13.9 % 19-41 [facility] Blood monocytes/100 leukocyt esOrdered By: Dr. Pressley on 08-07-2022 Monocytes/100 WBC (Bld) 6.4 % 0-10 [facility] Blood platelet mean volumeOr dered By: Dr. Pressley on 08-07-2022 Platelet mean volume (Bld) [Entitic vol] 11.7 fL 6.2-12.0 [facility] Determination of erythrocyte mean corpuscular volume (MCV)Ordered By: Dr. Pressley on 08-07-2022 MCV (RBC) [Entitic vol] 89.4 fL 81-99 [facility] Gestational diabetes screen 1-hour screen with 50g oral glucose loadOrdered By: Dr. Pressley on 08-07-2022 Glucose 1 Hr post 50 g glucose PO [Mass/Vol] 133 mg/dL 70-140 [facility] Hematocrit Auto (Bld) [Volum e fraction]Ordered By: Dr. Pressley on 08-07-2022 Hematocrit (Bld) [Volume fraction] 36.1 % 37-47 [facility] Laboratory - Chemistry and C hemistry - challengeOrdered By: Dr. Pressley on 08-07-2022 Free T4 [Mass/Vol] 0.37 ng/dL 0.76-1.46 [facility] Laboratory - Hematology and Cell countsOrdered By: Dr. Pressley on 08-07-2022 Erythrocyte distribution width (RBC) [Entitic vol] 42.5 fL 35.1-43.9 [facility] Erythrocyte distribution width (RBC) [Ratio] 13.0 % 11.6-14.6 [facility] Immature granulocytes/100 WBC (Bld) 4.000 % 0.0-0.9 [facility] Comment on above: IG% - Immature Granu locytes (promyelocytes, myelocytes and metamyelocytes) > 1% indicates that a LEFT SHIFT is Present. MCH (RBC) [Entitic mass] 29.5 pg 27.0-32.0 [facility] Nucleated RBC/100 WBC (Bld) [Ratio] 0 % 0-5 [facility] MCHC Auto (RBC) [Mass/Vol]Or dered By: Dr. Pressley on 08-07-2022 MCHC (RBC) [Mass/Vol] 33.0 g/dL 32-36 [facility] No Panel InformationOrdered By: Dr. Pressley on 08-07-2022 Thyroid Stimulating Hormone (TSH) < 0.01 uIU/mL 0.358-3.74 [facility] Platelets bldOrdered By: Dr. Pressley on 08-07-2022 Platelets (Bld) [#/Vol] 211 10*3/uL 150-450 [facility] Laboratory - Chemistry and C hemistry - challengeOrdered By: Dr. Pressley on 07-07-2022 Free T4 [Mass/Vol] 0.59 ng/dL 0.76-1.46 [facility] No Panel InformationOrdered By: Dr. Pressley on 07-07-2022 Thyroid Stimulating Hormone (TSH) 0.01 uIU/mL 0.358-3.74 [facility] Laboratory - Chemistry and C hemistry - challengeOrdered By: Dr. Pressley on 05-12-2022 Free T4 [Mass/Vol] 1.08 ng/dL 0.76-1.46 [facility] No Panel InformationOrdered By: Dr. Pressley on 05-12-2022 Thyroid Stimulating Hormone (TSH) 1.79 uIU/mL 0.358-3.74 [facility] Culture, urineOrdered By: Dr Eron Pressley on 04-22-2022 Bacteria identified Cx Nom (U) Mixed Gram Pos & Gram Neg Org [facility] Absolute lymphocyte countOrd ered By: Dr. Pressley on 04-20-2022 Lymphocytes Auto (Unsp spec) [#/Vol] 2.09 10*3/uL 0.83-4.51 [facility] Basophil percentageOrdered B y: Dr. Pressley on 04-20-2022 Basophils/100 WBC (Bld) 0.2 % 0-1 [facility] Eosinophils/100 WBC (Bld) 0.9 % 0-5 [facility] Neutrophils (Bld) [#/Vol] 5.4 10*3/uL 2.0-7.7 [facility] Neutrophils/100 WBC (Bld) 66.4 % 47-70 [facility] WBC (Bld) [#/Vol] 8.1 10*3/uL 4.4-11.0 [facility] Blood erythrocytes count (nu mber/volume)Ordered By: Dr. Pressley on 04-20-2022 RBC (Bld) [#/Vol] 5.00 10*6/uL 4.2-5.4 [facility] Blood hemoglobin measurement (mass/volume)Ordered By: Dr. Pressley on 04-20-2022 Hemoglobin (Bld) [Mass/Vol] 14.9 g/dL 12.0-15.0 [facility] Blood lymphocytes/100 leukoc ytesOrdered By: Dr. Pressley on 04-20-2022 Lymphocytes/100 WBC (Bld) 25.9 % 19-41 [facility] Blood monocytes/100 leukocyt esOrdered By: Dr. Pressley on 04-20-2022 Monocytes/100 WBC (Bld) 6.4 % 0-10 [facility] Blood platelet mean volumeOr dered By: Dr. Pressley on 04-20-2022 Platelet mean volume (Bld) [Entitic vol] 11.3 fL 6.2-12.0 [facility] Chlamydia trachomatis rRNA d etection by probe and target amplification methodOrdered By: Dr. Pressley on 04-20-2022 C. trachomatis rRNA VANGIE+probe Ql (Unsp spec) Negative Negative [facility] Determination of erythrocyte mean corpuscular volume (MCV)Ordered By: Dr. Pressley on 04-20-2022 MCV (RBC) [Entitic vol] 86.0 fL 81-99 [facility] HIV 1 and HIV-2 antibody ass ay with HIV-1 p24 antigen detectionOrdered By: Dr. Pressley on 04-20-2022 HIV 1+2 Ab+HIV1 p24 Ag IA Ql Non-Reactive Nonreactive [facility] Hematocrit Auto (Bld) [Volum e fraction]Ordered By: Dr. Pressley on 04-20-2022 Hematocrit (Bld) [Volume fraction] 43.0 % 37-47 [facility] Laboratory - Chemistry and C hemistry - challengeOrdered By: Dr. Pressley on 04-20-2022 Free T4 [Mass/Vol] 1.22 ng/dL 0.76-1.46 [facility] Laboratory - Hematology and Cell countsOrdered By: Dr. Pressley on 04-20-2022 Erythrocyte distribution width (RBC) [Entitic vol] 37.8 fL 35.1-43.9 [facility] Erythrocyte distribution width (RBC) [Ratio] 12.0 % 11.6-14.6 [facility] Immature granulocytes/100 WBC (Bld) 0.200 % 0.0-0.9 [facility] Comment on above: IG% - Immature Granu locytes (promyelocytes, myelocytes and metamyelocytes) > 1% indicates that a LEFT SHIFT is Present. MCH (RBC) [Entitic mass] 29.8 pg 27.0-32.0 [facility] Nucleated RBC/100 WBC (Bld) [Ratio] 0 % 0-5 [facility] Laboratory - Microbiology an d Antimicrobial susceptibilityOrdered By: Dr. Pressley on 04-20-2022 N. gonorrhoeae DNA VANGIE+probe Ql (Unsp spec) Negative Negative [facility] Comment on above: Performed at: =G - L [address] [id number] Director: Mary Navarro MD, Phone: [phone] [facility] Auto (RBC) [Mass/Vol]Or dered By: Dr. Pressley on 04-20-2022 MCHC (RBC) [Mass/Vol] 34.7 g/dL 32-36 [facility] No Panel InformationOrdered By: Dr. Pressley on 04-20-2022 Hepatitis B Surface Antigen Non-Reactive Nonreactive [facility] Hepatitis C Antibody Non-Reactive Nonreactive [facility] Comment on above: Non Reactive: < 0.8 Equivocal: >/= 0.8 to < 1.0 Reactive: >/= 1.0The CDC recommends that a reactive/equivocal HCV antibody result be followed up by the HCV Nucleic Acid Amplificationtest (459543) Rubella IgG Antibody Reactive Nonreactive [facility] Comment on above: Antibody Results Int erpretation of Immune Status Non Reactive Presumed Non-Immune Equivocal Equivocal Reactive Presumed Immune Thyroid Stimulating Hormone (TSH) 1.34 uIU/mL 0.358-3.74 [facility] Platelets bldOrdered By: Dr. Pressley on 04-20-2022 Platelets (Bld) [#/Vol] 253 10*3/uL 150-450 [facility] Serum Treponema species anti body detectionOrdered By: Dr. Pressley on 04-20-2022 Treponema sp Ab Ql (S) Non-Reactive [facility] Serum Varicella zoster virus IgG antibody assay by immunoassay (units/volume)Ordered By: Dr. Pressley on 04-20-2022 VZV IgG IA Qn (S) 2502 index Immune >165 [facility] Comment on above: Negative <135 Equivo bernarda 135 - 165 Positive >165A positive result generally indicates exposure to thepathogen or administration of specific immunoglobulins,but it is not indication of active infection or stageof disease.Performed at: - [facility] [id number] Director: Sai Fleming PhD, Phone: [phone] Serum or plasma estradiol (E 2) measurement (mass/volume)on 02-11-2022 E2 [Mass/Vol] 11.8 pg/mL [facility] Work Phone: Comment on above: NORMAL REFERENCE RAN GES FEMALE FOLLICULAR 21.4 - 164.8 pg/mL MID-CYCLE PEAK 49.9 - 367.2 pg/mL LUTEAL 40.2 - 259.0 pg/mL POST-MENOPAUSAL ON MHT <11.0 - 462.1 pg/mL NOT ON MHT <11.0 - 58.3 pg/mL MALE <11.0 - 52.5 pg/mL NOTE:[employer] HAS CONFIRMED THE DRUG FULVETRANT (FASLODEX) MAY CAUSE FALSELY ELEVATED ESTRADIOL RESULTS WHEN USING THIS TEST METHOD. IF PATIENT IS TAKING FULVESTRANT AN ALTERNATIVE METHOD SHOULD BE USED TO DETERMINE ESTRADIOL CONCENTRATION. Serum or plasma progesterone measurement (mass/volume)on 02-11-2022 Progesterone [Mass/Vol] ng/mL See Comment [facility] Work Phone: Comment on above: Progesterone Referen ce Table: UNITS Female: Follicular 0.15 - 1.40 ng/mL Luteal 3.34 - 25.56 ng/mL Mid-luteal 4.44 - 28.03 ng/mL Postmenopausal 0.0 - 0.73 ng/mL : 1st Trimester 11.22 - 90.00 ng/mL 2nd Trimester 25.55 - 89.40 ng/mL 3rd Trimester 48.40 -422.50 ng/mL Basophil percentageon 2021 Bilirubin [Mass/Vol] 0.50 mg/dL 0.20-1.00 [facility] Work Phone: Comment on above: For patients on eltr ombopag therapy, use of Dimension [place] TBIL is not recommended. C. trachomatis DNA VANGIE+probe Ql (Unsp spec) Negative Negative [facility] Work Phone: Chloride [Moles/Vol] 104 mmol/L 98-107 [facility] Work Phone: Glucose [Mass/Vol] 101 mg/dL 74-106 [facility] Work Phone: Comment on above: Fasting Glucose resu lt from 100 to 125 mg/dL suggests IMPAIRED HOMEOSTASIS per A.D.A. criteria. Potassium [Moles/Vol] 3.6 mmol/L 3.5-5.1 [facility] Work Phone: [phone] Protein [Mass/Vol] 7.8 g/dL 6.4-8.2 [facility] Work Phone: Sodium [Moles/Vol] 137 mmol/L 136-145 [facility] Work Phone: [phone] WBC (Bld) [#/Vol] 4.5 10*3/uL 4.4-11.0 [facility] Work Phone: [phone] Blood erythrocytes count (nu mber/volume)on 10-30-2021 RBC (Bld) [#/Vol] 5.23 10*6/uL 4.2-5.4 [facility] Work Phone: [phone] Blood hemoglobin measurement (mass/volume)on 10-30-2021 Hemoglobin (Bld) [Mass/Vol] 15.2 g/dL 12.0-15.0 [facility] Work Phone: [phone] Blood platelet mean volumeon 10-30-2021 Platelet mean volume (Bld) [Entitic vol] 13.3 fL 6.2-12.0 [facility] Work Phone: [phone] Determination of erythrocyte mean corpuscular volume (MCV)on 10-30-2021 MCV (RBC) [Entitic vol] 88.5 fL 81-99 [facility] Work Phone: HIV 1 and HIV-2 antibody ass ay with HIV-1 p24 antigen detectionon 10-30-2021 HIV 1+2 Ab+HIV1 p24 Ag IA Ql Non-Reactive Nonreactive [facility] Work Phone: [phone] Hematocrit Auto (Bld) [Volum e fraction]on 10-30-2021 Hematocrit (Bld) [Volume fraction] 46.3 % 37-47 [facility] Work Phone: [phone] Laboratory - Chemistry and C hemistry - challengeon 10-30-2021 ALP [Catalytic activity/Vol] 52 U/L 45-117 [facility] Work Phone: ALT [Catalytic activity/Vol] 34 U/L 13-56 [facility] Work Phone: CO2 [Moles/Vol] 28.0 mmol/L 21.0-32.0 [facility] Work Phone: Free T4 [Mass/Vol] 0.97 ng/dL 0.76-1.46 [facility] Work Phone: Globulin (S) [Mass/Vol] 3.5 g/dL 2.2-4.2 [facility] Work Phone: Urea nitrogen/Creatinine [Mass ratio] 26.5 mg/mg 10-20 [facility] Work Phone: Laboratory - Hematology and Cell countson 10-30-2021 Erythrocyte distribution width (RBC) [Entitic vol] 40.2 fL 35.1-43.9 [facility] Work Phone: Erythrocyte distribution width (RBC) [Ratio] 12.3 % 11.6-14.6 [facility] Work Phone: MCH (RBC) [Entitic mass] 29.1 pg 27.0-32.0 [facility] Work Phone: MCHC Auto (RBC) [Mass/Vol]on 10-30-2021 MCHC (RBC) [Mass/Vol] 32.8 g/dL 32-36 [facility] Work Phone: Neisseria gonorrhoeae detect ion by PCRon 10-30-2021 N. gonorrhoeae DNA VANGIE+probe Ql (Cervical mucus) Negative Negative [facility] Work Phone: No Panel Informationon 10-30 Estimated GFR (MDRD) Amer 150 mL/min >60 [facility] Work Phone: Comment on above: GFR Calc Estimated GFR (MDRD) Non-Af Amer 124 mL/min >60 [facility] Work Phone: Comment on above: Non- GFR Calc Hepatitis B Surface Antigen Non-Reactive Nonreactive [facility] Work Phone: Hepatitis C Antibody Non-Reactive Nonreactive [facility] Work Phone: Comment on above: Non Reactive: < 0.8 Equivocal: >/= 0.8 to < 1.0 Reactive: >/= 1.0The [facility] recommends that a reactive/equivocal HCV antibody result be followed up by the HCV Nucleic Acid Amplificationtest (498009) Rubella IgG Antibody Reactive Nonreactive [facility] Work Phone: Comment on above: Antibody Results Int erpretation of Immune Status Non Reactive Presumed Non-Immune Equivocal Equivocal Reactive Presumed Immune Thyroid Stimulating Hormone (TSH) 1.18 uIU/mL 0.358-3.74 [facility] Work Phone: Platelets bldon 10-30-2021 Platelets (Bld) [#/Vol] 178 10*3/uL 150-450 [facility] Work Phone: Serum Treponema species anti body detectionon 10-30-2021 Treponema sp Ab Ql (S) Non-Reactive [facility] Work Phone: Serum Varicella zoster virus IgG antibody assay by immunoassay (units/volume)on 10-30-2021 VZV IgG IA Qn (S) 3434 index Immune >165 [facility] Work Phone: Comment on above: Negative <135 Equivo bernarda 135 - 165 Positive >165A positive result generally indicates exposure to thepathogen or administration of specific immunoglobulins,but it is not indication of active infection or stageof disease.Performed at: [address] [id number] Director: Sai Fleming PhD, Phone: [phone] Serum or plasma albumin rafael urement (mass/volume)on 10-30-2021 Albumin [Mass/Vol] 4.3 g/dL 3.2-5.0 [facility] Work Phone: Serum or plasma albumin/glob ulin mass ratioon 10-30-2021 Albumin/Globulin [Mass ratio] 1.2 {ratio} 0.9-2.4 [facility] Work Phone: Serum or plasma calcium rafael urement (mass/volume)on 10-30-2021 Calcium [Mass/Vol] 9.2 mg/dL 8.5-10.1 [facility] Work Phone: Serum or plasma creatinine m easurement (mass/volume)on 10-30-2021 Creatinine [Mass/Vol] 0.60 mg/dL 0.55-1.02 [facility] Work Phone: Comment on above: The validity of the calculated GFR & GFRAA in patients over 70 years has not been determined. Clinical correlation is essential. Serum or plasma prolactin me asurement (mass/volume)on 10-30-2021 Prolactin [Mass/Vol] 7.1 ng/mL [facility] Work Phone: Comment on above: NORMAL REFERENCE RAN GES FEMALE NON- 2.2 - 30.3 ng/mL 8.1 - 347.6 ng/mL POST-MENOPAUSAL 0.7 - 31.5 ng/mL MALE 2.5 - 17.4 ng/mL Serum or plasma urea nitroge n measurement (mass/volume)on 10-30-2021 Urea nitrogen [Mass/Vol] 16 mg/dL 7-18 [facility] Work Phone: Thin prep Papanicolaou smear with manual screeningon 10-30-2021 Thin prep Papanicolaou smear with manual screening 15 U/L 15-37 [facility] Work Phone: Thin prep Papanicolaou smear with manual screening 5 5-15 [facility] Work Phone: Laboratory - Chemistry and C hemistry - challengeon 09-10-2021 Free T4 [Mass/Vol] 0.98 ng/dL 0.76-1.46 [facility] Work Phone: No Panel Informationon 09-10 Free Triiodothyronine (T3) pg/dL 4.3 pg/mL 2.18-3.98 [facility] Work Phone: Thyroid Stimulating Hormone (TSH) 0.63 uIU/mL 0.358-3.74 [facility] Work Phone: No Panel Informationon 02-28 -2022 SARS-CoV-2 Antigen (Rapid) [facility] Work Phone: Serum or plasma cytomegalovi du (CMV) IgG antibody assay (units/volume)on 08-18-2021 CMV IgG Qn 2.90 U/mL [facility] Work Phone: Comment on above: Negative <0.60 Equiv ocal 0.60 - 0.69 Positive >0.69 Serum or plasma cytomegalovi du (CMV) IgM antibody assay (units/volume)on 08-18-2021 CMV IgM Qn < 30.0 AU/mL [facility] Work Phone: Comment on above: Negative <30.0 Equiv ocal 30.0 - 34.9 Positive >34.9A positive result is generally indicative of acuteinfection, reactivation or persistent IgM production.Performed at: [employer] [id number] Director: Sai Fleming PhD, Phone: [phone] No Panel Informationon 07-10 SARS-CoV-2 Antigen (Rapid) [facility] Work Phone: Serum or plasma estradiol (E 2) measurement (mass/volume)on 06-23-2021 E2 [Mass/Vol] 45.2 pg/mL [facility] Work Phone: Comment on above: NORMAL REFERENCE RAN GES FEMALE FOLLICULAR 21.4 - 164.8 pg/mL MID-CYCLE PEAK 49.9 - 367.2 pg/mL LUTEAL 40.2 - 259.0 pg/mL POST-MENOPAUSAL ON MHT <11.0 - 462.1 pg/mL NOT ON MHT <11.0 - 58.3 pg/mL MALE <11.0 - 52.5 pg/mL NOTE:[employer] HAS CONFIRMED THE DRUG FULVETRANT (FASLODEX) MAY CAUSE FALSELY ELEVATED ESTRADIOL RESULTS WHEN USING THIS TEST METHOD. IF PATIENT IS TAKING FULVESTRANT AN ALTERNATIVE METHOD SHOULD BE USED TO DETERMINE ESTRADIOL CONCENTRATION. Serum or plasma progesterone measurement (mass/volume)on 06-23-2021 Progesterone [Mass/Vol] 3.99 ng/mL See Comment [facility] Work Phone: Comment on above: Progesterone Referen ce Table: UNITS Female: Follicular 0.15 - 1.40 ng/mL Luteal 3.34 - 25.56 ng/mL Mid-luteal 4.44 - 28.03 ng/mL Postmenopausal 0.0 - 0.73 ng/mL : 1st Trimester 11.22 - 90.00 ng/mL 2nd Trimester 25.55 - 89.40 ng/mL 3rd Trimester 48.40 -422.50 ng/mL SARS coronavirus RNA [Presen ce] in Unspecified specimen by VANGIE with probe detectionon 06-19-2021 SARS-CoV RNA VANGIE+probe Ql (Unsp spec) Not detected Not Detected [facility] Work Phone: Comment on above: This nucleic acid am plification test was developed and itsperformance characteristics determined by [facility]. Nucleic acid amplification tests include RT-PCR and TMA. This test has not been FDA cleared orapproved. This test has been authorized by FDA under anEmergency Use Authorization (EUA). This test is onlyauthorized for the duration of time the declaration thatcircumstances exist justifying the authorization of theemergency use of in vitro diagnostic tests for detection [id number]-WqF-[id number] virus and/or diagnosis of COVID-19 infectionunder section 564(b)(1) of the Act, 21 U.S.C. 360bbb-3(b)(1), unless the authorization is terminated or revokedsooner.When diagnostic testing is negative, the possibility of afalse negative result should be considered in the contextof a patient's recent exposures and the presence ofclinical signs and symptoms consistent with COVID-19. Anindividual without symptoms of COVID-19 and who is notshedding SARS-CoV-2 virus would expect to have a negative(not detected) result in this assay. No Panel Informationon 06-12 SARS-CoV-2 Antigen (Rapid) [facility] Work Phone: Basophil percentageon 2020 Testosterone [Mass/Vol] 26.84 ng/dL [facility] Work Phone: Comment on above: CENTRAL 90% REFERENC E RANGES MALE AGE <50 197.44 - 669.58 ng/dL MALE AGE > or = 50 187.72 - 684.19 ng/dL FEMALE AGE <50 8.38 - 35.01 ng/dL FEMALE AGE > or = 50 <7.00 - 35.92 ng/dL Effective as of 01/14/21 Laboratory - Chemistry and C hemistry - challengeon 06-05-2021 Free T4 [Mass/Vol] 0.91 ng/dL 0.76-1.46 [facility] Work Phone: No Panel Informationon 06-05 Dehydroepiandrosterone Sulfate 300.0 ug/dL [facility] Work Phone: Free Triiodothyronine (T3) pg/dL 3.6 pg/mL 2.18-3.98 [facility] Work Phone: Reverse Triiodothyronine (T3) 12.7 ng/dL [facility] Work Phone: Comment on above: This test was develo ped and its performance characteristicsdetermined by [facility]. It has not been cleared orapproved by the Food and Drug Administration.Performed at: [facility] [employer] [id number] Director: Sai Fleming PhD, Phone: [phone] at: [facility] [employer] [id number] Director: Ascencion Lao MD, Phone: [phone] Thyroid Stimulating Hormone (TSH) 0.25 uIU/mL 0.358-3.74 [facility] Work Phone: Total Triiodothyronine 1.02 ng/mL 0.6-1.81 [facility] Work Phone: Serum or plasma estradiol (E 2) measurement (mass/volume)on 06-05-2021 E2 [Mass/Vol] 65.8 pg/mL [facility] Work Phone: Comment on above: NORMAL REFERENCE RAN GES FEMALE FOLLICULAR 21.4 - 164.8 pg/mL MID-CYCLE PEAK 49.9 - 367.2 pg/mL LUTEAL 40.2 - 259.0 pg/mL POST-MENOPAUSAL ON MHT <11.0 - 462.1 pg/mL NOT ON MHT <11.0 - 58.3 pg/mL MALE <11.0 - 52.5 pg/mL NOTE:[employer] HAS CONFIRMED THE DRUG FULVETRANT (FASLODEX) MAY CAUSE FALSELY ELEVATED ESTRADIOL RESULTS WHEN USING THIS TEST METHOD. IF PATIENT IS TAKING FULVESTRANT AN ALTERNATIVE METHOD SHOULD BE USED TO DETERMINE ESTRADIOL CONCENTRATION. Serum or plasma prolactin me asurement (mass/volume)on 06-05-2021 Prolactin [Mass/Vol] 5.0 ng/mL [facility] Work Phone: Comment on above: NORMAL REFERENCE RAN GES FEMALE NON- 2.2 - 30.3 ng/mL 8.1 - 347.6 ng/mL POST-MENOPAUSAL 0.7 - 31.5 ng/mL MALE 2.5 - 17.4 ng/mL NEW TEST METHOD & REFERENCE RANGES NOVEMBER 09, 2011 RF Hysterosalpingography S/I on 11-30-2018 RF Hysterosalpingography S/I Patient Name: MARIAMA LONG Fluoroscopy Exam Date/Time 11/30/2018 13:25:48 EDT Exam RF Hysterosalpingography S/I Ordering Physician NIKOLAY VALE Accession Number [id number] CTP4 Codes [id number] () Reason For Exam infertility Report HYSTEROSALPINGOGRAM CLINICAL INDICATION: Infertility COMPARISON: None. FLUOROSCOPY TIME: 0.1 minutes 2 fluoroscopic spot images were obtained. TECHNIQUE: Procedure was performed by Dr. Nikolay Vale. Fluoroscopic assistance was provided. Spot images were obtained during fluoroscopy. FINDINGS: The fallopian tubes are normal in appearance. There is bilateral peritoneal spilling of contrast. The uterine cavity is unremarkable. IMPRESSION: Bilateral tubal patency. Report Dictated on Final Dictated: 11/30/2018 1:31 pm Dictating Physician: MD GONZALEZ BRIAN Signed Date and Time: 11/30/2018 3:22 pm Signed by: MD GONZALEZ BRIAN Transcribed Date and Time: 11/30/2018 1:[address] [facility] Vital Signs Date Time Vital Sign Value Performing Clinician Faci lity 02-27-2025 10:220400 Body height 167.64 cm Savi Moreau CALENDAR CONTROL CLERK [facility] [facility] Work Phone: [facility] 02-27-2025 10:18-0400 Body mass index (BMI) [Ratio] 29.1 kg/m2 Savi Moreau CALENDAR CONTROL CLERK [facility] Work Phone: [facility] 02-27-2025 10:180400 Body weight 81.81 kg Savi Moreau CALENDAR CONTROL CLERK [facility] Work Phone: [facility] 02-27-2025 10:18-0400 Diastolic blood pressure 72 mm[Hg] Savi Moreau CALENDAR CONTROL CLERK [facility] Work Phone: [facility] 02-27-2025 10:18-0400 Systolic blood pressure 116 mm[Hg] Savi Moreau CALENDAR CONTROL CLERK [facility] Work Phone: [facility] 02-12-2025 10:190400 Body height 167.64 cm Savi Moreau CALENDAR CONTROL CLERK [facility] Work Phone: [facility] 02-12-2025 10:14-0400 Body mass index (BMI) [Ratio] 28.3 kg/m2 Savi Moreau CALENDAR CONTROL CLERK [facility] Work Phone: [facility] 02-12-2025 10:140400 Body weight 79.49 kg Savi Moreau CALENDAR CONTROL CLERK [facility] Work Phone: [facility] 02-12-2025 10:14-0400 Diastolic blood pressure 64 mm[Hg] Savi Moreau CALENDAR CONTROL CLERK [facility] Work Phone: [facility] 02-12-2025 10:14-0400 Systolic blood pressure 102 mm[Hg] Savi Moreau CALENDAR CONTROL CLERK [facility] Work Phone: [facility] 01-31-2025 11:01-0400 Body height 167.64 cm No Primary Care Physician [facility] 01-31-2025 11:00-0400 Body mass index (BMI) [Ratio] 28 kg/m2 No Primary Care Physician [facility] 01-31-2025 11:00-0400 Body weight 78.69 kg No Primary Care Physician [facility] 01-31-2025 11:00-0400 Diastolic blood pressure 69 mm[Hg] No Primary Care Physician [facility] 01-31-2025 11:00-0400 Systolic blood pressure 113 mm[Hg] No Primary Care Physician [facility] 01-01-2025 09:08-0400 Body height 167.64 cm No Primary Care Physician [facility] 01-01-2025 09:08-0400 Body mass index (BMI) [Ratio] 27 kg/m2 No Primary Care Physician [facility] 01-01-2025 09:08-0400 Body weight 75.97 kg No Primary Care Physician [facility] 01-01-2025 09:08-0400 Diastolic blood pressure 64 mm[Hg] No Primary Care Physician [facility] 01-01-2025 09:08-0400 Systolic blood pressure 103 mm[Hg] No Primary Care Physician [facility] 12-04-2024 11:02-0400 Body height 167.64 cm No Primary Care Physician [facility] 12-04-2024 11:02-0400 Body mass index (BMI) [Ratio] 25.7 kg/m2 No Primary Care Physician [facility] 12-04-2024 11:02-0400 Body weight 72.34 kg No Primary Care Physician [facility] 12-04-2024 11:02-0400 Diastolic blood pressure 74 mm[Hg] No Primary Care Physician [facility] 12-04-2024 11:02-0400 Systolic blood pressure 111 mm[Hg] No Primary Care Physician [facility] 11-06-2024 14:48-0400 Body height 167.64 cm DEA BLOCK Work Phone: [facility] 11-06-2024 14:48-0400 Body mass index (BMI) [Ratio] 25.8 kg/m2 DEA BLOCK Work Phone: [facility] 11-06-2024 14:48-0400 Body weight 72.68 kg DEA BLOCK Work Phone: [facility] 11-06-2024 14:48-0400 Diastolic blood pressure 72 mm[Hg] DEA BLOCK Work Phone: [facility] 11-06-2024 14:48-0400 Systolic blood pressure 119 mm[Hg] DEA BLOCK Work Phone: [facility] 10-09-2024 10:52-0400 Body mass index (BMI) [Ratio] 25 kg/m2 DEA BLOCK Work Phone: [facility] 10-09-2024 10:52-0400 Body weight 70.3 kg DEA BLOCK Work Phone: [facility] 10-09-2024 10:52-0400 Diastolic blood pressure 75 mm[Hg] DEA BLOCK Work Phone: [facility] 10-09-2024 10:52-0400 Systolic blood pressure 110 mm[Hg] DEA BLOCK Work Phone: [facility] 09-26-2024 14:25-0400 Body temperature 97 [degF] No Primary Care Physician [facility] 09-26-2024 14:25-0400 Diastolic blood pressure 76 mm[Hg] No Primary Care Physician [facility] 09-26-2024 14:25-0400 Heart rate 79 /min No Primary Care Physician [facility] 09-26-2024 14:25-0400 Respiratory rate 16 /min No Primary Care Physician [facility] 09-26-2024 14:25-0400 SaO2% (BldA) [Mass fraction] 99 % No Primary Care Physician [facility] 09-26-2024 14:25-0400 Systolic blood pressure 112 mm[Hg] No Primary Care Physician [facility] 09-26-2024 12:52-0400 Body height 167.64 cm No Primary Care Physician [facility] 09-26-2024 12:52-0400 Body mass index (BMI) [Ratio] 24 kg/m2 No Primary Care Physician [facility] 09-26-2024 12:52-0400 Body weight 67.58 kg No Primary Care Physician [facility] 09-06-2024 15:29-0400 Body height 167.64 cm No Primary Care Physician [facility] 09-06-2024 15:29-0400 Body mass index (BMI) [Ratio] 23.1 kg/m2 No Primary Care Physician [facility] 09-06-2024 15:29-0400 Body weight 65.09 kg No Primary Care Physician [facility] 09-06-2024 15:29-0400 Diastolic blood pressure 78 mm[Hg] No Primary Care Physician [facility] 09-06-2024 15:29-0400 Systolic blood pressure 116 mm[Hg] No Primary Care Physician [facility] 06-22-2024 14:33-0500 Body mass index (BMI) [Ratio] 23.4 kg/m2 No Primary Care Physician [facility] 06-22-2024 14:33-0500 Body weight 65.82 kg No Primary Care Physician [facility] 06-22-2024 14:33-0500 Diastolic blood pressure 80 mm[Hg] No Primary Care Physician [facility] 06-22-2024 14:33-0500 Heart rate 63 /min No Primary Care Physician [facility] 06-22-2024 14:33-0500 SaO2% (BldA) [Mass fraction] 99 % No Primary Care Physician [facility] [facility] 06-22-2024 14:33-0500 Systolic blood pressure 128 mm[Hg] No Primary Care Physician [facility] 12-17-2022 14:59-0400 Body height 167.64 cm No Primary Care Physician [facility] 12-17-2022 14:59-0400 Body mass index (BMI) [Ratio] 24.8 kg/m2 No Primary Care Physician [facility] 12-17-2022 14:59-0400 Body temperature 97.8 [degF] No Primary Care Physician [facility] 12-17-2022 14:59-0400 Body weight 69.85 kg No Primary Care Physician [facility] 12-17-2022 14:59-0400 Diastolic blood pressure 90 mm[Hg] No Primary Care Physician [facility] 12-17-2022 14:59-0400 Heart rate 70 /min No Primary Care Physician [facility] 12-17-2022 14:59-0400 Respiratory rate 16 /min No Primary Care Physician [facility] 12-17-2022 14:59-0400 SaO2% (BldA) [Mass fraction] 99 % No Primary Care Physician [facility] 12-17-2022 14:59-0400 Systolic blood pressure 139 mm[Hg] No Primary Care Physician [facility] 12-17-2022 14:18-0400 Body temperature 98.2 [degF] 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 Work Phone: [facility] 12-17-2022 14:18-0400 Body weight 69.94 kg 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 Work Phone: [facility] 12-17-2022 14:18-0400 Diastolic blood pressure 74 mm[Hg] 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 Work Phone: [facility] 12-17-2022 14:18-0400 Heart rate 78 /min 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 Work Phone: [facility] 12-17-2022 14:18-0400 Respiratory rate 18 /min 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 Work Phone: [facility] 12-17-2022 14:18-0400 SaO2% (BldA) [Mass fraction] 98 % 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 Work Phone: [facility] 12-17-2022 14:18-0400 Systolic blood pressure 122 mm[Hg] 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 Work Phone: [facility] 11-25-2022 08:09-0400 Body temperature 98 [degF] No Primary Care Physician [facility] 11-25-2022 08:09-0400 Diastolic blood pressure 63 mm[Hg] No Primary Care Physician [facility] 11-25-2022 08:09-0400 Heart rate 69 /min No Primary Care Physician [facility] 11-25-2022 08:09-0400 Respiratory rate 16 /min No Primary Care Physician [facility] 11-25-2022 08:09-0400 Systolic blood pressure 120 mm[Hg] No Primary Care Physician [facility] 11-25-2022 01:30-0400 SaO2% (BldA) [Mass fraction] 99 % No Primary Care Physician [facility] 11-23-2022 05:130400 Body height 167.64 cm No Primary Care Physician [facility] 11-23-2022 05:13-0400 Body mass index (BMI) [Ratio] 29.5 kg/m2 No Primary Care Physician [facility] 11-23-2022 05:13-0400 Body weight 83.09 kg No Primary Care Physician [facility] 08-19-2021 23:05-0500 Body mass index (BMI) [Ratio] 21.4 kg/m2 [facility] Work Phone: 07-21-2021 23:22-0500 Body mass index (BMI) [Ratio] 21.4 kg/m2 [facility] Work Phone: 06-20-2021 23:18-0500 Body mass index (BMI) [Ratio] 21.4 kg/m2 [facility] Work Phone: 05-20-2021 23:18-0500 Body mass index (BMI) [Ratio] 21.4 kg/m2 [facility] Work Phone: Encounters Encounter Date Encounter Type Care Provider Facility Start: 04-03-2025 ambulatory Jody Rodriguez lity:[facility] Start: 03-14-2025 ambulatory Savi Moreau Facility :[facility] Start: 03-06-2025 End: 03-06-2025 ambulatory LEE ANN GROVE [facility] Start: 02-27-2025 End: 02-27-[address] Jody Montez MD -[facility][1] Work Phone: Start: 02-27-2025 End: 02-27-2025 ambulatory Savi Moreau CALENDAR CONTROL CLERK [employer] B[employer]-C Work Phone: -[facility][1] Start: 02-12-2025 End: 02-12-2025 Patient encounter procedure Lee Ann OLIVIERC -[facility][1] Work Phone: Start: 02-12-2025 End: 02-12-2025 ambulatory Savi Moreau CALENDAR CONTROL CLERK [employer]LO[employer] BANK-C Work Phone: -[facility][1] Start: 02-06-2025 End: 02-06-2025 ambulatory LEE ANN Stone [facility] Start: 01-31-2025 End: 01-31-[address] Fior Ross DO -[facility][1] Work Phone: Start: 01-31-2025 End: 01-31-2025 ambulatory No Primary Care Physician -[facility][1] Start: 01-09-2025 End: 01-09-2025 ambulatory LEE ANN Stone [facility] Start: 01-01-2025 End: 01-01-[address] Jody Montez MD -[facility][1] Work Phone: Start: 01-01-2025 End: 01-01-2025 ambulatory No Primary Care Physician [facility] Start: 01-01-2025 End: 01-01-2025 ambulatory Lee Ann Stella CALENDAR CONTROL CLERK BLOOD BANK Facility:[facility] Start: 12-12-2024 End: 12-12-2024 ambulatory NO PRIMARY CARE [facility] Start: 12-04-2024 End: 12-04-2024 Patient encounter procedure Mary Kay Ryan CNM -[facility][1] Work Phone: Start: 12-04-2024 End: 12-04-2024 ambulatory No Primary Care Physician [facility] Work Phone: Start: 11-14-2024 End: 11-14-2024 ambulatory NO PRIMARY CARE [facility] Start: 11-06-2024 End: 11-06-[address] Fior Ross DO -[facility][1] Work Phone: Start: 11-06-2024 End: 11-06-2024 ambulatory DEA BLOCK Work Phone: [place] [employer] [facility] Work Phone: Start: 11-06-2024 End: 11-06-2024 ambulatory Fior Ross Facility:[facility] Start: 10-09-2024 End: 10-09-2024 Patient encounter procedure Mary Kay Ryan CNM -[facility][1] Work Phone: Start: 10-09-2024 End: 10-09-2024 ambulatory Savi Moreau Facility:[facility] Start: 09-26-2024 End: 09-26-2024 Emergency department patient visit No Primary Care Physician -Emergency Department Work Phone: Start: 09-06-2024 End: 09-06-2024 ambulatory No Primary Care Physician [facility] Work Phone: Start: 09-06-2024 End: 09-06-[address] Jody Montez MD -Lab, [facility][1] Start: 09-06-2024 End: 09-06-[address] Jody Montez MD -[facility][1] Work Phone: Start: 09-06-2024 End: 09-06-2024 ambulatory Jody Montez Facility:[facility] Start: 09-06-2024 End: 09-06-2024 ambulatory Jody Montez Facility:[facility] Start: 08-25-2024 Non-patient / Non-visit Deya lau RN -[facility][1] Work Phone: Start: 08-25-2024 ambulatory Deya Choudhary Facility :[facility] Start: 08-18-2024 ambulatory DEA BLOCK [facility] Start: 08-03-2024 End: 08-03-2024 Telephone encounter Yojana Oconnor RN [facility] Inf[facility] at [facility] Start: 08-02-2024 End: 08-02-2024 Patient encounter procedure No Primary Care Physician -Laboratory Work Phone: Start: 08-02-2024 End: 08-02-2024 ambulatory SALTY MENDOZA Facility:[facility] Start: 07-31-2024 End: 07-31-2024 Patient encounter procedure No Primary Care Physician -Laboratory Work Phone: Start: 07-31-2024 End: 07-31-2024 ambulatory No Primary Care Physician Facility:[facility] Start: 07-21-2024 End: 07-21-2024 Clinical Support Dante Andre MD Work Phone: [facility] Reproductive [facility]ocr[facility]ology [facility] Inf[facility] at [facility] Comment on above: Encounter for assist ed reproductive fertility procedure cycle [Z31.83] (Primary Dx) Start: 07-21-2024 ambulatory DANTE ANDRE [facility] Start: 07-14-2024 ambulatory ABDELRAHMAN GARCIA [facility] Start: 06-29-2024 End: 06-29-2024 Patient encounter procedure No Primary Care Physician -Laboratory Work Phone: Start: 06-29-2024 End: 06-29-2024 ambulatory No Primary Care Physician Facility:[facility] Start: 06-22-2024 End: 06-22-[address] Jimmy Arboleda MD -[facility] Work Phone: Start: 06-22-2024 End: 06-22-2024 ambulatory No Primary Care Physician Facility:[facility] Start: 05-30-2024 End: 05-30-2024 Orders Only Yojana Oconnor RN [facility]ductive [facility] Inf[facility] at [facility] Start: 05-26-2024 End: 05-26-2024 ambulatory Evert Stroud DO Work Phone: [facility] at [facility] Start: 05-25-2024 ambulatory DEA BLOCK [facility] Start: 05-19-2024 End: 05-19-2024 Patient encounter procedure No Primary Care Physician -Laboratory Work Phone: Start: 05-19-2024 End: 05-19-2024 ambulatory SALTY MENDOZA Facility:[facility] Start: 03-15-2024 ambulatory DANTE ANDRE [facility] Start: 03-27-2023 End: 04-20-2023 ambulatory [facility] Work Phone: Start: 03-27-2023 End: 04-20-2023 Discharged Recurring [facility] Start: 12-28-2022 End: 12-28-2022 Patient encounter procedure No Primary Care Physician [facility]-Laboratory, [place] [employer] Start: 12-17-2022 End: 12-17-2022 ambulatory Facility:[facility] Start: 12-17-2022 End: 12-17-2022 Emergency department patient visit No Primary Care Physician [facility]-Emergency Department Work Phone: Start: 12-17-2022 End: 12-17-2022 Patient encounter procedure Consuelo Eusebio [facility] Work Phone: [facility] Comment on above: Rectal bleeding (Spring michelle Dx) Start: 11-23-2022 End: 11-25-2022 Evaluation and management of inpatient No Primary Care Physician [facility] Start: 11-18-2022 Non-patient / Non-visit No [place] michelle Care Physician [facility] Start: 11-18-2022 End: 11-18-2022 ambulatory No Primary Care Physician [facility] Work Phone: Start: 11-18-2022 End: 11-18-2022 Patient encounter procedure No Primary Care Physician [facility]-Cardiovascular Services Start: 10-27-2022 End: 10-27-2022 ambulatory [facility] Work Phone: Start: 10-27-2022 End: 10-27-2022 Patient encounter procedure [facility]-Laboratory, [place] [employer] Start: 10-06-2022 End: 10-06-2022 ambulatory [facility] Work Phone: Start: 10-06-2022 End: 10-06-2022 Patient encounter procedure [facility]-Laboratory, [place] [employer] Start: 09-08-2022 End: 09-08-2022 ambulatory [facility] Work Phone: Start: 09-08-2022 End: 09-08-2022 Patient encounter procedure [facility], [place] [employer] Start: 08-07-2022 End: 08-07-2022 ambulatory [facility] Work Phone: Start: 08-07-2022 End: 08-07-2022 Patient encounter procedure [facility]atory, [place] [employer] Start: 07-07-2022 End: 07-07-2022 Patient encounter procedure [facility]-Laboratory, [place] [employer] Start: 05-12-2022 End: 05-12-2022 Patient encounter procedure [facility] Start: 04-20-2022 End: 04-20-2022 Patient encounter procedure [facility], [place] [employer] Start: 02-11-2022 End: 02-11-2022 ambulatory [facility] Work Phone: Start: 02-11-2022 End: 02-11-2022 [facility] [place] [facility] Start: 01-17-2022 End: 01-18-2022 Discharged Recurring [facility] Start: 12-20-2021 End: 01-18-2022 Discharged Recurring [facility] Start: 11-13-2021 End: 11-18-2021 Discharged Recurring [facility] Start: 10-30-2021 End: 10-30-2021 Patient encounter procedure [facility]Laboratory Start: 10-24-2021 End: 10-24-2021 Patient encounter procedure [facility]-Ultrasound, [facility] Start: 09-16-2021 End: 09-18-2021 Discharged Recurring [facility] Start: 09-10-2021 End: 09-10-2021 Patient encounter procedure [facility], [place] [employer] Start: 08-29-2021 End: 08-29-2021 Discharged Recurring [facility] Start: 08-18-2021 End: 08-18-2021 [facility] [place] [facility] Start: 08-18-2021 End: 08-18-2021 Discharged Recurring [facility] Start: 07-10-2021 End: 01-31-2022 Discharged Recurring [facility] Start: 06-23-2021 End: 06-23-2021 Patient encounter procedure [facility], [place] [employer] Start: 06-19-2021 End: 06-20-2021 Discharged Recurring [facility] Start: 06-05-2021 Patient encounter procedure [facility]-Laboratory, [employer] Start: 05-23-2021 End: 06-20-2021 [facility]charged [facility] Procedures Date Procedure Procedure Detail Performing Clinician Start: 01-01-2025 Serologic test for syphilis Dr. Papo Zendejas DO Work Phone: Start: 09-06-2024 Hepatitis C antibody measurement DEA BLOCK Work Phone: Comment on above: Reactive: Presumptiv e evidence of antibodies to HCV. Follow CDC recommendations for supplemental testing.Non-Reactive: Antibodies to HCV were not detected; does not exclude the possibility of exposure to HCVReactive Results are presumptive evidence of antibodies to HCV. Follow CDC recommendations for supplemental testing.Order confirmation testing: HCV Quant by PCR testing - HCVPCR #[id number] Non Reactive: < 0.8 Equivocal: >/= 0.8 to < 1.0 Reactive: >/= 1.0The CDC requires that a reactive/equivocal HCV antibody result be sent out for confirmation. HCV Quant by PCR testing. Start: 09-06-2024 Rubella IgG measurement DEA BLOCK Work Phone: Comment on above: Antibody Result: Int erpretationNon-Reactive: Non- ImmuneReactive: ImmuneThe following results were obtained with the [employer] Rubella IgG assay. Results from assays of other manufacturers cannot be used interchangeably. Start: 09-06-2024 Serologic test for syphilis DEA BLOCK Work Phone: Start: 09-06-2024 Urine culture No Primar y Care Physician Start: 08-02-2024 Serum progesterone measurement DEA BLOCK Work Phone: Comment on above: Follicular phase 0.1 - 0.9 Luteal phase 1.8 - 23.9 Ovulation phase 0.1 - 12.0 First trimester 11.0 - 44.3 Second trimester 25.4 - 83.3 Third trimester 58.7 - 214.0 Postmenopausal 0.0 - 0.1Performed at: [facility] [place], [place] [id number] Director: Sai Fleming PhD, Phone: [phone] Start: 07-31-2024 Serum progesterone measurement DEA BLOCK Work Phone: Comment on above: Follicular phase 0.1 - 0.9 Luteal phase 1.8 - 23.9 Ovulation phase 0.1 - 12.0 First trimester 11.0 - 44.3 Second trimester 25.4 - 83.3 Third trimester 58.7 - 214.0 Postmenopausal 0.0 - 0.1Performed at: [employer] [id number] [place], [place] [id number] Director: Sai Fleming PhD, Phone: [phone] Start: 05-19-2024 Polymerase chain toya ction analysis No Primary Care Physician Start: 03-27-2023 Viral antigen assay Start: 12-17-2022 Measurement of occul t blood in stool specimen using immunoassay No Primary Care Physician Start: 10-27-2022 Group B Streptococcu s Culture No Primary Care Physician Start: 10-24-2021 Ultrasonography of limb Start: 09-15-2021 End: 09-15-2021 Viral antigen assay Start: 08-18-2021 SARS-CoV-2 Antigen (Rapid) Start: 07-10-2021 SARS-CoV-2 Antigen (Rapid) Start: 06-12-2021 SARS-CoV-2 Antigen (Rapid) Group B Streptococcu s Culture H/O: section History of delivery, currently No Primary Care Physician Comment on above: x1 - Wants to discus s vs rpt cs H/O: section History of delivery, currently Dr. Jody Montez MD H/O: section History of delivery, currently Mary Kay Ryan CNM H/O: section History of delivery, currently Dr. Fior Ross DO H/O: section History of delivery, currently Mary Kay Ryan CNM H/O: section History of delivery, currently Dr. Jody Montez MD H/O: section History of delivery, currently Dr. Fior Ross DO H/O: section History of delivery, currently Lee Ann OLIVIERC H/O: section History of delivery, currently Dr. Jody Montez MD Urine culture Viral antigen assay Plan of Treatment Date Care Activity Detail Author Start: 02-19-2025 Immunization: RSV (Adult) (1 - Risk 1-dose series) Immunization: RSV (Adult) (1 - Risk 1-dose series) [facility] Start: 01-01-2025 CBC W Auto Differential panel - Blood [facility] Start: 01-01-2025 Measurement of glucose 2 hours after glucose challenge for glucose tolerance test [facility] Start: 01-01-2025 Serologic test for syphilis [facility] Start: 01-01-2025 [facility] Start: 11-06-2024 T4 free measurement [facility] Start: 11-06-2024 Thyroid stimulating hormone measurement [facility] Start: 09-26-2024 [facility] Start: 02-20-2024 Immunization: COVID-19 ( season) Immunization: COVID-19 ( season) [facility] Start: 11-25-2022 Patient discharge [facility] Start: 11-24-2022 Application of abdominal corset [facility] Start: 11-23-2022 End: 11-24-2022 [facility] Start: 11-23-2022 Notification of physician [facility] Start: 11-23-2022 Application of abdominal corset [facility] Start: 11-23-2022 Administration of medication [facility] Start: 11-23-2022 Ambulation therapy management [facility] Start: 11-23-2022 Application of device [facility] Start: 11-23-2022 End: 11-23-2022 Application of intermittent pneumatic compression device [facility] Start: 11-23-2022 Assessment of risk of venous thromboembolism [facility] Start: 11-23-2022 Catheterization of vein [facility] Start: 11-23-2022 Deep breathing and coughing exercises [facility] Start: 11-23-2022 Exercises [facility] Start: 11-23-2022 Incentive spirometry [facility] Start: 11-23-2022 Measuring intake and output [facility] Start: 11-23-2022 Notification of physician [facility] Start: 11-23-2022 Procedure discontinued [facility] Start: 11-23-2022 Provision of activity privileges [facility] Start: 11-23-2022 Vital signs measurements [facility] Start: 11-23-2022 Wound care [facility] Start: 11-23-2022 section Primary C Section (Not Applicable) [facility] Start: 11-23-2022 Admission procedure [facility] Start: 11-23-2022 Verification routine [facility] Start: 06-21-2022 DEPRESSION ASSESSMENT DEPRESSION ASSESSMENT [facility] Start: 2021 HPV TESTING HPV TESTING [facility] Start: 2021 Screening for malignant neoplasm of cervix Cervical Cancer Screening/Pap Smear (MyChart) [facility] Start: 10-03-2018 Immunization: DTaP/Tdap/Td (6 - Td or Tdap) Immunization: DTaP/Tdap/Td (6 - Td or Tdap) [facility] Start: 2012 PAP TESTING PAP TESTING [facility] Start: 2010 Urine microalbumin profile DTAP,TDAP,TD (1 - Tdap) [facility] Start: 2009 Alcohol consumption screening Alcohol Misuse Screening [facility] Start: 2009 Depression screening Depression Screening [facility] Start: 2009 HEPATITIS C SCREENING HEPATITIS C SCREENING [facility] Start: 2009 HIV SCREENING HIV SCREENING [facility] Start: 1991 COVID-19 VACCINE (#1) COVID-19 VACCINE (#1) [facility] Start: 1991 HEPATITIS B (1 of 3 - 3-dose series) HEPATITIS B (1 of 3 - 3-dose series) [facility] CBC W Auto Different ial panel - Blood [facility] Erythrocyte mean corpuscular volume determination [facility] Hematocrit [Volume Fraction] of Blood [facility] Hemoglobin [Mass/vol ume] in Blood [facility] Leukocytes [#/volume ] in Blood [facility] Mean corpuscular hem oglobin concentration determination [facility] Mean corpuscular hem oglobin determination [facility] Measurement of gluco se 2 hours after glucose challenge for glucose tolerance test [facility] Neutrophil count [facility] Neutrophil percent differential count [facility] Patient Education [facility] Work Phone: Patient referral [facility] Work Phone: Platelets [#/volume] in Blood [facility] Red blood cell count [facility] Red cell distributio n width determination [facility] Serologic test for syphilis [facility] [place] Immunization Date Immunization Notes Care Provider Fa andrea 02-27-2025 tetanus toxoid, redu angel diphtheria toxoid, and acellular pertussis vaccine, adsorbed Savi PICKARD Work Phone: [facility] 04-27-2024 influenza, seasonal, injectable, preservative free No Primary Care Physician [facility] 04-26-2023 influenza, injectabl e, quadrivalent, preservative free No Primary Care Physician [facility] 05-11-2022 influenza, injectabl e, quadrivalent, preservative free [facility] 05-11-2022 influenza, seasonal, injectable [facility] 05-01-2021 influenza, injectabl e, quadrivalent, preservative free [facility] 05-01-2021 influenza, seasonal, [facility] 05-15-2020 influenza, injectabl e, quadrivalent, preservative free [facility] 05-15-2020 influenza, seasonal, injectable [facility] 04-11-2019 influenza, injectabl e, quadrivalent, preservative free [facility] 04-11-2019 influenza, seasonal, [facility] 04-25-2018 influenza, injectabl e, quadrivalent, preservative free [facility] 04-25-2018 influenza, seasonal, injectable [facility] 03-26-2017 influenza, injectabl e, quadrivalent, preservative free [facility] 03-26-2017 influenza, seasonal, injectable [facility] 05-27-2016 influenza, injectabl e, quadrivalent, preservative free [facility] 05-27-2016 influenza, seasonal, [facility] 05-11-2015 influenza, injectabl e, quadrivalent, preservative free [facility] 05-11-2015 influenza, seasonal, injectable [facility] 05-19-2014 influenza, injectabl e, quadrivalent, preservative free [facility] 05-19-2014 influenza, seasonal, injectable [facility] Payers Date Payer Category Payer Self-pay [id number] 2022 Private Health Insurance [employer] [id number] 2022-Present [phone] [address] [place] [address] Indemnity [id number]. [id number] 2022 Unknown [id number] 1991 Unknown [id number] 2.16.840.1.936862.3.579.2. 1279 1991 Unknown [id number] 2.16.840.1.544438.3.579.2. 1279 1991 Unknown [id number] 2.16.840.1.857595.3.579.2. 479 1991 Unknown [id number] 2.16.840.1.625241.3.579.2. 479 1991 Unknown [id number] 2.16.840.1.281186.3.579.2. 479 1991 Unknown [id number] 2.16.840.1.200195.3.579.2. 479 1991 Unknown [id number] 2.16.840.1.464531.3.579.2. 479 Private Health Insurance [id number] Private Health Insurance [id number] Unknown [id number] Unknown [id number] 2.16.840.1.365823.3.579.2. 462 Unknown [id number] 2.16.840.1.609756.3.579.2. 462 Unknown [id number] 2.840.1.308785.3.579.2. 462 Unknown [id number] 2.840.1.456655.3.579.2. 462 Unknown [id number] 2.840.1.263936.3.579.2. 462 Unknown [id number] 2.840.1.375165.3.579.2. 462 Unknown [id number] 2.840.1.777880.3.579.2. 462 Unknown [id number] 2.840.1.148115.3.579.2. 462 Unknown [id number] 2.840.1.091599.3.579.2. 462 Unknown [id number] 2.840.1.177230.3.579.2. 462 Unknown [id number] 2.840.1.526491.3.579.2. 462 Unknown [id number] 2.840.1.348428.3.579.2. 462 Unknown [id number] 2.840.1.274385.3.579.2. 462 Unknown [id number] 2.840.1.429867.3.579.2. 462 Unknown [id number] 2.840.1.279859.3.579.2. 462 Unknown [id number] 2.840.1.626755.3.579.2. 462 Unknown [id number] 2.840.1.431813.3.579.2. 462 Unknown [id number] 2.840.1.502356.3.579.2. 462 Unknown [id number] 2.16.840.1.209488.3.579.2. 462 Unknown [id number] 2.16.840.1.029436.3.579.2. 462 Social History Date Type Detail Facility Start: 04-30-2020 End: 04-19-2023 Tobacco smoking status NHIS Unknown if ever smoked [facility] Start: 1990 Sex Assigned At Female W [facility] Start: 12-17-2022 End: 09-26-2024 Tobacco smoking status NHIS Never smoked tobacco [facility] Start: 1990 [facility]: 09-16-2021 Tobacco use and exposure Smokeless tobacco non-user [facility] Start: 05-26-2024 End: 07-14-2024 Alcoholic beverage intake Current drinker of alcohol (finding) [facility] Start: 05-26-2024 End: 07-14-2024 History of Social function [facility] Start: 05-26-2024 End: 07-14-2024 Tobacco use panel [facility] Start: 09-16-2021 Alcohol Comment rare [facility] Start: 08-28-2021 Gender identity Identifies as female gender (finding) [facility] Start: 08-28-2021 Sexual orientation Heterosexual (fin ding) [facility] Start: 09-14-2024 End: 09-26-2024 Sex Female (finding) [facility] NEGATED: Highlighted row [facility] Medical Equipment Procedure Code Equipment Code Equipment Origin al Text Equipment Identifier Dates Hysteroscopy, with dilation and curettage of uterus DRESSING,INTERCEED 3X4 FDA Start: 05-09-2020 Hysteroscopy, with dilation and curettage of uterus DRESSING,INTERCEED 3X4 FDA Start: 05-09-2020 Hysteroscopy, with dilation and curettage of uterus DRESSING,INTERCEED 3X4 FDA Start: 05-09-2020 Hysteroscopy, with dilation and curettage of uterus DRESSING,INTERCEED 3X4 FDA Start: 05-09-2020 Hysteroscopy, with dilation and curettage of uterus DRESSING,INTERCEED 3X4 FDA Start: 05-09-2020 Hysteroscopy, with dilation and curettage of uterus DRESSING,INTERCEED 3X4 FDA Start: 05-09-2020 Hysteroscopy, with dilation and curettage of uterus DRESSING,INTERCEED 3X4 FDA Start: 05-09-2020 Hysteroscopy, with dilation and curettage of uterus DRESSING,INTERCEED 3X4 FDA Start: 05-09-2020 Hysteroscopy, with dilation and curettage of uterus DRESSING,INTERCEED 3X4 FDA Start: 05-09-2020 Hysteroscopy, with dilation and curettage of uterus DRESSING,INTERCEED 3X4 FDA Start: 05-09-2020 Hysteroscopy, with dilation and curettage of uterus DRESSING,INTERCEED 3X4 FDA Start: 05-09-2020 Hysteroscopy, with dilation and curettage of uterus DRESSING,INTERCEED 3X4 FDA Start: 05-09-2020 Hysteroscopy, with dilation and curettage of uterus DRESSING,INTERCEED 3X4 FDA Start: 05-09-2020 Hysteroscopy, with dilation and curettage of uterus DRESSING,INTERCEED 3X4 FDA Start: 05-09-2020 Hysteroscopy, with dilation and curettage of uterus DRESSING,INTERCEED 3X4 FDA Start: 05-09-2020 Hysteroscopy, with dilation and curettage of uterus DRESSING,INTERCEED 3X4 FDA Start: 05-09-2020 Hysteroscopy, with dilation and curettage of uterus DRESSING,INTERCEED 3X4 FDA Start: 05-09-2020 Hysteroscopy, with dilation and curettage of uterus DRESSING,INTERCEED 3X4 FDA Start: 05-09-2020 Hysteroscopy, with dilation and curettage of uterus DRESSING,INTERCEED 3X4 FDA Start: 05-09-2020 Hysteroscopy, with dilation and curettage of uterus DRESSING,INTERCEED 3X4 FDA Start: 05-09-2020 Hysteroscopy, with dilation and curettage of uterus DRESSING,INTERCEED 3X4 FDA Start: 05-09-2020 Hysteroscopy, with dilation and curettage of uterus DRESSING,INTERCEED 3X4 FDA Start: 05-09-2020 Hysteroscopy, with dilation and curettage of uterus DRESSING,INTERCEED 3X4 FDA Start: 05-09-2020 Hysteroscopy, with dilation and curettage of uterus DRESSING,INTERCEED 3X4 FDA Start: 05-09-2020 Hysteroscopy, with dilation and curettage of uterus DRESSING,INTERCEED 3X4 FDA Start: 05-09-2020 Hysteroscopy, with dilation and curettage of uterus DRESSING,INTERCEED 3X4 FDA Start: 05-09-2020 Hysteroscopy, with dilation and curettage of uterus DRESSING,INTERCEED 3X4 FDA Start: 05-09-2020 Hysteroscopy, with dilation and curettage of uterus DRESSING,INTERCEED 3X4 FDA Start: 05-09-2020 Hysteroscopy, with dilation and curettage of uterus DRESSING,INTERCEED 3X4 FDA Start: 05-09-2020 Hysteroscopy, with dilation and curettage of uterus DRESSING,INTERCEED 3X4 FDA Start: 05-09-2020 Hysteroscopy, with dilation and curettage of uterus DRESSING,INTERCEED 3X4 FDA Start: 05-09-2020 Hysteroscopy, with dilation and curettage of uterus DRESSING,INTERCEED 3X4 FDA Start: 05-09-2020 Hysteroscopy, with dilation and curettage of uterus DRESSING,INTERCEED 3X4 FDA Start: 05-09-2020 Hysteroscopy, with dilation and curettage of uterus DRESSING,INTERCEED 3X4 FDA Start: 05-09-2020 Hysteroscopy, with dilation and curettage of uterus DRESSING,INTERCEED 3X4 FDA Start: 05-09-2020 Hysteroscopy, with dilation and curettage of uterus DRESSING,INTERCEED 3X4 FDA Start: 05-09-2020 Hysteroscopy, with dilation and curettage of uterus DRESSING,INTERCEED 3X4 FDA Start: 05-09-2020 Hysteroscopy, with dilation and curettage of uterus DRESSING,INTERCEED 3X4 FDA Start: 05-09-2020 Hysteroscopy, with dilation and curettage of uterus DRESSING,INTERCEED 3X4 FDA Start: 05-09-2020 Hysteroscopy, with dilation and curettage of uterus DRESSING,INTERCEED 3X4 FDA Start: 05-09-2020 Hysteroscopy, with dilation and curettage of uterus DRESSING,INTERCEED 3X4 FDA Start: 05-09-2020 Hysteroscopy, with dilation and curettage of uterus DRESSING,INTERCEED 3X4 FDA Start: 05-09-2020 Hysteroscopy, with dilation and curettage of uterus DRESSING,INTERCEED 3X4 FDA Start: 05-09-2020 Hysteroscopy, with dilation and curettage of uterus DRESSING,INTERCEED 3X4 FDA Start: 05-09-2020 Hysteroscopy, with dilation and curettage of uterus DRESSING,INTERCEED 3X4 FDA Start: 05-09-2020 Hysteroscopy, with dilation and curettage of uterus DRESSING,INTERCEED 3X4 FDA Start: 05-09-2020 Hysteroscopy, with dilation and curettage of uterus DRESSING,INTERCEED 3X4 FDA Start: 05-09-2020 Hysteroscopy, with dilation and curettage of uterus DRESSING,INTERCEED 3X4 FDA Start: 05-09-2020 Hysteroscopy, with dilation and curettage of uterus DRESSING,INTERCEED 3X4 FDA Start: 05-09-2020 Hysteroscopy, with dilation and curettage of uterus DRESSING,INTERCEED 3X4 FDA Start: 05-09-2020 Hysteroscopy, with dilation and curettage of uterus DRESSING,INTERCEED 3X4 FDA Start: 05-09-2020 Hysteroscopy, with dilation and curettage of uterus DRESSING,INTERCEED 3X4 FDA Start: 05-09-2020 Hysteroscopy, with dilation and curettage of uterus DRESSING,INTERCEED 3X4 FDA Start: 05-09-2020 Hysteroscopy, with dilation and curettage of uterus DRESSING,INTERCEED 3X4 FDA Start: 05-09-2020 Hysteroscopy, with dilation and curettage of uterus DRESSING,INTERCEED 3X4 FDA Start: 05-09-2020 Hysteroscopy, with dilation and curettage of uterus DRESSING,INTERCEED 3X4 FDA Start: 05-09-2020 Hysteroscopy, with dilation and curettage of uterus DRESSING,INTERCEED 3X4 FDA Start: 05-09-2020 Hysteroscopy, with dilation and curettage of uterus DRESSING,INTERCEED 3X4 FDA Start: 05-09-2020 Hysteroscopy, with dilation and curettage of uterus DRESSING,INTERCEED 3X4 FDA Start: 05-09-2020 Hysteroscopy, with dilation and curettage of uterus DRESSING,INTERCEED 3X4 FDA Start: 05-09-2020 Hysteroscopy, with dilation and curettage of uterus DRESSING,INTERCEED 3X4 FDA Start: 05-09-2020 Hysteroscopy, with dilation and curettage of uterus DRESSING,INTERCEED 3X4 FDA Start: 05-09-2020 Hysteroscopy, with dilation and curettage of uterus DRESSING,INTERCEED 3X4 FDA Start: 05-09-2020 Hysteroscopy, with dilation and curettage of uterus DRESSING,INTERCEED 3X4 FDA Start: 05-09-2020 Hysteroscopy, with dilation and curettage of uterus DRESSING,INTERCEED 3X4 FDA Start: 05-09-2020 Hysteroscopy, with dilation and curettage of uterus DRESSING,INTERCEED 3X4 FDA Start: 05-09-2020 Hysteroscopy, with dilation and curettage of uterus DRESSING,INTERCEED 3X4 FDA Start: 05-09-2020 Hysteroscopy, with dilation and curettage of uterus DRESSING,INTERCEED 3X4 FDA Start: 05-09-2020 Hysteroscopy, with dilation and curettage of uterus DRESSING,INTERCEED 3X4 FDA Start: 05-09-2020 Hysteroscopy, with dilation and curettage of uterus DRESSING,INTERCEED 3X4 FDA Start: 05-09-2020 Hysteroscopy, with dilation and curettage of uterus DRESSING,INTERCEED 3X4 FDA Start: 05-09-2020 Hysteroscopy, with dilation and curettage of uterus DRESSING,INTERCEED 3X4 FDA Start: 05-09-2020 Use 1 mL as directed daily. [id number] Start: 12-31-2021 Use 1 mL as directed daily. [id number] Start: 05-30-2024 Use 1 mL as directed daily. [id number] Start: 06-28-2024 Goals Date Patient Goal Desired Activity /State Mental Status Date Assessment Result Facility 11-23-2022 Cognitive function Level Of Cons ciousness Awake;Alert;Appropriate;Follow s Commands [facility] Work Phone: Clinical Notes 11-23-2022 to 02-27-2025 Note Date & Type Note Facility 02-27-2025 Progress note [facility] 01-31-2025 Progress note [facility] 01-01-2025 Progress note [facility] 12-04-2024 Progress note [facility] 11-06-2024 Evaluation note Diagnosis Onset Date Resolution History of delivery, currently acute November 06, 2024 2:46pm acute November 06, 2024 2:46pm conceived through in vitro fertilization acute November 06, 2024 2:46pm Supervision of high-risk acute November 06, 2024 2:46pm Hypothyroid chronic November 06 2:46pm History of delivery, currently acute December 04, 2024 10:54am acute December 04 10:54am conceived through in vitro fertilization acute December 04, 2024 10:54am Supervision of high-risk acute December 04, 2024 10:54am Velamentous insertion of umbilical cord acute December 04, 2024 10:54am Hypothyroid chronic December 04 10:54am History of delivery, currently acute January 01, 2025 9:02am acute January 01 9:02am conceived through in vitro fertilization acute January 01, 2025 9:02am Supervision of high-risk acute January 01, 2025 9:02am Velamentous insertion of umbilical cord acute January 01, 2025 9:02am Hypothyroid chronic January 01 9:02am History of delivery, currently acute January 31 10:51am acute January 31, 10:51am conceived through in vitro fertilization acute January 31 10:51am Supervision of high-risk acute January 31 10:51am Velamentous insertion of umbilical cord acute January 31 10:51am Hypothyroid chronic January 31, 2025 10:51am History of delivery, currently acute February 12 10:04am acute February 12 10:04am conceived through in vitro fertilization acute February 12 10:04am Supervision of high-risk acute February 12 10:04am Velamentous insertion of umbilical cord acute February 12 10:04am Hypothyroid chronic February 12, 2025 10:04am [facility] Work Phone: 1(429) 855-943905-19-2025 Evaluation note* Diagnosis Onset Date Resolution Status Admit Date History of delivery , currently acute November 06 2:46pm acute November 06, 2024 2:46pm conceived through in vitro fertilization acute November 06 2:46pm Supervision of high-risk acute November 06, 2024 2 :46pm Hypothyroid chronic November 06 2:46pm History of delivery , currently acute December 04 10:54am acute December 04 10:54am conceived through in vitro fertilization acute December 04, 10:54am Supervision of high-risk acute December 04, 2024 10:54am Velamentous insertion of umbilical cord acute December 04, 2024 10:54am Hypothyroid chronic December 04 10:54am History of delivery , currently acute January 01 9:02am acute January 01 9:02am conceived through in vitro fertilization acute January 01 9:02am Supervision of high-risk acute January 01, 2025 9:02am Velamentous insertion of umbilical cord acute January 01, 2025 9:02am Hypothyroid chronic January 01 9:02am History of delivery , currently acute January 31, 2025 10:51am acute January 31 10:51am conceived through in vitro fertilization acute January 31, 2025 10:51am Supervision of high-risk acute January 31 10:51am Velamentous insertion of umbilical cord acute January 31 10:51am Hypothyroid chronic January 31, 2025 10:51am History of delivery , currently acute February 12, 2025 10:04am acute February 12 10:04am conceived through in vitro fertilization acute February 12, 2025 10:04am Supervision of high-risk acute February 12 10:04am Velamentous insertion of umbilical cord acute February 12 10:04am Hypothyroid chronic February 12, 2025 10:04am History of delivery , currently acute February 10:12am acute February 27, 2025 10:12am conceived through in vitro fertilization acute February 10:12am Supervision of high-risk acute February 27 10:12am Velamentous insertion of umbilical cord acute February 27 10:12am Hypothyroid chronic February 10:12am [facility] Work Phone: 1(325) 315-390505-19-2025 Progress [facility] [address] [place] [address], [address] [place] [address] OFFICE VISIT Date of Service: 11/06/24 MR#: [id number] Acct: [id number] Name: MARIAMA LONG Rep #: [id number] : 1990 Provider: Dr. 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: No Is patient in pain?: No Allergies Penicillins (PCN) Allergy (Verified 11/06/24 14:47) Hives prochlorperazine (From Compazine) Allergy (Verified 11/06/24 14:47) tongue swelling Medications ?Medication ?Instructions ?Recorded ?Confirmed ?Type vit no.95-ferrous 1 ea PO DAILY 04/0911/06/24 History fumarate 28 mg-folic acid 800 mcg tablet levothyroxine 75 mcg tablet 75 mcg PO QDAY #90 tabs 11/06/24 Rx aspirin 81 mg tablet,delayed 81 mg PO QDAY 08/25/24 History release (Adult Low Dose Aspirin) conjugated estrogens 0.3 mg tablet 2 mg PO TID 5 11/06/24 History progesterone 50 mg/mL 5 mg IM QDAY 08/25/24 History intramuscular oil ondansetron 4 mg disintegrating 4 mg PO Q8H PRN PRN Na usea #60 tabs 10/03/24 11/06/24 Rx tablet Last Menstrual Period: 12/17/23 Zika: Zika virus screening: Negative : No PFSH PFSH Medical History Endometriosis determined by laparoscopy Genetic counseling Thyroid disorder Surgical History History of laparoscopy delivery delivered Family History Aunt No problems noted. Unknown No problems noted. Aunt No problems noted. Grandmother Myocardial infarction Grandmother Myocardial infarction Social History adopted: No household members: spouse and children number of children: 1 current occupational status: employed current occupation: [employer] - [employer] current occupational exposures/hazards: No pets and animals: Yes pets and animals: dog(s) history of recent travel: Yes ([place] - End june ) out of country: Yes sexually active: Yes Smoking Status: Never smoker alcohol intake: never substance use type: does not use well-balanced diet: daily or most days caffeine: No eating out: 1-3 times/week during the past year weight has: remained stable what type of physical activity do you participate in: walking frequency: 1-2 times per week duration: < 15 minutes/day 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 Date Name GA/Weeks Outcome Route Bth Weight Gen Labor Lgth Anesthesia Del Locatn Provider FOB 11/23/22 Adolfo 40 live - full term 10 lb 3 oz Male spinal WC Dr. Jojo Waters Delivery Date: 11/23/22 Last Updated by: Jody Montez MD No complications, cs for LGA HPI 18 wk ob Details: MARIAMA LONG is a 34 year old who presents for routine OB visit. OB Visit MARGIE Calculator Estimated Delivery Date Method Current WG Current Estimate 04/08/25 Conception 18w 1d Expected Delivery Route/Plan tolac vs RLTCS patient counseled regarding risks/benefits of trial of labor versus repeat . ACOG/uptodate education given to patient. [] % likelihood of success per calculator TOLAC consent form signed: [] Labor Preferences- CB/BF classes: [] labor support person: [] labor intervention preferences: [] pain management options preferred: [] cut cord/dad catch: [] : [] PP control planned: [] discussed possible routes of delivery and associated risks: [] special requests: [] Specific Issue/Plans Covid status: [] Flu vaccine: [] Tdap vaccine: [] Rhogam: [] LARC form signed: [] Problem list reviewed and updated with the most current plan of care details and appropriate ordersplaced. Relevant counseling for the gestational age provided. Continue routine care and follow up unless otherwise noted in visit notes/problem list details Initial Weight: Not Recorded Date -?-?-?-?-?-?-?-?-?-?-?-?- EGA Weight BP Urine Prot -?-?-?-?-?--?-?-?-?-?-?-?- Glucose FHR FuHt Pres Dilation -?-?-?-?-?-?-?-?-?-?-?--?- Effaced St Visit Note 09/06/24 -?-?-?-?-?-?-?-?-?-?-?-?- 9w 3d 143 lb 8 oz 116/78 -?-?-?-?-?-?-?-?-?-?-?-?- 175 -?-?-?-?-?-?-?-?-?-?-?-?- SM- CRL 2.36cm c ons with transfer date 10/09/24 -?-?-?-?-?-?-?-?-?-?-?-?- 14w 1d 155 lb 110/75 Negative -?-?-?-?-?-?-?-?-?-?-?-?- Negative 145 -?-?-?-?-?-?-?-?-?-?-?-?- KW- no vb/crampi ng. US ordered. KW- no vb/cramping. US order ed. movement with handheld US 11/06/24 -?-?-?-?-?-?-?-?-?-?-?-?- 18w 1d 160 lb 4 oz 119/72 Nega tive -?-?-?-?-?-?-?-?-?-?-?-?- Negative 160 -?-?-?-?-?-?-?-?-?-?-?-?- JV- day 5 embryo transfer on 07/21/2024, margie 04/08/25. considering but open to cs because understands needs delivered by 39 weeks. 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 Adopted embryo both donor. carrier negative for both as far as they know. - Transfer date 07/21 @ 5 days. 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's thyroiditis Qualified Code(s): E06.3 - Autoimmune thyroiditis Comment: Thyroid labs NL Orders: Orders POC Urinalysis 2 Dip (Clinic) Today Thyroid Stim Hormone (TSH) Today E06.3 - Autoimmune thyroiditis T4 Free Direct Today E06.3 - Autoimmune thyroiditis 11/06/24 1528 e Quan DO> Date _ [facility] Ross [facility] Signature: Date (if applicable) CC: ~ [facility]05-19-2025 Progress note Author Fior Glass [facility] Note Date/Time November 06, 2024 3:28p m [facility] [address] [place] [address], [address] [place] [address] OFFICE VISIT Date of Service: 11/06/24 MR#: [id number] Acct: [id number] Name: MARIAMA LONG Rep #: [id number] : 1990 Provider: Dr. 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: No Is patient in pain?: No Allergies Penicillins (PCN) Allergy (Verified 11/06/24 14:47) Hives prochlorperazine (From Compazine) Allergy (Verified 11/06/24 14:47) tongue swelling Medications ?Medication ?Instructions ?Recorded ?Confirmed ?Type vit no.95-ferrous 1 ea PO DAILY 04/0911/06/24 History fumarate 28 mg-folic acid 800 mcg tablet levothyroxine 75 mcg tablet 75 mcg PO QDAY #90 tabs 11/06/24 Rx aspirin 81 mg tablet,delayed 81 mg PO QDAY 08/25/24 History release (Adult Low Dose Aspirin) conjugated estrogens 0.3 mg tablet 2 mg PO TID 5 11/06/24 History progesterone 50 mg/mL 5 mg IM QDAY 08/25/24 History intramuscular oil ondansetron 4 mg disintegrating 4 mg PO Q8H PRN PRN Na usea #60 tabs 10/03/24 11/06/24 Rx tablet Last Menstrual Period: 12/17/23 Zika: Zika virus screening: Negative : No PFSH PFSH Medical History Endometriosis determined by laparoscopy Genetic counseling Thyroid disorder Surgical History History of laparoscopy delivery delivered Family History Aunt No problems noted. Unknown No problems noted. Aunt No problems noted. 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 Date Name GA/Weeks Outcome Route Bth Weight Gen Labor Lgth Anesthesia Del Locatn Provider FOB 11/23/22 Adolfo 40 live - full term 10 lb 3 oz Male spinal [facility] [facility] Dr. Jojo Waters Delivery Date: 11/23/22 Last Updated by: Jody Montez MD No complications, cs for LGA HPI 18 wk ob Details: MARIAMA LONG is a 34 year old who presents for routine OB visit. OB Visit MARGIE Calculator Estimated Delivery Date Method Current WG Current Estimate 04/08/25 Conception 18w 1d Expected Delivery Route/Plan tolac vs RLTCS patient counseled regarding risks/benefits of trial of labor versus repeat . ACOG/uptodate education given to patient. [] % likelihood of success per calculator TOLAC consent form signed: [] Labor Preferences- CB/BF classes: [] labor support person: [] labor intervention preferences: [] pain management options preferred: [] cut cord/dad catch: [] : [] PP control planned: [] discussed possible routes of delivery and associated risks: [] special requests: [] Specific Issue/Plans Covid status: [] Flu vaccine: [] Tdap vaccine: [] Rhogam: [] LARC form signed: [] Problem list reviewed and updated with the most current plan of care details and appropriate orders placed. Relevant counseling for the gestational age provided. Continue routine care and follow up unless otherwise noted in visit notes/problem list details Initial Weight: Not Recorded Date -?-?-?-?-?-?-?-?-?-?-?-?- EGA Weight BP Urine Prot -?-?-?-?-?--?-?-?-?-?-?-?- Glucose FHR FuHt Pres Dilation -?-?-?-?-?-?-?-?-?-?-?--?- Effaced St Visit Note 09/06/24 -?-?-?-?-?-?-?-?-?-?-?-?- 9w 3d 143 lb 8 oz 116/78 -?-?-?-?-?-?-?-?-?-?-?-?- 175 -?-?-?-?-?-?-?-?-?-?-?-?- SM- CRL 2.36cm c ons with transfer date 10/09/24 -?-?-?-?-?-?-?-?-?-?-?-?- 14w 1d 155 lb 110/75 Negative -?-?-?-?-?-?-?-?-?-?-?-?- Negative 145 -?-?-?-?-?-?-?-?-?-?-?-?- KW- no vb/crampi ng. US ordered. KW- no vb/cramping. US order ed. movement with handheld US 11/06/24 -?-?-?-?-?-?-?-?-?-?-?-?- 18w 1d 160 lb 4 oz 119/72 Nega tive -?-?-?-?-?-?-?-?-?-?-?-?- Negative 160 -?-?-?-?-?-?-?-?-?-?-?-?- JV- day 5 embryo transfer on 07/21/2024, margie 04/08/25. considering but open to cs because understands needs delivered by 39 weeks. 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 Adopted embryo both donor. carrier negative for both as far as they know. - Transfer date 07/21 @ 5 days. 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's thyroiditis Qualified Code(s): E06.3 - Autoimmune thyroiditis Comment: Thyroid labs NL Orders: Orders POC Urinalysis 2 Dip (Clinic) Today Thyroid Stim Hormone (TSH) Today E06.3 - Autoimmune thyroiditis T4 Free Direct Today E06.3 - Autoimmune thyroiditis 11/06/24 1528 <Electronically signed by Fior Vand e Velde DO> Date _ [facility]ior Ross [facility] Signature: Date (if applicable) CC: ~ [facility] Work Phone: 1(564) 155-391404-21-2025 Evaluation note* Diagnosis Onset Date Resolution Status Admit Date History of delivery , currently acute October 09, 2 025 10:34am acute October 09 10:34am conceived through in vitro fertilization acute October 09, 2024 10:34am Supervision of high-risk acute October 09, 2024 10:34am Hypothyroid chronic October 09, 025 10:34am History of delivery , currently acute November 06 2:46pm acute November 06, 2024 2:46pm conceived through in vitro fertilization acute November 06 2:46pm Supervision of high-risk acute November 06, 2024 2 :46pm Hypothyroid chronic November 06 2:46pm History of delivery , currently acute December 04 10:54am acute December 04 10:54am conceived through in vitro fertilization acute December 04, 2 025 10:54am Supervision of high-risk acute December 04, 2024 10:54am Velamentous insertion of umbilical cord acute December 04, 2024 10:54am Hypothyroid chronic December 04 10:54am History of delivery , currently acute January 01 9:02am acute January 01 9:02am conceived through in vitro fertilization acute January 01, 2 025 9:02am Supervision of high-risk acute January 01, 2025 9:02am Velamentous insertion of umbilical cord acute January 01, 2025 9:02am Hypothyroid chronic January 01 9:02am [facility] Work Phone: 1(662) 979-212604-21-2025 Evaluation note* Diagnosis Onset Date Resolution Status Admit Date History of delivery , currently acute October 09, 2 025 10:34am acute October 09 10:34am conceived through in vitro fertilization acute October 09, 2024 10:34am Supervision of high-risk acute October 09, 2024 10:34am Hypothyroid chronic October 09, 2 025 10:34am History of delivery , currently acute November 06 2:46pm acute November 06, 2024 2:46pm conceived through in vitro fertilization acute November 06 2:46pm Supervision of high-risk acute November 06, 2024 2 :46pm Hypothyroid chronic November 06 2:46pm History of delivery , currently acute December 04 10:54am acute December 04 10:54am conceived through in vitro fertilization acute December 04, 025 10:54am Supervision of high-risk acute December 04, 2024 10:54am Velamentous insertion of umbilical cord acute December 04, 2024 10:54am Hypothyroid chronic December 04 10:54am History of delivery , currently acute January 01 9:02am acute January 01 9:02am conceived through in vitro fertilization acute January 01, 2 025 9:02am Supervision of high-risk acute January 01, 2025 9:02am Velamentous insertion of umbilical cord acute January 01, 2025 9:02am Hypothyroid chronic January 01 9:02am History of delivery , currently acute January 31, 2025 10:51am acute January 31, 2 025 10:51am conceived through in vitro fertilization acute January 31, 2025 10:51am Supervision of high-risk acute January 31 10:51am Velamentous insertion of umbilical cord acute January 31 10:51am Hypothyroid chronic January 31, 2025 10:51am [facility] Work Phone: 1(547) 827-456403-19-2025 Evaluation note* Diagnosis Onset Date Resolution Status Admit Date History of delivery , currently acute September 06, 2 025 3:04pm acute September 06 3:04pm conceived through in vitro fertilization acute September 06, 2024 3:04pm Supervision of high-risk acute September 06, 2024 3:04pm Hypothyroid chronic September 06, 2 025 3:04pm History of delivery , currently acute October 09, 2 025 10:34am acute October 09 10:34am conceived through in vitro fertilization acute October 09, 2024 10:34am Supervision of high-risk acute October 09, 2024 10:34am Hypothyroid chronic October 09, 2 025 10:34am History of delivery , currently acute November 06 2:46pm acute November 06, 2024 2:46pm conceived through in vitro fertilization acute November 06 2:46pm Supervision of high-risk acute November 06, 2024 2 :46pm Hypothyroid chronic November 06 2:46pm [facility] Work Phone: 1(795) 562-417603-19-2025 Evaluation note* Diagnosis Onset Date Resolution Status Admit Date History of delivery , currently acute September 06, 2 025 3:04pm acute September 06 3:04pm conceived through in vitro fertilization acute September 06, 2024 3:04pm Supervision of high-risk acute September 06, 2024 3:04pm Hypothyroid chronic September 06, 2 025 3:04pm History of delivery , currently acute October 09, 2 025 10:34am acute October 09 10:34am conceived through in vitro fertilization acute October 09, 2024 10:34am Supervision of high-risk acute October 09, 2024 10:34am Hypothyroid chronic October 09, 2 025 10:34am History of delivery , currently acute November 06 2:46pm acute November 06, 2024 2:46pm conceived through in vitro fertilization acute November 06 2:46pm Supervision of high-risk acute November 06, 2024 2 :46pm Hypothyroid chronic November 06 2:46pm History of delivery , currently acute December 04 10:54am acute December 04 10:54am conceived through in vitro fertilization acute December 04, 2 025 10:54am Supervision of high-risk acute December 04, 2024 10:54am Velamentous insertion of umbilical cord acute December 04, 2024 10:54am Hypothyroid chronic December 04 10:54am [facility] Work Phone: 1(411) 843-303003-19-2025 Evaluation note* Diagnosis Onset Date Resolution Status Admit Date History of delivery , currently acute September 06, 2 025 3:04pm acute September 06 3:04pm conceived through in vitro fertilization acute September 06, 2024 3:04pm Supervision of high-risk acute September 06, 2024 3:04pm Hypothyroid chronic September 06, 025 3:04pm History of delivery , currently acute October 09, 2 025 10:34am acute October 09 10:34am conceived through in vitro fertilization acute October 09, 2024 10:34am Supervision of high-risk acute October 09, 2024 10:34am Hypothyroid chronic October 09, 2 025 10:34am History of delivery , currently acute November 06 2:46pm acute November 06, 2024 2:46pm conceived through in vitro fertilization acute November 06 2:46pm Supervision of high-risk acute November 06, 2024 2 :46pm Hypothyroid chronic November 06 2:46pm History of delivery , currently acute December 04 10:54am acute December 04 10:54am conceived through in vitro fertilization acute December 04, 2 025 10:54am Supervision of high-risk acute December 04, 2024 10:54am Velamentous insertion of umbilical cord acute December 04, 2024 10:54am Hypothyroid chronic December 04 10:54am History of delivery , currently acute January 01 9:02am acute January 01 9:02am conceived through in vitro fertilization acute January 01, 2 025 9:02am Supervision of high-risk acute January 01, 2025 9:02am Velamentous insertion of umbilical cord acute January 01, 2025 9:02am Hypothyroid chronic January 01 9:02am [facility] Work Phone: 1(797) 759-579502-13-2025 History of Present illness Narrative* Jose Gee MD - 08/03/2024 1:09 PM ESTAddended by: JOSE GEE on: 08/03/2024 01:09 PM Modules accepted: Orders * Jose Gee MD - 08/03/2024 10:56 AM ESTAddended by: JOSE GEE on: 08/03/2024 10:56 AM Modules accepted: Orders documented in this encounterUC [id number] History of Present illness Narrative* Jose Gee MD - 08/03/2024 10:56 AM ESTAddended by: JOSE GEE on: 08/03/2024 10:56 AM Modules accepted: Orders documented in this encounterUC [id number] Telephone encounter Note* Telephone Encounter - Yojana Oconnor RN - 08/03/2024 10:38 AM EST Called pt regarding offsite P4 results. P4 from 08/02/2024 resulted this AM. P4 15.2 Instructed pt to increase ABDON 1.5 ml/daily. Reviewed massage and heat after injection. New ABDON script sent to doctor for signature. ([facility]) Pt verbalized understanding of all, no further questions or concerns at this time. Pt has appt scheduled 08/18/2024, Ob scan #1. [id number] Miscellaneous Notes* Telephone Encounter - Yojana Oconnor RN - 08/03/2024 10:38 AM EST Called pt regarding offsite P4 results. P4 from 08/02/2024 resulted this AM. P4 15.2 Instructed pt to increase ABDON 1.5 ml/daily. Reviewed massage and heat after injection. New ABDON script sent to doctor for signature. ([facility]) Pt verbalized understanding of all, no further questions or concerns at this time. Pt has appt scheduled 08/18/2024, Ob scan #1. documented in this encounterUC [id number] Miscellaneous Notes* Telephone Encounter - Yojana Oconnor RN - 08/03/2024 10:38 AM EST Called pt regarding offsite P4 results. P4 from 08/02/2024 resulted this AM. P4 15.2 Instructed pt to increase ABDON 1.5 ml/daily. Reviewed massage and heat after injection. New ABDON script sent to doctor for signature. ([facility]) Pt verbalized understanding of all, no further questions or concerns at this time. Pt has appt scheduled 08/18/2024, Ob scan #1. documented in this encounterUC [id number] Miscellaneous Notes* Telephone Encounter - Yojana Oconnor RN - 08/03/2024 10:38 AM EST Called pt regarding offsite P4 results. P4 from 08/02/2024 resulted this AM. P4 15.2 Instructed pt to increase ABDON 1.5 ml/daily. Reviewed massage and heat after injection. New ABDON script sent to doctor for signature. ([facility]) Pt verbalized understanding of all, no further questions or concerns at this time. Pt has appt scheduled 08/18/2024, Ob scan #1. documented in this encounterUC [id number] History of Present illness Narrative* Mary Kay White - 07/21/2024 10:45 AM EST FET documented in this encounterUC [id number] [facility] Frozen Embryo Thaw and Transfer Incubator #: [...] ___[id number] Other Patient ID Confirmation: Device: Tech__kmf [facility]: Tech__kmf # Thawed:__1___ Date Thawed:__07/21/2024____ # Embryo(s) [...] Physician: ___[facility] Embryologist _kmf Catheter / Lot #____Horace / [id number] Comments: Transfer Difficulty: 0 [x] 1[] 2 [] 3 [] Embryo(s) retained__no Reload___no Catheter: Blood 0 [x] 1[] 2[] 3 [] Mucus 0 [] 1 [x] 2 [] 3 [] AH: [] Y [x] N Tech Notes:___used Horace 23cm Stylet Lot # [id number] [facility] [id number] Procedure note* Mary Kay White - 07/21/2024 10:45 AM EST [facility] Frozen Embryo Thaw and Transfer Incubator #: [...] [] Other [x] Vitrification Warming Lot Numbers: [facility]__[id number] SPS [id number] Thaw Kit ___[id number] Other Patient ID Confirmation: Device: Tech__kmf [facility]: Tech__kmf # Thawed:__1___ Date Thawed:__07/21/2024____ # Embryo(s) [...] Transfer Timeout: Date__07/21/2024 Time__10:47 Pt. ID Check ___Tristaa Tech__kmf____ Physician order and # of embryos to transfer: ___1__ Tech___kmf___ Physician: ___Hsu Embryologist _kmf Catheter / Lot #____Horace / [id number] Comments: Transfer Difficulty: 0 [x] 1[] 2 [] 3 [] Embryo(s) retained__no Reload___no Catheter: Blood 0 [x] 1[] 2[] 3 [] Mucus 0 [] 1 [x] 2 [] 3 [] AH: [] Y [x] N Tech Notes:___used Horace 23cm Stylet Lot # [id number] [facility] [id number] Procedure note* Mary Kay White - 07/21/2024 10:45 AM EST [facility] Frozen Embryo Thaw and Transfer Incubator #: [...] ___[id number] Other Patient ID Confirmation: Device: Tech__kmf [facility]: Tech__kmf # Thawed:__1___ Date Thawed:__07/21/2024____ # Embryo(s) [...] Physician: ___Hsu Embryologist _kmf Catheter / Lot #____Horace / [id number] Comments: Transfer Difficulty: 0 [x] 1[] 2 [] 3 [] Embryo(s) retained__no Reload___no Catheter: Blood 0 [x] 1[] 2[] 3 [] Mucus 0 [] 1 [x] 2 [] 3 [] AH: [] Y [x] N Tech Notes:___used Horace 23cm Stylet Lot # [id number] documented in this encounterUniversity Hospitals Health [id number] Evaluation note* Diagnosis Onset Date Resolution Status Admit Date Hypothyroid chronic June 22, 2024 2:15pm History of delivery , currently acute September 06, 2 025 3:04pm acute September 06, 20 3:04pm conceived through in vitro fertilization acute September 06, 2024 3:04pm Supervision of high-risk acute September 06, 2024 3:04pm Hypothyroid chronic September 06, 2 025 3:04pm [facility] Work Phone: 1(133) 632-935912-06-2024 History of Present illness Narrative* Dea Block MD - 05/26/2024 2:53 PM EST ART Treatment Plan Current Cycle: FET#2, embryo adoption Provider: OLEG Long 34 y.o. White or female Reason for ART: N80.9: Endometriosis - [facility] 04/2020 Z31.81: Male factor - not specified H/o endometritis noted on [facility] 2019, treated with one month of antibiotics and repeat EMB negative Hyperprolactinemia - on cabergoline 0.25mg weekly Hypothyroidism - on levothyroxine 75mcg/d and other agents AMH: No results found for: "ANTIMULLHORM", "POCTAMH" OB History Para Term AB Living 1 0 0 0 0 0 SAB IAB Ectopic Multiple Live Births 0 0 0 0 0 # Outcome Date GA Lbr Carter/2nd Weight Sex Type Anes PTL Lv 1 Non ART cycles OI/IUI x 4 without conception ART Cycles C#/Mo/Yr CRH/Other Regimen #Fert/ Cult Eggs ICSI AH #ET #PE cyro d/stage IVF#1 November or December, [facility] 8 ret 4 MIIs Froze 2 oocyte and ICSI 2 oocytes Transferred 2 embryos MIIs did not survive thaw negative FET #1 (embryo donation) 11/2021 [facility] Standard Replacement - - - D6 HBGAB, 95% viable. 4 remaining in cryo'd Term CS for suspected macrosomi. "Adolfo" Embryo Information [place] (accepted 12/01/21): 27yo donor Cryo'd 04/2021 - 1 embryo per straw D5 HHBFBB D6 HBGAB D6 HBFAB D6 HHBFBB D6 HBFBB History of Diminished Response: No History of Hyper-Response: No Months of Infertility: 5 years Number of Non-ART Gn Cycles: 0 Smoked in past 3 months prior to IVF start: No History of female surgical sterilization No Past Medical History: Diagnosis Date Endometriosis Hypothyroidism Past Surgical History: Procedure Laterality Date IVF November or December 2019 PELVIC LAPAROSCOPY 04/2020 Current Outpatient Medications Medication Sig acetylcysteine Inhale 4 mLs by nebulization 4 times a day. BABY ASPIRIN ORAL Take by mouth. estradioL Take 1 tablet (2 mg total) by mouth 3 times a day. Every 8 hours. levothyroxine sodium (LEVOTHROID ORAL) Take 75 mcg by mouth. liothyronine Take 5 mcg by mouth 2 times a day. needle (disp) 18 G Use 1 mL as directed daily. norethindrone-ethinyl estradiol Take 1 tablet by mouth daily. norethindrone-ethinyl estradiol Take 1 tablet by mouth daily. Active pills only! vit,bernarda 74/iron/folic ( VITAMIN 1+1 ORAL) Take by mouth. progesterone Inject 1 mL (50 mg total) into the muscle daily. syringe with needle Use 1 each as directed daily. UNABLE TO FIND C-Naltrexone 4.5 mg per day -1 x daily No current facility-administered medications for this visit. Allergies Allergen Reactions Penicillins Hives PARTNER HISTORY Partner Name: Owen Long : 09/26/1988 History of male surgical sterilization No Partner Ancestry: Unknown/not stated Male partner Ejaculatory or Erectile dysfunction: No Pertinent PMH: male factor, not specified Recommended Medication Regimen: E2/P4 Replacement ASA Protocol - Standard Estrace pills 2 mg TID as per protocol Doxycycline 100 mg po bid x 5 days Prog 1 mL IM daily in AM per protocol Appropriate Procedure Options: # To Transfer: Thaw to transfer single best grade embryo Embryos onsite? Yes embryos on site PGT-A/M: No - embryos already created I have reviewed the above ART treatment plan and agree. Checklist must be completed prior to initiation of any medications. Dea Block MD Reproductive Endocrinology & Infertility documented in this encounterUniversity Hospitals Health [id number] NoteHNO ID: [id number] Author: 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 Service: ? Author Type: Nurse Practitioner Type: Progress Notes Filed: 12/17/2022 2:43 PM Note Text: Came in with complaints of rectal bleeding for 10 days. Patient says has been pretty consistent. Patient is 3 weeks postop from . Patient never pushed with the baby patient's never been constipated. Patient has no reason for the rectal bleeding at this time. Did attempt to get an appointment with GI which is out till January. At this time patient is being referred to the emergency room for an evaluation. Patient was okay with this.[facility]06[facility] History of Present illness Narrative* 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 - 12/17/2022 2:42 PM EDT Came in with complaints of rectal bleeding for 10 days. Patient says has been pretty consistent. Patient is 3 weeks postop from . Patient never pushed with the baby patient's never been constipated. Patient has no reason for the rectal bleeding at this time. Did attempt to get an appointment with GI which is out till January. At this time patient is being referred to the emergency room for an evaluation. Patient was okay with this. [facility] in [facility] Pressley [facility] November 25, 2022 7:21am Note Date/Time November 25, 2022 7:21a [facility] Medical Records Department [address] [place] [address] Progress Note - OBGYN 11/25/22719 MR#: [id number] Acct: [id number] Name: MARIAMA LONG Rep #:[id number] : 1990 32 From: Eusebio Pressley MD PCP: Care Physician,No Primary Status :ADM IN Location: [place] [address] Subjective Subjective No overnight complaints Objective Data Objective Data Vital Signs: Vital Signs Temp Pulse Resp BP Pulse Ox O2 Del Method 97.7 F L 62 16 113/52 L 99 Room Air 11/25/22 01:30 11/25/22 01:30 11/25/22 01:30 11/25/22 01:30 11/25/22 01:30 11/25/22 01:30 Oxygen Delivery Method Room Air Weight: 183 lb 3.2 oz Body Mass Index (BMI) 29.5 Intake & Output: Intake and Output for Last 24 Hours 11/23/22 11/24/22 11/25/22 23:59 23:59 23:59 Intake Total 2047 / 2047 Output Total 0 / 3550 900 / 900 Balance -1502 / -1502 -900 / -900 Lab / Micro Data Result Diagrams: 11/24/22 04:40 Physical Exam Const alert, oriented x3, no apparent distress, average body habitus, healthy appearing and well nourished HEENT normocephalic and moist oral mucous membranes Eyes PERRL Neck full ROM Resp normal respiratory effort, no retractions and no use of accessory muscles GI GI Narrative: Soft, nontender, overall bandage clean dry and intact Extremity normal to inspection, full ROM and no clubbing, cyanosis or edema Neuro moves all extremities and no focal motor deficits Psych mental status grossly normal, affect normal, speech normal and activity/motor behavior normal Assessment & Plan (1) delivery delivered: PLAN: Postop day 2 status post elective primary section. Breast- feeding. Pain well controlled. 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 Pressley [facility] November 25, 2022 7:20am Note Date/Time November 25, 2022 7:20a m [facility] Medical Records Department [address] [facility] [place] [address] Discharge Summary 11/25/22717 MR#: [id number] Acct: [id number] Name: MARIAMA LONG Rep #:[id number] : 1990 32 From: Eusebio Pressley MD PCP: Fidelina Physician,No Primary Status :ADM IN [facility] Summary Date of Admission: 11/23/22 Date of Discharge: 11/25/22 Summary: Patient arrived on 11/23/2022 for elective primary section performed on 11/23/2022. Subsequent routine postoperative recovery. Discharged home on 11/25/2022. Meaningful Use Info Meaningful Use Diagnoses (Choose all that apply): None applicable Discharge Plan Admission Admit Date/Time: 11/23/22 04:50 Primary Reason for Your Visit: section Attending Provider: Jojo Pressley Primary Care Provider: Care Physician,No Primary Instructions Additional Instructions / Restrictions: Regular diet. Okay to shower. No tub baths for 2 weeks. No intercourse for 4 to 6 weeks. Call if fevers, chills, chest pain, shortness of breath. Follow-up2 weeks postoperatively Discharge Orders/Prescriptions Prescriptions: New oxycodone 5 mg tablet 5 mg PO Q6H PRN (Reason: pain (scale score 7-10)) 4 Days Qty: 10 0RF Continued levothyroxine 50 MCG tablet 50 mcg PO DAILY PNV cmb#95-ferrous fumarate-FA 1 EACH tablet 1 ea PO DAILY cholecalciferol (vitamin D3) 125 mcg (5,000 unit) tablet 125 mcg PO DAILY Label Comments: TAKE 1 TABLET BY MOUTHsONCE DAILY Discontinued aspirin 81 mg Capsule 81 mg PO DAILY Referrals / Follow Up: Care Physician,No Primary [Primary Care Provider] - Disposition Disposition (needs filled in before D/C Order can be placed): Home, Self Care 11/25/22 0720 <Electronically signed by Eusebio Pressley MD> Cosigner Signature (if applicable): CC: Dr. Eusebio Pressley MD; No Primary Care Physician~ Signed [facility] Work Phone: 1(205) 701-230306-06-[address] Pressley [facility] November 24, 2022 8:38am Note Date/Time November 24, 2022 8:38a m [facility] Medical Records Department [address] [place] [address] Progress Note - OBGYN 11/24/2237 MR#: [id number] Acct: [id number] Name: MARIAMA LONG Rep #:[id number] : 1990 32 From: Eusebio Pressley MD PCP: Care Physician,No Primary Status :ADM IN Location: [id number] Subjective Subjective No overnight complaints Objective Data Objective Data Vital Signs: Vital Signs Temp Pulse Resp BP Pulse Ox O2 Del Method 97.3 F L 64 15 124/70 H 99 Room Air 11/23/22 23:50 11/23/22 23:50 11/23/22 23:50 11/23/22 23:50 11/23/22 23:50 11/23/22 23:50 Oxygen Delivery Method Room Air Weight: 183 lb 3.2 oz Body Mass Index (BMI) 29.5 Intake & Output: Intake and Output for Last 24 Hours 11/22/22 11/23/22 11/24/22 23:59 23:59 23:59 Intake Total 2047 / 204 Output Total 3550 / 3550 900 / 900 Balance -1502 / -1502 -900 / -900 Lab / Micro Data Result Diagrams: 11/24/22 04:40 Labs: Laboratory Results - last 24 hr 11/23/22 05:25: Syphilis Total Ab Non-reactive 11/24/22 04:40: WBC 11.5 H, RBC 4.01 L, Hgb 11.5 L, Hct 35.5 L, MCV 88.5, MCH 28.7, MCHC 32.4, RDW Std Deviation 48.2 H, RDW Coeff of Rhonda 14.8 H, Plt Count 198, MPV 11.5 Physical Exam Const alert, oriented x3, no apparent distress, average body habitus, healthy appearing and well nourished HEENT normocephalic and moist oral mucous membranes Eyes PERRL Neck full ROM Resp normal respiratory effort, no retractions and no use of accessory muscles GI GI Narrative: Soft, nontender, bandage now clean dry and intact Extremity normal to inspection Neuro moves all extremities and no focal motor deficits Psych mental status grossly normal, affect normal, speech normal and activity/motor behavior normal Assessment & Plan (1) delivery delivered: PLAN: Postop day 1 status post elective primary section. Breast- feeding. Pain well controlled. Ambulating, voiding spontaneously, tolerating regular diet. 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 Educatedpatient on postoperative expectations and incision care, discussed restrictions. Patient and partner state understanding 11/24/22 0838 <Electronically signed by Eusebio Pressley MD> Cosigner Signature (if applicable): CC: ~ Signed [facility] Work Phone: 1(124) 854-898606-06-[address] Pressley [facility] November 24, 2022 8:37am Note Date/Time November 24, 2022 8:37a m [facility] Medical Records Department [address] [place] [address] Instructions for Home/Discharge Instructions 11/24/22 0836 MR#: [id number] Acct: [id number] Name: MARIAMA LONG Rep #:[id number] : 1990 32 From: Eusebio Pressley MD PCP: Care Physician,No Primary Status :ADM IN Discharge Instructions Diet Discharge Diet: No restrictions Activity Discharge Activity: Return to Normal Activity, May Shower and - (No tub baths for 2 weeks) May resume sexual activity in: 6-8 weeks Lifting Restrictions: No lifting over 25 pounds for 2 to 3 weeks Dressing / Incision Call your doctor if your incision/area has: Continuous Slow Oozing and Foul Smelling Discharge Call your doctor if you observe: Fever of 101 or Higher, Shortness of breath andChest pain Follow Up Care Please Follow Up With: Eusebio Pressley MD When: 2 weeks postoperatively Test Results: Test results from this visit will be discussed in further detail at your follow- up appointment, if applicable. Discharge Plan Admission Admit Date/Time: 11/23/22 04:50 Primary Reason for Your Visit: section Attending Provider: Jojo Pressley Primary Care Provider: Care Physician,No Primary Discharge Orders/Prescriptions Prescriptions: New oxycodone 5 mg tablet 5 mg PO Q6H PRN (Reason: pain (scale score 7-10)) 4 Days Qty: 10 0RF Continued levothyroxine 50 MCG tablet 50 mcg PO DAILY PNV cmb#95-ferrous fumarate-FA 1 EACH tablet 1 ea PO DAILY cholecalciferol (vitamin D3) 125 mcg (5,000 unit) tablet 125 mcg PO DAILY Label Comments: TAKE 1 TABLET BY MOUTHsONCE DAILY Discontinued aspirin 81 mg Capsule 81 mg PO DAILY Referrals / Follow Up: Care Physician,No Primary [Primary Care Provider] - Disposition Disposition (needs filled in before D/C Order can be placed): Home, Self Care 11/24/22 0837<Electronically signed by Eusebio Pressley MD>Eusebio Pressley MD CC: No Primary Care Physician ~ Signed [facility] Work Phone: [phone]) [phone] History and physical note Author Dr. 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 Denies contractions, leaking of fluid, vaginal bleeding. Reports movement. Denies headache or vision changes, chest pain or shortness of breath, nausea or vomiting, diarrhea constipation, fevers or chills. 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 Hypothyroidism 2. Endometriosis Surgical history: 1. Endometriosis surgery, laparoscopy 2019 Medications: 1. Aspirin 81 mg 2. Vitamin D 3. Levothyroxine 50 mcg daily 4. vitamin Allergies: 1. Penicillin causes hives Family history: Denies family history of blood clots or bleeding disorders Social history: Denies tobacco, alcohol, drug use Review of system: Negative otherwise stated above Physical exam: Blood pressure 123/69, heart rate 86, respiratory rate 16, temp 98.1 ?F, oxygen saturation 97% on room air General: No acute distress HEENT: Normal cephalic/atraumatic, PERRLA Cardiorespiratory: No increased effort Abdomen: Soft, nontender, gravid Extremities: +1 pedal edema bilaterally Neurologic: Cranial nerves II through XII grossly intact, no focal deficits Musculoskeletal: Moves all extremities equally heart rate: 130/mod rhonda/+accel/no decel [place]: q5-6, patient not feeling Assessment/plan: 32-year-old G1, P0 at 40/0 weeks, MARGIE 11/23/2022 by IVF, admittedfor primary elective section. complicated by IVF with egg donor, hypothyroidism. ?For elective primary section. Gentamicin and clindamycin preoperatively due to allergy to penicillin. ? Consents to be signed as office consents did not get faxed over. All risk, benefits, alternatives were discussed with patient. Risk include but not limited to: Risk of bleeding to the point of transfusion, infection, injury to surrounding tissue including bowel/bladder potentially requiring prolonged Foleycatheter use, VTE, ICU admission. Patient aware and consented. ?Hypothyroidism, continue Synthroid 11/23/22 0656 <Electronically signed by Jojo Pressley DO> Cosigner Signature (if applicable): CC: Dr. Jojo Pressley, DO; No Primary Care Physician~ Signed [facility] Work Phone: [phone]) 166-265006-05-2023 Procedure [facility] Evaluation noteNo assessment information availableMer[facility] Work Phone: Evaluation note* Diagnosis Onset Date Resolution Status delivery delivered acute [facility] Work Phone: Evaluation note* Diagnosis Rectal bleeding- Primary Hemorrhage of rectum and anus [facility] Encounter for assisted reproductive fertility procedure cycle [Z31.83]- Primary Encounter for assisted reproductive fertility procedure cycle [facility] Discharge instructions Additional Instructions Regular diet. Okay to shower. No tub baths for 2 weeks. No intercourse for 4 to 6 weeks. Call if fevers, chills, chest pain, shortness of breath. Follow-up 2 weeks postoperatively [facility] Discharge instructions Additional Instructions Your hemoglobin is greater than 14, this is stable. You need to follow-up with gastroenterology who is Dr. Friend as well as a PCP. Please return for any worsening symptoms. Please use Preparation H, Anusol that is [id number] for hemorrhoid.[facility] Work Phone: Progress note Author Mary Kay Ryan [facility] Note Date/Time December 04, 2024 11:2 3am [facility] [address] [place] [address], [address] [place] [address] OFFICE VISIT Date of Service: 12/04/24 MR#: [id number] Acct: [id number] Name: MARIAMA LONG Rep #: [id number] : 1990 Provider: BRYCE Ryan Age/Sex: 34/F Location: [facility] Status: Signed Intake Vital Signs 10/09/24 10:56 11/06/24 14:48 12/04/24 11:02 Height 5 ft 6 in 5 ft 6 in 5 ft 6 in Weight: 159 lb 8 oz BMI 25.7 BP 111/74 Intake Visit Reasons: 22 wk ob Chief Complaint: 22wk OB 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 Required: No Is patient in pain?: No Allergies Penicillins (PCN) Allergy (Verified 12/04/24 10:59) Hives prochlorperazine (From Compazine) Allergy (Verified 12/04/24 10:59) tongue swelling Medications ?Medication ?Instructions ?Recorded ?Confirmed ?Type vit no.95-ferrous 1 ea PO DAILY 04/0912/04/24 History fumarate 28 mg-folic acid 800 mcg tablet levothyroxine 75 mcg tablet 75 mcg PO QDAY #90 tabs 12/04/24 Rx aspirin 81 mg tablet,delayed 81 mg PO QDAY 08/25/24 History release (Adult Low Dose Aspirin) ondansetron 4 mg disintegrating 4 mg PO Q8H PRN PRN Na usea #60 tabs 10/03/24 12/04/24 Rx tablet Last Menstrual Period: 12/17/23 : No PFSH PFSH Medical History Endometriosis determined by laparoscopy Genetic counseling Thyroid disorder Surgical History History of laparoscopy delivery delivered Family History Aunt No problems noted. Unknown No problems noted. Aunt No problems noted. 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 current occupational exposures/hazards: No pets and animals: Yes pets and animals: dog(s) history of recent travel: Yes ([place] - End june ) out of country: Yes sexually active: Yes Smoking Status: Never smoker alcohol intake: never substance use type: does not use well-balanced diet: daily or most days caffeine: No eating out: 1-3 times/week during the past year weight has: remained stable what type of physical activity do you participate in: walking frequency: 1-2 times per week duration: < 15 minutes/day silas/rastafari: Restorationist seatbelt use: always do you feel safe at home: Yes additional social history: : [place] [employer] [place] History 2 Elective abortions Hx Para 1 Spontaneous abortions 0 Hx # Term Pregnancies 1 Ectopic pregnancies Hx # Pregnancies Multiple births # of living children 1 Past Pregnancies Del. Date Name GA/Weeks Outcome Route Bth Weight Infant Gen Labor Lgth Anesthesia Del Locatn Provider FOB 11/23/22 Adolfo 40 live - full term 10 lb 3 oz Male spinal [facility] Dr. Jojo Waters Delivery Date: 11/23/22 Last Updated by: Jody Montez MD No complications, cs for LGA HPI 22 wk ob Details: MARIAMA LONG is a 34 year old who presents for routine OB visit. OB Visit MARGIE Calculator Estimated Delivery Date Method Current WG Current Estimate 04/08/25 Conception 22w 1d Expected Delivery Route/Plan tolac vs RLTCS patient counseled regarding risks/benefits of trial of labor versus repeat . ACOG/uptodate education given to patient. [] % likelihood of success per calculator TOLAC consent form signed: [] Labor Preferences- CB/BF classes: [] labor support person: [] labor intervention preferences: [] pain management options preferred: [] cut cord/dad catch: [] : [] PP control planned: [] discussed possible routes of delivery and associated risks: [] special requests: [] Specific Issue/Plans Covid status: [] Flu vaccine: [] Tdap vaccine: [] Rhogam: [] LARC form signed: [] Problem list reviewed and updated with the most current plan of care details and appropriate orders placed. Relevant counseling for the gestational age provided. Continue routine care and follow up unless otherwise noted in visit notes/problem list details Initial Weight: Not Recorded Date -?-?-?-?-?-?-?-?-?-?-?-?- EGA Weight BP Urine Prot -?-?-?-?-?-?-?-?-?-?-?--?- Glucose FHR FuHt Pres Dilation -?-?-?-?-?-?-?-?-?-?-?-?- Effaced St Visit Note 09/06/24 -?-?-?-?-?-?-?-?-?-?-?-?- 9w 3d 143 lb 8 oz 116/78 -?-?-?-?-?-?-?-?-?-?-?-?- 175 -?-?-?-?-?-?-?-?-?-?-?-?- SM- CRL 2.36cm c ons with transfer date 10/09/24 -?-?-?-?-?-?-?-?-?-?-?-?- 14w 1d 155 lb 110/75 Negative -?-?-?-?-?-?-?-?-?-?-?-?- Negative 145 -?-?-?-?-?-?-?-?-?-?-?-?- KW- no vb/crampi ng. US ordered. KW- no vb/cramping. US order ed. movement with handheld US 11/06/24 -?-?-?-?-?-?-?-?-?-?-?-?- 18w 1d 160 lb 4 oz 119/72 Nega tive -?-?-?-?-?-?-?-?-?-?-?-?- Negative 160 -?-?-?-?-?-?-?-?-?-?-?-?- JV- day 5 embryo transfer on 07/21/2024, margie 04/08/25. considering but open to cs because understands needs delivered by 39 weeks. 12/04/24 -?-?-?-?-?-?-?-?-?-?-?-?- 22w 1d 159 lb 8 oz 111/74 Nega tive -?-?-?-?-?-?-?-?-?-?-?-?- Negative 155 -?-?-?-?-?-?-?-?-?-?-?-?- KW- no vb/lof/ct x. good fm. discussed anatomy US and need for growth at 36 weeks and NSTs ACOG First Trimester First Trimester: Discussed ROS Const Reports system reviewed and no additional complaints, except as documented Eyes Reports system reviewed and no additional complaints, except as documented ENT Reports system reviewed and no additional complaints, except as documented Card Reports system reviewed and no additional complaints, except as documented Resp Reports system reviewed and no additional complaints, except as documented GI Reports system reviewed and no additional complaints, except as documented, Denies nausea and Denies vomiting Reports system reviewed and no additional complaints, except as documented Musc Reports system reviewed and no additional complaints, except as documented Skin/Breast Reports system reviewed and no additional complaints, except as documented Neuro Yes system reviewed and no additional complaints, except as documented Psych Reports system reviewed and no additional complaints, except as documented Endo Reports system reviewed and no additional complaints, except as documented Jose De Jesus/Lymph Reports system reviewed and no additional complaints, except as documented Aller/Immun Reports system reviewed and no additional complaints, except as documented Exam Const General: cooperative, healthy appearing and no acute distress Orientation: alert, awake and oriented x3 Neck Neck: normal visual inspection and full ROM Resp Effort & Inspection: normal respiratory effort, able to speak in complete sentences and symmetric chest movement GI Inspection: normal to inspection Palpation: soft and other Other: gravid Skin General: no rashes or lesions noted Neuro General: patient alert, patient awake and patient oriented x3 Cognition: normal cognition Speech: speech normal Gait: normal gait Motor: muscle tone normal throughout Extrem General: normal to inspection and full ROM Psych Appearance: grossly normal Mental Status: mental status grossly normal Mood: congruent mood Affect: normal affect Speech and Movement: speech and movement normal Attitude: cooperative Thought Process: normal Thought Content: normal Judgment: judgment good Results POC Urinalysis 2 Dip (Clinic) Office Urine Glucose Negative Last Edit by Monica Pires on 12/04/24 11:12 Office Urine Protein Negative Last Edit by Monica Pires on 12/04/24 11:12 Coding Level of Care Code OB Routine Diagnoses Velamentous insertion of umbilical cord O43.129 Supervision of high-risk O09.90 22 weeks gestation of Z3A.22 Weeks of gestation: 22 weeks History of delivery, currently O34.219 conceived through in vitro fertilization 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 Assessment and Plan Assessment and Plan (1) Velamentous insertion of umbilical cord: Status: Acute Comment: posterior located placenta (2) Supervision of high-risk : Status: Acute Comment: PRR, , MARGIE 04/08/25, PC: Adolfo, : [place] (3) : Status: Acute Qualifiers: Weeks of gestation: 22 weeks Qualified Code(s): Z3A.22 - 22 weeks gestation of Comment: Discussed genetic/carrier testing - undecided; unsure of what testing was done w/IVF (4) History of delivery, currently : Status: Acute Comment: x1 - Wants to discuss vs rpt cs (5) conceived through in vitro fertilization: Status: Acute Comment: age in 20s. Adopted embryo both donor. carrier negative for both as far as they know. - Transfer date 07/21 @ 5 days. 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 Qualified Code(s): E06.3 - Autoimmune thyroiditis Comment: Thyroid labs NL Orders: Orders POC Urinalysis 2 Dip (Clinic) Today CBC W/Diff, Automated Today O09.819 - Supervision of resulting from assisted reproductive technology, unspecified trimester, O09.90 - Supervision of high risk , unspecified, unspecified trimester, Z3A.22 - 22 weeks gestation of Glucose Challenge Gest 1H 50g Today Z13.1 - Encounter for screening for diabetes mellitus HIV Today O09.819 - Supervision of resulting from assisted reproductive technology, unspecified trimester, O09.90 - Supervision of high risk , unspecified, unspecified trimester, Z3A.22 - 22 weeks gestation of Syphilis Antibodies Today O09.819 - Supervision of resulting from assisted reproductive technology, unspecified trimester, O09.90 - Supervision of high risk , unspecified, unspecified trimester, Z3A.22 - 22 weeks gestation of Plan Details Additional Comments: ACOG trimester education reviewed and updated. see problem list details for updated plan management information and see below for orders placed at this visit. GA appropriate handout given. 12/04/24 1123 <Electronically signed by Mary Kay stone CNM> Date _ Mary Kay Ryan CNM Cosigner Signature: Date (if applicable) CC: ~ [facility] Work Phone: Progress note Author Jody Montez [facility] Note Date/Time January 01, 2025 9:36 am [facility] [address], [address] [place] [address] OFFICE VISIT Date of Service: 01/01/25 MR#: [id number] Acct: [id number] Name: MARIAMA LONG Rep #: [id number] : 1990 Provider: Dr. Chong Montez MD Age/Sex: 34/F Location: [facility] Status: Signed Intake Vital Signs 11/06/24 14:48 12/04/24 11:02 01/01/25 09:08 Height 5 ft 6 in 5 ft 6 in 5 ft 6 in Weight: 159 lb 8 oz 167 lb 8 oz BMI 25.7 27.0 BP 111/74 103/64 Intake Visit Reasons: 26wk ob/glucose 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 Required: No Is patient in pain?: No Allergies Penicillins (PCN) Allergy (Verified 01/01/25 09:09) Hives prochlorperazine (From Compazine) Allergy (Verified 01/01/25 09:09) tongue swelling Medications ?Medication ?Instructions ?Recorded ?Confirmed ?Type vit no.95-ferrous 1 ea PO DAILY 04/0901/01/25 History fumarate 28 mg-folic acid 800 mcg tablet levothyroxine 75 mcg tablet 75 mcg PO QDAY #90 tabs 01/01/25 Rx aspirin 81 mg tablet,delayed 81 mg PO QDAY 08/25/24 History release (Adult Low Dose Aspirin) ondansetron 4 mg disintegrating 4 mg PO Q8H PRN PRN Na usea #60 tabs 10/03/24 01/01/25 Rx tablet Last Menstrual Period: 12/17/23 Zika: Zika virus screening: Negative : No PFSH PFSH Medical History Endometriosis determined by laparoscopy Genetic counseling Thyroid disorder Surgical History History of laparoscopy delivery delivered Family History Aunt No problems noted. Unknown No problems noted. Aunt No problems noted. 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 current occupational exposures/hazards: No pets and animals: Yes pets and animals: dog(s) history of recent travel: Yes ( - End june ) out of country: Yes sexually active: Yes Smoking Status: Never smoker alcohol intake: never substance use type: does not use well-balanced diet: daily or most days caffeine: No eating out: 1-3 times/week during the past year weight has: remained stable what type of physical activity do you participate in: walking frequency: 1-2 times per week duration: < 15 minutes/day 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 Date Name GA/Weeks Outcome Route Bth Weight Gen Labor Lgth Anesthesia Del Locatn Provider FOB 11/23/22 Adolfo 40 live - full term 10 lb 3 oz Male spinal [facility] Dr. Jojo Waters Delivery Date: 11/23/22 Last Updated by: Jody Montez MD No complications, cs for LGA HPI 26wk ob/glucose Details: MARIAMA LONG is a 34 year old who presents for routine OB visit. OB Visit MARGIE Calculator Estimated Delivery Date Method Current WG Current Estimate 04/08/25 Conception 26w 1d Expected Delivery Route/Plan tolac vs RLTCS-- scheduled at 39 weeks patient counseled regarding risks/benefits of trial of labor versus repeat . ACOG/uptodate education given to patient. [] % likelihood of success per calculator TOLAC consent form signed: [] Labor Preferences- CB/BF classes: [] labor support person: [] labor intervention preferences: [] pain management options preferred: [] cut cord/dad catch: [] : [] PP control planned: [] discussed possible routes of delivery and associated risks: [] special requests: [] Specific Issue/Plans Covid status: [] Flu vaccine: [] Tdap vaccine: [] Rhogam: [] LARC form signed: [] Problem list reviewed and updated with the most current plan of care details and appropriate orders placed. Relevant counseling for the gestational age provided. Continue routine care and follow up unless otherwise noted in visit notes/problem list details Initial Weight: Not Recorded Date -?-?-?-?-?-?-?-?-?-?-?-?- EGA Weight BP Urine Prot -?-?-?-?-?-?-?-?-?-?-?-?- Glucose FHR FuHt Pres Dilation -?-?-?-?-?-?-?-?-?-?-?-?- Effaced St Visit Note 09/06/24 -?-?-?-?-?-?-?-?-?-?-?-?- 9w 3d 143 lb 8 oz 116/78 -?-?-?-?-?-?-?-?-?-?-?-?- 175 -?-?-?-?-?-?-?-?-?-?-?-?- SM- CRL 2.36cm c ons with transfer date 10/09/24 -?-?-?-?-?-?-?-?-?-?-?-?- 14w 1d 155 lb 110/75 Negative -?-?-?-?-?-?-?-?-?-?-?-?- Negative 145 -?-?-?-?-?-?-?-?-?-?-?-?- KW- no vb/crampi ng. US ordered. KW- no vb/cramping. US order ed. movement with handheld US 11/06/24 -?-?-?-?-?-?-?-?-?-?-?-?- 18w 1d 160 lb 4 oz 119/72 Nega tive -?-?-?-?-?-?-?-?-?-?-?-?- Negative 160 -?-?-?-?-?-?-?-?-?-?-?-?- JV- day 5 embryo transfer on 07/21/2024, margie 04/08/25. considering but open to cs because understands needs delivered by 39 weeks. 12/04/24 -?-?-?-?-?-?-?-?-?-?-?-?- 22w 1d 159 lb 8 oz 111/74 Nega tive -?-?-?-?-?-?-?-?--?-?-?-?- Negative 155 -?-?-?-?-?-?-?-?-?-?-?-?- KW- no vb/lof/ct x. good fm. discussed anatomy US and need for growth at 36 weeks and NSTs 01/01/25 -?-?-?-?-?-?-?-?-?-?-?-?- 26w 1d 167 lb 8 oz 103/64 Nega tive -?-?-?-?-?-?-?-?-?-?-?-?- Negative 150 25 -?-?-?-?-?-?-?-?-?-?-?-?- SM- no vb lof go od fm no regular ctx ACOG First Trimester First Trimester: Discussed Results POC Urinalysis 2 Dip (Clinic) Office Urine Glucose Negative Last Edit by Lee Ann Wright on 01/01/25 09:21 Office Urine Protein Negative Last Edit by Lee Ann Wright on 01/01/25 09:21 Coding Level of Care Code OB Routine Diagnoses Velamentous insertion of umbilical cord O43.129 Supervision of high-risk O09.90 26 weeks gestation of Z3A.26 Weeks of gestation: 26 weeks History of delivery, currently O34.219 conceived through in vitro fertilization 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 Assessment and Plan Assessment and Plan (1) Velamentous insertion of umbilical cord: Status: Acute Comment: posterior located placenta (2) Supervision of high-risk : Status: Acute Comment: PRR, , MARGIE 04/08/25, girl PC: Adolfo, : [place] (3) : Status: Acute Qualifiers: Weeks of gestation: 26 weeks Qualified Code(s): Z3A.26 - 26 weeks gestation of Comment: Discussed genetic/carrier testing - undecided; unsure of what testing was done w/IVF (4) History of delivery, currently : Status: Acute Comment: x1 - Wants to discuss vs rpt cs (5) conceived through in vitro fertilization: Status: Acute Comment: age in 20s. Adopted embryo both donor. carrier negative for both as far as they know. - Transfer date 07/21 @ 5 days. 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 Qualified Code(s): E06.3 - Autoimmune thyroiditis Comment: Thyroid labs NL Orders: Orders POC Urinalysis 2 Dip (Clinic) Today 01/01/25 0937 <Electronically signed by Jody davison MD> Date _ Jody Montez MD Cosigner Signature: Date (if applicable) CC: ~ [facility] Work Phone: Progress note Author Fior Glass [facility] Note Date/Time January 31, 2025 11 :21am [facility] [address] [place] [address], [address] [place] [address] OFFICE VISIT Date of Service: 01/31/25 MR#: [id number] Acct: [id number] Name: MARIAMA LONG Rep #: [id number] : 1990 Provider: Dr. Lisha Ross DO Age/Sex: 34/F Location: [facility] Status: Signed Intake Vital Signs 12/04/24 11:02 01/01/25 09:08 01/31/25 11:00 01/31/25 11:01 Height 5 ft 6 in 5 ft 6 in 5 ft 6 in 5 ft 6 in Weight: 173 lb 8 oz BMI 28.0 BP 113/69 Intake Visit Reasons: 30 wk ob 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 Required: No Is patient in pain?: No Allergies Penicillins (PCN) Allergy (Verified 01/31/25 10:59) Hives prochlorperazine (From Compazine) Allergy (Verified 01/31/25 10:59) tongue swelling Medications ?Medication ?Instructions ?Recorded ?Confirmed ?Type vit no.95-ferrous 1 ea PO DAILY 04/0901/31/25 History fumarate 28 mg-folic acid 800 mcg tablet levothyroxine 75 mcg tablet 75 mcg PO QDAY #90 tabs 01/31/25 Rx aspirin 81 mg tablet,delayed 81 mg PO QDAY 08/25/24 History release (Adult Low Dose Aspirin) ondansetron 4 mg disintegrating 4 mg PO Q8H PRN PRN Na usea #60 tabs 10/03/24 01/31/25 Rx tablet Last Menstrual Period: 12/17/23 Zika: Zika virus screening: Negative : No PFSH PFSH Medical History Endometriosis determined by laparoscopy Genetic counseling Thyroid disorder Surgical History History of laparoscopy delivery delivered Family History Aunt No problems noted. Unknown No problems noted. Aunt No problems noted. 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 Date Name GA/Weeks Outcome Route Bth Weight Gen Labor Lgth Anesthesia Del Locatn Provider FOB 11/23/22 Adolfo 40 live - full term 10 lb 3 oz Male spinal [facility] [employer] Dr. Jojo Waters Delivery Date: 11/23/22 Last Updated by: Jody Montez MD No complications, cs for LGA HPI 30 wk ob Details: MARIAMA LONG is a 34 year old who presents for routine OB visit. OB Visit MARGIE Calculator Estimated Delivery Date Method Current WG Current Estimate 04/08/25 Conception 30w 3d Expected Delivery Route/Plan tolac vs RLTCS-- scheduled at 39 weeks patient counseled regarding risks/benefits of trial of labor versus repeat . ACOG/uptodate education given to patient. [] % likelihood of success per calculator TOLAC consent form signed: [] Labor Preferences- CB/BF classes: [] labor support person: [] labor intervention preferences: [] pain management options preferred: [] cut cord/dad catch: [] : [] PP control planned: [] discussed possible routes of delivery and associated risks: [] special requests: [] Specific Issue/Plans Covid status: [] Flu vaccine: [] Tdap vaccine: [] Rhogam: [] LARC form signed: [] Problem list reviewed and updated with the most current plan of care details and appropriate orders placed. Relevant counseling for the gestational age provided. Continue routine care and follow up unless otherwise noted in visit notes/problem list details Initial Weight: Not Recorded Date -?-?-?-?-?-?-?-?-?-?-?-?- EGA Weight BP Urine Prot -?-?-?-?-?-?-?-?-?-?-?-?- Glucose FHR FuHt Pres Dilation -?-?-?-?-?-?-?-?-?-?-?-?- Effaced St Visit Note 09/06/24 -?-?-?-?-?-?-?-?-?-?-?-?- 9w 3d 143 lb 8 oz 116/78 -?-?-?-?-?-?-?-?-?-?-?-?- 175 -?-?-?-?-?-?-?-?-?-?-?-?- SM- CRL 2.36cm c ons with transfer date 10/09/24 -?-?-?-?-?-?-?-?-?-?-?-?- 14w 1d 155 lb 110/75 Negative -?-?-?-?-?-?-?-?-?-?-?-?- Negative 145 -?-?-?-?-?-?-?-?-?-?-?-?- KW- no vb/crampi ng. US ordered. KW- no vb/cramping. US order ed. movement with handheld US 11/06/24 -?-?-?-?-?-?-?-?-?-?-?-?- 18w 1d 160 lb 4 oz 119/72 Nega tive -?-?-?-?-?-?-?-?-?-?-?-?- Negative 160 -?-?-?-?-?-?-?-?-?-?-?-?- JV- day 5 embryo transfer on 07/21/2024, margie 04/08/25. considering but open to cs because understands needs delivered by 39 weeks. 12/04/24 -?-?-?-?-?-?-?-?-?-?-?-?- 22w 1d 159 lb 8 oz 111/74 Nega tive -?-?-?-?-?-?-?-?-?-?-?-?- Negative 155 -?-?-?-?-?-?-?-?-?-?-?-?- KW- no vb/lof/ct x. good fm. discussed anatomy US and need for growth at 36 weeks and NSTs 01/01/25 -?-?-?-?-?-?-?-?-?-?-?-?- 26w 1d 167 lb 8 oz 103/64 Nega tive -?-?-?-?-?-?-?-?-?-?-?-?- Negative 150 25 -?-?-?-?-?-?-?-?-?-?-?-?- SM- no vb lof go od fm no regular ctx 01/31/25 -?-?-?-?-?-?-?-?-?-?-?-?- 30w 3d 173 lb 8 oz 113/69 Nega tive -?-?-?-?-?-?-?-?-?-?-?-?- Negative 140 29 -?-?-?-?-?-?-?-?-?-?-?-?- JV- wants to do tdap next visit. rsv planned to [facility] at [facility] 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 c/s 04/03 SM. (4) History of delivery, currently : Status: Acute Comment: x1 - Wants to discuss vs rpt cs (5) conceived through in vitro fertilization: Status: Acute Comment: age in 20s. Adopted embryo both donor. carrier negative for both as far as they know. - Transfer date 07/21 @ 5 days. 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 Qualified Code(s): E06.3 - Autoimmune thyroiditis Comment: Thyroid labs NL Orders: Orders POC Urinalysis 2 Dip (Clinic) Today 01/31/25 1121 <Electronically signed by Fior Bautista DO> Date _ Fior Ross DO Cosigner Signature: Date (if applicable) CC: ~ [facility] Work Phone: Progress note Author Jody Montez [facility] Note Date/Time February 27, 2025 10:51am [address], [address] [place] [address] OFFICE VISIT Date of Service: 02/27/25 MR#: [id number] Acct: [id number] Name: MARIAMA LONG Rep #: [id number] : 1990 Provider: Dr. Chong Montez MD Age/Sex: 34/F Location: [facility] Status: Signed with Addenda ADDENDUM by Lee Ann Wright on 02/27/25 at 1105 Office Procedure Documentation entered by Lee Ann Wright 02/27/25 11:05: Immunizations Boostrix Tdap 2.5 Lf unit-8 mcg-5 Lf/0.5 mL intramuscular syringe Performing Provider: Jody Montez MD Performing Location: [facility][1] Administered by: Lee Ann Wright on 02/27/25 11:04 Dose Route Admin Location Dispensed Lot Number Expiration Date NDC Budget Manager 0.5 mL IM Right Deltoid 0.5 mL [id number] 02/18/27 27719-913-36 [employer] VIS Given Date VIS Provided VIS Publication Date 02/27/25 Single Vaccine 24 Eligibility Eligibility Date Funding Source Not Applicable Date _ cc: ~* Signed Intake Vital Signs 01/01/25 09:08 02/12/25 10:19 02/27/25 10:18 02/27/25 10:22 Height 5 ft 6 in 5 ft 6 in 5 ft 6 in 5 ft 6 in Weight: 180 lb 6 oz BMI 29.1 BP 116/72 Intake Visit Reasons: 34wk ob *SM csection 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 Required: No Is patient in pain?: No Allergies Penicillins (PCN) Allergy (Verified 02/27/25 10:18) Hives prochlorperazine (From Compazine) Allergy (Verified 02/27/25 10:18) tongue swelling Medications ?Medication ?Instructions ?Recorded ?Confirmed ?Type vit no.95-ferrous 1 ea PO DAILY 04/0902/27/25 History fumarate 28 mg-folic acid 800 mcg tablet levothyroxine 75 mcg tablet 75 mcg PO QDAY #90 tabs 02/27/25 Rx aspirin 81 mg tablet,delayed 81 mg PO QDAY 08/25/24 History release (Adult Low Dose Aspirin) ondansetron 4 mg disintegrating 4 mg PO Q8H PRN PRN Na usea #60 tabs 10/03/24 02/27/25 Rx tablet Last Menstrual Period: 12/17/23 Zika: Zika virus screening: Negative : No PFSH PFSH Medical History Endometriosis determined by laparoscopy Genetic counseling Thyroid disorder Surgical History History of laparoscopy delivery delivered Family History Aunt No problems noted. Unknown No problems noted. Aunt No problems noted. Grandmother Myocardial infarction Grandmother Myocardial infarction Social History adopted: No household members: spouse and children number of children: 1 current occupational status: employed current occupation: [employer] - [employer] current occupational exposures/hazards: No pets and animals: Yes pets and animals: dog(s) history of recent travel: Yes ([place] - End june ) out of country: Yes sexually active: Yes Smoking Status: Never smoker alcohol intake: never substance use type: does not use well-balanced diet: daily or most days caffeine: No eating out: 1-3 times/week during the past year weight has: remained stable what type of physical activity do you participate in: walking frequency: 1-2 times per week duration: < 15 minutes/day silas/rastafari: Restorationist seatbelt use: always do you feel safe at home: Yes additional social history: : [place] [employer] History 2 Elective abortions Hx Para 1 Spontaneous abortions 0 Hx # Term Pregnancies 1 Ectopic pregnancies Hx # Pregnancies Multiple births # of living children 1 Past Pregnancies Del. Date Name GA/Weeks Outcome Route Bth Weight Infant Gen Labor Lgth Anesthesia Del Locatn Provider FOB 11/23/22 Adolfo 40 live - full term 10 lb 3 oz Male spinal [facility] Dr. Jojo Waters Delivery Date: 11/23/22 Last Updated by: Jody Montez MD No complications, cs for LGA HPI 34wk ob *SM csection Details: MARIAMA LONG is a 34 year old who presents for routine OB visit. OB Visit MARGIE Calculator Estimated Delivery Date Method Current WG Current Estimate 04/08/25 Conception 34w 2d Expected Delivery Route/Plan tolac vs RLTCS-- scheduled at 39 weeks patient counseled regarding risks/benefits of trial of labor versus repeat . ACOG/uptodate education given to patient. [] % likelihood of success per calculator TOLAC consent form signed: [] Labor Preferences- CB/BF classes: no labor support person: [place] labor intervention preferences: [] pain management options preferred: [] cut cord/dad catch: cord : yes PP control planned: [] discussed possible routes of delivery and associated risks: [] special requests: [] Specific Issue/Plans Covid status: [] Flu vaccine: [] Tdap vaccine: [] Rhogam: na LARC form signed: yes Problem list reviewed and updated with the most current plan of care details and appropriate orders placed. Relevant counseling for the gestational age provided. Continue routine care and follow up unless otherwise noted in visit notes/problem list details Initial Weight: Not Recorded Date -?-?-?-?-?-?-?-?-?-?-?-?- EGA Weight BP Urine Prot -?-?-?-?-?-?-?-?-?-?-?-?- Glucose FHR FuHt Pres Dilation -?-?-?-?-?-?-?-?-?-?-?-?- Effaced St Visit Note 09/06/24 -?-?-?-?-?-?-?-?-?-?-?-?- 9w 3d 143 lb 8 oz 116/78 -?-?-?-?-?-?-?-?-?-?-?-?- 175 -?-?-?-?-?-?-?-?-?-?-?-?- SM- CRL 2.36cm c ons with transfer date 10/09/24 -?-?-?-?-?-?-?-?-?-?-?-?- 14w 1d 155 lb 110/75 Negative -?-?-?-?-?-?-?-?-?-?-?-?- Negative 145 -?-?-?-?-?-?-?-?-?-?-?-?- KW- no vb/crampi ng. US ordered. KW- no vb/cramping. US order ed. movement with handheld US 11/06/24 -?-?-?-?-?-?-?-?-?-?-?-?- 18w 1d 160 lb 4 oz 119/72 Nega tive -?-?-?-?-?-?-?-?-?-?-?-?- Negative 160 -?-?-?-?-?-?-?-?-?-?-?-?- JV- day 5 embryo transfer on 07/21/2024, margie 04/08/25. considering but open to cs because understands needs delivered by 39 weeks. 12/04/24 -?-?-?-?-?-?-?-?-?-?-?-?- 22w 1d 159 lb 8 oz 111/74 Nega tive -?-?-?-?-?-?-?-?-?-?-?-?- Negative 155 -?-?-?-?-?-?-?-?-?-?-?-?- KW- no vb/lof/ct x. good fm. discussed anatomy US and need for growth at 36 weeks and NSTs 01/01/25 -?-?-?-?-?-?-?-?-?-?-?-?- 26w 1d 167 lb 8 oz 103/64 Nega tive -?-?-?-?-?-?-?-?-?-?-?-?- Negative 150 25 -?-?-?-?-?-?-?-?-?-?-?-?- SM- no vb lof go od fm no regular ctx 01/31/25 -?-?-?-?-?-?-?-?-?-?-?-?- 30w 3d 173 lb 8 oz 113/69 Nega tive -?-?-?-?-?-?-?-?-?-?-?-?- Negative 140 29 -?-?-?-?-?-?-?-?-?-?-?-?- JV- wants to do tdap next visit. [facility] no complaints today 02/12/25 -?-?-?-?-?-?-?-?-?-?-?-?- 32w 1d 175 lb 4 oz 102/64 Nega tive -?-?-?-?-?-?-?-?-?-?-?-?- Negative 147 32 -?-?-?-?-?-?-?-?-?-?-?-?- MH-No Vb, LOF. G ood FM. Discussed RL discomfort 02/27/25 -?-?-?-?-?-?-?-?-?-?-?-?- 34w 2d 180 lb 6 oz 116/72 Nega tive -?-?-?-?-?-?-?-?-?-?-?-?- Negative 140 34 -?-?-?-?-?-?-?-?-?-?-?-?- SM- no vb lof go od fm no regular ctx discussed hemorrhoids ACOG First Trimester First Trimester: Discussed Results POC Urinalysis 2 Dip (Clinic) Office Urine Glucose Negative Last Edit by Lee Ann Wright on 02/27/25 10:41 Office Urine Protein Negative Last Edit by Lee Ann Wright on 02/27/25 10:41 Coding Level of Care Code OB Routine Diagnoses Velamentous insertion of umbilical cord in third trimester O43.123 Trimester: third trimester Supervision of high risk in third trimester O09.93 Trimester: third trimester 34 weeks gestation of Z3A.34 Weeks of gestation: 34 weeks History of delivery, currently O34.219 resulting from in vitro fertilization in third trimester O09.813 Trimester: third trimester 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 type: due to Brandt's thyroiditis Assessment and Plan Assessment and Plan (1) Velamentous insertion of umbilical cord: Status: Acute Qualifiers: Trimester: third trimester Qualified Code(s): O43.123 - Velamentous insertion of umbilical cord, third trimester Comment: posterior located placenta (2) Supervision of high-risk : Status: Acute Qualifiers: Trimester: third trimester Qualified Code(s): O09.93 - Supervision of high risk , unspecified, third trimester Comment: PRR, , MARGIE 04/08/25, girl PC: Adolfo, : [place] (3) : Status: Acute Qualifiers: Weeks of gestation: 34 weeks Qualified Code(s): Z3A.34 - 34 weeks gestation of Comment: Discussed genetic/carrier testing - undecided; unsure of what testing was done w/IVF. c/s 04/03 SM. (4) History of delivery, currently : Status: Acute Comment: x1 - Wants to discuss vs rpt cs (5) conceived through in vitro fertilization: Status: Acute Qualifiers: Trimester: third trimester Qualified Code(s): O09.813 - Supervision of resulting from assisted reproductive technology, third trimester Comment: age in 20s. Adopted embryo both donor. carrier negative for both as far as they know. - Transfer date 07/21 @ 5 days. 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 Qualified Code(s): E06.3 - Autoimmune thyroiditis Comment: Thyroid labs NL Orders: Orders Tdap Immunization Today Z23 - Encounter for immunization POC Urinalysis 2 Dip (Clinic) Today Medications: New Boostrix Tdap (diphth,pertus(acell),tetanus) 0.5 mL IM ONCE 1 mL 0RF NS Z23 - Encounter for immunization 02/27/25 1051 <Electronically signed by Jody davison MD> Date _ Jody Montez MD Cosign Signature: Date (if applicable) CC: ~ [facility] Work Phone: Reason for referral (narrative)No reason for referral information [facility] Work Phone: Summary Purpose Family History No Family History Records Found Relationship Condition Age at Onset Recorded Date/T jose grandmother Myocardial infarction Unknown Advance Directives No Advanced Directives Records Found Advance Directive Response Recorded Date/ Time Living Will No April 30 2:21pm Power of Academic Associate No April 30, 2020 2:21pm Advance Directive Response Recorded Date/ Time Living Will No April 30 1:21pm Power of Academic Associate No April 30, 2020 1:21pm Advance Directive Response Recorded Date/ Time Name of Medical Power of Academic Associate [place] November 23, 2022 5:35am Living Will Yes November 23, 2022 5 :35am Power of Academic Associate Yes November 23, 2022 5:35am Advance Directive Response Recorded Date/ Time Name of Medical Power of Academic Associate [place] November 23, 2022 5:35am Living Will No December 17, 2022 3:16pm Power of Academic Associate No December 17 3:16pm Advance Directive Response Recorded Date/ Time Living Will No April 19 2:07pm Power of Academic Associate No April 19, 2023 2:07pm Advance Directive Response Recorded Date/ Time Living Will No September 19, 2023 8:19am Do you have a Healthcare Power of Academic Associate? No September 19, 2023 8:19am Advance Directive Response Recorded Date/ Time Living Will No September 19, 2023 8:19am Do you have a Healthcare Power of Academic Associate? No September 19, 2023 8:19am Living Will Yes September 26, 2024 1:03pm Do you have a Healthcare Power of Academic Associate? Yes September 26, 2024 1:03pm Name of Medical Power of Academic Associate Omi September 26, 2024 1:03pm Advance Directive Response Recorded Date/ Time Living Will Yes September 26, 2024 1:03pm Do you have a Healthcare Power of Academic Associate? 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 EMPLOYEE COVID TEST LOCALIZED ENLARGED LYMPH NODES Chief Complaint LOCALIZED ENLARGED L YMPH NODES Chief Complaint HYPOTHYROIDISM Chief Complaint SWELLING C SECTION Reason for Visit delivery de livered Chief Complaint SWELLING C SECTION GI BLEED Reason for Visit delivery de livered Chief Complaint Admit Date Hypothyroid June 22, 2024 2: 15pm Amb Documentation August 25, 2024 11:0 7am NOB IVF 07/21September 06, 2024 3:0 4pm Reason for Visit Admit Date Hypothyroid June 22, 2024 2: 15pm History of delivery, currently September 06, 2024 3:04pm September 06, 2024 3:0 4pm conceived through in vitro carmela tilization September 06, 2024 3:04pm Supervision of high-risk September 06, 2024 3:04pm Hypothyroid September 06, 2024 3:0 4pm Chief Complaint Admit Date Hypothyroid June 22, 2024 2: 15pm Amb Documentation August 25, 2024 11:0 7am NOB IVF 07/21September 06, 2024 3:0 4pm TONGUE SPASM September 26, 2024 12:5 1pm Chief Complaint Admit Date Amb Documentation August 25, 2024 11:0 7am NOB IVF 07/21September 06, 2024 3:0 4pm TONGUE SPASM September 26, 2024 12:5 1pm 14wk OB October 09, 2024 10: 34am 18 wk ob November 06, 2024 2:46p m Reason for Visit Admit Date History of delivery, currently September 06, 2024 3:04pm September 06, 2024 3:0 4pm conceived through in vitro carmela tilization September 06, 2024 3:04pm Supervision of high-risk September 06, 2024 3:04pm Hypothyroid September 06, 2024 3:0 4pm History of delivery, currently October 09, 2024 10:34am October 09, 2024 10: 34am conceived through in vitro carmela tilization October 09, 2024 10:34am Supervision of high-risk October 09, 2024 10:34am Hypothyroid October 09, 2024 10: 34am History of delivery, currently November 06, 2024 2:46pm November 06, 2024 2:46p m conceived through in vitro carmela tilization November 06, 2024 2:46pm Supervision of high-risk October 192024 2:46pm Hypothyroid November 06, 2024 2:46p m Chief Complaint Admit Date Amb Documentation August 25, 2024 11:0 7am NOB IVF 07/21September 06, 2024 3:0 4pm TONGUE SPASM September 26, 2024 12:5 1pm 14wk OB October 09, 2024 10: 34am 18 wk ob November 06, 2024 2:46p m 22 wk ob December 04, 2024 10:5 4am Reason for Visit Admit Date History of delivery, currently September 06, 2024 3:04pm September 06, 2024 3:0 4pm conceived through in vitro carmela tilization September 06, 2024 3:04pm Supervision of high-risk September 06, 2024 3:04pm Hypothyroid September 06, 2024 3:0 4pm History of delivery, currently October 09, 2024 10:34am October 09, 2024 10: 34am conceived through in vitro carmela tilization October 09, 2024 10:34am Supervision of high-risk October 09, 2024 10:34am Hypothyroid October 09, 2024 10: 34am History of delivery, currently November 06, 2024 2:46pm November 06, 2024 2:46p m conceived through in vitro carmela tilization November 06, 2024 2:46pm Supervision of high-risk October 192024 2:46pm Hypothyroid November 06, 2024 2:46p m History of delivery, currently December 04, 2024 10:54am December 04, 2024 10:5 4am conceived through in vitro carmela tilization December 04, 2024 10:54am Supervision of high-risk December 04, 2024 10:54am Velamentous insertion of umbilical cord December 04, 2024 10:54am Hypothyroid December 04, 2024 10:5 4am Chief Complaint Admit Date NOB IVF 07/21September 06, 2024 3:0 4pm TONGUE SPASM September 26, 2024 12:5 1pm 14wk OB October 09, 2024 10: 34am 18 wk ob November 06, 2024 2:46p m 22 wk ob December 04, 2024 10:5 4am 26wk ob/glucose January 01, 2025 9:02 am Reason for Visit Admit Date History of delivery, currently September 06, 2024 3:04pm September 06, 2024 3:0 4pm conceived through in vitro carmela tilization September 06, 2024 3:04pm Supervision of high-risk September 06, 2024 3:04pm Hypothyroid September 06, 2024 3:0 4pm History of delivery, currently October 09, 2024 10:34am October 09, 2024 10: 34am conceived through in vitro carmela tilization October 09, 2024 10:34am Supervision of high-risk October 09, 2024 10:34am Hypothyroid October 09, 2024 10: 34am History of delivery, currently November 06, 2024 2:46pm November 06, 2024 2:46p m conceived through in vitro carmela tilization November 06, 2024 2:46pm Supervision of high-risk October 192024 2:46pm Hypothyroid November 06, 2024 2:46p m History of delivery, currently December 04, 2024 10:54am December 04, 2024 10:5 4am conceived through in vitro carmela tilization December 04, 2024 10:54am Supervision of high-risk December 04, 2024 10:54am Velamentous insertion of umbilical cord December 04, 2024 10:54am Hypothyroid December 04, 2024 10:5 4am History of delivery, currently January 01, 2025 9:02am January 01, 2025 9:02 am conceived through in vitro carmela tilization January 01, 2025 9:02am Supervision of high-risk January 01, 2025 9:02am Velamentous insertion of umbilical cord January 01, 2025 9:02am Hypothyroid January 01, 2025 9:02 am Chief Complaint Admit Date TONGUE SPASM September 26, 2024 12:5 1pm 14wk OB October 09, 2024 10: 34am 18 wk ob November 06, 2024 2:46p m 22 wk ob December 04, 2024 10:5 4am 26wk ob/glucose January 01, 2025 9:02 am Reason for Visit Admit Date History of delivery, currently October 09, 2024 10:34am October 09, 2024 10: 34am conceived through in vitro carmela tilization October 09, 2024 10:34am Supervision of high-risk October 09, 2024 10:34am Hypothyroid October 09, 2024 10: 34am History of delivery, currently November 06, 2024 2:46pm November 06, 2024 2:46p m conceived through in vitro carmela tilization November 06, 2024 2:46pm Supervision of high-risk October 192024 2:46pm Hypothyroid November 06, 2024 2:46p m History of delivery, currently December 04, 2024 10:54am December 04, 2024 10:5 4am conceived through in vitro carmela tilization December 04, 2024 10:54am Supervision of high-risk December 04, 2024 10:54am Velamentous insertion of umbilical cord December 04, 2024 10:54am Hypothyroid December 04, 2024 10:5 4am History of delivery, currently January 01, 2025 9:02am January 01, 2025 9:02 am conceived through in vitro carmela tilization January 01, 2025 9:02am Supervision of high-risk January 01, 2025 9:02am Velamentous insertion of umbilical cord January 01, 2025 9:02am Hypothyroid January 01, 2025 9:02 am Chief Complaint Admit Date 14wk OB October 09, 2024 10: 34am 18 wk ob November 06, 2024 2:46p m 22 wk ob December 04, 2024 10:5 4am 26wk ob/glucose January 01, 2025 9:02 am 30 wk ob January 31, 2025 10 :51am Reason for Visit Admit Date History of delivery, currently October 09, 2024 10:34am October 09, 2024 10: 34am conceived through in vitro carmela tilization October 09, 2024 10:34am Supervision of high-risk October 09, 2024 10:34am Hypothyroid October 09, 2024 10: 34am History of delivery, currently November 06, 2024 2:46pm November 06, 2024 2:46p m conceived through in vitro carmela tilization November 06, 2024 2:46pm Supervision of high-risk October 192024 2:46pm Hypothyroid November 06, 2024 2:46p m History of delivery, currently December 04, 2024 10:54am December 04, 2024 10:5 4am conceived through in vitro carmela tilization December 04, 2024 10:54am Supervision of high-risk December 04, 2024 10:54am Velamentous insertion of umbilical cord December 04, 2024 10:54am Hypothyroid December 04, 2024 10:5 4am History of delivery, currently January 01, 2025 9:02am January 01, 2025 9:02 am conceived through in vitro carmela tilization January 01, 2025 9:02am Supervision of high-risk January 01, 2025 9:02am Velamentous insertion of umbilical cord January 01, 2025 9:02am Hypothyroid January 01, 2025 9:02 am History of delivery, currently January 31, 2025 10:51am January 31, 2025 10 :51am conceived through in vitro carmela tilization January 31, 2025 10:51am Supervision of high-risk Augus t 2024 10:51am Velamentous insertion of umbilical cord January 31, 2025 10:51am Hypothyroid January 31, 2025 10 :51am Chief Complaint Admit Date 18 wk ob November 06, 2024 2:46p m 22 wk ob December 04, 2024 10:5 4am 26wk ob/glucose January 01, 2025 9:02 am 30 wk ob January 31, 2025 10 :51am 32wk ob February 12, 2025 10 :04am Reason for Visit Admit Date History of delivery, currently November 06, 2024 2:46pm November 06, 2024 2:46p m conceived through in vitro carmela tilization November 06, 2024 2:46pm Supervision of high-risk October 192024 2:46pm Hypothyroid November 06, 2024 2:46p m History of delivery, currently December 04, 2024 10:54am December 04, 2024 10:5 4am conceived through in vitro carmela tilization December 04, 2024 10:54am Supervision of high-risk December 04, 2024 10:54am Velamentous insertion of umbilical cord December 04, 2024 10:54am Hypothyroid December 04, 2024 10:5 4am History of delivery, currently January 01, 2025 9:02am January 01, 2025 9:02 am conceived through in vitro carmela tilization January 01, 2025 9:02am Supervision of high-risk January 01, 2025 9:02am Velamentous insertion of umbilical cord January 01, 2025 9:02am Hypothyroid January 01, 2025 9:02 am History of delivery, currently January 31, 2025 10:51am January 31, 2025 10 :51am conceived through in vitro carmela tilization January 31, 2025 10:51am Supervision of high-risk Augus t 2024 10:51am Velamentous insertion of umbilical cord January 31, 2025 10:51am Hypothyroid January 31, 2025 10 :51am History of delivery, currently February 12, 2025 10:04am February 12, 2025 10 :04am conceived through in vitro carmela tilization February 12, 2025 10:04am Supervision of high-risk Augus t 2024 10:04am Velamentous insertion of umbilical cord February 12, 2025 10:04am Hypothyroid February 12, 2025 10 :04am Chief Complaint Admit Date 18 wk ob November 06, 2024 2:46p m 22 wk ob December 04, 2024 10:5 4am 26wk ob/glucose January 01, 2025 9:02 am 30 wk ob January 31, 2025 10 :51am 32wk ob February 12, 2025 10 :04am 34wk ob *SM csection February 27, 2025 10:12am Reason for Visit Admit Date History of delivery, currently November 06, 2024 2:46pm November 06, 2024 2:46p m conceived through in vitro carmela tilization November 06, 2024 2:46pm Supervision of high-risk October 192024 2:46pm Hypothyroid November 06, 2024 2:46p m History of delivery, currently December 04, 2024 10:54am December 04, 2024 10:5 4am conceived through in vitro carmela tilization December 04, 2024 10:54am Supervision of high-risk December 04, 2024 10:54am Velamentous insertion of umbilical cord December 04, 2024 10:54am Hypothyroid December 04, 2024 10:5 4am History of delivery, currently January 01, 2025 9:02am January 01, 2025 9:02 am conceived through in vitro carmela tilization January 01, 2025 9:02am Supervision of high-risk January 01, 2025 9:02am Velamentous insertion of umbilical cord January 01, 2025 9:02am Hypothyroid January 01, 2025 9:02 am History of delivery, currently January 31, 2025 10:51am January 31, 2025 10 :51am conceived through in vitro carmela tilization January 31, 2025 10:51am Supervision of high-risk Augus t 2024 10:51am Velamentous insertion of umbilical cord January 31, 2025 10:51am Hypothyroid January 31, 2025 10 :51am History of delivery, currently February 12, 2025 10:04am February 12, 2025 10 :04am conceived through in vitro carmela tilization February 12, 2025 10:04am Supervision of high-risk Augus t 2024 10:04am Velamentous insertion of umbilical cord February 12, 2025 10:04am Hypothyroid February 12, 2025 10 :04am History of delivery, currently February 27, 2025 10:12am February 27, 2025 10:12am conceived through in vitro carmela tilization February 27, 2025 10:12am Supervision of high-risk Septe mber 2024 10:12am Velamentous insertion of umbilical cord February 27, 2025 10:12am Hypothyroid February 27, 2025 10:12am Reason for Referral Specialty Diagnoses / Procedures Referred By Cholo quinteros Referred To Contact Gastroenterology Diagnoses Rectal bleeding Procedures CONSULT TO GASTROENTEROLOGY OFFICE/OUTPATIENT [facility] HIGH MDM 60-74 MINUTES 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 [address] [place] [address] Referral ID Status Reason Start Date Expiration Date Visits Requested Visits Authorized [id number] Pending Review PCP Requested Referral 12/17/2022 12/17/2023 1 1 Additional Source Comments INFORMATION SOURCE (unrecogn ized section and content) DATE CREATED AUTHOR 12/06/2018 [facility] DATE CREATED AUTHOR AUTHOR'S ORGANIZ ATION 12/18/2022 [facility] DATE CREATED AUTHOR AUTHOR'S ORGANIZ ATION 08/20/2024 [facility] DATE CREATED AUTHOR AUTHOR'S ORGANIZ ATION 03/07/2025 [facility] DATE CREATED AUTHOR AUTHOR'S ORGANIZ ATION 03/14/2025 [facility] Goals (unrecognized section and content) Goals may be documented in a n alternate sectionGoals may be documented in an alternate sectionGoals may be documented in an alternate sectionGoals may be documented in an alternate sectionGoals may be documented in an alternate sectionGoals may be documented in an alternate sectionGoals may be documented in an alternate sectionGoals may be documented in an alternate sectionGoals may be documented in an alternate sectionGoals may be documented in an alternate sectionGoals may be documented in an alternate sectionGoals may be documented in an alternate sectionGoals may be documented in an alternate sectionGoals may be documented in an alternate sectionGoals may be documented in an alternate sectionGoals may be documented in an alternate sectionGoals may be documented in an alternate sectionGoals may be documented in an alternate sectionGoals may be documented in an alternate sectionGoals may be documented in an alternate sectionGoals may be documented in an alternate section Care Teams (unrecognized sec tion and content) Team Status: Active Member Role Status Dates Savi Moreau CALENDAR CONTROL CLERK BLOOD BANK, CALENDAR CONTROL CLERK BLOOD BANK-C Primary Care Provider Active Team Status: Active Member Role Status Dates No Primary Care Physician Primary Care Provider Active Start: August 25, 2024 Deya Choudhary RN Attending Provider Active St art: August 25, 2024 Team Status: Inactive Member Role Status Dates No Primary Care Physician Primary Care Provider Active Start: September 06, 2024 End: September 06, 2024 No Primary Care Physician Referring Provider Active Start: September 06, 2024 End: September 06, 2024 Dr. Jody Montez MD Attending Provider Active Start: September 06, 2024 End: September 06, 2024 Team Status: Inactive Member Role Status Dates No Primary Care Physician Primary Care Provider Active Start: September 06, 2024 End: September 06, 2024 Dr. Jody Montez MD Attending Provider Active Start: September 06, 2024 End: September 06, 2024 Dr. Jody Montez MD Referring Provider Active Start: September 06, 2024 End: September 06, 2024 Team Status: Inactive Member Role Status Dates Dr. Papo Zendejas DO Attending Provider Active Start: September 26, 2024 End: September 26, 2024 Dr. Papo Zendejas , Emergency Provider Active Start: September 26, 2024 End: September 26, 2024 Savi Moreau CALENDAR CONTROL CLERK BLOOD BANK, CALENDAR CONTROL CLERK BLOOD BANK-C Primary Care Provider Active Start: September 26, 2024 End: September 26, 2024 Team Status: Inactive Member Role Status Dates No Primary Care Physician Referring Provider Active Start: October 09, 2024 End: October 09, 2024 Savi Moreau CALENDAR CONTROL CLERK BLOOD BANK, CALENDAR CONTROL CLERK BLOOD BANK-C Primary Care Provider Active Start: October 09, 2024 End: October 09, 2024 Mary Kay Ryan CNM Attending Provider Active S tart: October 09, 2024 End: October 09, 2024 Team Status: Inactive Member Role Status Dates Savi Moreau CALENDAR CONTROL CLERK BLOOD BANK, CALENDAR CONTROL CLERK BLOOD BANK-C Primary Care Provider Active Start: November 06, 2024 End: November 06, 2024 Savi Moreau NP, CALENDAR CONTROL CLERK BLOOD BANK-C Referring Provider Active Start: November 06, 2024 End: November 06, 2024 Dr. Fior Ross DO Attending Provider Activ e Start: November 06, 2024 End: November 06, 2024 Team Status: Inactive Member Role Status Dates Savi Moreau NP, CALENDAR CONTROL CLERK BLOOD BANK-C Primary Care Provider Active Start: November 06, 2024 End: November 06, 2024 Dr. Fior Ross DO Attending Provider Activ e Start: November 06, 2024 End: November 06, 2024 Dr. Fior Ross DO Referring Provider Activ e Start: November 06, 2024 End: November 06, 2024 Team Status: Inactive Member Role Status Dates Savi Moreau NP, CALENDAR CONTROL CLERK BLOOD BANK-C Primary Care Provider Active Start: December 04, 2024 End: December 04, 2024 Savi Moreau NP, CALENDAR CONTROL CLERK BLOOD BANK-C Referring Provider Active Start: December 04, 2024 End: December 04, 2024 Mary Kay Ryan CNM Attending Provider Active S tart: December 04, 2024 End: December 04, 2024 Team Status: Active Member Role Status Dates No Primary Care Physician Family Provider Active No Primary Care Physician Primary Care Provider Active Team Status: Inactive Member Role Status Dates No Primary Care Physician Primary Care Provider Active Dr. Eusebio Pressley MD Attending Provider Active Team Status: Inactive Member Role Status Dates No Primary Care Physician Primary Care Provider Active Dr. Jojo Pressley DO Attending Provider, Referrin g Provider Active Team Status: Inactive Member Role Status Dates No Primary Care Physician Primary Care Provider Active Dr. Jojo Pressley DO Attending Provider Active Team Status: Active Member Role Status Dates No Primary Care Physician Primary Care Provider Active Dr. Brad Sandhu MD Attending Provider Active Dr. Jojo Pressley DO Referring Provider Active Team Status: Inactive Member Role Status Dates No Primary Care Physician Primary Care Provider Active Dr. Jojo Pressley DO Admit Provider, Attending Pr ovider Active Team Status: Active Member Role Status Dates No Primary Care Physician Primary Care Provider Active Dr. Jojo Pressley DO Attending Provider, Referrin g Provider Active Team Status: Inactive Member Role Status Dates No Primary Care Physician Primary Care Provider Active Dr. Papo Zendejas DO Emergency Provider Active Team Status: Inactive Member Role Status Dates No Primary Care Physician Primary Care Provider Active Dr. Papo Zendejas DO Attending Provider, Emergency P [place] Active Team Status: Inactive Member Role Status Dates No Primary Care Physician Primary Care Provider Active Dr. Carlos Alberto Landers MD Attending Provider, Referring Pr ovider Active Rebar Bender Relationship Specialty Start Date End Date System, Provider Not In PCP - General 12/02/21 Rebar Bender Relationship Specialty Start Date End Date System, Provider Not In PCP - General 12/02/21 Rebar Bender Relationship Specialty Start Date End Date System, Provider Not In PCP - General 12/02/21 Rebar Bender Relationship Specialty Start Date End Date System, Provider Not In PCP - General 12/02/21 Rebar Bender Relationship Specialty Start Date End Date System, Provider Not In PCP - General 12/02/21 Team Status: Inactive Member Role Status Dates UMAIR MALIN Attending Provider Active Start: N ov2023 End: May 19, 2024 No Primary Care Physician Primary Care Provider Active Start: May 19, 2024 End: May 19, 2024 Team Status: Inactive Member Role Status Dates No Primary Care Physician Primary Care Provider Active Start: June 22, 2024 End: June 22, 2024 No Primary Care Physician Referring Provider Active Start: June 22, 2024 End: June 22, 2024 Dr. Jimmy Arboleda MD Attending Provider Active Sta rt: June 22, 2024 End: June 22, 2024 Team Status: Inactive Member Role Status Dates UMAIR MALIN Attending Provider Active Start: 2024 End: June 29, 2024 DEAUMAIR HILARIO Referring Provider Active Start: 2024 End: June 29, 2024 No Primary Care Physician Primary Care Provider Active Start: June 29, 2024 End: June 29, 2024 Team Status: Inactive Member Role Status Dates UMAIR MALIN Attending Provider Active Start: ary 2024 End: July 31, 2024 DEAUMAIR HILARIO Referring Provider Active Start: ebruary 2024 End: July 31, 2024 No Primary Care Physician Primary Care Provider Active Start: July 31, 2024 End: July 31, 2024 Team Status: Inactive Member Role Status Dates No Primary Care Physician Primary Care Provider Active Start: August 02, 2024 End: August 02, 2024 ANASTASIA PACKER Attending Provider Active Start: August 02, 2024 End: August 02, 2024 ANASTASIA PACKER Referring Provider Active Start: August 02, 2024 End: August 02, 2024 Team Status: Inactive Member Role Status Dates Dr. Papo Zendejas , Emergency Provider Active Start: September 26, 2024 End: September 26, 2024 Savi Moreau CALENDAR CONTROL CLERK BLOOD BANK, CALENDAR CONTROL CLERK BLOOD BANK-C Primary Care Provider Active Start: September 26, 2024 End: September 26, 2024 Rebar Bender Relationship Specialty Start Date End Date System, Provider Not In PCP - General 12/02/21 Team Status: Active Member Role Status Dates Savi Moreau CALENDAR CONTROL CLERK BLOOD BANK, CALENDAR CONTROL CLERK BLOOD BANK-C Primary Care Provider Active Start: November 06, 2024 Dr. Fior Ross , DO Attending Provider Activ e Start: November 06, 2024 Dr. Fior Ross , DO Referring Provider Activ e Start: November 06, 2024 Team Status: Active Member Role/Relationship Status Dates Savi Moreau CALENDAR CONTROL CLERK BLOOD BANK, CALENDAR CONTROL CLERK BLOOD BANK-C Primary Care Provider Active Team Status: Inactive Member Role/Relationship Status Dates No Primary Care Physician Primary Care Provider Active Start: September 06, 2024 End: September 06, 2024 No Primary Care Physician Referring Provider Active Start: September 06, 2024 End: September 06, 2024 Dr. Jody Montez MD Attending Provider Active Start: September 06, 2024 End: September 06, 2024 Team Status: Inactive Member Role/Relationship Status Dates No Primary Care Physician Primary Care Provider Active Start: September 06, 2024 End: September 06, 2024 Dr. Jody Montez MD Attending Provider Active Start: September 06, 2024 End: September 06, 2024 Dr. Jody Montez MD Referring Provider Active Start: September 06, 2024 End: September 06, 2024 Team Status: Inactive Member Role/Relationship Status Dates Dr. Papo Zendejas DO Attending Provider Active Start: September 26, 2024 End: September 26, 2024 Dr. Papo Zendejas , Emergency Provider Active Start: September 26, 2024 End: September 26, 2024 Savi Moreau CALENDAR CONTROL CLERK BLOOD BANK, CALENDAR CONTROL CLERK BLOOD BANK-C Primary Care Provider Active Start: September 26, 2024 End: September 26, 2024 Team Status: Inactive Member Role/Relationship Status Dates No Primary Care Physician Referring Provider Active Start: October 09, 2024 End: October 09, 2024 Savi Moreau CALENDAR CONTROL CLERK BLOOD BANK, CALENDAR CONTROL CLERK BLOOD BANK-C Primary Care Provider Active Start: October 09, 2024 End: October 09, 2024 Mary Kay Ryan CNM Attending Provider Active S tart: October 09, 2024 End: October 09, 2024 Team Status: Inactive Member Role/Relationship Status Dates Savi Moreau CALENDAR CONTROL CLERK BLOOD BANK, CALENDAR CONTROL CLERK BLOOD BANK-C Primary Care Provider Active Start: November 06, 2024 End: November 06, 2024 Savi Moreau CALENDAR CONTROL CLERK BLOOD BANK, CALENDAR CONTROL CLERK BLOOD BANK-C Referring Provider Active Start: November 06, 2024 End: November 06, 2024 Dr. Fior Ross , Attending Provider Activ e Start: November 06, 2024 End: November 06, 2024 Team Status: Inactive Member Role/Relationship Status Dates Savi Moreau NP, CALENDAR CONTROL CLERK BLOOD BANK-C Primary Care Provider Active Start: November 06, 2024 End: November 06, 2024 Dr. Fior Ross , Attending Provider Activ e Start: November 06, 2024 End: November 06, 2024 Dr. Fior Ross , DO Referring Provider Activ e Start: November 06, 2024 End: November 06, 2024 Team Status: Inactive Member Role/Relationship Status Dates Savi Lorson CALENDAR CONTROL CLERK BLOOD BANK, CALENDAR CONTROL CLERK BLOOD BANK-C Primary Care Provider Active Start: December 04, 2024 End: December 04, 2024 Savi Moreau CALENDAR CONTROL CLERK BLOOD BANK, CALENDAR CONTROL CLERK BLOOD BANK-C Referring Provider Active Start: December 04, 2024 End: December 04, 2024 Mary Kay Ryan CNM Attending Provider Active S tart: December 04, 2024 End: December 04, 2024 Team Status: Inactive Member Role/Relationship Status Dates Savi Moreau CALENDAR CONTROL CLERK BLOOD BANK, CALENDAR CONTROL CLERK BLOOD BANK-C Primary Care Provider Active Start: January 01, 2025 End: January 01, 2025 Savi Moreau CALENDAR CONTROL CLERK BLOOD BANK, CALENDAR CONTROL CLERK BLOOD BANK-C Referring Provider Active Start: January 01, 2025 End: January 01, 2025 Dr. Jody Montez MD Attending Provider Active Start: January 01, 2025 End: January 01, 2025 Team Status: Active Member Role/Relationship Status Dates Savi Moreau CALENDAR CONTROL CLERK BLOOD BANK, CALENDAR CONTROL CLERK BLOOD BANK-C Primary Care Provider Active Start: January 01, 2025 [place] CALENDAR CONTROL CLERK BLOOD BANK, CALENDAR CONTROL CLERK BLOOD BANK-C Attending Provider Active Start: January 01, 2025 Team Status: Inactive Member Role/Relationship Status Dates Dr. Papo Zendejas DO Attending Provider Active Start: September 26, 2024 End: September 26, 2024 Dr. Papo Zendejas , Emergency Provider Active Start: September 26, 2024 End: September 26, 2024 Savi Moreau CALENDAR CONTROL CLERK BLOOD BANK, CALENDAR CONTROL CLERK BLOOD BANK-C Primary Care Provider Active Start: September 26, 2024 End: September 26, 2024 Team Status: Inactive Member Role/Relationship Status Dates No Primary Care Physician Referring Provider Active Start: October 09, 2024 End: October 09, 2024 Savi Moreau CALENDAR CONTROL CLERK BLOOD BANK, CALENDAR CONTROL CLERK BLOOD BANK-C Primary Care Provider Active Start: October 09, 2024 End: October 09, 2024 Mary Kay Ryan CNM Attending Provider Active S tart: October 09, 2024 End: October 09, 2024 Team Status: Inactive Member Role/Relationship Status Dates Savi Moreau CALENDAR CONTROL CLERK BLOOD BANK, CALENDAR CONTROL CLERK BLOOD BANK-C Primary Care Provider Active Start: November 06, 2024 End: November 06, 2024 Savi Moreau CALENDAR CONTROL CLERK BLOOD BANK, CALENDAR CONTROL CLERK BLOOD BANK-C Referring Provider Active Start: November 06, 2024 End: November 06, 2024 Dr. Fior Ross DO Attending Provider Activ e Start: November 06, 2024 End: November 06, 2024 Team Status: Inactive Member Role/Relationship Status Dates Savi Moreau NP, CALENDAR CONTROL CLERK BLOOD BANK-C Primary Care Provider Active Start: November 06, 2024 End: November 06, 2024 Dr. Fior Ross , Attending Provider Activ e Start: November 06, 2024 End: November 06, 2024 Dr. Fior Ross , Referring Provider Activ e Start: November 06, 2024 End: November 06, 2024 Team Status: Inactive Member Role/Relationship Status Dates Savi Moreau CALENDAR CONTROL CLERK BLOOD BANK, CALENDAR CONTROL CLERK BLOOD BANK-C Primary Care Provider Active Start: December 04, 2024 End: December 04, 2024 Savi Moreau CALENDAR CONTROL CLERK BLOOD BANK, CALENDAR CONTROL CLERK BLOOD BANK-C Referring Provider Active Start: December 04, 2024 End: December 04, 2024 Mary Kay Ryan CNM Attending Provider Active S tart: December 04, 2024 End: December 04, 2024 Team Status: Inactive Member Role/Relationship Status Dates Savi Moreau CALENDAR CONTROL CLERK BLOOD BANK, CALENDAR CONTROL CLERK BLOOD BANK-C Primary Care Provider Active Start: January 01, 2025 End: January 01, 2025 Savi Moreau CALENDAR CONTROL CLERK BLOOD BANK, CALENDAR CONTROL CLERK BLOOD BANK-C Referring Provider Active Start: January 01, 2025 End: January 01, 2025 Dr. Jody Montez MD Attending Provider Active Start: January 01, 2025 End: January 01, 2025 Team Status: Inactive Member Role/Relationship Status Dates Savi Moreau CALENDAR CONTROL CLERK BLOOD BANK, CALENDAR CONTROL CLERK BLOOD BANK-C Primary Care Provider Active Start: January 01, 2025 End: January 01, 2025 [place] CALENDAR CONTROL CLERK BLOOD BANK, CALENDAR CONTROL CLERK BLOOD BANK-C Attending Provider Active Start: January 01, 2025 End: January 01, 2025 Team Status: Inactive Member Role/Relationship Status Dates No Primary Care Physician Referring Provider Active Start: October 09, 2024 End: October 09, 2024 Savi Moreau CALENDAR CONTROL CLERK BLOOD BANK, CALENDAR CONTROL CLERK BLOOD BANK-C Primary Care Provider Active Start: October 09, 2024 End: October 09, 2024 Mary Kay Ryan CNM Attending Provider Active S tart: October 09, 2024 End: October 09, 2024 Team Status: Inactive Member Role/Relationship Status Dates Savi Moreau CALENDAR CONTROL CLERK BLOOD BANK, CALENDAR CONTROL CLERK BLOOD BANK-C Primary Care Provider Active Start: November 06, 2024 End: November 06, 2024 Savi Moreau NP, CALENDAR CONTROL CLERK BLOOD BANK-C Referring Provider Active Start: November 06, 2024 End: November 06, 2024 Dr. Fior Ross , DO Attending Provider Activ e Start: November 06, 2024 End: November 06, 2024 Team Status: Inactive Member Role/Relationship Status Dates Savi Moreau CALENDAR CONTROL CLERK BLOOD BANK, CALENDAR CONTROL CLERK BLOOD BANK-C Primary Care Provider Active Start: November 06, 2024 End: November 06, 2024 Dr. Fior Ross , DO Attending Provider Activ e Start: November 06, 2024 End: November 06, 2024 Dr. Fior Ross , DO Referring Provider Activ e Start: November 06, 2024 End: November 06, 2024 Team Status: Inactive Member Role/Relationship Status Dates Savi Moreau CALENDAR CONTROL CLERK BLOOD BANK, CALENDAR CONTROL CLERK BLOOD BANK-C Primary Care Provider Active Start: December 04, 2024 End: December 04, 2024 Savi Moreau CALENDAR CONTROL CLERK BLOOD BANK, CALENDAR CONTROL CLERK BLOOD BANK-C Referring Provider Active Start: December 04, 2024 End: December 04, 2024 Mary Kay Ryan CNM Attending Provider Active S tart: December 04, 2024 End: December 04, 2024 Team Status: Inactive Member Role/Relationship Status Dates Savi Moreau CALENDAR CONTROL CLERK BLOOD BANK, CALENDAR CONTROL CLERK BLOOD BANK-C Primary Care Provider Active Start: January 01, 2025 End: January 01, 2025 Savi Moreau CALENDAR CONTROL CLERK BLOOD BANK, CALENDAR CONTROL CLERK BLOOD BANK-C Referring Provider Active Start: January 01, 2025 End: January 01, 2025 Dr. Jody Montez MD Attending Provider Active Start: January 01, 2025 End: January 01, 2025 Team Status: Inactive Member Role/Relationship Status Dates Savi Moreau CALENDAR CONTROL CLERK BLOOD BANK, CALENDAR CONTROL CLERK BLOOD BANK-C Primary Care Provider Active Start: January 01, 2025 End: January 01, 2025 Lee Ann Grove NP, CALENDAR CONTROL CLERK BLOOD BANK-C Attending Provider Active Start: January 01, 2025 End: January 01, 2025 Team Status: Inactive Member Role/Relationship Status Dates Savi Moreau CALENDAR CONTROL CLERK BLOOD BANK, CALENDAR CONTROL CLERK BLOOD BANK-C Primary Care Provider Active Start: January 31, 2025 End: January 31, 2025 Savi Moreau CALENDAR CONTROL CLERK BLOOD BANK, CALENDAR CONTROL CLERK BLOOD BANK-C Referring Provider Active Start: January 31, 2025 End: January 31, 2025 Dr. Fior Ross , Attending Provider Activ e Start: January 31, 2025 End: January 31, 2025 Team Status: Inactive Member Role/Relationship Status Dates Savi Moreau CALENDAR CONTROL CLERK BLOOD BANK, CALENDAR CONTROL CLERK BLOOD BANK-C Primary Care Provider Active Start: November 06, 2024 End: November 06, 2024 Savi Moreau CALENDAR CONTROL CLERK BLOOD BANK, CALENDAR CONTROL CLERK BLOOD BANK-C Referring Provider Active Start: November 06, 2024 End: November 06, 2024 Dr. Fior Ross , Attending Provider Activ e Start: November 06, 2024 End: November 06, 2024 Team Status: Inactive Member Role/Relationship Status Dates Savi Moreau CALENDAR CONTROL CLERK BLOOD BANK, CALENDAR CONTROL CLERK BLOOD BANK-C Primary Care Provider Active Start: November 06, 2024 End: November 06, 2024 Dr. Fior Ross , Attending Provider Activ e Start: November 06, 2024 End: November 06, 2024 Dr. Fior Ross , Referring Provider Activ e Start: November 06, 2024 End: November 06, 2024 Team Status: Inactive Member Role/Relationship Status Dates Savi Moreau CALENDAR CONTROL CLERK BLOOD BANK, CALENDAR CONTROL CLERK BLOOD BANK-C Primary Care Provider Active Start: December 04, 2024 End: December 04, 2024 Savi Moreau CALENDAR CONTROL CLERK BLOOD BANK, CALENDAR CONTROL CLERK BLOOD BANK-C Referring Provider Active Start: December 04, 2024 End: December 04, 2024 Mary Kay Ryan CNM Attending Provider Active S tart: December 04, 2024 End: December 04, 2024 Team Status: Inactive Member Role/Relationship Status Dates Savi Moreau CALENDAR CONTROL CLERK BLOOD BANK, CALENDAR CONTROL CLERK BLOOD BANK-C Primary Care Provider Active Start: January 01, 2025 End: January 01, 2025 Savi Moreau CALENDAR CONTROL CLERK BLOOD BANK, CALENDAR CONTROL CLERK BLOOD BANK-C Referring Provider Active Start: January 01, 2025 End: January 01, 2025 Dr. Jody Montez MD Attending Provider Active Start: January 01, 2025 End: January 01, 2025 Team Status: Inactive Member Role/Relationship Status Dates Savi Moreau CALENDAR CONTROL CLERK BLOOD BANK, CALENDAR CONTROL CLERK BLOOD BANK-C Primary Care Provider Active Start: January 01, 2025 End: January 01, 2025 Lee Ann Grove CALENDAR CONTROL CLERK BLOOD BANK, CALENDAR CONTROL CLERK BLOOD BANK-C Attending Provider Active Start: January 01, 2025 End: January 01, 2025 Team Status: Inactive Member Role/Relationship Status Dates Savi Moreau CALENDAR CONTROL CLERK BLOOD BANK, CALENDAR CONTROL CLERK BLOOD BANK-C Primary Care Provider Active Start: January 31, 2025 End: January 31, 2025 Savi Moreau CALENDAR CONTROL CLERK BLOOD BANK, CALENDAR CONTROL CLERK BLOOD BANK-C Referring Provider Active Start: January 31, 2025 End: January 31, 2025 Dr. Fior Ross DO Attending Provider Activ e Start: January 31, 2025 End: January 31, 2025 Team Status: Inactive Member Role/Relationship Status Dates Savi Moreau CALENDAR CONTROL CLERK BLOOD BANK, CALENDAR CONTROL CLERK BLOOD BANK-C Primary Care Provider Active Start: February 12, 2025 End: February 12, 2025 Savi Moreau CALENDAR CONTROL CLERK BLOOD BANK, CALENDAR CONTROL CLERK BLOOD BANK-C Referring Provider Active Start: February 12, 2025 End: February 12, 2025 Lee Ann Grove CALENDAR CONTROL CLERK BLOOD BANK, CALENDAR CONTROL CLERK BLOOD BANK-C Attending Provider Active Start: February 12, 2025 End: February 12, 2025 Team Status: Inactive Member Role/Relationship Status Dates Savi Moreau CALENDAR CONTROL CLERK BLOOD BANK, CALENDAR CONTROL CLERK BLOOD BANK-C Primary Care Provider Active Start: February 27, 2025 End: February 27, 2025 Savi Moreau CALENDAR CONTROL CLERK BLOOD BANK, CALENDAR CONTROL CLERK BLOOD BANK-C Referring Provider Active Start: February 27, 2025 End: February 27, 2025 Dr. Jody Montez MD Attending Provider Active Start: February 27, 2025 End: February 27, 2025 Source Comments (unrecognize d section and content) In the event this informatio n is protected by the Federal Confidentiality of Alcohol and Drug Abuse Patient Records regulations: The Federal rules restrict any use of the information to criminally investigate or prosecute any alcohol or drug abuse patient.[facility] CenterThis information has been disclosed to you from confidential records protectfrom disclosure by state law. You shall make no further disclosure of thisinformation without the specific, written, and informed release of theindividual to whom it pertains, or as otherwise permitted by law. A generalauthorization for the release of medical or other information is not sufficientfor the purposes of the release of HIV test results or diagnoses. [id number] SystemThis information has been disclosed to you from confidential records protectfrom disclosure by state law. You shall make no further disclosure of thisinformation without the specific, written, and informed release of theindividual to whom it pertains, or as otherwise permitted by law. A generalauthorization for the release of medical or other information is not sufficientfor the purposes of the release of HIV test results or diagnoses. [id number] HealthThis information has been disclosed to you from confidential records protectfrom disclosure by state law. You shall make no further disclosure of thisinformation without the specific, written, and informed release of theindividual to whom it pertains, or as otherwise permitted by law. A generalauthorization for the release of medical or other information is not sufficientfor the purposes of the release of HIV test results or diagnoses. [id number] HealthThis information has been disclosed to you from confidential records protectfrom disclosure by state law. You shall make no further disclosure of thisinformation without the specific, written, and informed release of theindividual to whom it pertains, or as otherwise permitted by law. A generalauthorization for the release of medical or other information is not sufficientfor the purposes of the release of HIV test results or diagnoses. [id number] HealthThis information has been disclosed to you from confidential records protectfrom disclosure by state law. You shall make no further disclosure of thisinformation without the specific, written, and informed release of theindividual to whom it pertains, or as otherwise permitted by law. A generalauthorization for the release of medical or other information is not sufficientfor the purposes of the release of HIV test results or diagnoses. [id number] HealthThis information has been disclosed to you from confidential records protectfrom disclosure by state law. You shall make no further disclosure of thisinformation without the specific, written, and informed release of theindividual to whom it pertains, or as otherwise permitted by law. A generalauthorization for the release of medical or other information is not sufficientfor the purposes of the release of HIV test results or diagnoses. [id number] Reason for Visit (unrecogniz ed section and content) Reason Comments Rectal Bleeding Pt reported c-sectio n x3 wks prior PP, c/o rectal bleeding, x10 days. FOR RECORDS PERTAINING TO PATIENTS WHO ARE OR HAVE BEEN ENROLLED IN A CHEMICAL DEPENDENCY/SUBSTANCEABUSE PROGRAM, SOME INFORMATION MAY BE OMITTED. This clinical summary was aggregated from multiple sources. Caution should be exercised in using it in the provision of clinical care. This summary normalizes information from multiple sources, and as a consequence, information in this document may materially change the coding, format and clinical context of patient data. In addition, data may be omitted in some cases. CLINICAL DECISIONS SHOULD BE BASED ON THE PRIMARY CLINICAL RECORDS. [employer] [facility]. provides no warranty or guarantee of the accuracy or completeness of information in this document.
== END | disposition home or self-care (01) ==
LOC: LABSPEC 16:16
PROVIDERS: PCP Nurse Practitioner Family; Visit Provider Nurse Practitioner Women's Health
DX: O09.93 Supervision of high risk pregnancy, unspecified, third trimester (principal); Z3A.00 Weeks of gestation of pregnancy not specified
CPT/HCPCS: 87081

== ENCOUNTER → 2025-03-19 | Outpatient (CLI) | payer OTHER, SELFPAY ==
--- OUTSIDE RECORDS SUMMARY | 2025-03-06 10:02 | XMS RPT_ITS ---
Author Name Auto Generated Organization [facility] Care Team Providers [facility] [employer] Name Role Phone DEA BLOCK Attending Unavailable LUNA, ABIOLA Referring Unavailable LUNA, ABIOLA Primary Care Unavailable DEA BLOCK Attending Unavailable LUNA, ABIOLA Referring Unavailable LUNA, ABIOLA Primary Care Unavailable LUNA, ABIOLA Referring Unavailable LUNA, ABIOLA Primary Care Unavailable DANTE GARCIA Attending Unavailable LUNA, ABIOLA Referring Unavailable LUNA, ABIOLA Primary Care Unavailable LUNA, ABIOLA Attending Unavailable LUNA, ABIOLA Referring Unavailable LUNA, ABIOLA Primary Care Unavailable DEA BLOCK Attending Unavailable LUNA, ABIOLA Referring Unavailable LUNA, ABIOLA Primary Care Unavailable LEE ANN MEZA Referring Unavailable NO PRIMARY CARE, Primary Care Unavailable RIA KAHN Attending Unavailable NO PRIMARY CARE, Primary Care Unavailable MARY KAY RYAN Referring Unavailable BEHZAD GARCIA Attending Unavailable NO PRIMARY CARE, Primary Care Unavailable MARY KAY RYAN Referring Unavailable AYLA GASTELUM Attending Unavailable LEE ANN MEZA Referring Unavailable NO PRIMARY CARE, Primary Care Unavailable BEHZAD GARCIA Attending Unavailable LEE ANN MEZA Referring Unavailable NO PRIMARY CARE, Primary Care Unavailable AYLA GASTELUM Attending Unavailable PROBLEMS DATE TYPE CONDITION / CODE ATTENDING STATUS [facility] 08/18/2024 Admitting Diagnosis ultra sound / UNK(Unknown) DEA BLOCK Active [facility] PROCEDURES No Procedure Records Found RESULTS PROCEDURE Observed: 07/21/2024 10:45 AM Status: COMPLETED Source: [facility] Frozen Embryo Thaw and Transfer Incubator #: [email or web address] Patient Information: []Gamete Providers are SIP [] Not evaluated for infectious substances [x] Egg / Sperm provider is a [] Warning: Advise recipient of donor (See SOR) communicable disease risk Other Instructions: [] Warning: Reactive test results for Thaw Method: [] Blastocyst Thaw Kit [] 2PN/Multicell: (0.5 M Sucrose, 0.2 M sucrose, diluent) [] Other [x] Vitrification Warming Lot Numbers: Global__[id number] SPS [id number] Thaw Kit ___[id number] Other Patient ID Confirmation: Device: Tech__kmf [facility]: Tech__kmf # Thawed:__1___ Date Thawed:__07/21/2024____ # Embryo(s) remaining in storage:__3 Embryo # Date Frozen Stage Frozen Time of Thaw % Viability Comments 11 05/08/2021 D6 HBFAB 8:35 100 ET@ 10:58 Abbreviations:C= compacting, Arr= arrested, Atr= Atretic,MN= multinucleated, Inc= inclusions, Vac= Vacuoles, EB= Early Blast, Mor= Morula Disposition Code: AH = Assisted Hatching, T = Embryo Transfer, F = Cryopreserved, D = Discard Extended Culture: For embryos cultured additional days list day of culture, time of grading and tech. Embryo Transfer Timeout: Date__07/21/2024 Time__10:47 Pt. ID Check ___Marissa Tech__kmf____ Physician order and # of embryos to transfer: ___1__ Tech___kmf___ Physician: ___[employer] Embryologist _kmf Catheter / Lot #____[id number] / [id number] Comments: Transfer Difficulty: 0 [x] 1[] 2 [] 3 [] Embryo(s) retained__no Reload___no Catheter: Blood 0 [x] 1[] 2[] 3 [] Mucus 0 [] 1 [x] 2 [] 3 [] AH: [] Y [x] N Tech Notes:___used Vu 23cm Stylet Lot # [id number] ALLERGIES DATE TYPE / CODE NAME / CODE REACTION SEVERITY SOURCE 09/16/2021 Drug Class/[id number](SNO MED CT) PENICILLINS [facility] ENCOUNTERS ADMIT/DISCHARGE ACCOUNT NUMBER ADMITTING ENCOUNTER CLASS LOCATION SOURCE 03/06/2025/ 5 [id number] Ambulatory Building:[facility] 02/06/2025/ 5 [id number] Ambulatory Building:[facility] 01/09/2025/ 5 [id number] Ambulatory Building:[facility] 12/12/2024/ 5 [id number] Ambulatory Building:[facility] 11/14/2024/ [id number] Ambulatory Building:[facility] 08/18/2024 [id number] Ambulatory Building:[facility] 07/21/2024 [id number] Ambulatory Building:[facility] 07/21/2024 [id number] Ambulatory Building:[facility] 07/14/2024 [id number] Ambulatory Building:[facility] 07/14/2024 [id number] Ambulatory Building:[facility] 05/25/2024 [id number] Ambulatory Building:[facility] PAYERS ENCOUNTER GUARANTOR PAYER SUBSCRIBER SOURCE 03/06/2025 MARIAMA LAL: [address] [address]Sgd: ~(330 (HP) Primary Insurance:CIGNAPo licy Number: [id number] tive Date: ADRIÁN LAL: [id number] [place] [address] [facility] 02/06/2025 MARIAMA LAL: [address] [place] [address]Rkj: ~(967 (HP) Primary Insurance:CIGNAPo licy Number: [id number] tive Date: ADRIÁN LAL: [id number] [place] [address] [facility] 01/09/2025 MARIAMA LAL: [address] [place] [address]Uos: ~(330 (HP) Primary Insurance:CIGNAPo licy Number: [id number] tive Date: ADRIÁN LAL: [id number] [place] [address] [facility] 12/12/2024 MARIAMA ACEVEDORASDOB: [address] [place] [address]Izi: ~(330 (HP) Primary Insurance:CIGNAPo licy Number: [id number] tive Date: ADRIÁN LAL: [id number] [place] [address] [facility] 11/14/2024 MARIAMA LAL: [address] [place] [address]Juj: ~(330 (HP) Primary Insurance:CIGNAPo licy Number: [id number] tive Date: ADRIÁN LAL: [id number] [place] [address] [facility] 08/18/2024 MARIAMA LAL: [address] [place] [address]Gkh: (HP) Primary Insurance:CIGNAPo licy Number: [id number] tive Date:2022-01-19 ADRIÁN LAL: [id number] [place] [address] [facility] 05/25/2024 MRAIAMA LAL: [address] [place] [address]Rjq: (HP) Primary Insurance:CIGNAPo licy Number: [id number] tive Date:2022-01-19 ADRIÁN LLA: [id number] [place] [address] [facility]
[2025-03-19 12:33] LABS: Hematocrit 40.8 % (37-47); Hemoglobin 13.2 g/dL (12.0-15.0); Immature Granulocytes Count 0.050 X10^3/uL (0.0-0.0); Mean Corp Hgb Conc 32.4 g/dL (32-36); Mean Corpuscular Volume 88.9 fL (81-99); Mean Platelet Vol. 13.7 fl (6.2-12.0); NRBC Flagged by Analyzer 0 % (0-5); Platelet Count 155 K/mm3 (150-450); RBC Distribution Width CV 13.9 % (11.6-14.6); RBC Distribution Width SD 45.1 fl (35.1-43.9); Red Blood Count 4.59 M/mm3 (4.2-5.4); White Blood Count 7.1 K/mm3 (4.4-11.0)
[2025-03-19 13:32] LABS: HIV Nonreactive (Nonreactive); Syphilis Antibodies Nonreactive (Nonreactive)
[2025-03-19 13:43] LABS: Glucose Challenge Gest 1H 50g 151 mg/dL (70-140)
== END | disposition home or self-care (01) ==
LOC: BWCLAB 10:40
PROVIDERS: PCP Nurse Practitioner Family; Referring Provider Obstetrics & Gynecology; Visit Provider Obstetrics & Gynecology
DX: Z34.93 Encounter for supervision of normal pregnancy, unspecified, third trimester (principal); Z13.1 Encounter for screening for diabetes mellitus; Z3A.34 34 weeks gestation of pregnancy
CPT/HCPCS: 36415; 82950; 85025; 86703; 86780

== ENCOUNTER 2025-03-23 11:30 | Outpatient (CLI) | payer OTHER, SELFPAY ==
[2025-03-23 11:43] VITALS: BP 115/68; PULSE 75; RESP 16; TEMP 36.5
--- NOTE | 2025-03-23 11:48 | US_ITS ---
PROCEDURE: OB BIOPHYSICAL PROF W/O NST 03/23/2025 REASON FOR EXAM: VARIABLE WITH NST IN THE OFFICE TECHNIQUE: Procedure Code: USBIOWO Modality: US Procedure: OB BIOPHYSICAL PROF W/O NST COMPARISON: None FINDINGS Number: 1 Position: Cephalic Placental Position: Fundal/anterior Placental Abnormalities: Grade 1. No previa. ESTIMATED WEIGHT: ESTIMATED WEIGHT PERCENTILE (24+ weeks): ESTIMATED GESTATIONAL AGE: By LMP: 37 weeks, 5 days. ESTIMATED DATE OF DELIVERY: By LMP: April 08, 2025 BIOPHYSICAL ASSESSMENT: Amniotic Fluid Volume: Largest pocket 9.1 cm Amniotic Fluid Index: 20.8 cm. (8-24 cm normal range) Cardiac Motion: 148 (average) Breathing movements: 2/2 Gross body movements: 2/2 tone: 2/2 Amniotic fluid volume: 2/2 Total score: 8/8 US/OB Biophysical Prof W/O NST IMPRESSION: 1. Biophysical profile: 8/8. 2. Single live intrauterine cephalic presentation 37 weeks, 5 days w ith an HERBER of April 08, 2025 Reading Location: [id number]
--- NOTE | 2025-03-23 11:48 | US_ITS ---
PROCEDURE: OB BIOPHYSICAL PROF W/O NST 03/23/2025 REASON FOR EXAM: VARIABLE WITH NST IN THE OFFICE TECHNIQUE: Procedure Code: USBIOWO Modality: US Procedure: OB BIOPHYSICAL PROF W/O NST COMPARISON: None FINDINGS Number: 1 Position: Cephalic Placental Position: Fundal/anterior Placental Abnormalities: Grade 1. No previa. ESTIMATED WEIGHT: ESTIMATED WEIGHT PERCENTILE (24+ weeks): ESTIMATED GESTATIONAL AGE: By LMP: 37 weeks, 5 days. ESTIMATED DATE OF DELIVERY: By LMP: April 08, 2025 BIOPHYSICAL ASSESSMENT: Amniotic Fluid Volume: Largest pocket 9.1 cm Amniotic Fluid Index: 20.8 cm. (8-24 cm normal range) Cardiac Motion: 148 (average) Breathing movements: 2/2 Gross body movements: 2/2 tone: 2/2 Amniotic fluid volume: 2/2 Total score: 8/8 US/OB Biophysical Prof W/O NST IMPRESSION: 1. Biophysical profile: 8/8. 2. Single live intrauterine cephalic presentation 37 weeks, 5 days w ith an HERBER of April 08, 2025 Reading Location: [id number]
[2025-03-23 11:49] VITALS: BMI 29.4
--- NOTE | 2025-03-28 17:00 | OB.TRI.PN_ITS ---
Progress Notes Date of Service: 03/23/25 Progress Note: Patient presents for triage evaluation secondary to needing extended monitoring FHT: 140 Moderate variability reactive no decelerations category I tracing [place]: no regular Contractions Assessment and plan: 37 weeks abnormal treacing in office needed extended monitoring, here Reactive NST, reassuring maternal and status patient discharged to home to follow-up as scheduled. See problem list details for additional plan information. Charges/Coding Procedures Urinary/Genital 52xxx-59xxx: No Charge
== END 2025-03-23 13:35 | disposition home or self-care (01) ==
LOC: WPOUT 11:31 → WP 11:32
PROVIDERS: PCP Nurse Practitioner Family; Referring Provider Obstetrics & Gynecology; Visit Provider Obstetrics & Gynecology
DX: O36.8330 Maternal care for abnormalities of the fetal heart rate or rhythm, third trimester, not applicable or unspecified (principal); Z3A.37 37 weeks gestation of pregnancy
CPT/HCPCS: 59025; 59050; 76819; 99221; G0378

== ENCOUNTER 2025-04-03 09:37 | Inpatient (IN) | payer OTHER, SELFPAY ==
[2025-04-03] VITALS (13 sets, daily range): BP systolic 104–124; BP diastolic 58–81; PULSE 59–90; RESP 15–26; TEMP 36.1–36.4; O2SAT 94–100; BMI 29.7
[2025-04-03] MEDS: Lactated Ringers 1,000 ML 999 ML IV (10:15)
[2025-04-03 10:36] LABS: Hematocrit 41.4 % (37-47); Hemoglobin 13.9 g/dL (12.0-15.0); Immature Granulocytes Count 0.060 X10^3/uL (0.0-0.0); Mean Corp Hgb Conc 33.6 g/dL (32-36); Mean Corpuscular Volume 86.3 fL (81-99); Mean Platelet Vol. 12.1 fl (6.2-12.0); NRBC Flagged by Analyzer 0 % (0-5); Platelet Count 154 K/mm3 (150-450); RBC Distribution Width CV 13.8 % (11.6-14.6); RBC Distribution Width SD 43.0 fl (35.1-43.9); Red Blood Count 4.80 M/mm3 (4.2-5.4); White Blood Count 7.3 K/mm3 (4.4-11.0)
[2025-04-03 11:06] LABS: Syphilis Antibodies Nonreactive (Nonreactive)
[2025-04-03] MEDS: Lactated Ringers 1,000 ML 150 ML IV (11:16)
--- NOTE | 2025-04-03 12:21 | HP.PCM.OB_ITS ---
HPI - General General Date of Admission: 04/03/25 HPI Narrative MARIAMA MARCOS, is a 35 F who presents for RLTCS Maternal Data Information HERBER Calculator Estimated Delivery Date Method Current WG Current Estimate 04/08/25 Conception 39w 2d PFSH [facility] Medical History (Updated 04/03/25 @ 12:06 by Cecilia Reyes) macrosomia Thyroid disorder Genetic counseling Thyroid disorder Endometriosis determined by laparoscopy Home Medications ?Medication ?Instructions ?Recorded ?Last Taken ?Type vit no.95-ferrous 1 ea PO DAILY 04/0911/22/22 History fumarate 28 mg-folic acid 800 mcg tablet levothyroxine 75 mcg tablet 75 mcg PO QDAY #90 tabs Unknown Rx aspirin 81 mg tablet,delayed 81 mg PO QDAY 08/25/24 Un known History release (Adult Low Dose Aspirin) ondansetron 4 mg disintegrating 4 mg PO Q8H PRN PRN Na usea #60 tabs 10/03/24 Unknown Rx tablet magnesium oxide 400 mg PO QDAY 03/14/25 Unkn own History blood sugar diagnostic (Blood #120 ea 03/23/25 Unknown Rx Glucose Test strips) blood-glucose meter #1 ea 03/23/25 Unknown Rx lancets 30 gauge (Droplet Lancets) #200 ea 03/23/25 Un known Rx Allergy/AdvReac Type Severity Reaction Status Date / Time Penicillins (PCN) Allergy Hives Verified 03/28/25 13:01 prochlorperazine (From Allergy tongue Verified 03/28/25 13:01 Compazine) swelling Family History Aunt No problems noted. Unknown No problems noted. Aunt No problems noted. Grandmother Myocardial infarction Grandmother Myocardial infarction Surgical History History of laparoscopy delivery delivered Social History adopted: No household members: spouse and children number of children: 1 current occupational status: employed current occupation: PRN - [employer] current occupational exposures/hazards: No pets and animals: Yes pets and animals: dog(s) history of recent travel: Yes ([place] - End june ) out of country: Yes sexually active: Yes Smoking Status: Never smoker alcohol intake: never substance use type: does not use well-balanced diet: daily or most days caffeine: No eating out: 1-3 times/week during the past year weight has: remained stable what type of physical activity do you participate in: walking frequency: 1-2 times per week duration: < 15 minutes/day silas/episcopalian: Jew seatbelt use: always do you feel safe at home: Yes additional social history: : [place] History 2 Elective abortions Hx Para 1 Spontaneous abortions 0 Hx # Term Pregnancies 1 Ectopic pregnancies Hx # Pregnancies Multiple births # of living children 1 Past Pregnancies Del. Date Name GA/Weeks Outcome Route Bth Weight Gen Labor Lgth Anesthesia Del Locatn Provider FOB 11/23/22 Adolfo 40 live - full term 10 lb 3 oz Male spinal [facility] Dr. Jojo Waters Delivery Date: 11/23/22 Last Updated by: Jody Montez MD No complications, cs for LGA Visit Details Expected Delivery Route/Plan tolac vs RLTCS-- scheduled at 39 weeks patient counseled regarding risks/benefits of trial of labor versus repeat . ACOG/uptodate education given to patient. [] % likelihood of success per calculator TOLAC consent form signed: [] Labor Preferences- CB/BF classes: no labor support person: [place] labor intervention preferences: [] pain management options preferred: [] cut cord/dad catch: cord : yes PP control planned: [] discussed possible routes of delivery and associated risks: [] special requests: [] Plans Covid status: [] Flu vaccine: [] Tdap vaccine: [] Rhogam: na LARC form signed: yes Problem list reviewed and updated with the most current plan of care details and appropriate orders placed. Relevant counseling for the gestational age provided. Continue routine care and follow up unless otherwise noted in visit notes/problem list details OB Flowsheet Initial Weight: Not Recorded Date -?-?-?-?-?-?-?-?-?-?-?-?- EGA Weight BP Urine Prot -?-?-?-?-?-?-?-?-?-?-?-?- Glucose FHR FuHt Pres Dilation -?-?-?-?-?-?-?-?-?-?-?-?- Effaced St Visit Note 09/06/24 -?-?-?-?-?-?-?-?-?-?-?-?- 9w 3d 143 lb 8 oz 116/78 -?-?-?-?-?-?-?-?-?-?-?-?- 175 -?-?-?-?-?-?-?-?-?-?-?-?- SM- CRL 2.36cm c ons with transfer date 10/09/24 -?-?-?-?-?-?-?-?-?-?-?-?- 14w 1d 155 lb 110/75 Negative -?-?-?-?-?-?-?-?-?-?-?-?- Negative 145 -?-?-?-?-?-?-?-?-?-?-?-?- KW- no vb/crampi ng. US ordered. KW- no vb/cramping. US order ed. movement with handheld US 11/06/24 -?-?-?-?-?-?-?-?-?-?-?-?- 18w 1d 160 lb 4 oz 119/72 Nega tive -?-?-?-?-?-?-?-?-?-?-?-?- Negative 160 -?-?-?-?-?-?-?-?-?-?-?-?- JV- day 5 embryo transfer on 07/21/2024, herber 04/08/25. considering but open to cs because understands needs delivered by 39 weeks. 12/04/24 -?-?-?-?-?-?-?-?-?-?-?-?- 22w 1d 159 lb 8 oz 111/74 Nega tive -?-?-?-?-?-?-?-?-?-?-?-?- Negative 155 -?-?-?-?-?-?-?-?-?-?-?-?- KW- no vb/lof/ct x. good fm. discussed anatomy US and need for growth at 36 weeks and NSTs 01/01/25 -?-?-?-?-?-?-?-?-?-?-?-?- 26w 1d 167 lb 8 oz 103/64 Nega tive -?-?-?-?-?-?-?-?-?--?-?-?- Negative 150 25 -?-?-?-?-?-?-?-?-?-?-?-?- SM- no vb lof go od fm no regular ctx 01/31/25 -?-?-?-?-?-?-?-?-?-?-?-?- 30w 3d 173 lb 8 oz 113/69 Nega tive -?-?-?-?-?-?-?-?-?-?-?-?- Negative 140 29 -?-?-?-?-?-?-?-?-?-?-?-?- JV- wants to do tdap next visit. rsv planned to do at [facility]. no complaints today 02/12/25 -?-?-?-?-?-?-?-?-?-?-?-?- 32w 1d 175 lb 4 oz 102/64 Nega tive -?-?-?-?-?-?-?-?-?-?-?-?- Negative 147 32 -?-?-?-?-?-?-?-?-?-?-?-?- MH-No Vb, LOF. G ood FM. Discussed RL discomfort 02/27/25 -?-?-?-?-?-?-?-?-?-?-?-?- 34w 2d 180 lb 6 oz 116/72 Nega tive -?-?-?-?-?--?-?-?-?-?-?-?- Negative 140 34 -?-?-?-?-?-?-?-?-?-?-?-?- SM- no vb lof go od fm no regular ctx discussed hemorrhoids 03/14/25 -?-?-?-?-?-?-?-?-?-?-?-?- 36w 3d 181 lb 108/71 108/71 Negative -?-?-?-?-?-?-?-?-?-?-?-?- Negative 150 36 0 -?-?-?-?-?-?-?-?-?-?-?-?- MH-Reactive NST. NO VB, LOF or CTX. Good Fm. GBS 03/23/25 -?-?-?-?-?-?-?-?-?-?-?-?- 37w 5d 183 lb 6 oz 104/70 Nega tive -?-?-?-?-?-?-?-?-?-?-?-?- Negative 140 -?-?-?-?-?-?-?-?-?-?-?-?- KW- no vb/lof/ct x. good fm. NST today. variable noted and sent to for BPP. will start testing blood sugars until delivery. NST FHR Rate Baby A Baseline: 130 ROS Constitutional Constitutional: Reports systems reviewed and no addt'l complaints, except as documented Eyes Eyes: Denies change in vision ENT HEENT: Reports systems reviewed and no addt'l complaints, except as documented; Denies headache(s) Cardiovascular Cardiovascular: Reports systems reviewed and no addt'l complaints, except as documented; Denies chest pain or dyspnea Respiratory/Chest Respiratory/Chest: Reports systems reviewed and no addt'l complaints, except as documented Gastrointestinal Gastrointestinal: Reports systems reviewed and no addt'l complaints, except as documented; Denies abdominal pain Genitourinary Genitourinary: Reports systems reviewed and no addt'l complaints, except as documented, contractions Details: present (irregular) and movement Details: present; Denies dysuria or genital lesions Musculoskeletal Musculoskeletal: Reports systems reviewed and no addt'l complaints, except as documented Neurologic Neurologic: Reports systems reviewed and no addt'l complaints, except as documented Endocrine Endocrinology: Reports systems reviewed and no addt'l complaints, except as documented Vital Signs Vital Signs Vital Signs: 04/03/25 10:52 Temperature 97.4 F L Temperature Source Temporal Pulse Rate 90 Respiratory Rate 16 Blood Pressure 123/79 H Blood Pressure Mean 93 Blood Pressure Source Monitor Blood Pressure Position Semi-Fowlers Blood Pressure Location Left Arm Pulse Ox 98 Oxygen Delivery Method Room Air Weight Weight: 184 lb 1.376 oz Body Mass Index (BMI) 29.7 Physical Exam Const alert, oriented x3, no apparent distress and healthy appearing HEENT normocephalic and moist oral mucous membranes Head and Scalp: atraumatic Neck full ROM, no lymphadenopathy, supple and thyroid normal General: trachea midline Lymph Lymphatic: no lymphadenopathy noted Chest inspection of chest normal Resp normal respiratory effort Cardio regular rate GI soft to palpation and non-tender GI Narrative: gravid Inspection: gravid external exam normal Manual OB Exam: estimated gestational size appropriate, presentation cephalic, dilated, effaced and station Extremity normal to inspection General Extremity: Negative for edema Skin no rashes or lesions noted Neuro no focal motor deficits and deep tendon reflexes 2+ bilaterally Motor Exam: strength 5/5 throughout and clonus absent Psych mental status grossly normal Labs Labs Labs: Blood Type O POSITIVE Antibody Screen NEGATIVE Hct, (37-47) 41.4 % Hgb, (12.0-15.0) 13.9 g/dL Syphilis Total Ab, (Nonreactive) Nonreactive VZV IgG Antibody, (Immune >165) 2502 index Rubella IgG Antibody, (Nonreactive) REAC Hep Bs Antigen, (Nonreactive) Nonreactive Hepatitis C Antibody, (Nonreactive) Nonreactive Chlamydia DNA (VANGIE), (Negative) Negative N.gonorrhoeae DNA (VANGIE), (Negative) Negative HIV 1&2 Antibody, (Nonreactive) Nonreactive Glucose 1 Hr 50 gm, (70-140) 151 mg/dL H Rhogam given: No Assessment & Plan (1) LGA (large for gestational age) fetus: COMMENT: repeat 1 hr GCT: (2) Velamentous insertion of umbilical cord: QUALIFIERS: Trimester: third trimester Qualified Code(s): O43.123 - Velamentous insertion of umbilical cord, third trimester COMMENT: posterior located placenta (3) Supervision of high-risk : QUALIFIERS: Trimester: third trimester Qualified Code(s): O09.93 - Supervision of high risk , unspecified, third trimester COMMENT: PRR, , HERBER 04/08/25, girl PC: Adolfo, : [place] (4) : QUALIFIERS: Weeks of gestation: 34 weeks Qualified Code(s): Z3A.34 - 34 weeks gestation of COMMENT: Neg GBS Discussed genetic/carrier testing - undecided; unsure of what testing was done w/IVF. c/s 04/03 SM. (5) History of delivery, currently : COMMENT: x1 - Wants to discuss vs rpt cs (6) conceived through in vitro fertilization: QUALIFIERS: Trimester: third trimester Qualified Code(s): O09.813 - Supervision of resulting from assisted reproductive technology, third trimester COMMENT: age in 20s. Adopted embryo both donor. carrier negative for both as far as they know. - Transfer date 07/21 @ 5 days. 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
--- NOTE | 2025-04-03 12:23 | EX.PCM.OBRPT ---
Assessment & Plan (1) delivery delivered: COMMENT: RLTCS 39 girl (2) LGA (large for gestational age) fetus: COMMENT: repeat 1 hr GCT: (3) Velamentous insertion of umbilical cord: QUALIFIERS: Trimester: third trimester Qualified Code(s): O43.123 - Velamentous insertion of umbilical cord, third trimester COMMENT: posterior located placenta (4) Supervision of high-risk : QUALIFIERS: Trimester: third trimester Qualified Code(s): O09.93 - Supervision of high risk , unspecified, third trimester COMMENT: PRR, , HERBER 04/08/25, girl [facility]: Adolfo, : Jt (5) : QUALIFIERS: Weeks of gestation: 34 weeks Qualified Code(s): Z3A.34 - 34 weeks gestation of COMMENT: Neg GBS Discussed genetic/carrier testing - undecided; unsure of what testing was done w/IVF. c/s 04/03 . (6) History of delivery, currently : COMMENT: x1 - Wants to discuss vs rpt cs (7) conceived through in vitro fertilization: QUALIFIERS: Trimester: third trimester Qualified Code(s): O09.813 - Supervision of resulting from assisted reproductive technology, third trimester COMMENT: age in 20s. Adopted embryo both donor. carrier negative for both as far as they know. - Transfer date 07/21 @ 5 days. 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 Qualified Code(s): E06.3 - Autoimmune thyroiditis COMMENT: Thyroid labs NL Maternal Data Information HERBER Calculator Estimated Delivery Date Method Current WG Current Estimate 04/08/25 Conception 39w 2d Operative Report (OB) Procedure Details Date of Procedure: 04/03/25 Procedure Start Time: 12:44 Pre-Operative Diagnosis: Other Other Pre-Operative diagnosis: see a/p comments Post-Operative Diagnosis: Same as Pre-operative diagnosis Classification: Scheduled Type of Anesthesia: Spinal Special Medications: none Antibiotic Given: Clindamycin 600mg IV x1 and Gentamicin 1.5mg/kg IV x1 Drain: Pritchard to straight drain Estimated Blood Loss: 600 Fluids Replaced: crystalloid Findings Description of surgery: Spinal anesthesia was placed without difficulty. Pritchard catheter was placed. The patient was placed in the dorsal supine position with leftward tilt. Patient was prep draped in the normal sterile fashion. Pfannenstiel skin incision was made with the scalpel and carried through to the underlying layer of fascia with the scalpel. Fascia was nicked in the midline and the incision extended laterally. The rectus bellies were dissected off superiorly and inferiorly with out complication both sharply and bluntly. The peritoneum was entered digitally. The incision was stretched and a low transverse uterine incision was made with the scalpel. The 's head was delivered atraumatically followed by the anterior and posterior shoulders without complication the rest of the infant delivered. The cord was clamped and cut and the was handed off to awaiting nurse. The placenta was delivered spontaneously immediately following and was noted to be intact and have a three-vessel cord. The uterus was exteriorized cleared of all clots and debris, and the incision was closed in a single layer closure using #1 Monocryl. hemoblast placed over the incision for hemostasis. The ovaries and fallopian tubes were noted to be within normal limits. The uterus was returned to the maternal abdomen and gutters were cleared of all clots and debris. The peritoneum was closed with 3-0 Monocryl in a running fashion. Gloves were changed prior to fascial closure. hemoblast used for hemostasis. Fascia was closed with 0 PDS in a running fashion. Subcutaneous tissue was copiously irrigated and the skin was closed with 3-0 Monocryl in a subcuticular fashion. Mepilex dressing was applied without complication. Patient was taken to recovery in stable condition. It was discussed with the patient that based on the clinical information obtained during this encounter, combined with her history, at this time I would recommend or vaginal for future deliveries if further pregnancies are desired. Surgical findings: minimal scarring Presentation: Vertex Amniotic Membrane Rupture Type: Artificial Amniotic Fluid Description: Clear Specimen collected: Yes Description of specimen(s) removed: placenta and baby Cord Vessel Description: 3 Vessels Delayed Cord Clamping: Yes Database Architect bottom loader: Yes Nougat Candy Maker Helper: Alli Vasquez Tasks completed by press operator assistant: Opening & closing, Retracting and Other (assisting in delivery of the ) Additional assistant project manager?: No Complications Complications: No Admit VTE Documentation VTE Present on Admission: No VTE Mechan Device Prophylaxis: SCD's Procedures Urinary/Genital [id number]: [id number] Delivery [facility]
--- NOTE | 2025-04-03 12:26 | PCM.DC ---
Discharge Instructions DC O2, CPAP, BIPAP needs Home O2 Discharge instructions: No Dressing / Incision Discharge Activity: May Not Drive (for 2 weeks or while taking narcotic pain medications.), May Shower and May Take a Tub Bath (in 7 days) May shower in (days): 0 May resume sexual activity in: 4-6 weeks Weight Bearing Status: Full weight bearing Lifting Restrictions: 20 pounds Dressing / Incision Call your doctor if your incision/area has: Continuous Slow Oozing, Sudden Increased Bleeding, Increased Pain/ Swelling, Increased Redness and Foul Smelling Discharge Call your doctor if you observe: Fever of 101 or Higher and Using more than 1 pad per hour (for 2 hours) Suture Line Care: Avoid Pulling/Pushing and Avoid Pinching/Bending Cleanse incision/area with: Soap & Water and Keep Dressing Clean & Dry Follow Up Care Please Follow Up With: Jody Montez MD When: Call [phone] to make an appointment for an incision check in 1-2 weeks. Test Results: Test results from this visit will be discussed in further detail at your follow-up appointment, if applicable. Discharge Plan Admission Admit Date/Time: 04/03/25 09:37 Attending Provider: Jody Montez Primary Care Provider: Savi Moreau OCCUPATIONAL THERAPY ASSISTANT Discharge Orders/Prescriptions Prescriptions: New oxycodone-acetaminophen [Percocet] 5-325 mg tablet 1 tab PO Q4H PRN (Reason: pain) 7 Days Qty: 20 0RF naproxen 500 mg tablet 500 mg PO BID PRN PRN (Reason: Pain) Qty: 30 1RF No Action aspirin [Adult Low Dose Aspirin] 81 mg tablet,delayed release (DR/EC) 81 mg PO QDAY magnesium oxide 400 mg magnesium tablet 400 mg PO QDAY PNV no.95-ferrous fumarate-FA 1 EACH tablet 1 ea PO DAILY levothyroxine 75 mcg tablet 75 mcg PO QDAY Qty: 90 3RF ondansetron 4 mg tablet,disintegrating 4 mg PO Q8H PRN PRN (Reason: Nausea) Qty: 60 4RF (DME) blood-glucose meter Misc See Rx Instructions .ROUTE .MEDSUPPLY Qty: 1 0RF Rx Instructions: As directed (DME) Blood Glucose Test Strip See Rx Instructions .ROUTE .MEDSUPPLY Qty: 120 6RF Rx Instructions: Check blood sugars Fasting and 2 hours after breakfast, lunch, and dinner. (DME) lancets [Droplet Lancets] 30 gauge misc See Rx Instructions .ROUTE .MEDSUPPLY Qty: 200 6RF Rx Instructions: Check blood sugars fasting and 2 hours after breakfast, lunch, and supper. Referrals / Follow Up: Savi Moreau NP, OCCUPATIONAL THERAPY ASSISTANT-C [Primary Care Provider, Family Practice]
[2025-04-03] MEDS: morphine PF (epidural) 5 MG/10 ML Vial IV (12:34)
[2025-04-03] MEDS: Gentamicin 800 MG/20 ML Vial 300 MG IV (12:43)
[2025-04-03] MEDS: Lactated Ringers 500 ML IV (13:15)
[2025-04-03] MEDS: Oxytocin 15 Units/NS 250ml 15 UNITS/250 ML IV.SOLN 83 UNITS IV (13:45)
[2025-04-03] MEDS: Ketorolac 30 MG/ML Syringe IV ×2 (14:13→20:41)
[2025-04-03] MEDS: Lactated Ringers 1,000 ML 100 ML IV (16:51)
--- NOTE | 2025-04-03 18:36 | NURSING ---
RN asked if pt was ready to ambulate, pt stated my legs still feel tingly
[2025-04-04] VITALS: BP 115/68; PULSE 58; RESP 18; TEMP 36.7; O2SAT 97
[2025-04-04] MEDS: Ketorolac 30 MG/ML Syringe IV ×2 (01:59→07:58)
[2025-04-04] MEDS: 0.9% Saline Lock 10 ML Syringe IV ×2 (01:59→07:59)
[2025-04-04 03:59] VITALS: BP 99/55; PULSE 71; RESP 16; TEMP 36.4; O2SAT 97
[2025-04-04 04:39] VITALS: BP 101/58; PULSE 62; O2SAT 97
[2025-04-04 06:27] LABS: Hematocrit 36.4 % (37-47); Hemoglobin 12.3 g/dL (12.0-15.0); Mean Corp Hgb Conc 33.8 g/dL (32-36); Mean Corpuscular Volume 87.1 fL (81-99); Mean Platelet Vol. 11.3 fl (6.2-12.0); Platelet Count 154 K/mm3 (150-450); RBC Distribution Width CV 13.9 % (11.6-14.6); RBC Distribution Width SD 43.9 fl (35.1-43.9); Red Blood Count 4.18 M/mm3 (4.2-5.4); White Blood Count 9.3 K/mm3 (4.4-11.0)
--- NOTE | 2025-04-04 07:52 | PCM.PN.OB ---
Subjective Subjective Patient doing well without complaints. Tolerating PO. Ambulating and voiding without difficulty. Feeding well. Denies chest pain, shortness of breath, calf pain/swelling, fevers, chills, lightheadedness. Objective Data Objective Data Vital Signs: Vital Signs Temp Pulse Resp BP Pulse Ox O2 Del Method 97.5 F L 62 16 101/58 L 97 Room Air 04/04/25 03:59 04/04/25 04:39 04/04/25 03:59 04/04/25 04:39 04/04/25 04:39 04/04/25 04:39 Oxygen Delivery Method Room Air Weight: 184 lb 1.376 oz Body Mass Index (BMI) 29.7 Intake & Output: Intake and Output for Last 24 Hours 04/02/25 04/03/25 04/04/25 23:59 23:59 23:59 Intake Total 1937.5 / 1937.5 Output Total 700 / 700 250 / 250 Balance 1237.5 / 1237.5 -250 / -250 Lab / Micro Data 04/04/25 06:16 Labs: Laboratory Results - last 24 hr 04/03/25 10:15: WBC 7.3, RBC 4.80, Hgb 13.9, Hct 41.4, MCV 86.3, MCH 29.0, MCHC 33.6, RDW Std Deviation 43.0, RDW Coeff of Rhonda 13.8, Plt Count 154, MPV 12.1 H, Immature Gran % (Auto) 0.800, Neut % (Auto) 71.4 H, Lymph % (Auto) 20.4, [place] % (Auto) 5.9, Eos % (Auto) 1.2, Baso % (Auto) 0.3, Absolute Neuts (auto) 5.2, Absolute Lymphs (auto) 1.49, Nucleated RBC % 0, Syphilis Total Ab Nonreactive, Blood Type O POSITIVE, Antibody Screen NEGATIVE 04/04/25 06:16: WBC 9.3, RBC 4.18 L, Hgb 12.3, Hct 36.4 L, MCV 87.1, MCH 29.4, MCHC 33.8, RDW Std Deviation 43.9, RDW Coeff of Rhonda 13.9, Plt Count 154, MPV 11.3 ROS Constitutional Constitutional: Reports systems reviewed and no addt'l complaints, except as documented Cardiovascular Cardiovascular: Reports as per HPI Respiratory/Chest Respiratory/Chest: Reports as per HPI Genitourinary Genitourinary: Reports as per HPI Physical Exam Const alert and oriented x3 HEENT normocephalic Eyes PERRL Neck full ROM Resp normal respiratory effort GI soft to palpation GI Narrative: FF below U. Dressing dry and intact Palpation: tender other (appropriately) Assessment & Plan (1) delivery delivered: COMMENT: RLTCS 39 girl PLAN: Plan s/p LTCS PPD # 1 1. routine post care 2. breast feeding- support given 3. rh positive 4. rubella immune
[2025-04-04 08:03] VITALS: BP 105/64; PULSE 71; RESP 16; TEMP 36.5; O2SAT 98
[2025-04-04] MEDS: Senna/Docusate Sodium 1 Tablet PO (13:13)
[2025-04-04 13:44] VITALS: BP 112/69; PULSE 73; RESP 16; TEMP 36.7; O2SAT 98
[2025-04-04 19:56] VITALS: BP 127/81; PULSE 88; RESP 18; TEMP 37.1; O2SAT 100
[2025-04-05 02:00] VITALS: BP 110/59; PULSE 86; RESP 17; TEMP 36.6; O2SAT 98
--- NOTE | 2025-04-05 08:24 | DS.PCM_ITS ---
Providers Date of Admission: 04/03/25 Primary Care Physician: NEERAJ Dominguez Reason For Visit: REPEAT Diagnosis Discharge Diagnosis (1) delivery delivered: Status: Acute Code(s): O82 - Encounter for delivery without indication Medications at Discharge Home Medications vit no.95-ferrous fumarate 28 mg-folic acid 800 mcg tablet 1 ea PO DAILY 04/30/20 levothyroxine 75 mcg tablet 75 mcg PO QDAY #90 tabs 07/31/24 aspirin 81 mg tablet,delayed release (Adult Low Dose Aspirin) 81 mg PO QDAY 08/25/24 ondansetron 4 mg disintegrating tablet 4 mg PO Q8H PRN PRN Nausea #60 tabs 10/03/24 magnesium oxide 400 mg PO QDAY 03/14/25 blood sugar diagnostic (Blood Glucose Test strips) #120 ea 03/23/25 blood-glucose meter #1 ea 03/23/25 lancets 30 gauge (Droplet Lancets) #200 ea 03/23/25 naproxen 500 mg tablet 500 mg PO BID PRN PRN Pain #30 tabs 04/03/25 oxycodone-acetaminophen 5 mg-325 mg tablet (Percocet) 1 tab PO Q4H PRN pain 7 days #20 tabs 04/03/25 Hospital Course Operations section Summary of Care Provided Minutes Spent on Discharge: 30 Hospital Course: The patient was admitted for a repeat section on 04/03/25. There were no complications. On day #1 she was tolerating pain well and ambulating, on day #2 she was ready for discharge. Her baby was being treated for jaundice and she asked for a 'hotel statys Physical Exam HEENT normocephalic Resp normal respiratory effort and normal air movement GI soft to palpation, non-tender and non-distended Rectal Exam: other Other Details: Incision is clean, dry, and intact no CVA tenderness Extremity normal to inspection General Extremity: edema bilateral (trace ) Weight / BMI Weight Weight: 184 lb 1.376 oz Body Mass Index (BMI) 29.7 ABG / Lab / Microbiology Data 04/04/25 06:16 D/C Instructions Discharge Activity: May Not Drive (for 2 weeks or while taking narcotic pain medications.), May Shower and May Take a Tub Bath (in 7 days.) May shower in (days): 0 May resume sexual activity in: 4-6 weeks Weight Bearing Status: Full weight bearing Lifting Restrictions: 20 pounds Call your doctor if your incision/area has: Continuous Slow Oozing, Sudden Increased Bleeding, Increased Pain/ Swelling, Increased Redness and Foul Smelling Discharge Call your doctor if you observe: Fever of 101 or Higher and Using more than 1 pad per hour (for 2 hours) Suture Line Care: Avoid Pulling/Pushing and Avoid Pinching/Bending Cleanse incision/area with: Soap & Water and Keep Dressing Clean & Dry DC O2, CPAP, BIPAP Needs Home O2 Discharge instructions: No Please Follow Up With: Jody Montez MD When: Call [phone] to make an appointment for an incision check in 1-2 weeks. Meaningful Use Info Meaningful Use Meaningful Use Diagnoses (Choose all that apply): None applicable Discharge Plan Admission Admit Date/Time: 04/03/25 09:37 Primary Reason for Your Visit: repeat section Attending Provider: Jody Montez Primary Care Provider: Savi Moreau PARK MAINTENANCE TECHNICIAN Discharge Orders/Prescriptions Prescriptions: New oxycodone-acetaminophen [Percocet] 5-325 mg tablet 1 tab PO Q4H PRN (Reason: pain) 7 Days Qty: 20 0RF naproxen 500 mg tablet 500 mg PO BID PRN PRN (Reason: Pain) Qty: 30 1RF No Action aspirin [Adult Low Dose Aspirin] 81 mg tablet,delayed release (DR/EC) 81 mg PO QDAY magnesium oxide 400 mg magnesium tablet 400 mg PO QDAY PNV no.95-ferrous fumarate-FA 1 EACH tablet 1 ea PO DAILY levothyroxine 75 mcg tablet 75 mcg PO QDAY Qty: 90 3RF ondansetron 4 mg tablet,disintegrating 4 mg PO Q8H PRN PRN (Reason: Nausea) Qty: 60 4RF (DME) blood-glucose meter Misc See Rx Instructions .ROUTE .MEDSUPPLY Qty: 1 0RF Rx Instructions: As directed (DME) Blood Glucose Test Strip See Rx Instructions .ROUTE .MEDSUPPLY Qty: 120 6RF Rx Instructions: Check blood sugars Fasting and 2 hours after breakfast, lunch, and dinner. (DME) lancets [Droplet Lancets] 30 gauge misc See Rx Instructions .ROUTE .MEDSUPPLY Qty: 200 6RF Rx Instructions: Check blood sugars fasting and 2 hours after breakfast, lunch, and supper. Referrals / Follow Up: Savi Moreau PARK MAINTENANCE TECHNICIAN, PARK MAINTENANCE TECHNICIAN-C [Primary Care Provider, Family Practice] Disposition Disposition (needs filled in before D/C Order can be placed): Home, Self Care
[2025-04-05 08:53] VITALS: BP 117/74; PULSE 78; RESP 16; TEMP 36.5; O2SAT 100
[2025-04-05] MEDS: Senna/Docusate Sodium 1 Tablet PO (11:41)
[2025-04-05] MEDS: FLU VACCINE 2025-26(6MOS UP) 45 MCG/0.5 ML SYRINGE IM (11:42)
== END 2025-04-05 12:00 | disposition home or self-care (01) | DRG 788 ==
PROVIDERS: Admitting Provider Obstetrics & Gynecology; PCP Nurse Practitioner Family; Referring Provider Obstetrics & Gynecology; Visit Provider Obstetrics & Gynecology
PROC: 10D00Z1 Extraction of Products of Conception, Low, Open Approach (ICD-10-PCS; CPT 59514; principal; 2025-04-03 12:00)
DX: O99.284 Endocrine, nutritional and metabolic diseases complicating childbirth (principal); E06.3 Autoimmune thyroiditis; O34.211 Maternal care for low transverse scar from previous cesarean delivery; Z37.0 Single live birth; O43.123 Velamentous insertion of umbilical cord, third trimester; O36.63X0 Maternal care for excessive fetal growth, third trimester, not applicable or unspecified; Z3A.39 39 weeks gestation of pregnancy; Z79.890 Hormone replacement therapy; Z79.82 Long term (current) use of aspirin
CPT/HCPCS: 59025; 59050; 85025; 85027; 86780; 86850; 86900; 86901; 99221; A4216; G0378; J2405

== ENCOUNTER → 2025-05-22 | Outpatient (CLI) | payer OTHER, SELFPAY | END | disposition home or self-care (01) | PROVIDERS: PCP Nurse Practitioner Family; Visit Provider Student in an Organized Health Care Education/Training Program | DX: E06.3 Autoimmune thyroiditis (principal) | CPT/HCPCS: 36415; 84439; 84443 ==